=== PATIENT | female | born 1965 | race Caucasian/White ===

== ENCOUNTER 2023-12-12 10:34 | Outpatient (AMB) | payer OTHER, SELFPAY ==
[2023-12-12 10:42] VITALS: BP 138/78; PULSE 88; O2SAT 98; BMI 28.6
--- NOTE | 2023-12-12 10:42 | A.OFFPC_ITS ---
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 Allergies No Known Allergies Allergy (Verified 12/12/23 10:47) Tobacco use date assessed: 12/12/23 Dental Screening Dental Screen Date: 12/12/23 Did you have a dental visit in the last 12 months?: Yes Did you have a dental problem in the last 6 months where you did not have access to dental care?: No Was dental information given to patient?: Patient has dentist HPI HPI Comments History of Present Illness Details This is a 58-year-old female with a past medical history of type 2 diab etes, hypertension and hyperlipidemia presenting to transfer from my practice at [facility]. She was last seen there about a year ago. Type 2 diabetes-the patient was last seen by endocrinology at [facility] about a year ago. Her hemoglobin A1c at that time was 7.2%. She believes it will be higher now. Her POC is 311 today. She has been off her Ozempic for several months because her graduate studies dean would not fill it without seeing her. She is taking glipizide 5 mg once or twice a day and metformin 1000 mg twice daily. She has not checking her blood sugars. Hypertension-taking losartan 100 mg. She does not have a blood pressure monitor at home. Her blood pressure is 138/78. Hyperlipidemia-taking rosuvastatin 10 mg daily. Patient endorses a 2/10 discomfort in her left upper abdomen for the past couple of months. She has a new Jameson, and he is very active so she thought he might have jumped on her. She thinks symptoms may be worse after eating, but she is unsure. Pain does not radiate. No vomiting, nausea, acid reflux, chest pain, shortness of breath or unexplained weight loss. She has felt some fatigue since she had COVID-19. She was previously on Paxil for anxiety. Patient also says she has a yeast infection today. She has vaginal itching. No discharge. She thinks this is due to her sugars being higher since she ran out of meds. ROS: Constitutional: No unexplained weight loss, fever, chills or night sweats. Eyes: No vision changes, blurry vision, double vision, eye pain, eye redness, eye discharge. ENT: No hearing loss, sneezing, congestion, runny nose or sore throat. Respiratory: No shortness of breath, cough or sputum production. Cardiovascular: No chest pain, chest pressure or chest discomfort. No palpitations or pedal edema. Gastrointestinal: No anorexia, nausea, vomiting or diarrhea. No blood in stool. Genitourinary: No dysuria, hematuria, urinary frequency. Neurologic: No headache, dizziness, syncope, unilateral weakness, ataxia, numbness or tingling in the extremities. Hematologic/Lymphatics: No bleeding or bruising. Skin: No rash or itching. Endocrine: No cold or heat intolerance. No polyuria or polydipsia. Psychiatric: No SI/HI. Physical exam: Constitutional: Alert, in no distress. Head: Normocephalic. Neck: Supple, Full range of motion. No lymphadenopathy. Respiratory: Clear to auscultation. Cardiovascular: S1 S2 regular. No murmurs. Gastrointestinal: Abdomen soft, +mild tenderness in the left upper quadrant, abdomen is non-distended. Normal bowel sounds. No palpable masses. Genitourinary: No costovertebral angle tenderness. Extremities: Warm and well perfused. No clubbing, cyanosis or edema. Psychiatric: Normal mood and affect [facility] Medical History (Updated 12/12/23 @ 14:11 by LARY Mejía) Anxiety Pure hypercholesterolemia Left upper quadrant pain Fatigue Essential hypertension Type 2 diabetes mellitus Torn ligament High cholesterol High blood pressure Diabetes Family History (Updated 12/12/23 @ 10:59 by Gayatri Solano CMA) Father Colon cancer Mother Diabetes Social History Household Members: Significant Other Housing: House Are you a primary vehicle care specialist to a significant other at home: No Do you presently have visiting nurse or other home services: No Alcohol intake: current Alcohol type: wine Patient Tobacco Use Status: Former Tobacco user e-Cigarette/Vaping Use: Currently Using Special reanna needs: No service: No Current occupational status: employed Current occupation: service diapatcher Cognitive needs: No Hearing needs: No Vision needs: Yes (Patient wears glasses.) Physical exam (Primary Care) BMI result Body Mass Index 28.6 Results AMB Random Glucose (hemocue) AMB Random Glucose (hemocue) 311 mg/dL Last Edit by Gayatri Solano CMA on 12/12/23 12:12 Assessment and Plan Assessment & Plan (1) Type 2 diabetes mellitus: Code(s): E11.9 - Type 2 diabetes mellitus without complications Qualifiers: Diabetes mellitus longterm insulin use: without emt intermediate use Diabetes mellitus complication status: with hyperglycemia Qualified Code(s): E11.65 - Type 2 diabetes mellitus with hyperglycemia Plan: Encouraged patient to check blood glucose regularly to review at appointments. Continue glipizide 5 mg twice a day, metformin 1000 mg twice a day and restart Ozempic. We started at 0.5 mg since she has been out of it for several months to mitigate GI symptoms, but I expect we will need to titrate it. Check diabetic labs. Recommended annual eye exam. (2) Essential hypertension: Code(s): I10 - Essential (primary) hypertension Plan: Given prescription for blood pressure cuff. Bring home readings to next visit. We will change medications if home readings are not 130/80 or less. Recommended avoidance of caffeine and a low-sodium diet. (3) Fatigue: Code(s): R53.83 - Other fatigue Qualifiers: Fatigue type: chronic, unspecified Qualified Code(s): R53.82 - Chronic fatigue, unspecified Plan: Patient attributes to fatigue to prior COVID-19 infection. Check labs. Consider sleep study for persistent symptoms. (4) Left upper quadrant pain: Code(s): R10.12 - Left upper quadrant pain Plan: Check H pylori antigen, screening labs and abdominal ultrasound. Warning signs warranting ER evaluation reviewed. If symptoms persist consider CT abdomen. (5) Pure hypercholesterolemia: Code(s): E78.00 - Pure hypercholesterolemia, unspecified Plan: Continue rosuvastatin. Check fasting lipid profile. Recommended Mediterranean diet. (6) Vaginitis: Code(s): N76.0 - Acute vaginitis Qualifiers: Chronicity: acute Qualified Code(s): N76.0 - Acute vaginitis Plan: Treat with Diflucan. Follow up with OBGYN if symptoms persist. Plan Follow up in 1 month for diabetes, hypertension and abdominal pain recheck. Orders: Orders Hemoglobin A1c Today E11.9 - Type 2 diabetes mellitus without complications, I10 - Essential (primary) hypertension Comprehensive [place]. Panel Fast Today E11.9 - Type 2 diabetes mellitus without complications, I10 - Essential (primary) hypertension Lipase Today R10.12 - Left upper quadrant pain H pylori Ag Stool Today R10.12 - Left upper quadrant pain Microalbumin, Random (w Creat) Today E11.9 - Type 2 diabetes mellitus without complications, I10 - Essential (primary) hypertension Lipid Panel Today E11.9 - Type 2 diabetes mellitus without complications, I10 - Essential (primary) hypertension Complete Blood Count Auto Diff Today E11.9 - Type 2 diabetes mellitus without complications Amylase Today R10.12 - Left upper quadrant pain TSH reflex Free T4 Today E66.9 - Obesity, unspecified, R53.83 - Other fatigue Vitamin B12 Today R53.83 - Other fatigue US abdomen complete Today R10.12 - Left upper quadrant pain AMB Random Glucose (hemocue) Today E11.9 - Type 2 diabetes mellitus without complications Medications: New losartan 100 mg PO DAILY 90 tabs 3RF semaglutide (Ozempic) 0.5 mg (0.736 mL) subcut QWEEK 3 mL 0RF metformin ER 1,000 mg (2 x 500 mg) PO BID 90 days 360 tabs 3RF fluconazole 150 mg PO Q3D 2 tabs 0RF blood pressure monitor As directed 1 ea 0RF glipizide 5 mg PO BID 90 days 180 tabs 3RF Coding Level of Care Code Est Pt Level 4 (95979) Complex EM visit Add On G2211 Diagnoses Type 2 diabetes mellitus with hyperglycemia, without long-term current use of insulin E11.65 Diabetes mellitus longterm insulin use: without emt intermediate use Diabetes mellitus complication status: with hyperglycemia Essential hypertension I10 Chronic fatigue R53.82 Fatigue type: chronic, unspecified Left upper quadrant pain R10.12 Pure hypercholesterolemia E78.00 Acute vaginitis N76.0 Chronicity: acute
== END 2023-12-12 12:17 | disposition home or self-care (01) ==
PROVIDERS: PCP Physician Assistant Medical; Visit Provider Physician Assistant Medical
DX: E11.65 Type 2 diabetes mellitus with hyperglycemia (principal); I10 Essential (primary) hypertension; R53.82 Chronic fatigue, unspecified; R10.12 Left upper quadrant pain; E78.00 Pure hypercholesterolemia, unspecified; N76.0 Acute vaginitis; E11.9 Type 2 diabetes mellitus without complications
CPT/HCPCS: 82948; 99214

== ENCOUNTER 2023-12-13 09:29 | Outpatient (REF) | payer OTHER, SELFPAY ==
[2023-12-13 11:32] LABS: MANUAL DIFF FLAG NO
[2023-12-13 11:39] LABS: Basophils Absolute Auto 0.1 X10*3/uL (0.0-0.2); Basophils Percent Auto 0.6 % (0-2); Eosinophils Absolute Auto 0.2 X10*3/uL (0.0-0.4); Eosinophils Percent Auto 2.4 % (0-4); Hematocrit 41.5 % (37.0-47.0); Hemoglobin 13.6 g/dl (12.0-16.0); Imm Gran Abs Auto 0.03 X10*3/uL (0.00-0.03); Imm Gran Pct Auto 0.4 % (0.0-0.4); Lymphocytes Absolute Auto 1.9 X10*3/uL (1.2-4.9); Lymphocytes Percent Auto 22.6 % (20-40); Mean Corpuscular HGB Conc 32.8 g/dl (31.0-35.0); Mean Corpuscular Hemoglobin 28.3 pg (27.0-33.0); Mean Corpuscular Volume 86.3 fL (80.0-98.0); Mean Platelet Volume 9.6 fL (9.4-12.3); Monocytes Absolute Auto 0.6 X10*3/uL (0.1-1.2); Monocytes Percent Auto 7.2 % (2-11); Neutrophils Absolute Auto 5.6 x10*3/uL (2.0-8.3); Neutrophils Percent Auto 66.8 % (45-73); Platelet Count 280 X10*3/uL (160-400); Red Blood Count 4.81 X10*6/uL (4.20-5.50); Red Cell Distribution Width 12.5 % (11.0-16.0); White Blood Count 8.4 X10*3/uL (4.8-10.8)
[2023-12-13 12:09] LABS: Hemoglobin A1c % > 14.0 % (<6.0)
[2023-12-13 12:17] LABS: Creatinine Urine 145.56 mg/dL; Microalbum/Creatinine Ratio Ur 43.2 ug/mg cr (<30)
[2023-12-13 12:28] LABS: Alanine Aminotransferase 16 U/L (0-31); Albumin Level 3.9 g/dL (3.5-5.0); Alkaline Phosphatase 110 U/L (39-117); Amylase 60 U/L (28-100); Anion Gap 11 (12-20); Aspartate Amino Transferase 15 U/L (5-31); Bilirubin Total 0.4 mg/dL (0.0-1.0); Blood Urea Nitrogen 10 mg/dL (9-16); Calcium 9.3 mg/dL (8.4-10.2); Carbon Dioxide 29 mmol/L (22-29); Chloride 101 mmol/L (96-108); Cholesterol 144 mg/dL (<200); Estimated Glomerular Filt Rate > 60; Glucose Fasting 345 mg/dL (60-99); HDL Cholesterol 67 mg/dL (>40); LDL Cholesterol Calculated 63 mg/dL (<100); Lipase 75 U/L (8-78); Potassium 4.3 mmol/L (3.3-5.1); Sodium 137 mmol/L (135-145); Total Protein 7.3 g/dL (6.5-8.0); Triglycerides 71 mg/dL (<150)
[2023-12-13 12:44] LABS: TSH reflex Free T4 0.65 uIU/mL (0.32-4.0)
[2023-12-13 12:48] LABS: Vitamin B12 441 pg/mL (200-900)
== END 2023-12-13 09:30 | disposition home or self-care (01) ==
LOC: HO.WFDLDS 09:29
PROVIDERS: Visit Provider Physician Assistant Medical
DX: E11.9 Type 2 diabetes mellitus without complications (principal); R10.12 Left upper quadrant pain; I10 Essential (primary) hypertension; E66.9 Obesity, unspecified; R53.83 Other fatigue
CPT/HCPCS: 36415; 80053; 80061; 82043; 82150; 82570; 82607; 83036; 83690; 84443; 85025

== ENCOUNTER 2023-12-19 07:42 | Outpatient (REF) | payer OTHER, SELFPAY ==
--- NOTE | ~2023-12-19 | US_ITS ---
EXAMINATION: US ABDOMEN COMPLETE CLINICAL INFORMATION: Left upper quadrant pain. COMPARISON: None available. TECHNIQUE: Real-time imaging of the abdominal viscera. FINDINGS: PANCREAS: Normal. ABDOMINAL AORTA: The proximal, mid, and distal segments are normal in caliber. INFERIOR VENA CAVA: Visualized portions are normal. LIVER: Normal. The liver is normal in size. The liver contour is normal. Parenchymal echogenicity is normal. No focal hepatic lesion. There is no intrahepatic biliary duct dilatation seen. GALLBLADDER: A few gallbladder polyps measuring up to 3 mm. Possible gallstone in the gallbladder neck. The gallbladder is physiologically distended. No evidence of gallbladder wall thickening or pericholecystic fluid. COMMON BILE DUCT: Normal in caliber measuring 0.48 cm in diameter. RIGHT KIDNEY: A 5 mm echogenic right upper pole renal lesion possibly a small angiomyolipoma or parenchymal calcification. No hydronephrosis. No renal calculi or focal parenchymal lesions. The kidney measures 12.0 cm in maximum dimension. LEFT KIDNEY: Subcentimeter benign-appearing renal cyst, no follow-up imaging recommended. No hydronephrosis or renal calculi. The kidney measures 11.4 cm in maximum dimension. SPLEEN: Normal. The spleen measures 9.5 cm in maximum dimension. FREE FLUID: None. US/US abdomen complete IMPRESSION: * Possible gallstone in the gallbladder neck without findings to suggest acute cholecystitis. * A 5 mm echogenic right upper pole renal lesion possibly a small angiomyolipoma or parenchymal calcification. * Few small gallbladder polyps measuring up to 3 mm.
== END 2023-12-19 07:43 | disposition home or self-care (01) ==
LOC: HO.US 07:42
PROVIDERS: PCP Physician Assistant Medical; Visit Provider Physician Assistant Medical
DX: R10.12 Left upper quadrant pain (principal)
CPT/HCPCS: 76700; 87338

== ENCOUNTER 2024-01-30 11:41 | Outpatient (AMB) | payer OTHER, SELFPAY ==
--- NOTE | 2024-01-30 11:45 | A.OFFPC_ITS ---
Vital Signs 01/30/24 11:48 Height 5 ft 4 in Weight 161 lb 8 oz BMI 27.7 BP 134/76 Blood Pressure Location Rt brachial Position Sitting Respiration 16 Pulse 96 Pulse Source Pulse Oximeter Pulse Oximetry (%) 98 Oxygen Delivery Method Room Air Intake Visit Reasons: FollowUp, abd pain Intake Note: follow up on abd pain. Allergies No Known Allergies Allergy (Verified 01/30/24 11:48) Medication List - Last Reconciled 01/30/24 by LARY Mejía barium sulfate 2.1%(w/v),2.0%(w/w) Follow instructions per radiology. blood pressure monitor As directed blood-glucose meter,continuous (Dexcom G7 Director Of Testing) As directed blood-glucose sensor (Dexcom G7 Sensor device) apply to skin and replace after 10 days to monitor blood glucose for type 2 diabetes glipizide 5 mg PO DAILY insulin glargine (Lantus Solostar U-100 Insulin) 8 units subcut .qhs losartan 100 mg PO DAILY metformin ER 1,000 mg (2 x 500 mg) PO BID 90 days pen needle, diabetic (BD Ultra-Fine Short Pen Needle) To use with Lantus solostar pen rosuvastatin 10 mg PO DAILY semaglutide (Ozempic) 2 mg (0.75 mL) subcut QWEEK Tobacco use date assessed: 12/12/23 Dental Screening Dental Screen Date: 12/12/23 HPI HPI Comments History of Present Illness Details This is a 58-year-old female with a past medical history of uncontrolled type 2 diabetes, hypertension, hyperlipidemia and anxiety presenting for a follow up for appt. She reestablished care with [facility] on 12/12/2023. She had run out of Ozempic, and she was taking glipizide and metformin. Her glucose was 345, hemoglobin A1c over 14%. She has microalbumin. She is on losartan. Hyperlipidemia is treated with 10 mg of rosuvastatin. She was started back on Ozempic 0.5 mg with the addition of Lantus 5 units at bedtime, and she was instructed to take glipizide 5 mg twice a day and continue metformin a 1000 mg twice daily. She picked up the Dexcom G7, but she has not used it yet. She has an iPhone. The asthma educator contacted her to schedule, but she has not been able to do this because she has a lot going on personally. She has been using a glucometer to monitor her blood sugar. BH 90-148 within the last week. States AM fasting readings tend be higher. She had a couple lows (felt low but didn't check BG) within the past month in afternoon. She has modified her diet. She is following a low carb, low sugar diet. She continues to have pain in her left upper abdomen. It is unchanged. She had an completed on 12/19/2023 which showed a few gallbladder polyps measuring up to 3 mm and a possible gallstone in the gallbladder neck and no evidence of c holecystitis. There was also a 5 mm echogenic right upper pole renal lesion possibly a small angiolipoma or parenchymal calcification per report. There was also a sub cm benign-appearing left renal cyst. Patient was referred to General surgery and Urology to follow up on these findings. She had a normal CBC 12/13/2023. Lipase, amylase, LFTs, TSH also normal. H pylori stool antigen testing 12/19/23. She says she has a lot going on. She is tearful. She has a history of anxiety. She feels like she is under a lot of stress. States her daughter and her do not get along. She was previously on 20 mg of paroxetine. She has it at home, and she may want to restart it. She was also interested in getting the name of a therapist. ROS: Constitutional: No unexplained weight loss, fever, chills, fatigue or night sweats. Respiratory: No shortness of breath, cough or sputum production. Cardiovascular: No chest pain Gastrointestinal: No anorexia, nausea, vomiting or diarrhea. No blood in stool. Genitourinary: No dysuria, hematuria, urinary frequency. Skin: No rash or itching. Endocrine: No cold or heat intolerance. No polyuria or polydipsia. Psychiatric: No SI/HI. Physical exam: Constitutional: Alert, in no distress.c. Eyes: Pupils are equal, round and reactive to light. Extraocular muscles intact. Neck: Supple, Full range of motion. No lymphadenopathy. Respiratory: Clear to auscultation. Cardiovascular: S1 S2 regular. No murmurs. Gastrointestinal: Abdomen soft, mild tenderness LUQ, no rebound or guarding, non-distended. Normal bowel sounds. No palpable masses. Extremities: Warm and well perfused. No clubbing, cyanosis or edema Psychiatric: Normal mood and affect [facility] Medical History (Updated 01/30/24 @ 13:41 by LARY Mejía) Microalbuminuria Renal cyst, left Renal lesion Gallbladder polyp Anxiety Pure hypercholesterolemia Left upper quadrant pain Fatigue Essential hypertension Type 2 diabetes mellitus Torn ligament High cholesterol High blood pressure Diabetes Family History (Updated 12/12/23 @ 10:59 by Gayatri Solano CMA) Father Colon cancer Mother Diabetes Social History (Updated 12/12/23 @ 11:03 by Gayatri Solano CMA) Household Members: Significant Other Housing: House Are you a primary medicare insurance specialist to a significant other at home: No Do you presently have visiting nurse or other home services: No Alcohol intake: current Alcohol type: wine Patient Tobacco Use Status: Former Tobacco user e-Cigarette/Vaping Use: Currently Using Special reanna needs: No service: No Current occupational status: employed Current occupation: service diapatcher Cognitive needs: No Hearing needs: No Vision needs: Yes (Patient wears glasses.) Physical exam (Primary Care) Vital Signs: Last Vital Signs Pulse 96 01/30/24 11:48 Resp 16 01/30/24 11:48 BP 134/76 01/30/24 11:48 Pulse Ox 98 01/30/24 11:48 Oxygen Delivery Method Room Air 01/30/24 11:48 BMI result Body Mass Index 27.7 Tobacco/Smoking Status: Tobacco use Status Tobacco use date assessed 12/12/23 01/30/24 11:47 Patient Tobacco Use Status Former Tobacco user 01/30/24 11:47 e-Cigarette/Vaping Use Currently Using 01/30/24 11:47 Assessment and Plan Assessment & Plan (1) Gallbladder polyp: Code(s): K82.4 - Cholesterolosis of gallbladder (2) Essential hypertension: Code(s): I10 - Essential (primary) hypertension (3) Pure hypercholesterolemia: Code(s): E78.00 - Pure hypercholesterolemia, unspecified (4) Type 2 diabetes mellitus: Code(s): E11.9 - Type 2 diabetes mellitus without complications Qualifiers: Diabetes mellitus retail business manager insulin use: without skilled nursing use Diabetes mellitus complication status: with hyperglycemia Qualified Code(s): E11.65 - Type 2 diabetes mellitus with hyperglycemia (5) Microalbuminuria: Code(s): R80.9 - Proteinuria, unspecified (6) Anxiety: Code(s): F41.9 - Anxiety disorder, unspecified Plan Patient will follow up with General surgery regarding gallbladder pathology noted on ultrasound. It is unlikely that this is causing her pain since it is it is left-sided. We will proceed with CT of the abdomen with IV and oral contrast. Instructed patient to pick pulling machine tender oral contrast from the pharmacy once the CT is scheduled. I sent a message to have this faxed to [facility]. Increase Lantus to 8 units at bedtime due to report of higher blood sugars in the morning, stop morning dose of glipizide due to noon hypoglycemia. Increase Ozempic to 2 mg. Stop glipizide if any further episodes of hypoglycemia. Continue metformin 1000 mg twice daily. Reviewed treatment of hypoglycemia. She may resume Paxil at home. She will request a refill if needed. Side effects and administration reviewed. Continue rosuvastatin for hyperlipidemia. Continue losartan for renal protection and hypertension. Follow up with Urology regarding possible angiomyolipoma versus parenchymal calcification on ultrasound. Follow up in 3 months for diabetes Orders: Orders Hemoglobin A1c 2 Months E11.65 - Type 2 diabetes mellitus with hyperglycemia Basic Metabolic Panel 2 Months E11.65 - Type 2 diabetes mellitus with hyperglycemia CT abdomen w IV con Today R10.12 - Left upper quadrant pain Medications: New barium sulfate 2.1%(w/v),2.0%(w/w) Follow instructions per radiology. 900 mL 0RF semaglutide (Ozempic) 2 mg (0.75 mL) subcut QWEEK 3 mL 5RF Changed From insulin glargine (Lantus Solostar U-100 Insulin) 5 units (0.05 mL) subcut .qhs 15 mL 5RF To insulin glargine (Lantus Solostar U-100 Insulin) 8 units subcut .qhs Discontinued fluconazole Discontinued Reason: Doctor's Order 150 mg PO Q3D 2 tabs 0RF semaglutide (Ozempic) Discontinued Reason: Doctor's Order 1 mg (0.75 mL) subcut QWEEK 3 mL 0RF Coding Level of Care Code Est Pt Level 4 (49304) Complex EM visit Add On G2211 Diagnoses Gallbladder polyp K82.4 Essential hypertension I10 Pure hypercholesterolemia E78.00 Type 2 diabetes mellitus with hyperglycemia, without long-term current use of insulin E11.65 Diabetes mellitus retail business manager insulin use: without retail business manager use Diabetes mellitus complication status: with hyperglycemia Microalbuminuria R80.9 Anxiety F41.9
[2024-01-30 11:48] VITALS: BP 134/76; PULSE 96; RESP 16; O2SAT 98; BMI 27.7
== END 2024-01-30 12:37 | disposition home or self-care (01) ==
PROVIDERS: PCP Physician Assistant Medical; Visit Provider Physician Assistant Medical
DX: K82.4 Cholesterolosis of gallbladder (principal); I10 Essential (primary) hypertension; E78.00 Pure hypercholesterolemia, unspecified; E11.65 Type 2 diabetes mellitus with hyperglycemia; R80.9 Proteinuria, unspecified; F41.9 Anxiety disorder, unspecified
CPT/HCPCS: 99214

== ENCOUNTER 2024-02-20 15:19 | Outpatient (AMB) | payer OTHER, SELFPAY ==
[2024-02-20 15:23] VITALS: BMI 27.5
--- NOTE | 2024-02-20 15:23 | MHC.OFFVIS ---
Vital Signs 02/20/24 15:23 Height 5 ft 4 in Weight 160 lb 6 oz BMI 27.5 Intake Visit Reasons: gallbladder polyps Intake Note: This patient presents for gallbladder polyps. Pt c/o; reports no RUQ pain, reports no postprandial nausea or vomiting, reports no changes to bowel habits, reports LUQ pain. Abd US : 12/19/2023 Skid Strapper Required: No Accompanied by: Self / Same As Patient Allergies No Known Allergies Allergy (Verified 02/20/24 15:30) Medication List - Last Reconciled 02/20/24 by Tim Pan MD barium sulfate 2.1%(w/v),2.0%(w/w) Follow instructions per radiology. blood pressure monitor As directed blood-glucose meter,continuous (Dexcom G7 Form Set[employer]) As directed blood-glucose sensor (Dexcom G7 Sensor device) apply to skin and replace after 10 days to monitor blood glucose for type 2 diabetes glipizide 5 mg PO DAILY insulin glargine (Lantus Solostar U-100 Insulin) 8 units subcut .qhs losartan 100 mg PO DAILY metformin ER 1,000 mg (2 x 500 mg) PO BID 90 days pen needle, diabetic (BD Ultra-Fine Short Pen Needle) To use with Lantus solostar pen rosuvastatin 10 mg PO DAILY semaglutide (Ozempic) 2 mg (0.75 mL) subcut QWEEK HPI HPI gallbladder polyps: Details: 58-year-old female referred for gallbladder polyp on ultrasound. She had an abdominal ultrasound done last 12/21/2023 because of what she thought was a sharp pain on the left side of her lower ribs. There was an incidental finding of 3 mm gallbladder polyp. There was also question of a gallstone but this was equivocal She actually denies any pain in the right side of her abdomen. She denies any GI symptoms. She has good oral intake. She says she feels well overall. She does undergo a colonoscopy of the 3-5 years because of his history of colon cancer in her father. [facility] Medical History Microalbuminuria Renal cyst, left Renal lesion Gallbladder polyp Anxiety Pure hypercholesterolemia Left upper quadrant pain Fatigue Essential hypertension Type 2 diabetes mellitus Torn ligament High cholesterol High blood pressure Diabetes Family History Father Colon cancer Mother Diabetes Social History Household Members: Significant Other Housing: House Are you a primary day care aide to a significant other at home: No Do you presently have visiting nurse or other home services: No Alcohol intake: current Alcohol type: wine Patient Tobacco Use Status: Former Tobacco user e-Cigarette/Vaping Use: Currently Using Special reanna needs: No service: No Current occupational status: employed Current occupation: service diapatcher Cognitive needs: No Hearing needs: No Vision needs: Yes (Patient wears glasses.) Review of Systems Const Denies chills and Denies fever(s) Card Denies chest pain, Denies dyspnea and Denies dyspnea on exertion Resp Denies cough, Denies dyspnea and Denies dyspnea on exertion GI Denies hematochezia and Denies change in bowel habits Denies hematuria Musc Denies back pain and Denies limited range of motion Neuro Denies focal weakness and Denies convulsions Psych Denies depression and Denies mood swings Physical Exam Vital Signs: BMI result Body Mass Index 27.5 Const General: comfortable and no acute distress Orientation/consciousness: patient oriented x3 Eyes Other: Anicteric Neck Neck: Yes no lymphadenopathy Resp Auscultation: clear to auscultation bilaterally Cardio Rhythm: regular rhythm GI Other: No William's sign Palpation (GI): Soft to palpation, nontender and no guarding Neuro General: patient oriented x3 Assessment & Plan Assessment & Plan (1) Gallbladder polyp: Code(s): K82.4 - Cholesterolosis of gallbladder Category: Medical Plan: She has a 3 mm gallbladder polyp seen on ultrasound. She actually does not have any pain on the right side of her abdomen at all. The ultrasound was done because of what she says was some sharp pains on the lower ribs on the left side I told her that cholecystectomy is not indicated for a 3 mm gallbladder polyp. I would however recommend repeating the ultrasound within 1 year to follow this polyp and this was also show whether she does have gallstones or not She seems to be comfortable with the plan. She understands this well and all questions were answered. Coding Level of Care Code New Pt Level 3 (69772) Diagnoses Gallbladder polyp K82.4
== END 2024-02-20 15:39 | disposition home or self-care (01) ==
PROVIDERS: PCP Physician Assistant Medical; Visit Provider Surgery
DX: K82.4 Cholesterolosis of gallbladder (principal)
CPT/HCPCS: 99203

== ENCOUNTER → 2024-02-20 15:19 | Outpatient (BNVA) | payer OTHER, SELFPAY | PROVIDERS: PCP Physician Assistant Medical; Visit Provider Surgery ==

== ENCOUNTER 2024-03-19 14:44 | Outpatient (AMB) | payer OTHER, SELFPAY ==
--- NOTE | 2024-03-19 14:49 | A.OFFVIS_ITS ---
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 She denies bothersome urinary symptoms. I reviewed and discussed US findings with patient. Plan CT abd-renal mass protocol. Abd US--12/19/23--5 mm echogenic right upper pole renal lesion possibly a small angiomyolipoma or parenchymal calcification. Other findings noted possible gallstone in the gallbladder neck, small gallbladder polyps measuring up to 3 mm. [facility] Medical History Microalbuminuria Renal cyst, left Renal lesion Gallbladder polyp Anxiety Pure hypercholesterolemia Left upper quadrant pain Fatigue Essential hypertension Type 2 diabetes mellitus Torn ligament High cholesterol High blood pressure Diabetes Family History Father Colon cancer Mother Diabetes Social History Household Members: Significant Other Housing: House Are you a primary menagerie caretaker to a significant other at home: No Do you presently have visiting nurse or other home services: No Alcohol intake: current Alcohol type: wine Patient Tobacco Use Status: Former Tobacco user e-Cigarette/Vaping Use: Currently Using Special reanna needs: No service: No Current occupational status: employed Current occupation: service diapatcher Cognitive needs: No Hearing needs: No Vision needs: Yes (Patient wears glasses.) Review of Systems Const All systems reviewed & are unremarkable except as noted in HPI and below Reports no additional complaints Eyes Reports no additional complaints ENT Reports no additional complaints Card Reports no additional complaints Resp Reports no additional complaints GI Reports no additional complaints Reports as per HPI Musc Reports no additional complaints Skin/Breast Reports system reviewed and no additional complaints, except as documented Neuro Reports no additional complaints Psych Reports no additional complaints Endo Reports no additional complaints Fito/Lymph Reports no additional complaints Aller/Immun Reports no additional complaints Physical Exam Const General: cooperative, healthy appearing and no acute distress Orientation/consciousness: patient oriented x3 HEENT Head: Yes normal to inspection, Yes normocephalic and Yes atraumatic Eyes Conjunctivae: conjunctivae normal Neck Neck: Yes normal visual inspection and Yes trachea midline Chest Chest palpation & inspection: normal inspection of the chest Resp Effort & Inspection: normal respiratory effort Cardio Rate: regular rate GI Inspection: Yes normal to inspection Palpation (GI): Soft to palpation Skin General skin exam: no rashes or lesions noted Neuro General: patient oriented x3 Extrem General: No edema Psych Appearance: grossly normal Results AMB Urinalysis, Automated UA Leukoctes 125 Daria/uL Last Edit by VÍCTOR Dietz on 03/19/24 15:00 UA Nitrite Negative Last Edit by Kaylee Dockery CCM on 03/19/24 15:00 UA Urobilinogen 0.2 mg/dL Last Edit by VÍCTOR Dietz on 03/19/24 15:0 0 UA Protein 15 mg/dL Last Edit by Kaylee Dockery CCM on 03/19/24 15:00 UA pH 5.5 Last Edit by Kyalee Dockery CCM on 03/19/24 15:00 UA Blood 0 Lawrence/uL Last Edit by Kaylee Dockery CCM on 03/19/24 15:00 UA Specific [place] 1.025 Last Edit by VÍCTOR Dietz on 03/19/24 15: 00 UA Ketone Negative Last Edit by VÍCTOR Dietz on 03/19/24 15:00 UA Bilirubin 0 mg/dL Last Edit by VÍCTOR Dietz on 03/19/24 15:00 UA Glucose 0 mg/dL Last Edit by Kaylee Dockery [facility] on 03/19/24 15:00 Results Reviewed Results Reviewed: Laboratory Last Values Urine pH (Auto) 5.5 03/19/24 14:59 Specific [place] (Auto) 1.025 03/19/24 14:59 Urine Protein (Auto) 15 mg/dL 03/19/24 14:59 Glucose (UA)(Auto) 0 mg/dL 03/19/24 14:59 Urine Ketones (Auto) Negative 03/19/24 14:59 Urine Blood (Auto) 0 [place]/uL 03/19/24 14:59 Urine Nitrite (Auto) Negative 03/19/24 14:59 Urine Bilirubin (Auto) 0 mg/dL 03/19/24 14:59 Urine Urobilinogen (Auto) 0.2 mg/dL 03/19/24 14:59 Leukocyte Esterase (Auto) 125 Daria/uL 03/19/24 14:59 Date of Service: 12/19/23 US ABDOMEN COMPLETE CLINICAL INFORMATION: Left upper quadrant pain. COMPARISON: None available. TECHNIQUE: Real-time imaging of the abdominal viscera. FINDINGS: PANCREAS: Normal. ABDOMINAL AORTA: The proximal, mid, and distal segments are normal in caliber. INFERIOR VENA CAVA: Visualized portions are normal. LIVER: Normal. The liver is normal in size. The liver contour is normal. Parenchymal echogenicity is normal. No focal hepatic lesion. There is no intrahepatic biliary duct dilatation seen. GALLBLADDER: A few gallbladder polyps measuring up to 3 mm. Possible gallstone in the gallbladder neck. The gallbladder is physiologically distended. No evidence of gallbladder wall thickening or pericholecystic fluid. COMMON BILE DUCT: Normal in caliber measuring 0.48 cm in diameter. RIGHT KIDNEY: A 5 mm echogenic right upper pole renal lesion possibly a small angiomyolipoma or parenchymal calcification. No hydronephrosis. No renal calculi or focal parenchymal lesions. The kidney measures 12.0 cm in maximum dimension. LEFT KIDNEY: Subcentimeter benign-appearing renal cyst, no follow-up imaging recommended. No hydronephrosis or renal calculi. The kidney measures 11.4 cm in maximum dimension. SPLEEN: Normal. The spleen measures 9.5 cm in maximum dimension. FREE FLUID: None. IMPRESSION: * Possible gallstone in the gallbladder neck without findings to suggest acute cholecystitis. * A 5 mm echogenic right upper pole renal lesion possibly a small angiomyolipoma or parenchymal calcification. * Few small gallbladder polyps measuring up to 3 mm. Assessment & Plan Assessment & Plan (1) Renal lesion: Code(s): N28.9 - Disorder of kidney and ureter, unspecified Category: Medical (2) Abnormal US (ultrasound) of abdomen: Code(s): R93.5 - Abnormal findings on diagnostic imaging of other abdominal regions, including retroperitoneum Category: Medical Plan CT abd- renal mass protocol Orders: Orders AMB Urinalysis Automated 03/19/24 Z13.9 - Encounter for screening, unspecified Patient Instructions: The patient had an opportunity to ask questions regarding treatment plan. The patient expressed understanding and agreement with the above treatment plan. The patient is aware they should contact our office by phone for worsening of their current condition or the appearance of new symptoms. Compliance is encouraged with any medications and followup testing that is ordered. It is a privilege to be allowed the opportunity to participate in the urologic care of your patient. If you have any questions or concerns regarding treatment for the above conditions please do not hesitate to contact me. The office telephone contact is [phone]. This note is constructed in part using voice recognition software. While every effort has been made to ensure accuracy sheet sorter errors may have been inclu ded. Yours sincerely, Rene Ramírez MD Coding Level of Care Code New Pt Level 4 (97672) Diagnoses Renal lesion N28.9 Abnormal US (ultrasound) of abdomen R93.5
== END 2024-03-19 15:33 | disposition home or self-care (01) ==
PROVIDERS: PCP Physician Assistant Medical; Visit Provider Urology
DX: N28.9 Disorder of kidney and ureter, unspecified (principal); R93.5 Abnormal findings on diagnostic imaging of other abdominal regions, including retroperitoneum
CPT/HCPCS: 99204

== ENCOUNTER → 2024-03-19 14:44 | Outpatient (BNVA) | payer OTHER, SELFPAY | PROVIDERS: PCP Physician Assistant Medical; Visit Provider Urology | DX: N28.9 Disorder of kidney and ureter, unspecified (principal); R93.5 Abnormal findings on diagnostic imaging of other abdominal regions, including retroperitoneum | CPT/HCPCS: 81003 ==

== ENCOUNTER 2024-03-25 09:39 | Outpatient (REF) | payer OTHER, SELFPAY ==
--- NOTE | ~2024-03-25 | CT_ITS ---
EXAMINATION: CT ABDOMEN WITH CONTRAST CLINICAL INFORMATION: Left upper quadrant abdominal pain. COMPARISON: No priors. Correlated to ultrasound dated December 19, 2023. TECHNIQUE: Contiguous axial thin section helical images of the abdomen were performed following the administration of oral contrast and 85 mL of Omnipaque 350 intravenous contrast. The data set was reformatted in the coronal and sagittal planes and reviewed on an independent workstation. This CT examination was performed using dose optimization techniques as appropriate, variously including the following: *Automated exposure control *Adjustment of mA and/or kV according to patient size (this includes techniques or standardized protocols for targeted exams where dose is matched to indication/reason for exam; i.e. extremities or head) *Use of iterative reconstruction technique DLP: 183 mGy-cm FINDINGS: Submitted for interpretation on May 07, 2024. LUNG BASES: Atelectasis lung bases. No acute airspace disease or gross pulmonary nodules in the included lungs. LIVER, GALLBLADDER, AND BILIARY TREE: Liver measures 16 cm. No focal mass. Portal veins, hepatic veins are patent. Questionable cholelithiasis. No pericholecystic fluid collection or gallbladder wall thickening. No intrahepatic or extrahepatic biliary ductal dilatation.. PANCREAS: No focal pancreatic mass. No peripancreatic fluid collection. No main pancreatic ductal dilatation. Focal calcification in the body of the pancreas likely vascular. SPLEEN: 9 cm. No focal lesion. Small accessory spleen. ADRENAL GLANDS AND KIDNEYS: No nodular lesion in the adrenal glands. Normal enhancement pattern of the renal parenchyma without gross mass. No hydronephrosis. Probable subcentimeter cyst in the corticomedullary junction midportion/lower pole left kidney. BOWEL LOOPS: No intestinal obstruction pattern. Abundant stool large intestine. Collapsed appearance of the descending colon and splenic colonic flexure. The appendix is partially identified and is normal in retrocecal location. No pneumatosis intestinalis. Small hiatal hernia. No ascites. No pneumoperitoneum.. LYMPH NODES: Nonspecific prominent lymph nodes, mesenteric and retroperitoneal. VASCULAR: Mixed plaques throughout the abdominal aorta wall and iliac arteries without aneurysm or dissection. BONES: Multilevel thoracolumbar spondylosis more conspicuous at L5-S1. CT/CT abdomen w IV con IMPRESSION: Probable cholelithiasis. Hepatic steatosis. Subcentimeter cystic lesion left kidney. Small and hernia. Fleischner guidelines were followed. Electronically signed by: Bony Perez MD 05/07/2024 03:31 PM EST RP
[2024-03-25] MEDS: iohexoL 350 MG/ML 75 ML INFUS..BTL 85 ML IV (10:21)
[2024-03-27 08:16] LABS: Creatinine POC 0.9 mg/dL (0.5-1.4); GFR POC > 60
== END 2024-03-25 09:40 | disposition home or self-care (01) ==
LOC: HO.CT 09:39
PROVIDERS: PCP Physician Assistant Medical; Visit Provider Physician Assistant Medical
DX: R10.12 Left upper quadrant pain (principal)
CPT/HCPCS: 74160; 82565; Q9967

== ENCOUNTER → 2024-03-25 09:41 | Outpatient (BNV) | payer OTHER, SELFPAY | PROVIDERS: PCP Physician Assistant Medical; Visit Provider Radiology Diagnostic Radiology | DX: K76.0 Fatty (change of) liver, not elsewhere classified (principal); N28.1 Cyst of kidney, acquired | CPT/HCPCS: 74160 ==

== ENCOUNTER 2024-05-12 07:03 | Outpatient (REF) | payer OTHER, SELFPAY ==
[2024-05-12 08:25] LABS: Anion Gap 13 (12-20); Blood Urea Nitrogen 16 mg/dL (9-16); Calcium 10.1 mg/dL (8.4-10.2); Carbon Dioxide 29 mmol/L (22-29); Chloride 103 mmol/L (96-108); Estimated Glomerular Filt Rate > 60; Glucose Random 125 mg/dL (60-115); Potassium 4.4 mmol/L (3.3-5.1); Sodium 141 mmol/L (135-145)
[2024-05-12 08:35] LABS: Estimated Average Glucose 126 mg/dL; Total Hemoglobin (HGBA1C) 3494.8211 umol/L
== END 2024-05-12 07:04 | disposition home or self-care (01) ==
LOC: HO.LAB 07:03
PROVIDERS: PCP Physician Assistant Medical; Visit Provider Physician Assistant Medical
DX: E11.65 Type 2 diabetes mellitus with hyperglycemia (principal)
CPT/HCPCS: 36415; 80048; 83036

== ENCOUNTER 2024-05-18 15:12 | Outpatient (AMB) | payer OTHER, SELFPAY ==
--- NOTE | 2024-05-18 15:13 | A.OFFPC_ITS ---
Vital Signs 05/18/24 15:16 Height 5 ft 4 in Weight 151 lb 2 oz BMI 25.9 BP 150/80 H Blood Pressure Location Rt brachial Position Sitting Respiration 14 Pulse 96 Pulse Source Pulse Oximeter Pulse Oximetry (%) 97 Oxygen Delivery Method Room Air Intake Visit Reasons: diabetes Intake Note: follow up on diabetes Warehouse Shift Supervisor Required: No Allergies No Known Allergies Allergy (Verified 05/18/24 15:14) Tobacco use date assessed: 12/12/23 Dental Screening Dental Screen Date: 12/12/23 HPI HPI Comments History of Present Illness Details This is a 58-year-old female with a past medical history of type 2 diabetes, hypertension, hyperlipidemia and anxiety presenting for a follow up for appt. Type 2 diabetes-taking metformin 1000 mg twice a day, Ozempic 2 mg weekly and glipizide 5 mg daily. Hemoglobin A1c was greater than 14% in the summer. It is now 6%. She has modified her diet and adjusted medications. She was able to stop insulin a month ago. She is monitoring her blood sugars with her fingerstick glucometer though she did get the Dexcom 7 from the pharmacy. She is on an Arb for renal protection and rosuvastatin for cholesterol and cardiovascular protection.. Hypertension treated with losartan 100 mg daily. Patient's blood pressure is elevated. Patient says she had a caffeinated diet Coke. She was also under a lot of stress today. She has not been sleeping well. She falls asleep, but when she gets up usually once per night she has a lot of difficulty falling back asleep due to racing thoughts. Anxiety-she did not restart paroxetine. She has a lot going on personally. She is under a lot of stress at work. Her daughter and do not get along. She is not interested in referrals or medication at this time. She underwent evaluation for intermittent pain in her left upper abdomen. Patient underwent abdominal ultrasound on 12/19/2023 which showed a few gallbladder polyps measuring up to 3 mm and a possible gallstone and no evidence of cholecystitis. There was also a 5 mm echogenic right upper pole renal lesion, possibly a small angiolipoma or parenchymal calcification per report. There was also a subcentimeter benign-appearing left renal cyst. She had a normal CBC 12/13/2023. Lipase, amylase, LFTs, TSH also normal. H pylori stool antigen testing 12/19/2023. Patient saw General surgery for gallbladder findings, and it was recommended to repeat ultrasound in a year for reassessment. She also saw urology, an MRI is ordered for further evaluation of renal findings. She had a CT scan of the abdomen completed on 03/25/2024 which showed incidental findings which we previously discussed on the phone-please refer to workload note 05/08/2024. Patient reported the left upper quadrant discomfort occurs less frequently now, and she surmises it is musculoskeletal because it is triggered with certain movement. ROS: Constitutional: No unexplained weight loss, fever, chills. Respiratory: No shortness of breath, cough or sputum production. Cardiovascular: No chest pain or palpitations. Gastrointestinal: No anorexia, nausea, vomiting or diarrhea. No blood in stool. Genitourinary: No dysuria, hematuria, urinary frequency. Skin: No rash or itching. Endocrine: No cold or heat intolerance. No polyuria or polydipsia. Psychiatric: No SI/HI. Physical exam: Constitutional: Alert, in no distress.c. Eyes: Pupils are equal, round and reactive to light. Extraocular muscles intact. Neck: Supple, Full range of motion. No lymphadenopathy. Respiratory: Clear to auscultation. Cardiovascular: S1 S2 regular. No murmurs. Extremities: Warm and well perfused. No clubbing, cyanosis or edema Psychiatric: Normal mood and affect [facility] Medical History Microalbuminuria Renal cyst, left Renal lesion Gallbladder polyp Anxiety Pure hypercholesterolemia Left upper quadrant pain Fatigue Essential hypertension Type 2 diabetes mellitus Torn ligament High cholesterol High blood pressure Diabetes Family History Father Colon cancer Mother Diabetes Social History Household Members: Significant Other Housing: House Are you a primary child care supervisor to a significant other at home: No Do you presently have visiting nurse or other home services: No Alcohol intake: current Alcohol type: wine Patient Tobacco Use Status: Former Tobacco user e-Cigarette/Vaping Use: Currently Using Special reanna needs: No service: No Current occupational status: employed Current occupation: service diapatcher Cognitive needs: No Hearing needs: No Vision needs: Yes (Patient wears glasses.) Questionnaire PHQ-9 Over the last 2 weeks, how often have you been bothered by any of the following problems? 1. Little interest or pleasure in doing things: not at all 2. Feeling down, depressed, or hopeless: not at all 3. Trouble falling or staying asleep, or sleeping too much: several days 4. Feeling tired or having little energy: several days 5. Poor appetite or overeating: not at all 6. Feeling bad about yourself - or that you are a failure or have let yourself or your family down: not at all 7. Trouble concentrating on things, such as reading the newspaper or watching television: not at all 8. Moving or speaking so slowly that other people could have noticed. Or the opposite - being so fidgety or restless that you have been moving around a lot more than usual: not at all 9. Thoughts that you would be better off or of hurting yourself in some way: not at all Total score: 2 61016 - PHQ-9 Billing: Yes Source: Developed by Drs. Michael Cloud, Lynette Dominguez, Gilberto Chan and colleagues, with an educational vipin from [employer]. Thrive Questionnaire Date Thrive assessed: 05/18/24 I am a: Patient What is your living situation today?: I have a steady place to live Within the past 12 months, did the food you bought not last and you didn't have the money to get more?: Never true Within the past 12 months, did you worry whether your food would run out before you got money to buy more?: Never true Do you have trouble paying for medicines?: No Do you have trouble getting transportation to medical appointments?: No Do you have trouble paying your heating and electricity bill?: No Do you have trouble taking care of your child, family member or friend?: No Do you have trouble with day-to-day activities such as bathing, preparing meals, shopping, managing finances, etc.?: No Are you currently unemployed and looking for a job?: No Are you interested in more education?: No Please select the resources that you would like help with: None Currently or been in a relationship where the following occur: No concerns reported THRIVE Score: 0 AUDIT C Alcohol Use Questionnaire (AUDIT-C) 1. How often do you have a drink containing alcohol?: Monthly or less 2. How many drinks containing alcohol do you have on a typical day when you are drinking?: 1 or 2 3. How often do you have six or more drinks on one occasion?: Never Total Score: 1 LUIS ALBERTO-7 AMB Questionnaire LUIS ALBERTO-7 Date LUIS ALBERTO - 7 assessed: 05/18/24 Feeling nervous, anxious, or on edge: 0 = Not at all Not being able to stop or control worryin = Not at all Worrying too much about different things: 0 = Not at all Trouble relaxin = Not at all Being so restless that it is hard to sit still: 0 = Not at all Becoming easily annoyed or irritable: 0 = Not at all Feeling afraid as if something awful might happen: 0 = Not at all Total LUIS ALBERTO-7 score (0-4 normal; 5-9 mild; 10-14 moderate; 15-21 severe): 0 Source: Developed by Drs. Michael Cloud, Lynette Dominguez, Gilberto Chan and colleagues, with an educational vipin from [employer]. LUIS ALBERTO-7 Assessment Billing LUIS ALBERTO-7 Assessment Tool: LUIS ALBERTO-7 Assessment 35284 Physical exam (Primary Care) Vital Signs: Last Vital Signs Pulse 96 05/18/24 15:16 Resp 14 05/18/24 15:16 BP 150/80 H 05/18/24 15:16 Pulse Ox 97 05/18/24 15:16 Oxygen Delivery Method Room Air 05/18/24 15:16 BMI result Body Mass Index 25.9 Tobacco/Smoking Status: Tobacco use Status Tobacco use date assessed 12/12/23 05/18/24 15:18 Patient Tobacco Use Status Former Tobacco user 05/18/24 15:18 e-Cigarette/Vaping Use Currently Using 05/18/24 15:18 PHQ-9: PHQ-9 Score PHQ-9: Total score 2 05/18/24 15:27 Thrive Assessment: Date of Thrive Assessment Date Thrive assessed 05/18/24 05/18/24 15:18 Currently or been in a relationship where the following occur: No concerns reported Coding Level of Care Code Est Pt Level 4 (07683) Complex EM visit Add On G2211 Diagnoses Pure hypercholesterolemia E78.00 Essential hypertension I10 Type 2 diabetes mellitus with hyperglycemia, without long-term current use of insulin E11.65 Diabetes mellitus local company intermodal truck driver insulin use: without detention use Diabetes mellitus complication status: with hyperglycemia Left upper quadrant pain R10.12 Anxiety F41.9 Additional Codes LUIS ALBERTO-7 Assessment Billing - LUIS ALBERTO-7 Assessment Tool: LUIS ALBERTO-7 Assessment [id number] ([id number]) PHQ-9 - 87285 - PHQ-9 Billing: Yes ([id number]) Assessment & Plan Assessment & Plan (1) Pure hypercholesterolemia: Code(s): E78.00 - Pure hypercholesterolemia, unspecified Category: Medical Plan: Continue atorvastatin and recommended diet low in cholesterol and avoidance of smoking. (2) Essential hypertension: Code(s): I10 - Essential (primary) hypertension Category: Medical Plan: Blood pressure elevated today. Patient declined to follow up in person in 4 weeks, but she will try to decrease caffeine intake and continue losartan and r eport home blood pressure readings over the patient portal. I gave her the medical record number so she can sign up for this. Reviewed risks of uncontrolled hypertension. (3) Type 2 diabetes mellitus: Code(s): E11.9 - Type 2 diabetes mellitus without complications Category: Medical Qualifiers: Diabetes mellitus detention insulin use: without local company intermodal truck driver use Diabetes mellitus complication status: with hyperglycemia Qualified Code(s): E11.65 - Type 2 diabetes mellitus with hyperglycemia Plan: Well-controlled now. Continue current medication regimen. (4) Left upper quadrant pain: Code(s): R10.12 - Left upper quadrant pain Category: Medical Plan: See details in HPI regarding evaluation. She is having MRI for incidental renal lesion. Symptoms have improved and are triggered with certain movements and may be musculoskeletal. (5) Anxiety: Code(s): F41.9 - Anxiety disorder, unspecified Category: Medical Plan: We previously discussed referral to behavioral health. She is going to try melatonin for sleep. I also prescribed hydroxyzine to take 1-2 tablets if needed at night. Side effects reviewed with the patient. Advised not to drive or operate heavy machinery with this medicine. She is not interested in daily anxiety medication. Plan Follow up in 3 months. Medications: New hydroxyzine HCl 12.5 - 25 mg (0.5 - 1 x 25 mg) PO BEDTIME PRN 30 tabs 0RF sleep
[2024-05-18 15:16] VITALS: BP 150/80; PULSE 96; RESP 14; O2SAT 97; BMI 25.9
== END 2024-05-18 15:56 | disposition home or self-care (01) ==
PROVIDERS: PCP Physician Assistant Medical; Visit Provider Physician Assistant Medical
DX: E78.00 Pure hypercholesterolemia, unspecified (principal); I10 Essential (primary) hypertension; E11.65 Type 2 diabetes mellitus with hyperglycemia; R10.12 Left upper quadrant pain; F41.9 Anxiety disorder, unspecified

== ENCOUNTER 2024-05-21 08:21 | Outpatient (REF) | payer OTHER, SELFPAY ==
[2024-05-21] MEDS: gadobutroL 7.5 ML VIAL IVPUSH (09:07)
== END 2024-05-21 08:22 | disposition home or self-care (01) ==
LOC: HO.MRI 08:21
PROVIDERS: PCP Physician Assistant Medical; Visit Provider Urology
DX: N28.1 Cyst of kidney, acquired (principal); N28.9 Disorder of kidney and ureter, unspecified
CPT/HCPCS: 74183; A9585

== ENCOUNTER 2024-06-18 14:36 | Outpatient (AMB) | payer OTHER, SELFPAY ==
--- NOTE | 2024-06-18 00:49 | A.OFFVIS_ITS ---
Intake Visit Reasons: MRI F/U (Set) Intake Note: Patient is present for MRI follow up Urology Med: None Antibiotic Allergy: None Blood Thinner: None Wholesale And Retail Merchant Required: No Accompanied by: Self / Same As Patient Allergies No Known Allergies Allergy (Verified 06/18/24 14:38) HPI Comments Details: 06/18/24--Shelly was initially evaluated on 03/19/24 due to indeterminate renal mass noted on abd US-12/19/23. She was sent for imaging for further evaluation. I discussed MRI results 05/21/24- No suspicious renal mass. Plan FU prn. MRI-05/21/24-KIDNEYS AND URETERS: Symmetric nephrograms. No hydronephrosis. 0.9 cm simple cyst in the lateral midpole of the left kidney, for which no dedicated follow-up imaging is required. No suspicious renal mass. 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 She denies bothersome urinary symptoms. I reviewed and discussed US findings with patient. Plan CT abd-renal mass protocol. Abd US--12/19/23--5 mm echogenic right upper pole renal lesion possibly a small angiomyolipoma or parenchymal calcification. Other findings noted possible gallstone in the gallbladder neck, small gallbladder polyps measuring up to 3 mm. [facility] Medical History Hiatal hernia Hepatic steatosis Microalbuminuria Renal cyst, left Renal lesion Gallbladder polyp Anxiety Pure hypercholesterolemia Left upper quadrant pain Fatigue Essential hypertension Type 2 diabetes mellitus Torn ligament High cholesterol High blood pressure Diabetes Family History Father Colon cancer Mother Diabetes Social History Household Members: Significant Other Housing: House Are you a primary restorative care technician to a significant other at home: No Do you presently have visiting nurse or other home services: No Alcohol intake: current Alcohol type: wine Patient Tobacco Use Status: Former Tobacco user e-Cigarette/Vaping Use: Currently Using Special reanna needs: No service: No Current occupational status: employed Current occupation: service diapatcher Cognitive needs: No Hearing needs: No Vision needs: Yes (Patient wears glasses.) Telehealth Telehealth Telehealth Platform: Babybe Location of provider rendering services: practice address Location of patient: address on file Patient Identification confirmed using: Name, : Yes Telehealth method: video Patient verbally consented to treatment: Yes Patient verbally consented to billing insurance company: Yes Patient informed of any privacy concerns related to visit: Yes Results Reviewed Results Reviewed: Date of Service: 05/21/24 MR ABDOMEN WITHOUT AND WITH CONTRAST CLINICAL INFORMATION: Cyst of kidney, acquired COMPARISON: CT abdomen 03/25/2024. TECHNIQUE: MR abdomen was performed without and with use of 7 mL intravenous Gadavist gadolinium contrast. Postcontrast images are performed in multiphase dynamic sequences. Imaging was performed in 3 planes. FINDINGS: LUNG BASES: No pleural effusions. LIVER, GALLBLADDER, AND BILIARY TREE: Liver demonstrates normal size, contour and signal. No definite hepatic steatosis. No focal hepatic lesion or biliary ductal dilatation is present. Cluster of intramural cystic lesions at the fundus of the gallbladder, likely represents focal adenomyomatosis, 5:23. The gallbladder is otherwise physiologic in a distended without definite evidence of stones, wall thickening or pericholecystic inflammatory changes. Tiny gallbladder polyps are better evaluated on prior ultrasound. PANCREAS: Unremarkable. SPLEEN: Normal in size. No focal lesion. ADRENAL GLANDS: The right adrenal gland is unremarkable. Mild nodular thickening of the left adrenal gland KIDNEYS AND URETERS: Symmetric nephrograms. No hydronephrosis. 0.9 cm simple cyst in the lateral midpole of the left kidney, for which no dedicated follow-up imaging is required. No suspicious renal mass. GASTROINTESTINAL TRACT: No bowel obstruction. No ascites or fluid collection. LYMPH NODES: No lymphadenopathy. VASCULAR: The abdominal aorta is normal in caliber. OSSEOUS STRUCTURES: Degenerative changes at L4-L5 and L5-S1 with severe intervertebral disc space narrowing at L5-S1. Disc bulge with bilateral foraminal disc protrusions resulting in severe bilateral foraminal narrowing at L5-S1. IMPRESSION: 1. Subcentimeter simple cyst in the lateral midpole of the left kidney, for which no dedicated follow-up imaging is required. 2. Degenerative changes at L4-5 and L5-S1. 3. Focal gallbladder adenomyomatosis. Date of Service: 12/19/23 US ABDOMEN COMPLETE CLINICAL INFORMATION: Left upper quadrant pain. COMPARISON: None available. TECHNIQUE: Real-time imaging of the abdominal viscera. FINDINGS: PANCREAS: Normal. ABDOMINAL AORTA: The proximal, mid, and distal segments are normal in caliber. INFERIOR VENA CAVA: Visualized portions are normal. LIVER: Normal. The liver is normal in size. The liver contour is normal. Parenchymal echogenicity is normal. No focal hepatic lesion. There is no intrahepatic biliary duct dilatation seen. GALLBLADDER: A few gallbladder polyps measuring up to 3 mm. Possible gallstone in the gallbladder neck. The gallbladder is physiologically distended. No evidence of gallbladder wall thickening or pericholecystic fluid. COMMON BILE DUCT: Normal in caliber measuring 0.48 cm in diameter. RIGHT KIDNEY: A 5 mm echogenic right upper pole renal lesion possibly a small angiomyolipoma or parenchymal calcification. No hydronephrosis. No renal calculi or focal parenchymal lesions. The kidney measures 12.0 cm in maximum dimension. LEFT KIDNEY: Subcentimeter benign-appearing renal cyst, no follow-up imaging recommended. No hydronephrosis or renal calculi. The kidney measures 11.4 cm in maximum dimension. SPLEEN: Normal. The spleen measures 9.5 cm in maximum dimension. FREE FLUID: None. IMPRESSION: * Possible gallstone in the gallbladder neck without findings to suggest acute cholecystitis. * A 5 mm echogenic right upper pole renal lesion possibly a small angiomyolipoma or parenchymal calcification. * Few small gallbladder polyps measuring up to 3 mm. Assessment & Plan Assessment & Plan (1) Renal cyst, left: Comment: subcentimeter-no imaging follow up Code(s): N28.1 - Cyst of kidney, acquired Category: Medical Plan FU prn Patient Instructions: The patient had an opportunity to ask questions regarding treatment plan. The patient expressed understanding and agreement with the above treatment plan. The patient is aware they should contact our office by phone for worsening of their current condition or the appearance of new symptoms. Compliance is encouraged with any medications and followup testing that is ordered. It is a privilege to be allowed the opportunity to participate in the urologic care of your patient. If you have any questions or concerns regarding treatment for the above conditions please do not hesitate to contact me. The office telephone contact is [phone]. This note is constructed in part using voice recognition software. While every effort has been made to ensure accuracy visual effects editor errors may have been included. Yours sincerely, Rene Ramírez MD Coding Level of Care Code Tele Est Pt Level 3 (17494) Diagnoses Renal cyst, left N28.1
== END 2024-06-18 16:35 | disposition home or self-care (01) ==
LOC: HO.HUSH 14:36
PROVIDERS: PCP Physician Assistant Medical; Visit Provider Urology
DX: N28.1 Cyst of kidney, acquired (principal)
CPT/HCPCS: 99213

== ENCOUNTER → 2024-06-18 14:36 | Outpatient (BNVA) | payer OTHER, SELFPAY | PROVIDERS: PCP Physician Assistant Medical; Visit Provider Urology ==

== ENCOUNTER 2024-08-10 15:17 | Outpatient (REF) | payer OTHER, SELFPAY ==
[2024-08-10 16:50] LABS: MANUAL DIFF FLAG NO
[2024-08-10 17:02] LABS: Basophils Absolute Auto 0.1 X10*3/uL (0.0-0.2); Basophils Percent Auto 0.7 % (0-2); Eosinophils Absolute Auto 0.2 X10*3/uL (0.0-0.4); Eosinophils Percent Auto 1.6 % (0-4); Hematocrit 40.5 % (37.0-47.0); Hemoglobin 13.6 g/dl (12.0-16.0); Imm Gran Abs Auto 0.02 X10*3/uL (0.00-0.03); Imm Gran Pct Auto 0.2 % (0.0-0.4); Lymphocytes Absolute Auto 2.5 X10*3/uL (1.2-4.9); Lymphocytes Percent Auto 26.8 % (20-40); Mean Corpuscular HGB Conc 33.6 g/dl (31.0-35.0); Mean Corpuscular Hemoglobin 28.5 pg (27.0-33.0); Mean Corpuscular Volume 84.9 fL (80.0-98.0); Mean Platelet Volume 8.7 fL (9.4-12.3); Monocytes Absolute Auto 0.6 X10*3/uL (0.1-1.2); Monocytes Percent Auto 6.3 % (2-11); Neutrophils Absolute Auto 6.1 x10*3/uL (2.0-8.3); Neutrophils Percent Auto 64.4 % (45-73); Platelet Count 275 X10*3/uL (160-400); Red Blood Count 4.77 X10*6/uL (4.20-5.50); Red Cell Distribution Width 12.5 % (11.0-16.0); White Blood Count 9.5 X10*3/uL (4.8-10.8)
[2024-08-10 17:18] LABS: Appearance Urine Clear; Color Urine Yellow; Glucose Urine UA Negative (Negative); Leukocyte Esterase Urine Moderate (2+) (Negative); Nitrite Urine Negative (Negative); PH 5.5 (5.0-9.0); Specific Gravity - Urine 1.025 (1.005-1.025); UMIC TRIGGER UA YES; Urine Blood Negative (Negative); Urine Ketones Trace mg/dL (Negative); Urine Protein Trace mg/dL (Neg-Trace)
[2024-08-10 17:18] LABS: Estimated Average Glucose 126 mg/dL; Hemoglobin A1C 147.3673 umol/L
[2024-08-10 17:23] LABS: Bacteria Urine None Seen (None Seen); Hyaline Casts Urine 0-2 /LPF (0-2); RBC Urine 0-2 /HPF (0-2); Squamous Epithelial Cell Urine 0-2 /HPF (0-2); WBC Urine 21-50 /HPF (0-5)
[2024-08-10 17:49] LABS: Alanine Aminotransferase 33 U/L (0-31); Albumin Level 4.6 g/dL (3.5-5.0); Alkaline Phosphatase 67 U/L (39-117); Anion Gap 11 (12-20); Aspartate Amino Transferase 24 U/L (5-31); Bilirubin Total 0.5 mg/dL (0.0-1.0); Blood Urea Nitrogen 16 mg/dL (9-16); Calcium 10.3 mg/dL (8.4-10.2); Carbon Dioxide 30 mmol/L (22-29); Chloride 105 mmol/L (96-108); Estimated Glomerular Filt Rate > 60; Glucose Random 124 mg/dL (60-115); Iron 59 mcg/dL (30-160); Lipase 67 U/L (8-78); Magnesium 1.9 mg/dL (1.6-2.6); Percent Iron Saturation 21 % (15-50); Potassium 4.3 mmol/L (3.3-5.1); Sodium 142 mmol/L (135-145); Total Iron Binding Capacity 284 mcg/dL (228-428); Total Protein 8.3 g/dL (6.5-8.0); Unsaturated Iron Binding 225 ug/dL
[2024-08-10 17:59] LABS: Vitamin B12 532 pg/mL (200-900)
[2024-08-10 18:00] LABS: Amylase 77 U/L (28-100); TSH reflex Free T4 0.71 uIU/mL (0.32-4.0)
--- OUTSIDE RECORDS SUMMARY | 2024-08-10 18:14 | XMS_ITS | Clinical Summary ---
Author Organization [facility] Address [address] [place] [address] Care Team Providers Care Regional Director Of Admissions Name Role Phone Nadia Hill MD Primary Care Provider [phone] Allergies Active Allergy Reactions Criticality Noted Date [...] age to complete this topic Care Teams Regional Director Of Admissions Relationship Specialty Start Date End Date Nadia Hill MD PCP - General Internal Medicine 11/09/21
[2024-08-11 09:19] LABS: Lyme Abs Screen <0.90 index
[2024-08-13 22:08] LABS: Vitamin D 25-OH, D2 <4 ng/mL; Vitamin D 25-OH, D3 42 ng/mL; Vitamin D 25-OH, Total 42 ng/mL (30-100)
== END 2024-08-10 15:18 | disposition home or self-care (01) ==
LOC: HO.LAB 15:17
PROVIDERS: PCP Physician Assistant Medical; Visit Provider Physician Assistant Medical
DX: E78.00 Pure hypercholesterolemia, unspecified (principal); I10 Essential (primary) hypertension; E11.65 Type 2 diabetes mellitus with hyperglycemia; R10.11 Right upper quadrant pain; M54.17 Radiculopathy, lumbosacral region; H43.399 Other vitreous opacities, unspecified eye; R29.898 Other symptoms and signs involving the musculoskeletal system; R53.82 Chronic fatigue, unspecified; M85.80 Other specified disorders of bone density and structure, unspecified site; Z91.89 Other specified personal risk factors, not elsewhere classified
CPT/HCPCS: 36415; 80053; 81001; 82150; 82306; 82607; 83036; 83540; 83690; 83735; 84443; 85025; 86617; 86618; 87086; 87147; 96127

== ENCOUNTER 2024-08-10 15:17 | Outpatient (AMB) | payer OTHER, SELFPAY ==
[2024-08-10 15:26] VITALS: BP 132/90; PULSE 111; O2SAT 98; BMI 24.3
--- NOTE | 2024-08-10 15:26 | A.OFFPC_ITS ---
Vital Signs 08/10/24 15:26 08/10/24 15:55 Height 5 ft 4 in Weight 141 lb 8 oz BMI 24.3 BP 132/90 H Blood Pressure Location Lt brachial Position Sitting Pulse 111 H 96 Pulse Source Pulse Oximeter Pulse Oximetry (%) 98 Oxygen Delivery Method Room Air Intake Visit Reasons: High blood pressure Allergies No Known Allergies Allergy (Verified 08/10/24 15:27) Tobacco use date assessed: 08/10/24 Dental Screening Dental Screen Date: 08/10/24 Did you have a dental visit in the last 12 months?: Yes Did you have a dental problem in the last 6 months where you did not have access to dental care?: No Was dental information given to patient?: Patient has dentist HPI HPI Comments History of Present Illness Details This is a 59-year-old female with a past medical history of type 2 diabetes, hypertension, hyperlipidemia and anxiety presenting with a few concerns today. Patient says she is fatigued the last couple weeks. Feels like she doesn't have great energy over the course of the day. No change to sleep or eating pattern. She has been through periods of fatigue in the past. She has a lot of stress. Denies chest pain, shortness of breath, bleeding, bruising. Endorses a numb feeling on the front of the left thigh and intermittent weakness of the left leg. She will be standing and feel like it might give out. No pain in her back or legs with this. Reviewed chat. She had an MRI 3 months ago for evaluation of a renal lesion, and it showed severe DDD at L5-S1 including bila teral foraminal stenosis and a buldging disc. No history of back surgeries. Denies weakness, numbness or tingling of other extremities. Denies headaches, blurry vision, double vision, eye pain, but she endorses small dark specks that come and go in her vision that she only noticed yesterday. They move with her line of vision. She also endorses 5/10 RUQ abdominal pain for the 3 weeks. This is constant. Doesn't feel tender to press on it. Doesn't change with eating. No nausea, vomiting, diarrhea, blood in stools, reflux. No urinary symptoms. She offers that it might be muscular because she increased activity and is doing Dolores now. She had an MRI of the abdomen without and with contrast in May 2024: IMPRESSION: 1. Subcentimeter simple cyst in the lat eral midpole of the left kidney, for which no dedicated follow-up imaging is required. 2. Degenerative changes at L4-5 and L5- S1. 3. Focal gallbladder adenomyomatosis. She has a general surgery consult regarding gallbladder polyp seen on prior imaging, and no surgical treatment was indicated. Her blood pressures have not been at goal. We discussed this at her last appointment. She reports home readings are similar to the office today. She is taking Losartan 100 mg daily. She nearly stopped drinking diet coke! Type 2 diabetes-taking metformin 1000 mg twice a day, Ozempic 2 mg weekly and glipizide 5 mg daily. Hemoglobin A1c 6%. She has modified her diet and adjusted medications. She was able to stop insulin. She is monitoring her blood sugars with her fingerstick glucometer though she did get the Dexcom 7 from the pharmacy. She is on an Arb for renal protection and rosuvastatin for cholesterol and cardiovascular protection.. ROS: Constitutional: No unexplained weight loss, fever, chills or night sweats. Eyes: No blurry vision, double vision, eye pain, eye redness, eye discharge. see HPI ENT: No hearing loss, sneezing, congestion, runny nose or sore throat. Respiratory: No shortness of breath, cough or sputum production. Cardiovascular: No chest pain, chest pressure or chest discomfort. No palpitations or pedal edema. Gastrointestinal: No anorexia, nausea, vomiting or diarrhea. No blood in stool. Genitourinary: No dysuria, hematuria, urinary frequency. Neurologic: No headache, dizziness, syncope, seizures or tremors. Hematologic/Lymphatics: No bleeding or bruising. No painful lymph nodes. Skin: No rash or jaundice Endocrine: No cold or heat intolerance. No polyuria or polydipsia. Physical exam: Constitutional: Alert, in no distress. Head: Normocephalic. Eyes: Pupils are equal, round and reactive to light. Extraocular muscles intact. Ear, Nose and Throat: Canals clear. TMs normal. Normal nasal mucosa. No nasal discharge. No oral lesions. Neck: Supple, Full range of motion. No lymphadenopathy. No palpable thyroid masses. Respiratory: Clear to auscultation. Cardiovascular: S1 S2 regular. No murmurs. Gastrointestinal: Abdomen soft, non-tender, non-distended. Normal bowel sounds. No palpable masses. No rebound or guarding. Genitourinary: No costovertebral angle tenderness. Neurologic:?Alert and oriented x 3, no focal deficits observed, CN 2-12 intact, [id number] normal, sensation equal and symmetric, , reflexes equal and symmetric.? Normal gait.? Patient able to heel walk, toe walk and walk heel-to-toe across the floor.? No pronator drift.? Negative Romberg. Skin: No rashes or jaundice Musculoskeletal: Atrophy of left calf musculature compared to the right. FROM of the lumbosacral spine and no midline spinal tenderness. Left lower extremity strength 4/5 compared to 5/5 on the RLE. . Extremities: Warm and well perfused. No clubbing, cyanosis or edema. Psychiatric: Normal mood and affect [facility] Medical History (Updated 08/10/24 @ 20:47 by LARY Mejía) Weakness of left leg Floaters RUQ abdominal pain Lumbosacral radiculopathy Hiatal hernia Hepatic steatosis Microalbuminuria Renal cyst, left Renal lesion Gallbladder polyp Anxiety Pure hypercholesterolemia Left upper quadrant pain Fatigue Essential hypertension Type 2 diabetes mellitus Torn ligament High cholesterol High blood pressure Diabetes Family History Father Colon cancer Mother Diabetes Social History Household Members: Significant Other Housing: House Are you a primary customer care assistant to a significant other at home: No Do you presently have visiting nurse or other home services: No Alcohol intake: current Alcohol type: wine Patient Tobacco Use Status: Former Tobacco user e-Cigarette/Vaping Use: Currently Using Special reanna needs: No service: No Current occupational status: employed Current occupation: service diapatcher Cognitive needs: No Hearing needs: No Vision needs: Yes (Patient wears glasses.) Questionnaire PHQ-9 Over the last 2 weeks, how often have you been bothered by any of the following problems? 1. Little interest or pleasure in doing things: not at all 2. Feeling down, depressed, or hopeless: not at all 3. Trouble falling or staying asleep, or sleeping too much: several days 4. Feeling tired or having little energy: several days 5. Poor appetite or overeating: several days 6. Feeling bad about yourself - or that you are a failure or have let yourself or your family down: not at all 7. Trouble concentrating on things, such as reading the newspaper or watching television: not at all 8. Moving or speaking so slowly that other people could have noticed. Or the opposite - being so fidgety or restless that you have been moving around a lot more than usual: not at all 9. Thoughts that you would be better off or of hurting yourself in some way: not at all Total score: 3 Depression Screening Interpretation: Negative Depression Screening Done: Yes 13070 - PHQ-9 Billing: Yes Source: Developed by Drs. Michael Cloud, Lynette Dominguez, Gilberto Chan and colleagues, with an educational vipin from [employer]. Thrive Questionnaire Date Thrive assessed: 08/10/24 I am a: Patient What is your living situation today?: I have a steady place to live Within the past 12 months, did the food you bought not last and you didn't have the money to get more?: Never true Within the past 12 months, did you worry whether your food would run out before you got money to buy more?: Never true Do you have trouble paying for medicines?: No Do you have trouble getting transportation to medical appointments?: No Do you have trouble paying your heating and electricity bill?: No Do you have trouble taking care of your child, family member or friend?: No Do you have trouble with day-to-day activities such as bathing, preparing meals, shopping, managing finances, etc.?: No Are you currently unemployed and looking for a job?: No Are you interested in more education?: No Please select the resources that you would like help with: None Currently or been in a relationship where the following occur: No concerns reported THRIVE Score: 0 AUDIT C Alcohol Use Questionnaire (AUDIT-C) 1. How often do you have a drink containing alcohol?: Monthly or less 2. How many drinks containing alcohol do you have on a typical day when you are drinking?: 1 or 2 3. How often do you have six or more drinks on one occasion?: Never Total Score: 1 LUIS ALBERTO-7 AMB Questionnaire LUIS ALBERTO-7 Date LUIS ALBERTO - 7 assessed: 08/10/24 Feeling nervous, anxious, or on edge: 0 = Not at all Not being able to stop or control worryin = Several days Worrying too much about different things: 0 = Not at all Trouble relaxin = Not at all Being so restless that it is hard to sit still: 0 = Not at all Becoming easily annoyed or irritable: 0 = Not at all Feeling afraid as if something awful might happen: 0 = Not at all Total LUIS ALBERTO-7 score (0-4 normal; 5-9 mild; 10-14 moderate; 15-21 severe): 1 Source: Developed by Drs. Michael Cloud, Lynette Dominguez, Gilberto Chan and colleagues, with an educational vipin from [employer]. LUIS ALBERTO-7 Assessment Billing LUIS ALBERTO-7 Assessment Tool: LUIS ALBERTO-7 Assessment 66605 Physical exam (Primary Care) Vital Signs: Last Vital Signs Pulse 96 08/10/24 15:55 BP 132/90 H 08/10/24 15:26 Pulse Ox 98 08/10/24 15:26 Oxygen Delivery Method Room Air 08/10/24 15:26 BMI result Body Mass Index 24.3 Tobacco/Smoking Status: Tobacco use Status Tobacco use date assessed 08/10/24 08/10/24 15:33 Patient Tobacco Use Status Former Tobacco user 08/10/24 15:33 e-Cigarette/Vaping Use Currently Using 08/10/24 15:33 PHQ-9: PHQ-9 Score PHQ-9: Total score 3 08/10/24 15:48 Depression Screening Interpretation: Negative Thrive Assessment: Date of Thrive Assessment Date Thrive assessed 08/10/24 08/10/24 15:33 Currently or been in a relationship where the following occur: No concerns reported Coding Level of Care Code Est Pt Level 5 (89769) Complex EM visit Add On G2211 Diagnoses Pure hypercholesterolemia E78.00 Essential hypertension I10 Type 2 diabetes mellitus with hyperglycemia, without long-term current use of insulin E11.65 Diabetes mellitus complication status: with hyperglycemia Diabetes mellitus supervisor intermediates insulin use: without retirement use RUQ abdominal pain R10.11 Lumbosacral radiculopathy M54.17 Floaters H43.399 Weakness of left leg R29.898 Chronic fatigue R53.82 Fatigue type: chronic, unspecified Additional Codes LUIS ALBERTO-7 Assessment Billing - LUIS ALBERTO-7 Assessment Tool: LUIS ALBERTO-7 Assessment 13463 ([id number]) PHQ-9 - 51493 - PHQ-9 Billing: Yes ([id number]) Time Spent (min) 50 Comment chart review, direct pt care, documenting Assessment & Plan Assessment & Plan (1) Pure hypercholesterolemia: Code(s): E78.00 - Pure hypercholesterolemia, unspecified Category: Medical Plan: Continue atorvastatin and recommended diet low in cholesterol and avoidance of smoking. (2) Essential hypertension: Code(s): I10 - Essential (primary) hypertension Category: Medical Plan: Blood pressure elevated today. Continue Losartan 100 mg and start Amlodipine 5 mg daily. (3) Type 2 diabetes mellitus: Code(s): E11.9 - Type 2 diabetes mellitus without complications Category: Medical Qualifiers: Diabetes mellitus complication status: with hyperglycemia Diabetes mellitus retirement insulin use: without retirement use Qualified Code(s): E11.65 - Type 2 diabetes mellitus with hyperglycemia Plan: Well-controlled now. Continue current medication regimen. (4) RUQ abdominal pain: Code(s): R10.11 - Right upper quadrant pain Category: Medical Plan: Benign exam and no symptoms concerning for infection. Patient offers it may be a musculoskeletal strain due to recent exercising. This is possible. Check labs today. Low threshold for imaging for continued pain or abnormal labs though she did have MRI and CT of the abdomen done May and March 2024. Warning signs warranting ER evaluation reviewed. (5) Lumbosacral radiculopathy: Code(s): M54.17 - Radiculopathy, lumbosacral region Category: Medical (6) Floaters: Code(s): H43.399 - Other vitreous opacities, unspecified eye Category: Medical Plan: Advised pt these are more common in diabetics, but she is also overdue for an eye exam so she is going to call to schedule one for evaluation. (7) Weakness of left leg: Code(s): R29.898 - Other symptoms and signs involving the musculoskeletal system Category: Medical Plan: Strongly suspect this is due to incidental findings of bulging disc and foraminal stenosis on last MRI causing nerve compression. Noted some atrophy of the left calf muscle on exam. Will proceed with dedicated MRI of the lumbar sp ine and anticipate need for neurosurgery consult. Will also consider neuro evaluation and EMG if MRI does not explain symptoms. (8) Fatigue: Code(s): R53.83 - Other fatigue Category: Medical Qualifiers: Fatigue type: chronic, unspecified Qualified Code(s): R53.82 - Chronic fatigue, unspecified Plan: Wide differential including anemia, electrolyte disturbance, hypothyroidism, vitamin deficiency, medication side effects, stress, uncontrolled HTN. Labs ordered. See detailed list below. Plan Follow up 1 week. Orders: Orders TSH reflex Free T4 Today M54.17 - Radiculopathy, lumbosacral region, R10.11 - Right upper quadrant pain, R53.82 - Chronic fatigue, unspecified Vitamin D 25-OH (D2 and D3) Today M54.17 - Radiculopathy, lumbosacral region, M 85.80 - Other specified disorders of bone density and structure, unspecified site, R10.11 - Right upper quadrant pain, R53.82 - Chronic fatigue, unspecified Complete Blood Count Auto Diff Today M54.17 - Radiculopathy, lumbosacral region, R10.11 - Right upper quadrant pain, R53.82 - Chronic fatigue, unspecified Hemoglobin A1c Today E11.9 - Type 2 diabetes mellitus without complications, M54.17 - Radiculopathy, lumbosacral region, R10.11 - Right upper quadrant pain, R53.82 - Chronic fatigue, unspecified Amylase Today M54.17 - Radiculopathy, lumbosacral region, R10.11 - Right upper quadrant pain, R53.82 - Chronic fatigue, unspecified Lipase Today M54.17 - Radiculopathy, lumbosacral region, R10.11 - Right upper quadrant pain, R53.82 - Chronic fatigue, unspecified IRON PROFILE Today M54.17 - Radiculopathy, lumbosacral region, R10.11 - Right upper quadrant pain, R53.82 - Chronic fatigue, unspecified Urine Culture Today R39.9 - Unspecified symptoms and signs involving the genitourinary system, R53.82 - Chronic fatigue, unspecified Magnesium Today R53.82 - Chronic fatigue, unspecified Vitamin B12 Today M54.17 - Radiculopathy, lumbosacral region, R10.11 - Right upper quadrant pain, R53.82 - Chronic fatigue, unspecified, Z91.89 - Other specified personal risk factors, not elsewhere classified Comprehensive Met. Panel Today M54.17 - Radiculopathy, lumbosacral region, R10.11 - Right upper quadrant pain, R53.82 - Chronic fatigue, unspecified Lyme IgG/IgM w/reflex to WB Today M54.17 - Radiculopathy, lumbosacral region, R10.11 - Right upper quadrant pain, R53.82 - Chronic fatigue, unspecified UA w Microscopic Today R39.9 - Unspecified symptoms and signs involving the genitourinary system, R53.82 - Chronic fatigue, unspecified Medications: New amlodipine 5 mg PO DAILY 90 tabs 0RF
[2024-08-10 15:55] VITALS: PULSE 96
--- OUTSIDE RECORDS SUMMARY | 2024-08-10 17:28 | XMS_ITS | Clinical Summary ---
Author Organization [facility] Address [address] [place] [address] Care Team Providers Care Groover Operator Name Role Phone Nadia Hill MD Primary Care Provider [phone] Allergies Active Allergy Reactions Criticality Noted Date Comments Dulaglutide Other (See Comments) High 09/08/2019 Medications Medication Sig Dispensed Refills Start Date End Date Status amLODIPine (NORVASC) tablet 5 mg amlodipine 5 mg tablet 0 Active PARoxetine (PAXIL) 20 MG tablet Take 20 mg by mouth daily. 1 01/18/2019 Active metFORMIN (GLUCOPHAGE-XR) ER 24 hr tablet 500 mg TAKE 2 TABLETS BY MOUTH TWICE A DAY WITH MEALS 1 03/05/2019 Active liraglutide (VICTOZA) injection 18 mg/3 mL Victoza 3-Percy 0.6 mg/0.1 mL (18 mg/3 mL) subcutaneous pen injector 0 03/18/2019 Active repaglinide (PRANDIN) 0.5 MG tablet Take 0.5 mg by mouth. 0 02/08/2019 Act sergei Multiple Vitamin (MULTI VITAMIN) TABS Take by mouth. 0 Active Semaglutide,0.25 or 0.5MG/DOS, (Ozempic, 0.25 or 0.5 MG/DOSE,) 2 MG/1.5ML SOPN Ozempic 0.25 mg or 0.5 mg (2 mg/1.5 mL) subcutaneous pen injector INJECT 0.25 MG INTO THE SKIN WEEKLY FOR 4 WEEKS THEN INCEASE TO 0.5 MG WEEKLY 0 Active simvastatin (ZOCOR) tablet 10 mg simvastatin 10 mg tablet TAKE 1 TABLET BY MOUTH EVERYDAY AT BEDTIME 0 10/29/2019 Active amLODIPine (NORVASC) tablet 5 mg Take by mouth. 0 01/06/2021 Active Active Problems Problem Noted Date Diagnosed Date Tear of right hamstring 11/09/2021 Trigger finger, right ring finger 04/15/2019 Internal impingement of left shoulder 03/26/2019 Calcific tendinitis of left shoulder 03/26/2019 Adhesive capsulitis of left shoulder associated with type 2 diabetes mellitus 03/26/2019 Family History Medical History Relation Name Comments Cancer Father Diabetes Mother Hypertension Sister Relation Name Status Comments Father Mother Sister Social History Tobacco Use Types Packs/Day Years Used Date Smoking Tobacco: Former Cigarettes Smokeless Tobacco: Never Comments:quit at age 29 Alcohol Use Standard Drinks/Week Comments Not Currently 0 (1 standard drink = 0.6 oz pur e alcohol) Sex and Gender Information Value Date Recorded Sex Assigned at Not on file Gender Identity Not on file Sexual Orientation Not on file Job Start Date Occupation Industry Not on file Not on file Not on file Last Filed Vital Signs Vital Sign Reading Time Taken Comments Blood Pressure - - Pulse - - Temperature - - Respiratory Rate - - Oxygen Saturation - - Inhaled Oxygen Concentration - - Weight 76.7 kg (169 lb) 11/13/2021 10:03 AM EDT Height 162.6 cm (5' 4 ) 11/13/2021 10:03 AM EDT Body Mass Index 29.01 11/13/2021 10:03 AM EDT Plan of Treatment Health Maintenance Due Date Last Done Comments Hepatitis B Vaccines (1 of 3 - 3-dose series) 1966 Hepatitis C Screening 1966 COVID-19 Vaccine (#1) 1966 Pneumococcal Vaccine (1 of 2 - PCV) 1972 Depression Screening 1978 BMI Counseling 1984 Preventative Health Evaluation 1984 Cervical Cancer Screening (P ap Smear) 1987 Colon Cancer Screening (Colonoscopy) 2011 Breast Cancer Screening (Mammogram) 2016 Shingrix-Zoster Vaccine (1 of 2) 2016 DTap / Tdap / Td (2 - Td or Tdap) 01/12/2020 010 Influenza Vaccine (#1) 2024 03/14/2018 RSV Ped < 20 months Aged Out No longe r eligible based on patient's age to complete this topic Care Teams Groover Operator Relationship Specialty Start Date End Date Nadia Hill MD PCP - General Internal Medicine 11/09/21
== END 2024-08-10 16:18 | disposition home or self-care (01) ==
PROVIDERS: PCP Physician Assistant Medical; Visit Provider Physician Assistant Medical
DX: E78.00 Pure hypercholesterolemia, unspecified (principal); I10 Essential (primary) hypertension; E11.65 Type 2 diabetes mellitus with hyperglycemia; R10.11 Right upper quadrant pain; M54.17 Radiculopathy, lumbosacral region; H43.399 Other vitreous opacities, unspecified eye; R29.898 Other symptoms and signs involving the musculoskeletal system; R53.82 Chronic fatigue, unspecified

== ENCOUNTER 2024-08-30 08:28 | Outpatient (REF) | payer OTHER, SELFPAY ==
--- NOTE | ~2024-08-30 | MR_ITS ---
EXAMINATION: MR LUMBAR SPINE WITHOUT CONTRAST CLINICAL INFORMATION: Other symptoms and signs involving the musculoskeletal system. COMPARISON: None available. TECHNIQUE: MRI of the lumbar spine was obtained using routine sequences without contrast. FINDINGS: Last rib-bearing vertebra labeled T12. Bone marrow inhomogeneity. Multilevel marginal osteophyte formation and disc desiccation more conspicuous at L5-S1. Modic type II endplate changes at L5-S1. There is hyperintense STIR signal involving the posterior elements of the lower lumbar spine from L4 to S1. Bony proliferative signal posterior spinous processes and interspinous processes ligamentous L3-4 L4-5 levels. Grade 1 retrolisthesis L5-S1. Conus medullaris ends at L1 with normal signal. T12-L1: No disc herniation. No neuroforamina stenosis. L1-2: No disc herniation. No neuroforamina stenosis. L2-3: Broad-based disc bulging. Facet joint and ligamentum flavum hypertrophy. Reduced AP diameter of the thecal sac. No neuroforamina stenosis. L3-4: Broad-based disc bulging. Facet joint and ligamentum flavum hypertrophy. Reduced AP diameter of the thecal sac. No neuroforamina stenosis. L4-5: Broad-based disc bulging. Facet joint and ligamentum flavum hypertrophy. Central spinal canal stenosis encroaching the neural elements. Bilateral neuroforamina narrowing. L5-S1: Broad-based disc bulging. Facet joint hypertrophy. Central spinal canal and bilateral neuroforamina stenosis encroaching likely compressing the exiting nerve roots L5 and S1. No prevertebral compartment hematoma, mass or fluid collection. Hyperintense T2 cystic lesion in the posterior midportion left kidney. MR/MR lumbar spine wo con IMPRESSION: Cervical spondylosis L5-S1 and to a lesser extent L4-5 encroaching the neural elements of the thecal sac and likely the S1 and L5 exiting nerve roots. Mild pseudoarthrosis posterior spinous processes L3-4 and L4-5. Electronically signed by: Bony Perez MD 08/31/2024 09:08 AM EDT
== END 2024-08-30 08:29 | disposition home or self-care (01) ==
LOC: HO.MRI 08:28
PROVIDERS: PCP Physician Assistant Medical; Visit Provider Physician Assistant Medical
DX: R29.898 Other symptoms and signs involving the musculoskeletal system (principal); M62.562 Muscle wasting and atrophy, not elsewhere classified, left lower leg
CPT/HCPCS: 72148

== ENCOUNTER → 2024-08-30 08:34 | Outpatient (BNV) | payer OTHER, SELFPAY | PROVIDERS: PCP Physician Assistant Medical; Visit Provider Radiology Diagnostic Radiology | DX: M47.896 Other spondylosis, lumbar region (principal) | CPT/HCPCS: 72148 ==

== ENCOUNTER 2024-10-15 15:38 | Outpatient (AMB) | payer OTHER, SELFPAY ==
--- NOTE | 2024-10-15 15:18 | A.OFFPC_ITS ---
Intake Visit Reasons: [facility] / [facility] - Stroke Allergies No Known Allergies Allergy (Verified 10/15/24 15:20) Medication List - Last Reconciled 10/16/24 by LARY Mejía amlodipine 5 mg PO DAILY aspirin 81 mg PO DAILY blood pressure monitor As directed blood-glucose sensor (CheckiO G7 Sensor device) apply to skin and replace after 10 days to monitor blood glucose for type 2 diabetes blood-glucose,back seam stitcher,cont (Dexcom G7 Immunopathologist) As directed clopidogrel (Plavix) 75 mg PO DAILY dextrose (TRUEplus Glucose) 15 grams (32 mL) PO Q15M PRN glipizide 5 mg PO DAILY hydroxyzine HCl 12.5 - 25 mg (0.5 - 1 x 25 mg) PO BEDTIME insulin glargine 10 units subcut QPM insulin lispro 1 sliding scale dose subcut USEASDIRECTD lansoprazole 30 mg PO DAILY losartan 100 mg PO DAILY meclizine 12.5 mg PO DAILY PRN metformin ER 1,000 mg (2 x 500 mg) PO BID 90 days multivitamin (Daily Multi-Vitamin tablet) 1 tab PO DAILY pen needle, diabetic (BD Ultra-Fine Short Pen Needle) To use with Lantus solostar pen polyethylene glycol 3350 17 grams PO DAILY prednisone 30 mg PO DAILY rosuvastatin 10 mg PO DAILY semaglutide (Ozempic) 2 mg (0.75 mL) subcut QWEEK Tobacco use date assessed: 10/15/24 Dental Screening Dental Screen Date: 08/10/24 Did you have a dental visit in the last 12 months?: Yes Did you have a dental problem in the last 6 months where you did not have access to dental care?: No Was dental information given to patient?: Patient has dentist HPI HPI Comments History of Present Illness Details This is a 59-year-old female with a past medical history of controlled type 2 diabetes with microalbuminuria, hepatic steatosis, lumbosacral radiculopathy, hyperlipidemia, hypertension and anxiety who presents for hospital follow up. Her is also on the phone with her today. They opted for a telehealth visit because she has significant weakness in his in a wheelchair since discharge from [facility]. She was diagnosed with COVID-19 infection 08/18/2024 at [facility]. Patient was initially admitted 08/21/2024 for right corpus callosum/cingulate regional stroke due to occlusion/high-grade stenosis and discharged 08/25/2024. She tested positive for COVID-19 and has been feeling unwell for a couple of weeks prior. Right JULIANO infarct was thought to be embolic treated with aspirin and Plavix. Re-presented 09/01/2024 with left-sided face tingling, dysarthria and worsening left-sided weakness and admitted. CTA showed worsening multifocal stenosis in the posterior circulation. MRI brain 09/02/2024 showed extension of right CR infarct. Digital subtraction angiography with Dr. Kumar 09/03/2024 suggestive of vasculitis in the middle and small blood vessels. Solu-Medrol initiated 09/03/2024. Reviewed discharge summary dated 09/17/2024. 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 She underwent right lateral brain biopsy on 09/11/[address] Enriquez. Reports this was inconclusive. CTA head 09/14/2024 showed new small SAH subjacent to the right parietal craniotomy site. Per neuro her deficits were not secondary to small SAH in surgical bed. Per notes patient to restart DVT prophylaxis/DOAC if needed because the risk of worsening thrombosis and neurologic compromise was greater than risk of bleeding from SAH. 09/15/2024 she had a catheterization kyle o done by Dr. Gaffney who noticed improvement overall in the caliber of the vessels especially in the MCA is where they appeared to be more open making the likelihood of vasculitis valid given lack of significant response to verapamil involving the treatment of the right superficial vasculature. Neuro also recommended starting apixaban in the next 2 weeks once sutures were removed. Sutures were removed 09/25/2024. Patient had right femoral pseudoaneurysm status post angiogram. IR recommended no thrombus injection. Prevascular size of the pseudoaneurysm was not too concerning and plan was for conservative follow up. Duplex was repeated and the aneurysm appeared fully thrombosed with no visible flow and there were 2 small hematomas in the right groin with no visible flow. Vascular did not recommend surgical intervention. Instructions to taper prednisone from 50 mg by 10 mg every week until 30 mg which should be continued as maintenance dose. TSEPHANIE, anti DNA aB, ANCA, cryoglobulin, Lyme, electrophoresis and quantitative TB negative. Patient to continue pantoprazole for GI prophylaxis. Patient had hyperglycemia presumably due to steroids. She was instructed to continue her home regimen of metformin, glipizide and semaglutide upon discharge and placed on Lantus and sliding scale of lispro. Patient was discharged to [facility]hab where she remained until 10/10/2024. Patient was treated with Macrobid for UTI while there. Culture was sensitive. She had urinary frequency which has since resolved. Patient had leukocytosis but was afebrile and this was likely reactive due to steroids. She had dysphagia secondary to CVA which she reports has improved. Patient has follow up with Neurology, Dr. Boland on 11/18/2024. She has home nursing, PT and OT. She had speech therapy which was discontinued at [facility]. Patient reports she is in a wheelchair. She has left-sided weakness in his unable to do much for herself. Her is home helping her. They are asking about prednisone dosing and continuation. CT neck showed an 8 mm thyroid nodule and outpatient follow up with PCP was recommended. Patient is taking Lantus, Ozempic, glipizide and metformin. She is using lispro, and they were instructed to administer it after she eats. She uses 15 units base before meals with the following sliding scale: <150 0 units 150-200 2 units 201-250 4 units 251-300 6 units 301-350 8 units 351-400 10 units >400 12 units and call the office She reports the following from her Dexcom CGM: 3 day average- 160 13% very high 20% high 67% target Her blood sugars in the morning before she eats are in the 70s and 80s. Denies hypoglycemia. Patient had MRI of the lumbar spine on 08/30/2024 as an out patient which demonstrated spondylosis L5-S1 and to a lesser extent L4-L5 encroaching the neural elements of the thecal sac and likely the S1-L5 exiting nerve roots as well as pseudoarthrosis posterior spinous process L3-L4 and L4-L5. ROS: Constitutional: No fevers or chills. +fatigue. Eyes: No vision changes. Respiratory: No shortness of breath Cardiovascular: No chest pain Gastrointestinal: No anorexia, nausea, vomiting or diarrhea. Genitourinary: No dysuria, hematuria, urinary frequency. Neurologic: Per HPI Hematologic/Lymphatics: No bleeding Endocrine: No polyuria or polydipsia. +polyphagia. 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 Hospital discharge follow-up History of CVA with residual deficit Thyroid nodule LFT elevation Atrophy of muscle of left lower leg Weakness of left leg Floaters RUQ abdominal pain Lumbosacral radiculopathy Hiatal hernia Hepatic steatosis Microalbuminuria Renal cyst, left Renal lesion Gallbladder polyp Anxiety Pure hypercholesterolemia Left upper quadrant pain Fatigue Essential hypertension Type 2 diabetes mellitus Torn ligament High cholesterol High blood pressure Diabetes Family History Father Colon cancer Mother Diabetes Social History (Updated 10/15/24 @ 15:36 by Cathie Bahena MA) Household Members: Significant Other Housing: House Are you a primary home care and home health aides teacher to a significant other at home: No Do you presently have visiting nurse or other home services: No Alcohol intake: current Alcohol type: wine Patient Tobacco Use Status: Former Tobacco user e-Cigarette/Vaping Use: Currently Using Second Hand Smoke Exposure: No Use of substances other than those prescribed or required for medical reasons: No Special reanna needs: No service: No Current occupational status: employed Current occupation: service diapatcher Cognitive needs: No Hearing needs: No Vision needs: Yes (Patient wears glasses.) Questionnaire Thrive Questionnaire Date Thrive assessed: 08/10/24 LUIS ALBERTO-7 AMB Questionnaire LUIS ALBERTO-7 Date LUIS ALBERTO - 7 assessed: 08/10/24 Source: Developed by Drs. Michael Cloud, Lynette Dominguez, Gilberto Chan and colleagues, with an educational vipin from [employer]. Physical exam (Primary Care) Tobacco/Smoking Status: Tobacco use Status Tobacco use date assessed 10/15/24 10/15/24 15:37 Patient Tobacco Use Status Former Tobacco user 10/15/24 15:37 e-Cigarette/Vaping Use Currently Using 10/15/24 15:37 Thrive Assessment: Date of Thrive Assessment Date Thrive assessed 08/10/24 10/15/24 15:37 Telehealth Telehealth Telehealth Platform: Telephone Location of provider rendering services: practice address Location of patient: address on file Patient Identification confirmed using: Name, : Yes Telehealth method: voice only Patient verbally consented to treatment: Yes Patient verbally consented to billing insurance company: Yes Patient informed of any privacy concerns related to visit: Yes Minutes spent on Phone/Video with Pt.: 35 Coding Level of Care Code Tele Est Pt Level 5 (92187) Complex EM visit Add On G2211 Diagnoses Thyroid nodule E04.1 Type 2 diabetes mellitus with hyperglycemia, without long-term current use of insulin E11.65 Diabetes mellitus complication status: with hyperglycemia Diabetes mellitus halfway insulin use: without halfway use History of CVA with residual deficit I69.30 Hospital discharge follow-up Z09 Cerebral vasculitis I67.7 Pseudoaneurysm of right femoral artery I72.4 Cerebral vein thrombosis G08 Primary angiitis of central nervous system I77.6 Leukocytosis D72.829 Lumbosacral radiculopathy M54.17 Time Spent (min) 60 Comment Records review and direct communication with patient and chart completion Assessment & Plan Assessment & Plan (1) Thyroid nodule: Code(s): E04.1 - Nontoxic single thyroid nodule Category: Medical (2) Type 2 diabetes mellitus: Code(s): E11.9 - Type 2 diabetes mellitus without complications Category: Medical Qualifiers: Diabetes mellitus complication status: with hyperglycemia Diabetes mellitus salvage determiner insulin use: without salvage determiner use Qualified Code(s): E11.65 - Type 2 diabetes mellitus with hyperglycemia (3) History of CVA with residual deficit: Code(s): I69.30 - Unspecified sequelae of cerebral infarction Category: Medical (4) Hospital discharge follow-up: Code(s): Z09 - Encounter for follow-up examination after completed treatment for conditions other than malignant neoplasm Category: Medical (5) Cerebral vasculitis: Code(s): I67.7 - Cerebral arteritis, not elsewhere classified Category: Medical (6) Pseudoaneurysm of right femoral artery: Code(s): I72.4 - Aneurysm of artery of lower extremity Category: Medical (7) Cerebral vein thrombosis: Code(s): G08 - Intracranial and intraspinal phlebitis and thrombophlebitis Category: Medical (8) Primary angiitis of central nervous system: Code(s): I77.6 - Arteritis, unspecified Category: Medical (9) Leukocytosis: Code(s): D72.829 - Elevated white blood cell count, unspecified (10) Lumbosacral radiculopathy: Code(s): M54.17 - Radiculopathy, lumbosacral region Category: Medical Plan: We will readdress this with patient at her follow up appointment. Priority of this appointment was recent hospital admission. With recent strokes, vasculitis, Plavix and aspirin patient not a candidate for injections or surgery at this time. Plan 59-year-old female with type 2 diabetes, hyperlipidemia and hypertension presenting for hospital follow up following complex multiple admissions for vasculitis possibly secondary to COVID-19 infection and CVAs with residual left- sided weakness. Patient to remain on 30 mg of prednisone maintenance unless otherwise instructed by Neurology. Remain on PPI. She has neurology follow up on 11/18/2024. Warning signs warranting re-evaluation at ED reviewed with the patient. 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 No surgical intervention was recommended. UTI treated with Macrobid. Urinary frequency resolved. Patient instructed to call if she has recurrent UTI symptoms. Continue treatment for hypertension and hyperlipidemia with amlodipine, losartan, rosuvastatin. Patient remains on Plavix and aspirin. PT/OT and and VNA in place. Continue metformin, Ozempic, glipizide, Lantus and lispro 15 units base 3 times daily with sliding scale. Advised them to take this 15 minutes prior to meals rather than after. If she has sugars under 70 they will call me. Reviewed treatment of hypoglycemia and sent glucose gel to the pharmacy. Instructions also posterior to the patient's portal. Patient had a thyroid nodule incidentally detected on imaging while hospitalized. Reviewed this on the discharge notes. The plan will be to obtain a thyroid ultrasound nonurgently. I will discuss this with the patient at her follow up and notify her via the portal. Leukocytosis-likely reactive due to steroids. Lumbosacral radiculopathy-We will readdress this with patient at a follow up appointment. Priority of this appointment was recent hospital admission. With recent strokes, vasculitis, Plavix and aspirin patient not a candidate for injections or surgery at this time. Follow up in 2-4 weeks in office. Medications: New dextrose (TRUEplus Glucose) until symptoms of low blood sugar are controlled 15 grams (32 mL) PO Q15M PRN 128 mL 3RF hypoglycemia
--- OUTSIDE RECORDS SUMMARY | 2024-10-15 16:01 | XMS_ITS | Encounter Summary ---
Author Organization [facility] Address [address] [place] [address] Care Team Providers Care Workforce Development Vice President Name Role Phone Greg Christian BARTH Primary Care Provider [phone] Encounter Details Date Type Department Care Team (Late st Contact Info) Description 09/28/2024 Lab Requisition [facility] - Main Lab [address] [facility] [employer] [place] [address] Samuel Doran MD [address] [place] [id number] Dysuria Social History Tobacco Use Types Packs/Day Years Used Date Smoking Tobacco: Never Smokeless Tobacco: Never Comments Unknown Sex and Gender Information Value Date Recorded Sex Assigned at Not on file Legal Sex Female 9:16 PM EST Gender Identity Not on file Sexual Orientation Not on file documented as of this encounter Plan of Treatment Not on file documented as of this encounter Procedures Procedure Name Priority Date/Time Associated Diagnosis Comments URINALYSIS WITH REFLEX MICROSCOPIC AND CULTURE Routine 09/28/2024 5:30 AM EDT Dysuria NDIAYE URINE CULTURE TUBE Routine 09/28/2024 5:30 AM EDT Dysuria URINALYSIS WITH REFLEX MICROSCOPIC AND CULTURE Routine 09/28/2024 5:30 AM EDT Dysuria documented in this encounter Results * (ABNORMAL) Urinalysis with reflex microscopic and culture (09/28/2024 5:30 AM EDT) Specific [place] Urine 1.017 1.003 - 1.030 LAB URINALYSIS - AUTOMATED METHOD 09/28/2024 11:08 AM [facility] pH, Urine 8.0 5.0 - 8.0 pH LAB URINALYSIS - AUTOMATED METHOD 09/28/2024 11:08 AM [facility] Leukocytes, Urine Negative Negative LAB URINALYSIS - AUTOMATED METHOD 09/28/2024 11:08 AM [facility] Nitrite, Urine Negative Negative LAB URINALYSIS - AUTOMATED METHOD 09/28/2024 11:08 AM [facility] Protein, Urine Negative <=Trace mg/dL LAB URINALYSIS - AUTOMATED METHOD 09/28/2024 11:08 AM [facility] Glucose, Urine Negative Negative mg/dL LAB URINALYSIS - AUTOMATED METHOD 09/28/2024 11:08 AM [facility] Ketones, Urine Negative Negative mg/dL LAB URINALYSIS - AUTOMATED METHOD 09/28/2024 11:08 AM [facility] Urobilinogen, Urine 2.0(A) 0.2 - 1.0 mg/dL LAB URINALYSIS - AUTOMATED METHOD 09/28/2024 11:08 AM [facility] Bilirubin, Urine Negative Negative LAB URINALYSIS - AUTOMATED METHOD 09/28/2024 11:08 AM [facility] Blood, Urine Negative Negative LAB URINALYSIS - AUTOMATED METHOD 09/28/2024 11:08 AM [facility] Urine Urine specimen obtained by clean catch procedure / Unknown Non-blood Collection / Unknown 09/28/2024 5:30 AM EDT 09/28/2024 9:49 AM EDT us Samuel Doran MD LAB URINE ORDERABLES Final Res ult [facility] [address] [place] [address], * Ndiaye urine culture tube (09/28/2024 5:30 AM EDT) Extra Tube Hold for add-ons. 09/28/2024 11:01 AM EDT [facility] Comment:Auto resulted. Urine Urine specimen obtained by clean catch procedure / Unknown Non-blood Collection / Unknown 09/28/2024 5:30 AM EDT 09/28/2024 9:49 AM EDT us Samuel Doran MD LAB URINE ORDERABLES Final Res ult [facility] [address] [place] [address], documented in this encounter Visit Diagnoses Diagnosis Dysuria documented in this encounter Care Teams Workforce Development Vice President Relationship Specialty Start Date End Date Christian Garza PA [address] [place] [id number] PCP - General 09/28/24 documented as of this encounter
--- OUTSIDE RECORDS SUMMARY | 2024-10-15 16:01 | XMS_ITS | Clinical Summary ---
Author Organization [facility] Address [address] [place] [address] Care Team Providers Care Scarf And Anneal Operator Name Role Phone Nadia Hill MD Primary Care Provider [phone] Allergies Active Allergy Reactions Criticality Noted Date [...] age to complete this topic Care Teams Scarf And Anneal Operator Relationship Specialty Start Date End Date Nadia Hill MD PCP - General Internal Medicine 11/09/21
--- OUTSIDE RECORDS SUMMARY | 2024-10-15 16:01 | XMS_ITS | Encounter Summary ---
Author Organization [facility] Address [address] [place] [address] Care Team Providers Care Diamond Setter Name Role Phone Genejeyson Christian BARTH Primary Care Provider [phone] Encounter Details Date Type Department Care Team (Late st Contact Info) Description 09/18/2024 Lab Requisition [facility] - Main Lab [address] [facility] [place] [address] Samuel Doran MD [address] [place] [id number] Encounter for other general examination Social History Tobacco Use Types Packs/Day Years [...] Procedure Name Priority Date/Time Associated Diagnosis Comments CBC WITH AUTO DIFFERENTIAL Routine 09/18/2024 5:35 AM EDT Encounter for other general examination CBC AND DIFFERENTIAL Routine 09/18/2024 5:35 AM EDT Encounter for other general examination MAGNESIUM Routine 09/18/2024 5:35 AM EDT Encounter for other general examination COMPREHENSIVE METABOLIC PANEL Routine 09/18/2024 5:35 AM EDT Encounter for other general examination documented in this encounter Results * (ABNORMAL) CBC auto differential (09/18/2024 5:35 AM EDT) [facility] WBC 13.8(H) 4.8 - 10.8 K/mcL LAB HEMETOLOGY METHOD 09/18/2024 11:36 AM [facility] RBC 3.80 3.80 - 4.80 M/mcL LAB HEMETOLOGY METHOD 09/18/2024 11:36 AM [facility] Hemoglobin 10.9(L) 11.5 - 16.0 g/dL LAB HEMETOLOGY METHOD 09/18/2024 11:36 AM [facility] Hematocrit 33.1(L) 35.0 - 47.0 % LAB HEMETOLOGY METHOD 09/18/2024 11:36 AM [facility] MCV 87.6 79.0 - 98.0 FL LAB HEMETOLOGY METHOD 09/18/2024 11:36 AM [facility] LAB MCH 28.8 27.0 - 32.0 pcg LAB HEMETOLOGY METHOD 09/18/2024 11:36 AM [facility] LAB MCHC 32.9 32.0 - 37.0 g/dL LAB HEMETOLOGY METHOD 09/18/2024 11:36 AM [facility] RDW 13.6 11.0 - 15.0 % LAB HEMETOLOGY METHOD 09/18/2024 11:36 AM [facility] Platelets 230 130 - 400 K/mcL LAB HEMETOLOGY METHOD 09/18/2024 11:36 AM [facility] MPV 9.3 7.0 - 11.0 FL LAB HEMETOLOGY METHOD 09/18/2024 11:36 AM [facility] NRBC 0.0 <1.0 % LAB HEMETOLOGY METHOD 09/18/2024 11:36 AM [facility] NRBC Absolute 0.00 <0.10 K/mcL LAB HEMETOLOGY METHOD 09/18/2024 11:36 AM [facility] Neutrophils Relative 70.6 % LAB HEMETOLOGY METHOD 09/18/2024 11:36 AM [facility] Lymphocytes Relative 21.1 % LAB HEMETOLOGY METHOD 09/18/2024 11:36 AM [facility] Monocytes Relative 7.1 % LAB HEMETOLOGY METHOD 09/18/2024 11:36 AM [facility] Eosinophils Relative 0.7 % LAB HEMETOLOGY METHOD 09/18/2024 11:36 AM [facility] Basophils Relative 0.1 % LAB HEMETOLOGY METHOD 09/18/2024 11:36 AM [facility] Immature Granulocytes Relative 0.4 % LAB HEMETOLOGY METHOD 09/18/2024 11:36 AM [facility] Neutrophils Absolute 9.75(H) 1.50 - 7.00 K/mcL LAB HEMETOLOGY METHOD 09/18/2024 11:36 AM [facility] Lymphocytes Absolute 2.92 1.00 - 5.00 K/mcL LAB HEMETOLOGY METHOD 09/18/2024 11:36 AM [facility] Monocytes Absolute 0.98 0.20 - 1.00 K/mcL LAB HEMETOLOGY METHOD 09/18/2024 11:36 AM [facility] Eosinophils Absolute 0.09 0.00 - 0.50 K/mcL LAB HEMETOLOGY METHOD 09/18/2024 11:36 AM [facility] Basophils Absolute 0.02 0.00 - 0.20 K/mcL LAB HEMETOLOGY METHOD 09/18/2024 11:36 AM [facility] Immature Granulocytes Absolute 0.06(H) 0.00 - 0.03 K/mcL LAB HEMETOLOGY METHOD 09/18/2024 11:36 AM [facility] Blood Venous blood specimen / Unknown Venipuncture / Unknown 09/18/2024 5:35 AM EDT 09/18/2024 11:00 AM EDT Samuel Doran MD LAB BLOOD ORDERABLES Final Res ult Performing Organization Address [facility]/ZIP Co de Phone Number [facility] [address] [place] [address], [place] [phone] * Magnesium (09/18/2024 5:35 AM EDT) Magnesium 2.6 1.9 - 2.6 mg/dL LAB CHEMISTRY METHOD 09/18/2024 1:09 PM EDT [facility] Blood Venous blood specimen / Unknown Venipuncture / Unknown 09/18/2024 5:35 AM EDT 09/18/2024 11:00 AM EDT Samuel Doarn MD LAB BLOOD ORDERABLES Final Res ult Performing Organization Address [facility]/ZIP Co de Phone Number [facility] [address] [place] [address], [place] [phone] * (ABNORMAL) Comprehensive metabolic panel (09/18/2024 5:35 AM EDT) Sodium 140 133 - 145 mmol/L LAB CHEMISTRY METHOD 09/18/2024 1:19 PM EDT [facility] Potassium 4.1 3.5 - 5.5 mmol/L LAB CHEMISTRY METHOD 09/18/2024 1:19 PM EDT [facility] Chloride 102 96 - 110 mmol/L LAB CHEMISTRY METHOD 09/18/2024 1:19 PM EDT [facility] CO2 32 21 - 32 mmol/L LAB CHEMISTRY METHOD 09/18/2024 1:19 PM EDT [facility] Anion Gap 6 3 - 11 LAB CHEMISTRY METHOD 09/18/2024 1:19 PM [facility] Glucose 175(H) 70 - 100 mg/dL LAB CHEMISTRY METHOD 09/18/2024 1:19 PM [facility] BUN 19 5 - 25 mg/dL LAB CHEMISTRY METHOD 09/18/2024 1:19 PM [facility] Creatinine 0.63 0.50 - 1.10 mg/dL LAB CHEMISTRY METHOD 09/18/2024 1:19 PM [facility] eGFR 103 >=60 mL/min/1. 73m2 LAB CHEMISTRY METHOD 09/18/2024 1:19 PM [facility] Comment:Calculation based on the??Chronic Kidney Disease Epidemiology Collaboration (CKD-EPI) equation refit??without adjustment for race. BUN/Creatinine Ratio 30.2 LAB CHEMISTRY METHOD 09/18/2024 1:19 PM [facility] Calcium 9.0 8.5 - 10.5 mg/dL LAB CHEMISTRY METHOD 09/18/2024 1:19 PM [facility] AST (SGOT) 26 10 - 42 unit/L LAB CHEMISTRY METHOD 09/18/2024 1:19 PM [facility] ALT (SGPT) 48 10 - 60 unit/L LAB CHEMISTRY METHOD 09/18/2024 1:19 PM [facility] Alkaline Phosphatase 61 42 - 121 unit/L LAB CHEMISTRY METHOD 09/18/2024 1:19 PM [facility] Total Protein 5.4(L) 6.0 - 8.0 g/dL LAB CHEMISTRY METHOD 09/18/2024 1:19 PM [facility] Albumin 2.7(L) 3.2 - 5.0 g/dL LAB CHEMISTRY METHOD 09/18/2024 1:19 PM [facility] Total Bilirubin 0.7 0.0 - 1.4 mg/dL LAB CHEMISTRY METHOD 09/18/2024 1:19 PM [facility] Blood Venous blood specimen / Unknown Venipuncture / Unknown 09/18/2024 5:35 AM EDT 09/18/2024 11:00 AM EDT Samuel Doran MD LAB BLOOD ORDERABLES Final Res ult [facility] [address] [place] [address], documented in this encounter Visit Diagnoses Diagnosis Encounter for other general examination documented in this encounter Care Teams Diamond Setter Relationship Specialty Start Date End Date Christian Garza PA [address] [place] [address] [id number] PCP - General 09/28/24 documented as of this encounter
--- OUTSIDE RECORDS SUMMARY | 2024-10-15 16:01 | XMS_ITS | Encounter Summary ---
Author Organization [facility] Address [address] [place] [address] Care Team Providers Care Do All Operator Name Role Phone Genejeyson Christian BARTH Primary Care Provider [phone] Encounter Details Date Type Department Care Team (Late st Contact Info) Description 09/29/2024 Lab Requisition [facility] - Main Lab [address] [facility] [place] [address] Samuel Doran MD [address] [place] [phone] Encounter for other general examination Social History [...] Diagnosis Comments CBC WITH AUTO DIFFERENTIAL Routine 09/29/2024 5:36 AM EDT Encounter for other general examination CBC AND DIFFERENTIAL Routine 09/29/2024 5:36 AM EDT Encounter for other general examination COMPREHENSIVE METABOLIC PANEL Routine 09/29/2024 5:36 AM EDT Encounter for other general examination documented in this encounter Results * (ABNORMAL) CBC auto differential (09/29/2024 5:36 AM EDT) WBC 12.3(H) 4.8 - 10.8 K/[facility] LAB HEMETOLOGY METHOD 09/29/2024 10:51 AM [facility] RBC 4.00 3.80 - 4.80 M/mcL LAB HEMETOLOGY METHOD 09/29/2024 10:51 AM [facility] Hemoglobin 11.7 11.5 - 16.0 g/dL LAB HEMETOLOGY METHOD 09/29/2024 10:51 AM [facility] LAB Hematocrit 37.0 35.0 - 47.0 % LAB HEMETOLOGY METHOD 09/29/2024 10:51 AM [facility] LAB MCV 93.0 79.0 - 98.0 FL LAB HEMETOLOGY METHOD 09/29/2024 10:51 AM [facility] MCH 29.4 27.0 - 32.0 pcg LAB HEMETOLOGY METHOD 09/29/2024 10:51 AM [facility] LAB MCHC 31.6(L) 32.0 - 37.0 g/dL LAB HEMETOLOGY METHOD 09/29/2024 10:51 AM [facility] RDW 14.8 11.0 - 15.0 % LAB HEMETOLOGY METHOD 09/29/2024 10:51 AM [facility] Platelets 301 130 - 400 K/mcL LAB HEMETOLOGY METHOD 09/29/2024 10:51 AM [facility] MPV 8.8 7.0 - 11.0 FL LAB HEMETOLOGY METHOD 09/29/2024 10:51 AM [facility] NRBC 0.0 <1.0 % LAB HEMETOLOGY METHOD 09/29/2024 10:51 AM [facility] NRBC Absolute 0.00 <0.10 K/mcL LAB HEMETOLOGY METHOD 09/29/2024 10:51 AM [facility] Neutrophils Relative 70.3 % LAB HEMETOLOGY METHOD 09/29/2024 10:51 AM [facility] Lymphocytes Relative 19.9 % LAB HEMETOLOGY METHOD 09/29/2024 10:51 AM [facility] Monocytes Relative 8.2 % LAB HEMETOLOGY METHOD 09/29/2024 10:51 AM [facility] Eosinophils Relative 0.9 % LAB HEMETOLOGY METHOD 09/29/2024 10:51 AM [facility] Basophils Relative 0.2 % LAB HEMETOLOGY METHOD 09/29/2024 10:51 AM [facility] Immature Granulocytes Relative 0.5 % LAB HEMETOLOGY METHOD 09/29/2024 10:51 AM [facility] Neutrophils Absolute 8.67(H) 1.50 - 7.00 K/mcL LAB HEMETOLOGY METHOD 09/29/2024 10:51 AM [facility] Lymphocytes Absolute 2.45 1.00 - 5.00 K/mcL LAB HEMETOLOGY METHOD 09/29/2024 10:51 AM [facility] Monocytes Absolute 1.01(H) 0.20 - 1.00 K/mcL LAB HEMETOLOGY METHOD 09/29/2024 10:51 AM [facility] Eosinophils Absolute 0.11 0.00 - 0.50 K/mcL LAB HEMETOLOGY METHOD 09/29/2024 10:51 AM [facility] Basophils Absolute 0.03 0.00 - 0.20 K/mcL LAB HEMETOLOGY METHOD 09/29/2024 10:51 AM [facility] LAB Immature Granulocytes Absolute 0.06(H) 0.00 - 0.03 K/mcL LAB HEMETOLOGY METHOD 09/29/2024 10:51 AM [facility] Blood Venous blood specimen / Unknown Venipuncture / Unknown 09/29/2024 5:36 AM EDT 09/29/2024 9:45 AM EDT us Samuel Doran MD LAB BLOOD ORDERABLES Final Res ult [facility] [address] [place] [address], [place] [phone] * (ABNORMAL) Comprehensive metabolic panel (09/29/2024 5:36 AM EDT) Sodium 137 133 - 145 mmol/L LAB CHEMISTRY METHOD 09/29/2024 11:34 AM [facility] Potassium 4.4 3.5 - 5.5 mmol/L LAB CHEMISTRY METHOD 09/29/2024 11:34 AM [facility] Chloride 98 96 - 110 mmol/L LAB CHEMISTRY METHOD 09/29/2024 11:34 AM [facility] CO2 31 21 - 32 mmol/L LAB CHEMISTRY METHOD 09/29/2024 11:34 AM [facility] Anion Gap 8 3 - 11 LAB CHEMISTRY METHOD 09/29/2024 11:34 AM [facility] Glucose 78 70 - 100 mg/dL LAB CHEMISTRY METHOD 09/29/2024 11:34 AM [facility] BUN 22 5 - 25 mg/dL LAB CHEMISTRY METHOD 09/29/2024 11:34 AM [facility] Creatinine 0.69 0.50 - 1.10 mg/dL LAB CHEMISTRY METHOD 09/29/2024 11:34 AM [facility] LAB eGFR 101 >=60 mL/min/1. 73m2 LAB CHEMISTRY METHOD 09/29/2024 11:34 AM [facility] LAB Comment:Calculation based on the??Chronic Kidney Disease Epidemiology Collaboration (CKD-EPI) equation refit??without adjustment for race. BUN/Creatinine Ratio 31.9 LAB CHEMISTRY METHOD 09/29/2024 11:34 AM [facility] Calcium 9.8 8.5 - 10.5 mg/dL LAB CHEMISTRY METHOD 09/29/2024 11:34 AM [facility] AST (SGOT) 25 10 - 42 unit/L LAB CHEMISTRY METHOD 09/29/2024 11:34 AM [facility] ALT (SGPT) 72(H) 10 - 60 unit/L LAB CHEMISTRY METHOD 09/29/2024 11:34 AM [facility] Alkaline Phosphatase 76 42 - 121 unit/L LAB CHEMISTRY METHOD 09/29/2024 11:34 AM [facility] Total Protein 5.8(L) 6.0 - 8.0 g/dL LAB CHEMISTRY METHOD 09/29/2024 11:34 AM [facility] Albumin 3.0(L) 3.2 - 5.0 g/dL LAB CHEMISTRY METHOD 09/29/2024 11:34 AM [facility] Total Bilirubin 0.5 0.0 - 1.4 mg/dL LAB CHEMISTRY METHOD 09/29/2024 11:34 AM [facility] Blood Venous blood specimen / Unknown Venipuncture / Unknown 09/29/2024 5:36 AM EDT 09/29/2024 9:45 AM EDT us Samuel Doran MD LAB BLOOD ORDERABLES Final Res ult [facility] [address] [place] [address], documented in this encounter Visit Diagnoses Diagnosis Encounter for other general examination documented in this encounter Care Teams Do All Operator Relationship Specialty Start Date End Date Christian Garza PA [address] [place] [address] PCP - General 09/28/24 documented as of this encounter
--- OUTSIDE RECORDS SUMMARY | 2024-10-15 16:01 | XMS_ITS | Encounter Summary ---
Author Organization [facility] Address [address] [place] [address] Care Team Providers Care Printing Machinist Name Role Phone Genejeyson Christian BARTH Primary Care Provider [phone] Encounter Details Date Type Department Care Team (Late st Contact Info) Description 09/25/[address] [facility] - Main Lab [address] [facility] [place] [address] Samuel Doran MD [address] [place] [phone] Encounter for other general examination Social History [...] Diagnosis Comments CBC WITH AUTO DIFFERENTIAL Routine 09/25/2024 5:25 AM EDT Encounter for other general examination CBC AND DIFFERENTIAL Routine 09/25/2024 5:25 AM EDT Encounter for other general examination COMPREHENSIVE METABOLIC PANEL Routine 09/25/2024 5:25 AM EDT Encounter for other general examination documented in this encounter Results * (ABNORMAL) CBC auto differential (09/25/2024 5:25 AM EDT) WBC 11.0(H) 4.8 - 10.8 K/[facility] LAB HEMETOLOGY METHOD 09/25/2024 10:38 AM [facility] RBC 3.70(L) 3.80 - 4.80 M/mcL LAB HEMETOLOGY METHOD 09/25/2024 10:38 AM [facility] Hemoglobin 10.9(L) 11.5 - 16.0 g/dL LAB HEMETOLOGY METHOD 09/25/2024 10:38 AM [facility] LAB Hematocrit 33.5(L) 35.0 - 47.0 % LAB HEMETOLOGY METHOD 09/25/2024 10:38 AM [facility] LAB MCV 91.0 79.0 - 98.0 FL LAB HEMETOLOGY METHOD 09/25/2024 10:38 AM [facility] LAB MCH 29.6 27.0 - 32.0 pcg LAB HEMETOLOGY METHOD 09/25/2024 10:38 AM [facility] LAB MCHC 32.5 32.0 - 37.0 g/dL LAB HEMETOLOGY METHOD 09/25/2024 10:38 AM [facility] LAB RDW 14.6 11.0 - 15.0 % LAB HEMETOLOGY METHOD 09/25/2024 10:38 AM [facility] LAB Platelets 224 130 - 400 K/mcL LAB HEMETOLOGY METHOD 09/25/2024 10:38 AM [facility] LAB MPV 9.4 7.0 - 11.0 FL LAB HEMETOLOGY METHOD 09/25/2024 10:38 AM [facility] LAB NRBC 0.0 <1.0 % LAB HEMETOLOGY METHOD 09/25/2024 10:38 AM [facility] LAB NRBC Absolute 0.00 <0.10 K/mcL LAB HEMETOLOGY METHOD 09/25/2024 10:38 AM [facility] LAB Neutrophils Relative 64.3 % LAB HEMETOLOGY METHOD 09/25/2024 10:38 AM [facility] Lymphocytes Relative 27.2 % LAB HEMETOLOGY METHOD 09/25/2024 10:38 AM [facility] Monocytes Relative 6.9 % LAB HEMETOLOGY METHOD 09/25/2024 10:38 AM [facility] Eosinophils Relative 1.0 % LAB HEMETOLOGY METHOD 09/25/2024 10:38 AM [facility] Basophils Relative 0.2 % LAB HEMETOLOGY METHOD 09/25/2024 10:38 AM [facility] LAB Immature Granulocytes Relative 0.4 % LAB HEMETOLOGY METHOD 09/25/2024 10:38 AM [facility] LAB Neutrophils Absolute 7.09(H) 1.50 - 7.00 K/mcL LAB HEMETOLOGY METHOD 09/25/2024 10:38 AM [facility] LAB Lymphocytes Absolute 3.00 1.00 - 5.00 K/mcL LAB HEMETOLOGY METHOD 09/25/2024 10:38 AM [facility] Monocytes Absolute 0.76 0.20 - 1.00 K/mcL LAB HEMETOLOGY METHOD 09/25/2024 10:38 AM [facility] LAB Eosinophils Absolute 0.11 0.00 - 0.50 K/mcL LAB HEMETOLOGY METHOD 09/25/2024 10:38 AM [facility] Basophils Absolute 0.02 0.00 - 0.20 K/mcL LAB HEMETOLOGY METHOD 09/25/2024 10:38 AM [facility] LAB Immature Granulocytes Absolute 0.04(H) 0.00 - 0.03 K/mcL LAB HEMETOLOGY METHOD 09/25/2024 10:38 AM [facility] Blood Venous blood specimen / Unknown Venipuncture / Unknown 09/25/2024 5:25 AM EDT 09/25/2024 9:26 AM EDT us Samuel Doran MD LAB BLOOD ORDERABLES Final Res ult [facility] [address] [place] [address], [place] [phone] * (ABNORMAL) Comprehensive metabolic panel (09/25/2024 5:25 AM EDT) Sodium 141 133 - 145 mmol/L LAB CHEMISTRY METHOD 09/25/2024 11:08 AM [facility] Potassium 4.0 3.5 - 5.5 mmol/L LAB CHEMISTRY METHOD 09/25/2024 11:08 AM [facility] Chloride 104 96 - 110 mmol/L LAB CHEMISTRY METHOD 09/25/2024 11:08 AM [facility] CO2 31 21 - 32 mmol/L LAB CHEMISTRY METHOD 09/25/2024 11:08 AM [facility] Anion Gap 6 3 - 11 LAB CHEMISTRY METHOD 09/25/2024 11:08 AM [facility] Glucose 49(L) 70 - 100 mg/dL LAB CHEMISTRY METHOD 09/25/2024 11:08 AM [facility] BUN 21 5 - 25 mg/dL LAB CHEMISTRY METHOD 09/25/2024 11:08 AM [facility] Creatinine 0.50 0.50 - 1.10 mg/dL LAB CHEMISTRY METHOD 09/25/2024 11:08 AM [facility] LAB eGFR 109 >=60 mL/min/1. 73m2 LAB CHEMISTRY METHOD 09/25/2024 11:08 AM [facility] LAB Comment:Calculation based on the??Chronic Kidney Disease Epidemiology Collaboration (CKD-EPI) equation refit??without adjustment for race. BUN/Creatinine Ratio 42.0 LAB CHEMISTRY METHOD 09/25/2024 11:08 AM [facility] Calcium 9.3 8.5 - 10.5 mg/dL LAB CHEMISTRY METHOD 09/25/2024 11:08 AM [facility] AST (SGOT) 34 10 - 42 unit/L LAB CHEMISTRY METHOD 09/25/2024 11:08 AM [facility] ALT (SGPT) 63(H) 10 - 60 unit/L LAB CHEMISTRY METHOD 09/25/2024 11:08 AM [facility] Alkaline Phosphatase 61 42 - 121 unit/L LAB CHEMISTRY METHOD 09/25/2024 11:08 AM [facility] Total Protein 5.7(L) 6.0 - 8.0 g/dL LAB CHEMISTRY METHOD 09/25/2024 11:08 AM [facility] Albumin 2.8(L) 3.2 - 5.0 g/dL LAB CHEMISTRY METHOD 09/25/2024 11:08 AM [facility] Total Bilirubin 0.6 0.0 - 1.4 mg/dL LAB CHEMISTRY METHOD 09/25/2024 11:08 AM [facility] Blood Venous blood specimen / Unknown Venipuncture / Unknown 09/25/2024 5:25 AM EDT 09/25/2024 9:26 AM EDT us Samuel Doran MD LAB BLOOD ORDERABLES Final Res ult [facility] [address] [place] [address], documented in this encounter Visit Diagnoses Diagnosis Encounter for other general examination documented in this encounter Care Teams Printing Machinist Relationship Specialty Start Date End Date Christian Garza PA [address] [place] [address] PCP - General 09/28/24 documented as of this encounter
--- OUTSIDE RECORDS SUMMARY | 2024-10-15 16:01 | XMS_ITS | Encounter Summary ---
Author Organization [facility] Address [address] [place] [address] Care Team Providers Care Research Specialist Name Role Phone Genejeyson Christian BARTH Primary Care Provider [phone] Encounter Details Date Type Department Care Team (Late st Contact Info) Description 09/22/2024 Lab Requisition [facility] - Main Lab [address] [place] [address] Samuel Doran MD [address] [place] [id number] Encounter for other general examination Social History [...] Procedure Name Priority Date/Time Associated Diagnosis Comments COMPLETE BLOOD COUNT Routine 09/22/2024 5:13 AM EDT Encounter for other general examination COMPREHENSIVE METABOLIC PANEL Routine 09/22/2024 5:13 AM EDT Encounter for other general examination documented in this encounter Results * (ABNORMAL) Complete blood count (09/22/2024 5:13 AM EDT) WBC 11.3(H) 4.8 - 10.8 K/[facility] LAB HEMETOLOGY METHOD 09/22/2024 10:41 AM EDT [facility] LAB RBC 3.70(L) 3.80 - 4.80 M/mcL LAB HEMETOLOGY METHOD 09/22/2024 10:41 AM [facility] LAB Hemoglobin 11.0(L) 11.5 - 16.0 g/dL LAB HEMETOLOGY METHOD 09/22/2024 10:41 AM [facility] LAB Hematocrit 33.3(L) 35.0 - 47.0 % LAB HEMETOLOGY METHOD 09/22/2024 10:41 AM [facility] LAB MCV 89.3 79.0 - 98.0 FL LAB HEMETOLOGY METHOD 09/22/2024 10:41 AM [facility] LAB MCH 29.5 27.0 - 32.0 pcg LAB HEMETOLOGY METHOD 09/22/2024 10:41 AM [facility] LAB MCHC 33.0 32.0 - 37.0 g/dL LAB HEMETOLOGY METHOD 09/22/2024 10:41 AM [facility] LAB RDW 14.2 11.0 - 15.0 % LAB HEMETOLOGY METHOD 09/22/2024 10:41 AM [facility] LAB Platelets 189 130 - 400 K/mcL LAB HEMETOLOGY METHOD 09/22/2024 10:41 AM [facility] LAB MPV 9.2 7.0 - 11.0 FL LAB HEMETOLOGY METHOD 09/22/2024 10:41 AM [facility] LAB NRBC 0.0 <1.0 % LAB HEMETOLOGY METHOD 09/22/2024 10:41 AM [facility] LAB NRBC Absolute 0.00 <0.10 K/mcL LAB HEMETOLOGY METHOD 09/22/2024 10:41 AM [facility] LAB Blood Venous blood specimen / Unknown Venipuncture / Unknown 09/22/2024 5:13 AM EDT 09/22/2024 9:47 AM EDT us Samuel Doran MD LAB BLOOD ORDERABLES Final Res ult [facility] LAB [address] [place] [address], * (ABNORMAL) Comprehensive metabolic panel (09/22/2024 5:13 AM EDT) Sodium 142 133 - 145 mmol/L LAB CHEMISTRY METHOD 09/22/2024 11:40 AM [facility] LAB Potassium 3.6 3.5 - 5.5 mmol/L LAB CHEMISTRY METHOD 09/22/2024 11:40 AM [facility] LAB Chloride 103 96 - 110 mmol/L LAB CHEMISTRY METHOD 09/22/2024 11:40 AM [facility] LAB CO2 32 21 - 32 mmol/L LAB CHEMISTRY METHOD 09/22/2024 11:40 AM [facility] LAB Anion Gap 7 3 - 11 LAB CHEMISTRY METHOD 09/22/2024 11:40 AM [facility] LAB Glucose 55(L) 70 - 100 mg/dL LAB CHEMISTRY METHOD 09/22/2024 11:40 AM [facility] LAB BUN 17 5 - 25 mg/dL LAB CHEMISTRY METHOD 09/22/2024 11:40 AM [facility] LAB Creatinine 0.55 0.50 - 1.10 mg/dL LAB CHEMISTRY METHOD 09/22/2024 11:40 AM [facility] LAB eGFR 106 >=60 mL/min/1. 73m2 LAB CHEMISTRY METHOD 09/22/2024 11:40 AM [facility] LAB Comment:Calculation based on the??Chronic Kidney Disease Epidemiology Collaboration (CKD-EPI) equation refit??without adjustment for race. BUN/Creatinine Ratio 30.9 LAB CHEMISTRY METHOD 09/22/2024 11:40 AM [facility] LAB Calcium 9.0 8.5 - 10.5 mg/dL LAB CHEMISTRY METHOD 09/22/2024 11:40 AM [facility] LAB AST (SGOT) 13 10 - 42 unit/L LAB CHEMISTRY METHOD 09/22/2024 11:40 AM [facility] LAB ALT (SGPT) 42 10 - 60 unit/L LAB CHEMISTRY METHOD 09/22/2024 11:40 AM [facility] LAB Alkaline Phosphatase 58 42 - 121 unit/L LAB CHEMISTRY METHOD 09/22/2024 11:40 AM [facility] LAB Total Protein 5.5(L) 6.0 - 8.0 g/dL LAB CHEMISTRY METHOD 09/22/2024 11:40 AM [facility] LAB Albumin 2.8(L) 3.2 - 5.0 g/dL LAB CHEMISTRY METHOD 09/22/2024 11:40 AM [facility] LAB Total Bilirubin 0.7 0.0 - 1.4 mg/dL LAB CHEMISTRY METHOD 09/22/2024 11:40 AM [facility] LAB Blood Venous blood specimen / Unknown Venipuncture / Unknown 09/22/2024 5:13 AM EDT 09/22/2024 9:47 AM EDT us Samuel Doran MD LAB BLOOD ORDERABLES Final Res ult [facility] [address] [place] [address], documented in this encounter Visit Diagnoses Diagnosis Encounter for other general examination documented in this encounter Care Teams Research Specialist Relationship Specialty Start Date End Date Christian Garza PA [address] [place] [phone] PCP - General 09/28/24 documented as of this encounter
--- OUTSIDE RECORDS SUMMARY | 2024-10-15 16:02 | XMS_ITS | Encounter Summary ---
Author Organization [facility] Address [address] [place] [address] Care Team Providers Care Grocery Checker Name Role Phone Greg Christian BARTH Primary Care Provider [phone] Encounter Details Date Type Department Care Team (Late st Contact Info) Description 10/04/2024 Lab Requisition [facility] - Main Lab [address] [facility] [place] [address] Samuel Doran MD [address] [place] [id number] Dysuria Social History Tobacco Use Types Packs/Day [...] URINALYSIS WITH REFLEX MICROSCOPIC AND CULTURE Routine 10/03/2024 9:00 AM EDT Dysuria NDIAYE URINE CULTURE TUBE Routine 10/03/2024 9:00 AM EDT Dysuria URINALYSIS WITH REFLEX MICROSCOPIC AND CULTURE Routine 10/03/2024 9:00 AM EDT Dysuria CULTURE URINE Routine 10/03/2024 9:00 AM EDT Dysuria documented in this encounter Results * (ABNORMAL) Culture urine (10/03/2024 9:00 AM EDT) Culture, Urine >100,000 CFU/mL Escherichia coli(A) LOUISA 10/06/2024 10:26 AM EDT [facility] LAB Urine Urine specimen obtained by clean catch procedure / Unknown Non-blood Collection / Unknown 10/03/2024 9:00 AM EDT 10/04/2024 11:35 AM EDT Narrative [facility] - 10/06/2024 10:26 AM EDT Additional colony types present in insignificant amounts. Organism Antibiotic Method Susceptibility Escherichia coli Amoxicillin/Clavulanate LOUISA 4 ug/ml: Susceptible Escherichia coli Ampicillin/Sulbactam LOUISA 16 ug/ml: Intermediate Escherichia coli Piperacillin/Tazobactam LOUISA <=4 ug/ml: Susceptible Escherichia coli Cefazolin (Urine) LOUISA 2 ug/ml: Susceptible Escherichia coli Cefoxitin LOUISA <=4 ug/ml: Susceptible Escherichia coli Ceftazidime LOUISA <=0.5 ug/ml: Susceptible Escherichia coli Ceftriaxone LOUISA <=0.25 ug/ml: Susceptible Escherichia coli Cefepime LOUISA <=0.12 ug/ml: Susceptible Escherichia coli Meropenem LOUISA <=0.25 ug/ml: Susceptible Escherichia coli Amikacin LOUISA 4 ug/ml: Susceptible Escherichia coli Gentamicin LOUISA <=1 ug/ml: Susceptible Escherichia coli Ciprofloxacin LOUISA 0.5 ug/ml: Intermediate Escherichia coli Levofloxacin LOUISA 1 ug/ml: Intermediate Escherichia coli Nitrofurantoin LOUISA <=16 ug/ml: Susceptible Escherichia coli Trimethoprim/Sulfamethoxazole LOUISA >=320 ug/ml: Resistant us Samuel Doran MD LAB MICROBIOLOGY - GENERAL ORD ERABLES Final Result [facility] [address] [place] [address], * Ndiaye urine culture tube (10/03/2024 9:00 AM EDT) Extra Tube Hold for add-ons. 10/04/2024 12:01 PM EDT [facility] LAB Comment:Auto resulted. Urine Urine specimen obtained by clean catch procedure / Unknown Non-blood Collection / Unknown 10/03/2024 9:00 AM EDT 10/04/2024 10:46 AM EDT us Samuel Doran MD LAB URINE ORDERABLES Final Res ult [facility] [address] [place] [address], [place] [phone] * (ABNORMAL) Urinalysis with reflex microscopic and culture (10/03/2024 9:00 AM EDT) Specific [place] Urine 1.012 1.003 - 1.030 LAB URINALYSIS - AUTOMATED METHOD 10/04/2024 11:35 AM [facility] LAB pH, Urine 7.0 5.0 - 8.0 pH LAB URINALYSIS - AUTOMATED METHOD 10/04/2024 11:35 AM [facility] LAB Leukocytes, Urine Large(A) Negative LAB URINALYSIS - AUTOMATED METHOD 10/04/2024 11:35 AM [facility] LAB Nitrite, Urine Positive(A) Negative LAB URINALYSIS - AUTOMATED METHOD 10/04/2024 11:35 AM [facility] LAB Protein, Urine 30(A) <=Trace mg/dL LAB URINALYSIS - AUTOMATED METHOD 10/04/2024 11:35 AM [facility] LAB Glucose, Urine Negative Negative mg/dL LAB URINALYSIS - AUTOMATED METHOD 10/04/2024 11:35 AM [facility] LAB Ketones, Urine Negative Negative mg/dL LAB URINALYSIS - AUTOMATED METHOD 10/04/2024 11:35 AM [facility] LAB Urobilinogen , Urine 0.2 0.2 - 1.0 mg/dL LAB URINALYSIS - AUTOMATED METHOD 10/04/2024 11:35 AM [facility] LAB Bilirubin, Urine Negative Negative LAB URINALYSIS - AUTOMATED METHOD 10/04/2024 11:35 AM [facility] LAB Blood, Urine Large(A) Negative LAB URINALYSIS - AUTOMATED METHOD 10/04/2024 11:35 AM [facility] LAB RBC, Urine 300.2(H) 0 - 4 /HPF LAB URINALYSIS - AUTOMATED METHOD 10/04/2024 11:35 AM [facility] LAB WBC, Urine 1,862.7(H) 0 - 4 /HPF LAB URINALYSIS - AUTOMATED METHOD 10/04/2024 11:35 AM [facility] LAB Squamous Epithelial, Urine 40 0 - 60 /LPF LAB URINALYSIS - AUTOMATED METHOD 10/04/2024 11:35 AM [facility] LAB Bacteria, Urine Moderate(A) Negative /HPF LAB URINALYSIS - AUTOMATED METHOD 10/04/2024 11:35 AM [facility] LAB Hyaline Casts, Urine 1.4 0 - 3 /LPF LAB URINALYSIS - AUTOMATED METHOD 10/04/2024 11:35 AM [facility] LAB Urine Urine specimen obtained by clean catch procedure / Unknown Non-blood Collection / Unknown 10/03/2024 9:00 AM EDT 10/04/2024 10:46 AM EDT us Samuel Doran MD LAB URINE ORDERABLES Final Res ult [facility] [address] [place] [address], documented in this encounter Visit Diagnoses Diagnosis Dysuria documented in this encounter Care Teams Grocery Checker Relationship Specialty Start Date End Date Christian Garza PA [address] [place] [address] PCP - General 09/28/24 documented as of this encounter
--- OUTSIDE RECORDS SUMMARY | 2024-10-15 16:02 | XMS_ITS | Encounter Summary ---
Author Organization [facility] Address [address] [place] [address] Care Team Providers Care Veneer Sample Maker Name Role Phone Genejeyson Christian BARTH Primary Care Provider [phone] Encounter Details Date Type Department Care Team (Late st Contact Info) Description 10/09/2024 Lab Requisition [facility] - Main Lab [address] [facility] [place] [address] Samuel Doran MD [address] [place] [phone] Encounter for other general examination Social History [...] Diagnosis Comments CBC WITH AUTO DIFFERENTIAL Routine 10/09/2024 4:53 AM EDT Encounter for other general examination CBC AND DIFFERENTIAL Routine 10/09/2024 4:53 AM EDT Encounter for other general examination BASIC METABOLIC PANEL Routine 10/09/2024 4:53 AM EDT Encounter for other general examination documented in this encounter Results * (ABNORMAL) CBC auto differential (10/09/2024 4:53 AM EDT) WBC 14.8(H) 4.8 - 10.8 K/[facility] LAB HEMETOLOGY METHOD 10/09/2024 10:57 AM [facility] LAB RBC 4.10 3.80 - 4.80 M/mcL LAB HEMETOLOGY METHOD 10/09/2024 10:57 AM [facility] LAB Hemoglobin 11.9 11.5 - 16.0 g/dL LAB HEMETOLOGY METHOD 10/09/2024 10:57 AM [facility] LAB Hematocrit 37.2 35.0 - 47.0 % LAB HEMETOLOGY METHOD 10/09/2024 10:57 AM [facility] LAB MCV 91.2 79.0 - 98.0 FL LAB HEMETOLOGY METHOD 10/09/2024 10:57 AM [facility] LAB MCH 29.2 27.0 - 32.0 pcg LAB HEMETOLOGY METHOD 10/09/2024 10:57 AM [facility] LAB MCHC 32.0 32.0 - 37.0 g/dL LAB HEMETOLOGY METHOD 10/09/2024 10:57 AM [facility] LAB RDW 14.1 11.0 - 15.0 % LAB HEMETOLOGY METHOD 10/09/2024 10:57 AM [facility] LAB Platelets 307 130 - 400 K/mcL LAB HEMETOLOGY METHOD 10/09/2024 10:57 AM [facility] LAB MPV 8.6 7.0 - 11.0 FL LAB HEMETOLOGY METHOD 10/09/2024 10:57 AM [facility] LAB NRBC 0.0 <1.0 % LAB HEMETOLOGY METHOD 10/09/2024 10:57 AM [facility] LAB NRBC Absolute 0.00 <0.10 K/mcL LAB HEMETOLOGY METHOD 10/09/2024 10:57 AM [facility] LAB Neutrophils Relative 67.2 % LAB HEMETOLOGY METHOD 10/09/2024 10:57 AM [facility] LAB Lymphocytes Relative 22.6 % LAB HEMETOLOGY METHOD 10/09/2024 10:57 AM [facility] LAB Monocytes Relative 8.1 % LAB HEMETOLOGY METHOD 10/09/2024 10:57 AM [facility] LAB Eosinophils Relative 0.7 % LAB HEMETOLOGY METHOD 10/09/2024 10:57 AM [facility] LAB Basophils Relative 0.3 % LAB HEMETOLOGY METHOD 10/09/2024 10:57 AM [facility] LAB Immature Granulocytes Relative 1.1 % LAB HEMETOLOGY METHOD 10/09/2024 10:57 AM [facility] LAB Neutrophils Absolute 9.91(H) 1.50 - 7.00 K/mcL LAB HEMETOLOGY METHOD 10/09/2024 10:57 AM [facility] LAB Lymphocytes Absolute 3.34 1.00 - 5.00 K/mcL LAB HEMETOLOGY METHOD 10/09/2024 10:57 AM [facility] LAB Monocytes Absolute 1.19(H) 0.20 - 1.00 K/mcL LAB HEMETOLOGY METHOD 10/09/2024 10:57 AM [facility] LAB Eosinophils Absolute 0.10 0.00 - 0.50 K/mcL LAB HEMETOLOGY METHOD 10/09/2024 10:57 AM [facility] LAB Basophils Absolute 0.05 0.00 - 0.20 K/mcL LAB HEMETOLOGY METHOD 10/09/2024 10:57 AM [facility] LAB Immature Granulocytes Absolute 0.16(H) 0.00 - 0.03 K/mcL LAB HEMETOLOGY METHOD 10/09/2024 10:57 AM [facility] LAB Blood Venous blood specimen / Unknown Venipuncture / Unknown 10/09/2024 4:53 AM EDT 10/09/2024 9:55 AM EDT us Samuel Doran MD LAB BLOOD ORDERABLES Final Res ult [facility] [address] [place] [address], [place] [phone] * (ABNORMAL) Basic metabolic panel (10/09/2024 4:53 AM EDT) Sodium 139 133 - 145 mmol/L LAB CHEMISTRY METHOD 10/09/2024 11:33 AM [facility] LAB Potassium 4.5 3.5 - 5.5 mmol/L LAB CHEMISTRY METHOD 10/09/2024 11:33 AM [facility] LAB Chloride 100 96 - 110 mmol/L LAB CHEMISTRY METHOD 10/09/2024 11:33 AM [facility] LAB CO2 28 21 - 32 mmol/L LAB CHEMISTRY METHOD 10/09/2024 11:33 AM [facility] LAB Anion Gap 11 3 - 11 LAB CHEMISTRY METHOD 10/09/2024 11:33 AM [facility] LAB Glucose 52(L) 70 - 100 mg/dL LAB CHEMISTRY METHOD 10/09/2024 11:33 AM [facility] LAB BUN 24 5 - 25 mg/dL LAB CHEMISTRY METHOD 10/09/2024 11:33 AM [facility] LAB Creatinine 0.54 0.50 - 1.10 mg/dL LAB CHEMISTRY METHOD 10/09/2024 11:33 AM [facility] LAB eGFR 107 >=60 mL/min/1. 73m2 LAB CHEMISTRY METHOD 10/09/2024 11:33 AM [facility] LAB Comment:Calculation based on the Chronic Kidney Disease Epidemiology Collaboration (CKD-EPI) equation refit without adjustment for race. BUN/Creatinine Ratio 44.4 LAB CHEMISTRY METHOD 10/09/2024 11:33 AM EDT [facility] Calcium 9.6 8.5 - 10.5 mg/dL LAB CHEMISTRY METHOD 10/09/2024 11:33 AM EDT [facility] ([facility] Blood Venous blood specimen / Unknown Venipuncture / Unknown 10/09/2024 4:53 AM EDT 10/09/2024 9:55 AM EDT us Samuel Doran MD LAB BLOOD ORDERABLES Final Res ult [facility] ([facility]) [facility] [address] [place] [address], documented in this encounter Visit Diagnoses Diagnosis Encounter for other general examination documented in this encounter Care Teams Veneer Sample Maker Relationship Specialty Start Date End Date Christian Garza PA [address] [place] [address] PCP - General 09/28/24 documented as of this encounter
--- OUTSIDE RECORDS SUMMARY | 2024-10-15 16:02 | XMS_ITS | Encounter Summary ---
Author Organization [facility] Address [address] [place] [address] Care Team Providers Care Machine Operator Hop Picker Name Role Phone Genejeyson Christian BARTH Primary Care Provider [phone] Encounter Details Date Type Department Care Team (Late st Contact Info) Description 10/05/2024 Lab Requisition [facility] - Main Lab [address] [facility] [place] [address] Samuel Doran MD [address] [place] [address] Encounter for other general examination Social History [...] Diagnosis Comments CBC WITH AUTO DIFFERENTIAL Routine 10/05/2024 4:53 AM EDT Encounter for other general examination CBC AND DIFFERENTIAL Routine 10/05/2024 4:53 AM EDT Encounter for other general examination BASIC METABOLIC PANEL Routine 10/05/2024 4:53 AM EDT Encounter for other general examination documented in this encounter Results * (ABNORMAL) CBC auto differential (10/05/2024 4:53 AM EDT) WBC 13.9(H) 4.8 - 10.8 K/[facility] LAB HEMETOLOGY METHOD 10/05/2024 1:17 PM [facility] LAB RBC 4.10 3.80 - 4.80 M/mcL LAB HEMETOLOGY METHOD 10/05/2024 1:17 PM [facility] Hemoglobin 12.1 11.5 - 16.0 g/dL LAB HEMETOLOGY METHOD 10/05/2024 1:17 PM [facility] LAB Hematocrit 38.7 35.0 - 47.0 % LAB HEMETOLOGY METHOD 10/05/2024 1:17 PM [facility] LAB MCV 93.7 79.0 - 98.0 FL LAB HEMETOLOGY METHOD 10/05/2024 1:17 PM [facility] LAB MCH 29.3 27.0 - 32.0 pcg LAB HEMETOLOGY METHOD 10/05/2024 1:17 PM [facility] LAB MCHC 31.3(L) 32.0 - 37.0 g/dL LAB HEMETOLOGY METHOD 10/05/2024 1:17 PM [facility] LAB RDW 14.6 11.0 - 15.0 % LAB HEMETOLOGY METHOD 10/05/2024 1:17 PM [facility] LAB Platelets 276 130 - 400 K/mcL LAB HEMETOLOGY METHOD 10/05/2024 1:17 PM [facility] LAB MPV 8.9 7.0 - 11.0 FL LAB HEMETOLOGY METHOD 10/05/2024 1:17 PM [facility] LAB NRBC 0.0 <1.0 % LAB HEMETOLOGY METHOD 10/05/2024 1:17 PM [facility] LAB NRBC Absolute 0.00 <0.10 K/mcL LAB HEMETOLOGY METHOD 10/05/2024 1:17 PM [facility] Neutrophils Relative 67.1 % LAB HEMETOLOGY METHOD 10/05/2024 1:17 PM [facility] Lymphocytes Relative 22.6 % LAB HEMETOLOGY METHOD 10/05/2024 1:17 PM [facility] Monocytes Relative 8.6 % LAB HEMETOLOGY METHOD 10/05/2024 1:17 PM [facility] Eosinophils Relative 0.9 % LAB HEMETOLOGY METHOD 10/05/2024 1:17 PM [facility] Basophils Relative 0.2 % LAB HEMETOLOGY METHOD 10/05/2024 1:17 PM [facility] LAB Immature Granulocytes Relative 0.6 % LAB HEMETOLOGY METHOD 10/05/2024 1:17 PM [facility] LAB Neutrophils Absolute 9.30(H) 1.50 - 7.00 K/mcL LAB HEMETOLOGY METHOD 10/05/2024 1:17 PM [facility] LAB Lymphocytes Absolute 3.14 1.00 - 5.00 K/mcL LAB HEMETOLOGY METHOD 10/05/2024 1:17 PM [facility] Monocytes Absolute 1.19(H) 0.20 - 1.00 K/mcL LAB HEMETOLOGY METHOD 10/05/2024 1:17 PM [facility] LAB Eosinophils Absolute 0.12 0.00 - 0.50 K/mcL LAB HEMETOLOGY METHOD 10/05/2024 1:17 PM [facility] LAB Basophils Absolute 0.03 0.00 - 0.20 K/mcL LAB HEMETOLOGY METHOD 10/05/2024 1:17 PM [facility] LAB Immature Granulocytes Absolute 0.09(H) 0.00 - 0.03 K/mcL LAB HEMETOLOGY METHOD 10/05/2024 1:17 PM [facility] LAB Blood Venous blood specimen / Unknown Venipuncture / Unknown 10/05/2024 4:53 AM EDT 10/05/2024 11:42 AM EDT us Samuel Doran MD LAB BLOOD ORDERABLES Final Res ult [facility] [address] [place] [address], [place] [phone] * (ABNORMAL) Basic metabolic panel (10/05/2024 4:53 AM EDT) Sodium 136 133 - 145 mmol/L LAB CHEMISTRY METHOD 10/05/2024 1:06 PM [facility] Potassium 4.3 3.5 - 5.5 mmol/L LAB CHEMISTRY METHOD 10/05/2024 1:06 PM [facility] Chloride 95(L) 96 - 110 mmol/L LAB CHEMISTRY METHOD 10/05/2024 1:06 PM [facility] CO2 34(H) 21 - 32 mmol/L LAB CHEMISTRY METHOD 10/05/2024 1:06 PM [facility] Anion Gap 7 3 - 11 LAB CHEMISTRY METHOD 10/05/2024 1:06 PM [facility] LAB Glucose 74 70 - 100 mg/dL LAB CHEMISTRY METHOD 10/05/2024 1:06 PM [facility] BUN 20 5 - 25 mg/dL LAB CHEMISTRY METHOD 10/05/2024 1:06 PM [facility] Creatinine 0.68 0.50 - 1.10 mg/dL LAB CHEMISTRY METHOD 10/05/2024 1:06 PM [facility] LAB eGFR 101 >=60 mL/min/1. 73m2 LAB CHEMISTRY METHOD 10/05/2024 1:06 PM [facility] LAB Comment:Calculation based on the??Chronic Kidney Disease Epidemiology Collaboration (CKD-EPI) equation refit??without adjustment for race. BUN/Creatinine Ratio 29.4 LAB CHEMISTRY METHOD 10/05/2024 1:06 PM EDT [facility] Calcium 10.1 8.5 - 10.5 mg/dL LAB CHEMISTRY METHOD 10/05/2024 1:06 PM EDT [facility] Blood Venous blood specimen / Unknown Venipuncture / Unknown 10/05/2024 4:53 AM EDT 10/05/2024 11:42 AM EDT us Samuel Doran MD LAB BLOOD ORDERABLES Final Res ult [facility] [address] [place] [address], documented in this encounter Visit Diagnoses Diagnosis Encounter for other general examination documented in this encounter Care Teams Machine Operator Hop Picker Relationship Specialty Start Date End Date Christian Garza PA [address] [place] [id number] PCP - General 09/28/24 documented as of this encounter
--- OUTSIDE RECORDS SUMMARY | 2024-10-15 16:02 | XMS_ITS | Clinical Summary ---
Author Organization [address] Address [address] [place] [phone] Phone Care Team Providers Care Volunteer Assistant Name Role Phone Christian Garza Primary Care Provider [phone] Encounters Date Type Department Care Team Description 10/09/2024 Lab Requisition [facility] [address] [place] [phone] Samuel Doran MD Encounter for other general examination 10/05/2024 Lab Requisition [facility] [address] [place] [phone] Samuel Doran MD Encounter for other general examination 10/04/2024 Lab Requisition [facility] [address] [place] [phone] Samuel Doran MD Dysuria 09/29/2024 Lab Requisition [facility] [address] [place] [phone] Samuel Doran MD Encounter for other general examination 09/28/2024 Lab Requisition [facility] [address] [place] [phone] Samuel Doran MD Dysuria 09/25/2024 Lab Requisition [facility] [address] [place] [address] Samuel Doran MD Encounter for other general examination 09/22/2024 Lab Requisition [facility] [address] [place] [phone] Samuel Doran MD Encounter for other general examination 09/18/[address] [facility] Lab [address] [place] [phone] Samuel Doran MD Encounter for other general examination from Last 3 Months Medical History Medical History Date Comments Diabetes mellitus type 2, uncontrolled 10/10/2018 DX:Diabetes mellitus type 2, uncontrolled Herpes simplex 11/04/2018 DX:Herpes simple x Hyperplastic colon polyp 11/04/2018 DX:Hype rplastic colon polyp Hypertension 11/04/2018 DX:Hypertension History of squamous cell car cinoma of skin 11/04/2018 DX:History of squamous cell carcinoma of skin Type 2 diabetes mellitus wit hout complication (CMS/HCC V24, CMS/HCC V28) 10/10/2018 DX:Type 2 diabetes mellitus without complication ([facility]) Social History Tobacco Use Types Packs/Day Years Used Date Smoking Tobacco: Never Smokeless Tobacco: Never Comments Unknown Sex and Gender Information Value Date Recorded Sex Assigned at Not on file Legal Sex Female 9:16 PM EST Gender Identity Not on file Sexual Orientation Not on file Obstetrics History Last Filed Vital Signs Vital Sign Reading Time Taken Comments Blood Pressure 139/89 01/22/2023 3:37 PM EDT Pulse 92 01/22/2023 3:37 PM EDT Temperature - - Respiratory Rate - - Oxygen Saturation - - Inhaled Oxygen Concentration - - Weight 76.2 kg (168 lb) 01/22/2023 3:37 PM EDT Height 162.6 cm (5' 4 ) 01/22/2023 3:37 PM EDT Body Mass Index 28.84 01/22/2023 3:37 PM EDT Plan of Treatment Health Maintenance Due Date Last Done Comments Breast Cancer Screening 1966 Diabetes: Annual Foot Exam 1976 Diabetes: Annual Retina Eye Exam 1976 Hepatitis B Vaccines (1 of 3 - 19+ 3-dose series) 1985 Cervical Cancer Screening: Pap Smear 1987 Pneumococcal Vaccine: 50+ Years (1 of 1 - PCV) 2016 Zoster Vaccines (1 of 2) 2016 DTaP,Tdap,and Td Vaccines (3 - Td or Tdap) 01/12/2020 01/11/2010, 07/04/2001 Cholesterol Screening (Lipid Panel) 05/05/2022 Colorectal Cancer Screening: Colonoscopy 05/05/2022 Depression Screening 05/05/2022 HIV Screening 05/05/2022 Hepatitis C Screening 05/05/2022 Social Influencers of Health Screening 05/05/2022 Diabetes: Annual Urine Albumin-Creatinine Ratio (uACR) 05/18/2022 Diabetes: Blood Sugar Control Test (HGBA1C) 05/18/2022 COVID-19 Vaccine ( season) 2024 Influenza Vaccine (Season Ended) 2025 03/14/2018 Diabetes: Annual GFR (Glomerular Filtration Rate) 10/09/2025 10/09/2024, 10/05/2024, 09/29/2024, Additional history exists Hypertension/CHF/CAD Annual BMP Blood Test 10/09/2025 10/09/2024, 10/05/2024, 09/29/2024, Additional history exists HIB Vaccines Aged Out No longer eligi ble based on patient's age to complete this topic HPV Vaccines Aged Out No longer eligi ble based on patient's age to complete this topic Hepatitis A Vaccines Aged Out No long er eligible based on patient's age to complete this topic IPV Vaccines Aged Out No longer eligi ble based on patient's age to complete this topic MMR Vaccines Aged Out No longer eligi ble based on patient's age to complete this topic Meningococcal ACWY Vaccine Aged Out N o longer eligible based on patient's age to complete this topic Meningococcal B Vaccine Aged Out No l onger eligible based on patient's age to complete this topic Pneumococcal Vaccine: Pediatrics (0 to 5 Years) and At-Risk Patients (6 to 64 Years) Aged Out No longer eligible based on patient's age to complete this topic RSV Immunization Patients Under 20 months Aged Out No longer eligible based on patient's age to complete this topic Varicella Vaccines Aged Out No longer eligible based on patient's age to complete this topic Procedures Procedure Name Priority Date/Time Associated Diagnosis Comments CBC WITH AUTO DIFFERENTIAL Routine 10/09/2024 4:53 AM EDT Encounter for other general examination CBC AND DIFFERENTIAL Routine 10/09/2024 4:53 AM EDT Encounter for other general examination BASIC METABOLIC PANEL Routine 10/09/2024 4:53 AM EDT Encounter for other general examination CBC WITH AUTO DIFFERENTIAL Routine 10/05/2024 4:53 AM EDT Encounter for other general examination CBC AND DIFFERENTIAL Routine 10/05/2024 4:53 AM EDT Encounter for other general examination BASIC METABOLIC PANEL Routine 10/05/2024 4:53 AM EDT Encounter for other general examination NDIAYE URINE CULTURE TUBE Routine 10/03/2024 9:00 AM EDT Dysuria URINALYSIS WITH REFLEX MICROSCOPIC AND CULTURE Routine 10/03/2024 9:00 AM EDT Dysuria URINALYSIS WITH REFLEX MICROSCOPIC AND CULTURE Routine 10/03/2024 9:00 AM EDT Dysuria CULTURE URINE Routine 10/03/2024 9:00 AM EDT Dysuria CBC WITH AUTO DIFFERENTIAL Routine 09/29/2024 5:36 AM EDT Encounter for other general examination CBC AND DIFFERENTIAL Routine 09/29/2024 5:36 AM EDT Encounter for other general examination COMPREHENSIVE METABOLIC PANEL Routine 09/29/2024 5:36 AM EDT Encounter for other general examination URINALYSIS WITH REFLEX MICROSCOPIC AND CULTURE Routine 09/28/2024 5:30 AM EDT Dysuria NDIAYE URINE CULTURE TUBE Routine 09/28/2024 5:30 AM EDT Dysuria URINALYSIS WITH REFLEX MICROSCOPIC AND CULTURE Routine 09/28/2024 5:30 AM EDT Dysuria CBC WITH AUTO DIFFERENTIAL Routine 09/25/2024 5:25 AM EDT Encounter for other general examination CBC AND DIFFERENTIAL Routine 09/25/2024 5:25 AM EDT Encounter for other general examination COMPREHENSIVE METABOLIC PANEL Routine 09/25/2024 5:25 AM EDT Encounter for other general examination COMPLETE BLOOD COUNT Routine 09/22/2024 5:13 AM EDT Encounter for other general examination COMPREHENSIVE METABOLIC PANEL Routine 09/22/2024 5:13 AM EDT Encounter for other general examination CBC WITH AUTO DIFFERENTIAL Routine 09/18/2024 5:35 AM EDT Encounter for other general examination MAGNESIUM Routine 09/18/2024 5:35 AM EDT Encounter for other general examination CBC AND DIFFERENTIAL Routine 09/18/2024 5:35 AM EDT Encounter for other general examination COMPREHENSIVE METABOLIC PANEL Routine 09/18/2024 5:35 AM EDT Encounter for other general examination from Last 3 Months Results * (ABNORMAL) CBC auto differential (10/09/2024 4:53 AM EDT) Only the most recent of5 resultswithin the time period is included. WBC 14.8(H) 4.8 - 10.8 K/mcL LAB HEMETOLOGY METHOD 10/09/2024 10:57 AM EDT [facility] RBC 4.10 3.80 - 4.80 M/mcL LAB HEMETOLOGY METHOD 10/09/2024 10:57 AM EDT [facility] Hemoglobin 11.9 11.5 - 16.0 g/dL LAB HEMETOLOGY METHOD 10/09/2024 10:57 AM EDT [facility] Hematocrit 37.2 35.0 - 47.0 % LAB HEMETOLOGY METHOD 10/09/2024 10:57 AM [facility] MCV 91.2 79.0 - 98.0 FL LAB HEMETOLOGY METHOD 10/09/2024 10:57 AM [facility] MCH 29.2 27.0 - 32.0 pcg LAB HEMETOLOGY METHOD 10/09/2024 10:57 AM [facility] MCHC 32.0 32.0 - 37.0 g/dL LAB HEMETOLOGY METHOD 10/09/2024 10:57 AM [facility] RDW 14.1 11.0 - 15.0 % LAB HEMETOLOGY METHOD 10/09/2024 10:57 AM [facility] Platelets 307 130 - 400 K/mcL LAB HEMETOLOGY METHOD 10/09/2024 10:57 AM [facility] MPV 8.6 7.0 - 11.0 FL LAB HEMETOLOGY METHOD 10/09/2024 10:57 AM [facility] NRBC 0.0 <1.0 % LAB HEMETOLOGY METHOD 10/09/2024 10:57 AM [facility] NRBC Absolute 0.00 <0.10 K/mcL LAB HEMETOLOGY METHOD 10/09/2024 10:57 AM [facility] Neutrophils Relative 67.2 % LAB HEMETOLOGY METHOD 10/09/2024 10:57 AM [facility] Lymphocytes Relative 22.6 % LAB HEMETOLOGY METHOD 10/09/2024 10:57 AM [facility] Monocytes Relative 8.1 % LAB HEMETOLOGY METHOD 10/09/2024 10:57 AM [facility] Eosinophils Relative 0.7 % LAB HEMETOLOGY METHOD 10/09/2024 10:57 AM [facility] Basophils Relative 0.3 % LAB HEMETOLOGY METHOD 10/09/2024 10:57 AM EDT [facility] Immature Granulocytes Relative 1.1 % LAB HEMETOLOGY METHOD 10/09/2024 10:57 AM EDT [facility] Neutrophils Absolute 9.91(H) 1.50 - 7.00 K/mcL LAB HEMETOLOGY METHOD 10/09/2024 10:57 AM EDT [facility] Lymphocytes Absolute 3.34 1.00 - 5.00 K/mcL LAB HEMETOLOGY METHOD 10/09/2024 10:57 AM EDT [facility] Monocytes Absolute 1.19(H) 0.20 - 1.00 K/mcL LAB HEMETOLOGY METHOD 10/09/2024 10:57 AM EDT [facility] Eosinophils Absolute 0.10 0.00 - 0.50 K/mcL LAB HEMETOLOGY METHOD 10/09/2024 10:57 AM EDT [facility] Basophils Absolute 0.05 0.00 - 0.20 K/mcL LAB HEMETOLOGY METHOD 10/09/2024 10:57 AM EDT [facility] Immature Granulocytes Absolute 0.16(H) 0.00 - 0.03 K/mcL LAB HEMETOLOGY METHOD 10/09/2024 10:57 [facility] Blood Venous blood specimen / Unknown Venipuncture / Unknown 10/09/2024 4:53 AM EDT 10/09/2024 9:55 AM EDT us Samuel Doran MD LAB BLOOD ORDERABLES Final Res ult [facility] [address] [place] [address], * (ABNORMAL) Basic metabolic panel (10/09/2024 4:53 AM EDT) Only the most recent of2 resultswithin the time period is included. [facility] Sodium 139 133 - 145 mmol/L LAB CHEMISTRY METHOD 10/09/2024 11:33 AM [facility] Potassium 4.5 3.5 - 5.5 mmol/L LAB CHEMISTRY METHOD 10/09/2024 11:33 AM [facility] Chloride 100 96 - 110 mmol/L LAB CHEMISTRY METHOD 10/09/2024 11:33 AM [facility] CO2 28 21 - 32 mmol/L LAB CHEMISTRY METHOD 10/09/2024 11:33 AM [facility] Anion Gap 11 3 - 11 LAB CHEMISTRY METHOD 10/09/2024 11:33 AM [facility] Glucose 52(L) 70 - 100 mg/dL LAB CHEMISTRY METHOD 10/09/2024 11:33 AM [facility] BUN 24 5 - 25 mg/dL LAB CHEMISTRY METHOD 10/09/2024 11:33 AM [facility] Creatinine 0.54 0.50 - 1.10 mg/dL LAB CHEMISTRY METHOD 10/09/2024 11:33 AM [facility] eGFR 107 >=60 mL/min/1. 73m2 LAB CHEMISTRY METHOD 10/09/2024 11:33 AM [facility] Comment:Calculation based on the Chronic Kidney Disease Epidemiology Collaboration (CKD-EPI) equation refit without adjustment for race. BUN/Creatinine Ratio 44.4 LAB CHEMISTRY METHOD 10/09/2024 11:33 AM [facility] Calcium 9.6 8.5 - 10.5 mg/dL LAB CHEMISTRY METHOD 10/09/2024 11:33 AM [facility] Blood Venous blood specimen / Unknown Venipuncture / Unknown 10/09/2024 4:53 AM EDT 10/09/2024 9:55 AM EDT us Samuel Doran MD LAB BLOOD ORDERABLES Final Res ult [facility] [address] [place] [address], [place] [phone] * (ABNORMAL) Urinalysis with reflex microscopic and culture (10/03/2024 9:00 AM EDT) Only the most recent of2 resultswithin the time period is included. Specific [place] Urine 1.012 1.003 - 1.030 LAB URINALYSIS - AUTOMATED METHOD 10/04/2024 11:35 AM [facility] pH, Urine 7.0 5.0 - 8.0 pH LAB URINALYSIS - AUTOMATED METHOD 10/04/2024 11:35 AM [facility] Leukocytes, Urine Large(A) Negative LAB URINALYSIS - AUTOMATED METHOD 10/04/2024 11:35 AM [facility] Nitrite, Urine Positive(A) Negative LAB URINALYSIS - AUTOMATED METHOD 10/04/2024 11:35 AM [facility] Protein, Urine 30(A) <=Trace mg/dL LAB URINALYSIS - AUTOMATED METHOD 10/04/2024 11:35 AM [facility] Glucose, Urine Negative Negative mg/dL LAB URINALYSIS - AUTOMATED METHOD 10/04/2024 11:35 AM [facility] Ketones, Urine Negative Negative mg/dL LAB URINALYSIS - AUTOMATED METHOD 10/04/2024 11:35 AM [facility] Urobilinogen , Urine 0.2 0.2 - 1.0 mg/dL LAB URINALYSIS - AUTOMATED METHOD 10/04/2024 11:35 AM [facility] Bilirubin, Urine Negative Negative LAB URINALYSIS - AUTOMATED METHOD 10/04/2024 11:35 AM [facility] Blood, Urine Large(A) Negative LAB URINALYSIS - AUTOMATED METHOD 10/04/2024 11:35 AM [facility] RBC, Urine 300.2(H) 0 - 4 /HPF LAB URINALYSIS - AUTOMATED METHOD 10/04/2024 11:35 AM EDT [facility] WBC, Urine 1,862.7(H) 0 - 4 /HPF LAB URINALYSIS - AUTOMATED METHOD 10/04/2024 11:35 AM EDT [facility] Squamous Epithelial, Urine 40 0 - 60 /LPF LAB URINALYSIS - AUTOMATED METHOD 10/04/2024 11:35 AM EDT [facility] Bacteria, Urine Moderate(A) Negative /HPF LAB URINALYSIS - AUTOMATED METHOD 10/04/2024 11:35 AM EDT [facility] Hyaline Casts, Urine 1.4 0 - 3 /LPF LAB URINALYSIS - AUTOMATED METHOD 10/04/2024 11:35 AM [facility] Urine Urine specimen obtained by clean catch procedure / Unknown Non-blood Collection / Unknown 10/03/2024 9:00 AM EDT 10/04/2024 10:46 AM EDT Samuel Doran MD LAB URINE ORDERABLES Final Res ult Performing Organization Address City/[facility]/ZIP Co de Phone Number [facility] [address] [place] [address], [place] [phone] * Ndiaye urine culture tube (10/03/2024 9:00 AM EDT) Only the most recent of2 resultswithin the time period is included. Extra Tube Hold for add-ons. 10/04/2024 12:01 PM EDT [facility] Comment:Auto resulted. Urine Urine specimen obtained by clean catch procedure / Unknown Non-blood Collection / Unknown 10/03/2024 9:00 AM EDT 10/04/2024 10:46 AM EDT us Samuel Doran MD LAB URINE ORDERABLES Final Res ult [facility] [address] [place] [address], [place] [phone] * (ABNORMAL) Culture urine (10/03/2024 9:00 AM EDT) Culture, Urine >100,000 CFU/mL Escherichia coli(A) LOUISA 10/06/2024 10:26 AM EDT [facility] Urine Urine specimen obtained by clean catch procedure / Unknown Non-blood Collection / Unknown 10/03/2024 9:00 AM EDT 10/04/2024 11:35 AM EDT Narrative [facility] - 10/06/2024 10:26 AM EDT [...] Escherichia coli Trimethoprim/Sulfamethoxazole LOUISA >=320 ug/ml: Resistant Samuel Doran MD LAB MICROBIOLOGY - GENERAL ORD ERABLES Final Result [facility] [address] [place] [address], [place] [phone] * (ABNORMAL) Comprehensive metabolic panel (09/29/2024 5:36 AM EDT) Only the most recent of4 resultswithin the time period is included. Sodium 137 133 - 145 mmol/L LAB CHEMISTRY METHOD 09/29/2024 11:34 AM [facility] Potassium 4.4 3.5 - 5.5 mmol/L LAB CHEMISTRY METHOD 09/29/2024 11:34 AM [facility] Chloride 98 96 - 110 mmol/L LAB CHEMISTRY METHOD 09/29/2024 11:34 AM [facility] CO2 31 21 - 32 mmol/L LAB CHEMISTRY METHOD 09/29/2024 11:34 AM [facility] Anion Gap 8 3 - 11 LAB CHEMISTRY METHOD 09/29/2024 11:34 AM [facility] Glucose 78 70 - 100 mg/dL LAB CHEMISTRY METHOD 09/29/2024 11:34 AM [facility] BUN 22 5 - 25 mg/dL LAB CHEMISTRY METHOD 09/29/2024 11:34 AM [facility] Creatinine 0.69 0.50 - 1.10 mg/dL LAB CHEMISTRY METHOD 09/29/2024 11:34 AM [facility] eGFR 101 >=60 mL/min/1. 73m2 LAB CHEMISTRY METHOD 09/29/2024 11:34 AM [facility] Comment:Calculation based on the??Chronic Kidney Disease Epidemiology Collaboration (CKD-EPI) equation refit??without adjustment for race. BUN/Creatinine Ratio 31.9 LAB CHEMISTRY METHOD 09/29/2024 11:34 AM [facility] Calcium 9.8 8.5 - 10.5 mg/dL LAB CHEMISTRY METHOD 09/29/2024 11:34 AM [facility] AST (SGOT) 25 10 - 42 unit/L LAB CHEMISTRY METHOD 09/29/2024 11:34 AM [facility] ALT (SGPT) 72(H) 10 - 60 unit/L LAB CHEMISTRY METHOD 09/29/2024 11:34 AM EDT [facility] Alkaline Phosphatase 76 42 - 121 unit/L LAB CHEMISTRY METHOD 09/29/2024 11:34 AM T [facility] Total Protein 5.8(L) 6.0 - 8.0 g/dL LAB CHEMISTRY METHOD 09/29/2024 11:34 AM [facility] Albumin 3.0(L) 3.2 - 5.0 g/dL LAB CHEMISTRY METHOD 09/29/2024 11:34 AM [facility] Total Bilirubin 0.5 0.0 - 1.4 mg/dL LAB CHEMISTRY METHOD 09/29/2024 11:34 AM [facility] Blood Venous blood specimen / Unknown Venipuncture / Unknown 09/29/2024 5:36 AM EDT 09/29/2024 9:45 AM EDT us Samuel Doran MD LAB BLOOD ORDERABLES Final Res ult [facility] [address] [place] [address], * (ABNORMAL) Complete blood count (09/22/2024 5:13 AM EDT) WBC 11.3(H) 4.8 - 10.8 K/mcL LAB HEMETOLOGY METHOD 09/22/2024 10:41 AM EDT [facility] RBC 3.70(L) 3.80 - 4.80 M/[facility] LAB HEMETOLOGY METHOD 09/22/2024 10:41 AM EDT [facility] Hemoglobin 11.0(L) 11.5 - 16.0 g/dL LAB HEMETOLOGY METHOD 09/22/2024 10:41 AM [facility] Hematocrit 33.3(L) 35.0 - 47.0 % LAB HEMETOLOGY METHOD 09/22/2024 10:41 AM EDT [facility] MCV 89.3 79.0 - 98.0 FL LAB HEMETOLOGY METHOD 09/22/2024 10:41 AM T [facility] MCH 29.5 27.0 - 32.0 pcg LAB HEMETOLOGY METHOD 09/22/2024 10:41 AM EDT [facility] MCHC 33.0 32.0 - 37.0 g/dL LAB HEMETOLOGY METHOD 09/22/2024 10:41 AM EDT [facility] RDW 14.2 11.0 - 15.0 % LAB HEMETOLOGY METHOD 09/22/2024 10:41 AM [facility] Platelets 189 130 - 400 K/mcL LAB HEMETOLOGY METHOD 09/22/2024 10:41 AM T [facility] MPV 9.2 7.0 - 11.0 FL LAB HEMETOLOGY METHOD 09/22/2024 10:41 AM [facility] NRBC 0.0 <1.0 % LAB HEMETOLOGY METHOD 09/22/2024 10:41 AM [facility] NRBC Absolute 0.00 <0.10 K/mcL LAB HEMETOLOGY METHOD 09/22/2024 10:41 AM T [facility] Blood Venous blood specimen / Unknown Venipuncture / Unknown 09/22/2024 5:13 AM EDT 09/22/2024 9:47 AM EDT us Samuel Doran MD LAB BLOOD ORDERABLES Final Res ult [facility] [address] [place] [address], * Magnesium (09/18/2024 5:35 AM EDT) Magnesium 2.6 1.9 - 2.6 mg/dL LAB CHEMISTRY METHOD 09/18/2024 1:09 PM EDT [facility] Blood Venous blood specimen / Unknown Venipuncture / Unknown 09/18/2024 5:35 AM EDT 09/18/2024 11:00 AM EDT us Samuel Doran MD LAB BLOOD ORDERABLES Final Res ult [facility] [address] [place] [address], [place] [phone] from Last 3 Months Care Teams Volunteer Assistant Relationship Specialty Start Date End Date Christian Garza PA [address] [place] [address] PCP - General 09/28/24
== END 2024-10-15 21:53 | disposition home or self-care (01) ==
LOC: HO.HMCFM 15:38
PROVIDERS: PCP Physician Assistant Medical; Visit Provider Physician Assistant Medical
DX: E04.1 Nontoxic single thyroid nodule (principal); E11.65 Type 2 diabetes mellitus with hyperglycemia; I69.30 Unspecified sequelae of cerebral infarction; Z09 Encounter for follow-up examination after completed treatment for conditions other than malignant neoplasm; I67.7 Cerebral arteritis, not elsewhere classified; I72.4 Aneurysm of artery of lower extremity; G08 Intracranial and intraspinal phlebitis and thrombophlebitis; I77.6 Arteritis, unspecified; D72.829 Elevated white blood cell count, unspecified; M54.17 Radiculopathy, lumbosacral region

== ENCOUNTER → 2024-10-15 15:38 | Outpatient (BNVA) | payer OTHER, SELFPAY | PROVIDERS: PCP Physician Assistant Medical; Visit Provider Physician Assistant Medical ==

== ENCOUNTER 2024-11-16 10:40 | Outpatient (AMB) | payer OTHER, SELFPAY ==
--- NOTE | 2024-11-16 10:46 | A.OFFPC_ITS ---
Vital Signs 11/16/24 10:58 Height 5 ft 4 in Weight 135 lb BMI 23.2 BP 116/72 Blood Pressure Location Rt brachial Position Sitting Respiration 14 Pulse 97 Pulse Source Pulse Oximeter Temp 97.6 F Temp Source Temporal Artery Scan Pulse Oximetry (%) 98 Oxygen Delivery Method Room Air Intake Visit Reasons: 30 min follow up Intake Note: Shelly presents in the office for a follow up. Needs refills of her diabetic supplies. Allergies No Known Allergies Allergy (Verified 11/16/24 10:51) Tobacco use date assessed: 11/16/24 Dental Screening Dental Screen Date: 11/16/24 Did you have a dental visit in the last 12 months?: Yes Did you have a dental problem in the last 6 months where you did not have access to dental care?: No Was dental information given to patient?: Patient has dentist HPI HPI Comments History of Present Illness Details This is a 59-year-old female with a past medical history of type 2 diabetes with microalbuminuria, hepatic steatosis, lumbosacral radiculopathy, hyperlipidemia, hypertension, anxiety with depression and recent hospitalization for cerebral vasculitis, acute CVA, 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 Her is also on the phone with her today. They opted for a telehealth visit because she has significant weakness in his in a wheelchair since discharge from [facility]. Accompanied by mother and has been. She was diagnosed with COVID-19 infection 08/18/2024 at [facility]. Patient was initially admitted 08/21/2024 for right corpus callosum/cingulate regional stroke due to occlusion/high-grade stenosis and discharged 08/25/2024. She tested positive for COVID-19 and has been feeling unwell for a couple of weeks prior. Right JULIANO infarct was thought to be embolic treated with aspirin and Plavix. Re-presented 09/01/2024 with left-sided face tingling, dysarthria and worsening left-sided weakness and admitted. CTA showed worsening multifocal stenosis in the posterior circulation. MRI brain 09/02/2024 showed extension of right CR infarct. Digital subtraction angiography with Dr. Kumar 09/03/2024 suggestive of vasculitis in the middle and small blood vessels. Required prophylaxis with Bactrim while hospitalized due to high-dose steroids. She underwent right lateral brain biopsy on 09/11/[address] Enriquez. Reports this was inconclusive. CTA head 09/14/2024 showed new small SAH subjacent to the right parietal craniotomy site. Per neuro her deficits were not secondary to small SAH in surgical bed. Per notes patient to restart DVT prophylaxis/DOAC if needed because the risk of worsening thrombosis and neurologic compromise was greater than risk of bleeding from SAH. 09/15/2024 she had a catheterization kyle o done by Dr. Gaffney who noticed improvement overall in the caliber of the vessels especially in the MCA is where they appeared to be more open making the likelihood of vasculitis valid given lack of significant response to verapamil involving the treatment of the right superficial vasculature. Neuro also recommended starting apixaban in the next 2 weeks once sutures were removed. Sutures were removed 09/25/2024. Patient had right femoral pseudoaneurysm status post angiogram. IR recommended no thrombus injection. Prevascular size of the pseudoaneurysm was not too concerning and plan was for conservative follow up. Duplex was repeated and the aneurysm appeared fully thrombosed with no visible flow and there were 2 small hematomas in the right groin with no visible flow. Vascular did not recommend surgical intervention. STEPHANIE, anti DNA aB, ANCA, cryoglobulin, Lyme, electrophoresis and quantitative TB negative. Patient was discharged to [facility] where she remained until 10/10/2024. Patient is currently on prednisone 30 mg daily and pantoprazole for GI prophylaxis. PT said she is making progress every day. She has regained some use of her left upper extremity. She is able to stand and walk using a walker on the right side. Speech is improving. Patient has follow up with Neurology, Dr. Boland on 11/18/2024. She has speech therapy, PT and OT. Her mother, Dana and her , Cosme are providing care. Patient started on sertraline a week ago for depression with anxiety. No side effects reported. CT neck showed an 8 mm thyroid nodule and outpatient follow up with PCP was recommended. Patient is taking Lantus 16, Ozempic and metformin. Previously on glipizide. Using lispro prior to meals, but they has been using this before breakfast. We adjusted her scale at the end of last week because she reported low blood sugars. New scale: Blood sugar <120 administer 0 units Blood sugar 121-149 administer 6 units Blood sugar 150-200 administer 10 units Blood sugar 201-250 administer 12 units Blood sugar 251-300 administer 14 units Blood sugar 301-350 administer 16 units Blood sugar 351-400 administer 18 units Blood sugar >400 administer 20 units and call the office Hypoglycemia resolved since adjusting lispro. I reviewed the written blood sugar log they brought from November 12 2 November 15. Fasting sugars are within target range. She is having some postprandial hyperglycemia. Patient had MRI of the lumbar spine on 08/30/2024 as an out patient which demonstrated spondylosis L5-S1 and to a lesser extent L4-L5 encroaching the neural elements of the thecal sac and likely the S1-L5 exiting nerve roots as well as pseudoarthrosis posterior spinous process L3-L4 and L4-L5. They called to report intermittent episodes of increased heart rate without dizziness, chest pain, syncope. Her apple watch alerts her. Highest heart rate was 128. ROS: Constitutional: No fevers or chills. +fatigue. Eyes: No vision changes. Respiratory: No shortness of breath, cough or wheezing Cardiovascular: No chest pain, see HPI Gastrointestinal: No anorexia, nausea, vomiting or diarrhea. Genitourinary: No dysuria, hematuria, urinary frequency. Neurologic: Per HPI Hematologic/Lymphatics: No bleeding Endocrine: No polyuria or polydipsia. +polyphagia. Psychiatric: + anxiety and depression Physical exam: Constitutional: Alert, in no distress.. Eyes: Pupils are equal, round and reactive to light. Extraocular muscles intact. Neck: Supple, Full range of motion. No lymphadenopathy. No palpable thyroid masses. Respiratory: Clear to auscultation. Cardiovascular: S1 S2 regular. No murmurs. Gastrointestinal: Abdomen soft, non-tender, non-distended. Neurologic: Mild dysarthria. There is some facial asymmetry noted with smiling. Handgrip strength on the left is 2/5 compared to 4/5 on the right. Le ft lower extremity strength 0/5 compared to 5/5 on the right. Patient is able to stand using her walker and take steps. Extremities: Warm and well perfused. No clubbing, cyanosis or edema. Intact pe ripheral pulses bilaterally. 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 Hospital discharge follow-up History of CVA with residual deficit Thyroid nodule LFT elevation Atrophy of muscle of left lower leg Weakness of left leg Floaters RUQ abdominal pain Lumbosacral radiculopathy Hiatal hernia Hepatic steatosis Microalbuminuria Renal cyst, left Renal lesion Gallbladder polyp Anxiety Pure hypercholesterolemia Left upper quadrant pain Fatigue Essential hypertension Type 2 diabetes mellitus Torn ligament High cholesterol High blood pressure Diabetes Family History Father Colon cancer Mother Diabetes Social History (Updated 11/16/24 @ 10:57 by Cathie Bahena MA) Household Members: Significant Other Housing: House Are you a primary home care rn to a significant other at home: No Do you presently have visiting nurse or other home services: No Alcohol intake: never Patient Tobacco Use Status: Former Tobacco user e-Cigarette/Vaping Use: Currently Using Second Hand Smoke Exposure: No Special reanna needs: No service: No Current occupational status: employed Current occupation: service diapatcher Cognitive needs: No Hearing needs: No Vision needs: Yes (Patient wears glasses.) Questionnaire PHQ-9 Over the last 2 weeks, how often have you been bothered by any of the following problems? 1. Little interest or pleasure in doing things: more than half the days 2. Feeling down, depressed, or hopeless: more than half the days 3. Trouble falling or staying asleep, or sleeping too much: not at all 4. Feeling tired or having little energy: more than half the days 5. Poor appetite or overeating: not at all 6. Feeling bad about yourself - or that you are a failure or have let yourself or your family down: several days 7. Trouble concentrating on things, such as reading the newspaper or watching television: more than half the days 8. Moving or speaking so slowly that other people could have noticed. Or the opposite - being so fidgety or restless that you have been moving around a lot more than usual: several days 9. Thoughts that you would be better off or of hurting yourself in some way: not at all Total score: 10 Depression Screening Interpretation: Positive Depression Screening Follow-up: Change in Medication Depression Screening Done: Yes 13125 - PHQ-9 Billing: Yes Source: Developed by Drs. Michael Cloud, Lynette Dominguez, Gilberto Chan and colleagues, with an educational vipin from [employer]. Thrive Questionnaire Date Thrive assessed: 08/10/24 LUIS ALBERTO-7 AMB Questionnaire LUIS ALBERTO-7 Date LUIS ALBERTO - 7 assessed: 08/10/24 Source: Developed by Drs. Michael Cloud, Lynette Dominguez, Gilberto Chan and colleagues, with an educational vipin from [employer]. Physical exam (Primary Care) Vital Signs: Last Vital Signs Temp 97.6 F 11/16/24 10:58 Pulse 97 11/16/24 10:58 Resp 14 11/16/24 10:58 BP 116/72 11/16/24 10:58 Pulse Ox 98 11/16/24 10:58 Oxygen Delivery Method Room Air 11/16/24 10:58 BMI result Body Mass Index 23.2 Tobacco/Smoking Status: Tobacco use Status Tobacco use date assessed 11/16/24 11/16/24 11:03 Patient Tobacco Use Status Former Tobacco user 11/16/24 10:57 e-Cigarette/Vaping Use Currently Using 11/16/24 10:57 PHQ-9: PHQ-9 Score PHQ-9: Total score 10 11/16/24 17:31 Depression Screening Interpretation: Positive Depression Screening Follow-up: Change in Medication Thrive Assessment: Date of Thrive Assessment Date Thrive assessed 08/10/24 11/16/24 10:48 Office Procedures EKG Details: EKG shows normal sinus rhythm, ventricular rate 99 beats per minute 65220-Pybsggvyicnozvevz, Complete Coding Level of Care Code Est Pt Level 5 (11745) Complex EM visit Add On G2211 Diagnoses Thyroid nodule E04.1 Type 2 diabetes mellitus with hyperglycemia, without long-term current use of insulin E11.65 Diabetes mellitus complication status: with hyperglycemia Diabetes mellitus avionics systems engineer insulin use: without avionics systems engineer use History of CVA with residual deficit I69.30 Cerebral vasculitis I67.7 Pseudoaneurysm of right femoral artery I72.4 Cerebral vein thrombosis G08 Primary angiitis of central nervous system I77.6 Lumbosacral radiculopathy M54.17 Depression with anxiety F41.8 Tachycardia R00.0 CPT Codes EKG - CPT: 35638-Dftwrtnsodhwekxit, Complete ([id number]) Additional Codes PHQ-9 - 37944 - PHQ-9 Billing: Yes ([id number]) Time Spent (min) 60 Comment Direct patient care, chart review, completing documentation Assessment & Plan Assessment & Plan (1) Thyroid nodule: Code(s): E04.1 - Nontoxic single thyroid nodule Category: Medical (2) Type 2 diabetes mellitus: Code(s): E11.9 - Type 2 diabetes mellitus without complications Category: Medical Qualifiers: Diabetes mellitus complication status: with hyperglycemia Diabetes mellitus avionics systems engineer insulin use: without mcc use Qualified Code(s): E11.65 - Type 2 diabetes mellitus with hyperglycemia (3) History of CVA with residual deficit: Code(s): I69.30 - Unspecified sequelae of cerebral infarction Category: Medical (4) Cerebral vasculitis: Code(s): I67.7 - Cerebral arteritis, not elsewhere classified Category: Medical (5) Pseudoaneurysm of right femoral artery: Code(s): I72.4 - Aneurysm of artery of lower extremity Category: Medical (6) Cerebral vein thrombosis: Code(s): G08 - Intracranial and intraspinal phlebitis and thrombophlebitis Category: Medical (7) Primary angiitis of central nervous system: Code(s): I77.6 - Arteritis, unspecified Category: Medical (8) Lumbosacral radiculopathy: Code(s): M54.17 - Radiculopathy, lumbosacral region Category: Medical Plan: We will readdress this with patient at her follow up appointment. Priority of this appointment was recent hospital admission. With recent strokes, va sculitis, Plavix and aspirin patient not a candidate for injections or surgery at this time. (9) Depression with anxiety: Code(s): F41.8 - Other specified anxiety disorders Category: Medical (10) Tachycardia: Code(s): R00.0 - Tachycardia, unspecified Category: Medical Plan 59-year-old female with type 2 diabetes, hyperlipidemia and hypertension presenting after recent complex multiple admissions for vasculitis possibly secondary to COVID-19 infection and CVAs with residual left-sided weakness and dysarthria. Patient to remain on 30 mg of prednisone maintenance unless otherwise instructed by Neurology. Remain on PPI. She has neurology follow up on 11/18/2024. Warning signs warranting re-evaluation at ED reviewed with the patient. 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 No surgical intervention was recommended. Continue treatment for hypertension and hyperlipidemia with amlodipine, losartan, rosuvastatin. Patient remains on Plavix and aspirin. PT/OT and speech therapy in place. Continue metformin, Ozempic, Lantus and lispro 15 units base 3 times daily with sliding scale. If she has sugars under 70 they will call me again. Reviewed treatment of hypoglycemia. Patient had a thyroid nodule incidentally detected on imaging while hospitalized. Thyroid ultrasound ordered. Lumbosacral radiculopathy-she is already getting physical therapy. With recent strokes, vasculitis, Plavix and aspirin patient not a candidate for injections or surgery at this time. Anxiety with depression-increase sertraline to 50 mg daily. Tachycardia-I suspect this is related to prednisone use and hyperglycemia. EKG today is normal. Stay well hydrated. Ordered Holter monitor for further evaluation. Reviewed signs and symptoms warranting ER evaluation. She will have labs done at her neurology appointment in 2 days. Printed orders given to patient. She will schedule a follow up appointment in a month. Requests telehealth. Orders: Orders Hemoglobin A1c 11/16/24 E11.65 - Type 2 diabetes mellitus with hyperglycemia, E11.9 - Type 2 diabetes mellitus without complications, E78.00 - Pure hypercholesterolemia, unspecified Vitamin B12 and Folate 11/16/24 E11.65 - Type 2 diabetes mellitus with hyperglycemia, E78.00 - Pure hypercholesterolemia, unspecified AMB EKG-In Office 11/16/24 R00.0 - Tachycardia, unspecified Magnesium 11/16/24 R00.0 - Tachycardia, unspecified US thyroid 11/16/24 E04.1 - Nontoxic single thyroid nodule ECG holter monitor 48 hour 11/16/24 R00.0 - Tachycardia, unspecified TSH reflex Free T4 11/16/24 E11.65 - Type 2 diabetes mellitus with hyperglycemia, E78.00 - Pure hypercholesterolemia, unspecified Comprehensive Met. Panel 11/16/24 E11.65 - Type 2 diabetes mellitus with hyperglycemia, E78.00 - Pure hypercholesterolemia, unspecified Complete Blood Count Auto Diff 11/16/24 E11.65 - Type 2 diabetes mellitus with hyperglycemia, E78.00 - Pure hypercholesterolemia, unspecified Medications: New sertraline 50 mg PO DAILY 90 tabs 0RF Discontinued sertraline Discontinued Reason: Doctor's Order 25 mg PO DAILY 90 tabs 0RF
[2024-11-16 10:58] VITALS: BP 116/72; PULSE 97; RESP 14; TEMP 36.4; O2SAT 98; BMI 23.2
--- OUTSIDE RECORDS SUMMARY | 2024-11-16 12:00 | XMS_ITS | Patient Health Record ---
Author Organization [facility] Address [address] [facility] [place] [address] Care Team Providers Care Geological Survey Field Assistant Name Role Phone Yolanda Alfaro MD Primary Care Provider Unavail Nick Kruger Unavailable [phone] Reason For Referral No Information Medications Medication SIG (Take, Route, Frequency, Duration) Notes Start Date End Date Status Clobetasol Propionate 0.05% twice daily Active amLODIPine Besylate 5 MG 1 tablet Orally Once a day for 30 day(s) Active PARoxetine HCl 20 MG 1 tablet in the mor lisa Orally Once a day for 30 day(s) Active metFORMIN HCl 500 MG 1 tablet with meals Orally three times a day for 30 day(s) Active Plan Of Treatment Pending Test Test Name Order Date [id number] NAIL, 6 OR MORE 08/17/2011 [id number] NAIL, 6 OR MORE 08/15/2012 [id number] Plate 08/15/2012 [id number]-Nmapsovo Plate 08/17/2011 [id number] SKIN LESIONS, OVER 4 08/17/19 12 [id number] SKIN LESIONS, OVER 4 08/16/19 13 Insurance Providers Payer Name Payer Address Payer Phone Subscriber Number Group Number Insured Name Patient Relationship to Insured Coverage Start Date Coverage End Date [facility] [place] [place] [address] [id number] Kranthi Barroso Spouse - patient is the spouse of the insured Medical (General) History Medical History History ICD Code chicken pox diabetes mellitus hypertension psoriasis Surgical History Surgery Date(Month/Year) foot surgery 03/2012 ankle surgery 03/2012 Hospitalization History Reason Date(Month/Year) [place] broken ankle and foot 03/2012
== END 2024-11-16 12:20 | disposition home or self-care (01) ==
LOC: HO.HMCFM 10:40
PROVIDERS: PCP Physician Assistant Medical; Visit Provider Physician Assistant Medical
DX: R00.0 Tachycardia, unspecified (principal)

== ENCOUNTER → 2024-11-16 10:40 | Outpatient (BNVA) | payer OTHER, SELFPAY | PROVIDERS: PCP Physician Assistant Medical; Visit Provider Physician Assistant Medical | DX: E04.1 Nontoxic single thyroid nodule (principal); E11.65 Type 2 diabetes mellitus with hyperglycemia; I69.30 Unspecified sequelae of cerebral infarction; I67.7 Cerebral arteritis, not elsewhere classified; I72.4 Aneurysm of artery of lower extremity; G08 Intracranial and intraspinal phlebitis and thrombophlebitis; M54.17 Radiculopathy, lumbosacral region; F41.8 Other specified anxiety disorders; R00.0 Tachycardia, unspecified; E78.5 Hyperlipidemia, unspecified; I10 Essential (primary) hypertension; Z79.02 Long term (current) use of antithrombotics/antiplatelets; Z79.4 Long term (current) use of insulin; Z79.82 Long term (current) use of aspirin; Z79.84 Long term (current) use of oral hypoglycemic drugs; Z79.899 Other long term (current) drug therapy; Z13.31 Encounter for screening for depression | CPT/HCPCS: 93005; 96127 ==

== ENCOUNTER 2024-12-10 13:45 | Outpatient (AMB) | payer OTHER, SELFPAY ==
--- OUTSIDE RECORDS SUMMARY | 2024-12-10 13:49 | XMS_ITS | Patient Health Record ---
Author Organization [facility] Address [address] [facility] [place] [address] Care Team Providers Care Diesel Scoop Operator Name Role Phone Yolanda Alfaro MD Primary Care Provider Unavail anny CraigNick Unavailable [phone] Reason For Referral No Information Medications Medication SIG (Take, Route, Frequency, Duration) Notes Start Date End Date Status Clobetasol Propionate 0.05% twice daily Active amLODIPine Besylate 5 MG 1 tablet Orally Once a day; Duration: 30 day(s) Active PARoxetine HCl 20 MG 1 tablet in the mor lisa Orally Once a day; Duration: 30 day(s) Active metFORMIN HCl 500 MG 1 tablet with meals Orally three times a day; Duration: 30 day(s) Active Plan Of Treatment Pending Test Test Name Order Date [id number] NAIL, 6 OR MORE 08/17/2011 [id number] NAIL, 6 OR MORE 08/15/2012 [id number]-Uduunvzy Plate 08/15/2012 [id number] Plate 08/17/2011 [id number] SKIN LESIONS, OVER 4 08/17/19 12 [id number] SKIN LESIONS, OVER 4 08/16/19 13 Insurance Providers Payer Name Payer Address Payer Phone Subscriber Number Group Number Insured Name Patient Relationship to Insured Coverage Start Date Coverage End Date [facility] [address] [place] [address] [phone] [id number] Kranthi Barroso Spouse - patient is the spouse of the insured Medical (General) History Medical History History ICD Code chicken pox diabetes mellitus hypertension psoriasis Surgical History Surgery Date(Month/Year) foot surgery 03/2012 ankle surgery 03/2012 Hospitalization History Reason Date(Month/Year) [place] broken ankle and foot 03/2012
--- OUTSIDE RECORDS SUMMARY | 2024-12-10 13:49 | XMS_ITS | Clinical Summary ---
Author Organization [facility] Address [address] [place] [address] Care Team Providers Care Insurance Processor Name Role Phone Nadia Hill MD Primary Care Provider [phone] Allergies Active Allergy Reactions Criticality Noted Date [...] or Tdap) 01/12/2020 010 Influenza Vaccine (#1) 2025 03/14/2018 RSV Ped < 20 months Aged Out No longe r eligible based on patient's age to complete this topic Care Teams Insurance Processor Relationship Specialty Start Date End Date Nadia Hill MD PCP - General Internal Medicine 11/09/21
--- OUTSIDE RECORDS SUMMARY | 2024-12-10 13:49 | XMS_ITS | Encounter Summary ---
Author Organization [facility] Address [address] [place] [address] Care Team Providers Care Remote Control Mirror Installer Name Role Phone Genejeyson Christian BARTH Primary Care Provider [phone] Encounter Details Date Type Department Care Team (Late st Contact Info) Description 09/29/2024 Lab Requisition [facility] - Main Lab [address] [facility] [place] [address] Samuel Doran MD [address] [place] [id number] Encounter for other general examination Social History [...] AM EDT) WBC 12.3(H) 4.8 - 10.8 K/[facility] LAB HEMETOLOGY METHOD 09/29/2024 10:51 AM [facility] LAB RBC 4.00 3.80 - 4.80 M/mcL LAB HEMETOLOGY METHOD 09/29/2024 10:51 AM [facility] LAB Hemoglobin 11.7 11.5 - 16.0 g/dL LAB HEMETOLOGY METHOD 09/29/2024 10:51 AM [facility] LAB Hematocrit 37.0 35.0 - 47.0 % LAB HEMETOLOGY METHOD 09/29/2024 10:51 AM [facility] LAB MCV 93.0 79.0 - 98.0 FL LAB HEMETOLOGY METHOD 09/29/2024 10:51 AM [facility] LAB MCH 29.4 27.0 - 32.0 pcg LAB HEMETOLOGY METHOD 09/29/2024 10:51 AM [facility] LAB MCHC 31.6(L) 32.0 - 37.0 g/dL LAB HEMETOLOGY METHOD 09/29/2024 10:51 AM [facility] LAB RDW 14.8 11.0 - 15.0 % LAB HEMETOLOGY METHOD 09/29/2024 10:51 AM [facility] LAB Platelets 301 130 - 400 K/mcL LAB HEMETOLOGY METHOD 09/29/2024 10:51 AM [facility] LAB MPV 8.8 7.0 - 11.0 FL LAB HEMETOLOGY METHOD 09/29/2024 10:51 AM [facility] LAB NRBC 0.0 <1.0 % LAB HEMETOLOGY METHOD 09/29/2024 10:51 AM [facility] LAB NRBC Absolute 0.00 <0.10 K/mcL LAB HEMETOLOGY METHOD 09/29/2024 10:51 AM [facility] LAB Neutrophils Relative 70.3 % LAB HEMETOLOGY METHOD 09/29/2024 10:51 AM [facility] LAB Lymphocytes Relative 19.9 % LAB HEMETOLOGY METHOD 09/29/2024 10:51 AM [facility] LAB Monocytes Relative 8.2 % LAB HEMETOLOGY METHOD 09/29/2024 10:51 AM [facility] LAB Eosinophils Relative 0.9 % LAB HEMETOLOGY METHOD 09/29/2024 10:51 AM [facility] LAB Basophils Relative 0.2 % LAB HEMETOLOGY METHOD 09/29/2024 10:51 AM [facility] LAB Immature Granulocytes Relative 0.5 % LAB HEMETOLOGY METHOD 09/29/2024 10:51 AM [facility] LAB Neutrophils Absolute 8.67(H) 1.50 - 7.00 K/mcL LAB HEMETOLOGY METHOD 09/29/2024 10:51 AM [facility] LAB Lymphocytes Absolute 2.45 1.00 - 5.00 K/mcL LAB HEMETOLOGY METHOD 09/29/2024 10:51 AM [facility] Monocytes Absolute 1.01(H) 0.20 - 1.00 K/mcL LAB HEMETOLOGY METHOD 09/29/2024 10:51 AM [facility] LAB Eosinophils Absolute 0.11 0.00 - 0.50 K/mcL LAB HEMETOLOGY METHOD 09/29/2024 10:51 AM [facility] Basophils Absolute 0.03 0.00 - 0.20 K/mcL LAB HEMETOLOGY METHOD 09/29/2024 10:51 AM [facility] LAB Immature Granulocytes Absolute 0.06(H) 0.00 - 0.03 K/mcL LAB HEMETOLOGY METHOD 09/29/2024 10:51 AM [facility] Blood Venous blood specimen / Unknown Venipuncture / Unknown 09/29/2024 5:36 AM EDT 09/29/2024 9:45 AM EDT us Samuel Doran MD LAB BLOOD ORDERABLES Final Res ult [facility] [address] [place] [address], [place] [phone] * (ABNORMAL) Comprehensive metabolic panel (09/29/2024 5:36 AM EDT) Pathologist [facility] Sodium 137 133 - 145 mmol/L LAB CHEMISTRY METHOD 09/29/2024 11:34 AM [facility] Potassium 4.4 3.5 - 5.5 mmol/L LAB CHEMISTRY METHOD 09/29/2024 11:34 AM [facility] Chloride 98 96 - 110 mmol/L LAB CHEMISTRY METHOD 09/29/2024 11:34 AM [facility] CO2 31 21 - 32 mmol/L LAB CHEMISTRY METHOD 09/29/2024 11:34 AM [facility] Anion Gap 8 3 - 11 LAB CHEMISTRY METHOD 09/29/2024 11:34 AM [facility] Glucose 78 70 - 100 mg/dL LAB CHEMISTRY METHOD 09/29/2024 11:34 AM [facility] BUN 22 5 - 25 mg/dL LAB CHEMISTRY METHOD 09/29/2024 11:34 AM [facility] LAB Creatinine 0.69 0.50 - 1.10 mg/dL LAB CHEMISTRY METHOD 09/29/2024 11:34 AM [facility] LAB eGFR 101 >=60 mL/min/1. 73m2 LAB CHEMISTRY METHOD 09/29/2024 11:34 AM [facility] LAB Comment:Calculation based on the Chronic Kidney Disease Epidemiology Collaboration (CKD-EPI) equation refit without adjustment for race. BUN/Creatinine Ratio 31.9 LAB CHEMISTRY METHOD 09/29/2024 11:34 AM [facility] Calcium 9.8 8.5 - 10.5 mg/dL LAB CHEMISTRY METHOD 09/29/2024 11:34 AM [facility] AST (SGOT) 25 10 - 42 unit/L LAB CHEMISTRY METHOD 09/29/2024 11:34 AM [facility] ALT (SGPT) 72(H) 10 - 60 unit/L LAB CHEMISTRY METHOD 09/29/2024 11:34 AM [facility] Alkaline Phosphatase 76 42 - 121 unit/L LAB CHEMISTRY METHOD 09/29/2024 11:34 AM [facility] Total Protein 5.8(L) 6.0 - 8.0 g/dL LAB CHEMISTRY METHOD 09/29/2024 11:34 AM [facility] Albumin 3.0(L) 3.2 - 5.0 g/dL LAB CHEMISTRY METHOD 09/29/2024 11:34 AM [facility] Total Bilirubin 0.5 0.0 - 1.4 mg/dL LAB CHEMISTRY METHOD 09/29/2024 11:34 AM [facility] Blood Venous blood specimen / Unknown Venipuncture / Unknown 09/29/2024 5:36 AM EDT 09/29/2024 9:45 AM EDT us Samuel Doran MD LAB BLOOD ORDERABLES Final Res ult [facility] [address] [place] [address], documented in this encounter Visit Diagnoses Diagnosis Encounter for other general examination documented in this encounter Care Teams Remote Control Mirror Installer Relationship Specialty Start Date End Date Christian Garza PA [facility] [place] [address] PCP - General 09/28/24 documented as of this encounter
--- NOTE | 2024-12-10 13:59 | A.OFFPC_ITS ---
Vital Signs 12/10/24 14:12 Height 5 ft 4 in Weight 136 lb 2 oz BMI 23.4 BP 108/68 Blood Pressure Location Lt brachial Position Sitting Respiration 14 Pulse 107 H Pulse Source Pulse Oximeter Temp 97.7 F Temp Source Temporal Artery Scan Pulse Oximetry (%) 97 Oxygen Delivery Method Room Air Intake Visit Reasons: dc from [facility] Intake Note: Shelly presents in the office today after being discharged from [facility]. Allergies No Known Allergies Allergy (Verified 12/10/24 14:00) Tobacco use date assessed: 12/10/24 Dental Screening Dental Screen Date: 12/10/24 Did you have a dental visit in the last 12 months?: Yes Did you have a dental problem in the last 6 months where you did not have access to dental care?: No Was dental information given to patient?: Patient has dentist HPI HPI Comments History of Present Illness Details This is a 59-year-old female with a past medical history of hypertension, hyperlipidemia, recent infarcts, possible etiology being vasculitis on a prolonged steroid taper presenting for hospital follow up. She presented to the hospital with increasing weakness in her left lower extremity. She was found to have a UTI, evaluated by neuro, CT head CT negative however they recommended further workup with MRI. MRI was done which reported a new area of restricted diffusion within the right paramedian frontal/parietal lobe extending inferiorly and connecting to the prior right cingulate gyrus and corpus callosum infarct, concerning for acute ischemic change on chronic infarct. MRI was reviewed by Neurology as well and per Neurology, they did not think it was a new infarct but rather changes due to dehydration and decreased perfusion in the setting of an acute urinary tract infection. They recommended continuing in the same dose of prednisone until seeing her in the clinic for tapering. Blood culture grew E coli x1 as well as an urine culture. Repeat blood culture was negative. E coli was sensitive to Augmentin. Treated with ceftriaxone and then transitioned to Augmentin on discharge. Patient reports she had some low back pain for a couple of days leading up to her acute symptoms. She also had urinary frequency prior to this for about a week. She does not get UTIs frequently, but she also had 1 when she was at [facility]. We discussed how hyperglycemia and long-term use of prednisone can increase her risk of infections. She is currently on prednisone. She has the following instructions to taper this for neurology: Prednisone 20 mg for a week then 10 mg for 2 weeks then 5 mg for 2 weeks then stop. Type 2 diabetes-she is currently taking Lantus, Ozempic, metformin and lispro insulin. Hypoglycemia resolved after adjusting her sliding scale, but she is having postprandial hyperglycemia. A home log was reviewed today. She needs a referral sent to [facility] rehab for physical and occupational therapy. She currently has this in home, but eventually she will transition to the facility. Reports that she was having some pain on the outside of her left breast following hospitalization. She thinks it was bumped on something, and this is getting better. There is no palpable mass. She is due for a mammogram, and she is going to call to have it scheduled. ROS: Constitutional: No fevers, chills, night sweats, unexplained weight loss. She has fatigue since initial hospitalization for strokes. Eyes: No vision changes. Respiratory: No shortness of breath, cough or wheezing Cardiovascular: No chest pain Gastrointestinal: No anorexia, nausea, vomiting or diarrhea. Denies abdominal pain. Genitourinary: No dysuria, hematuria, urinary frequency. Denies flank pain. Neurologic: Per HPI Hematologic/Lymphatics: No bleeding Endocrine: No polyuria or polydipsia. +polyphagia. Psychiatric: + anxiety and depression Physical exam: Constitutional: Alert, in no distress.. Eyes: Pupils are equal, round and reactive to light. Extraocular muscles intact. Neck: Supple, Full range of motion. No lymphadenopathy. No palpable thyroid masses. Respiratory: Clear to auscultation. Cardiovascular: S1 S2 regular. No murmurs. : No CVA tenderness Abdomen: Nontender to palpation, no rebound or guarding Breast: No palpable mass. No axillary adenopathy. Neurologic: Mild dysarthria. There is some facial asymmetry noted with smiling. She has left-sided weakness. She is using a walker. Extremities: Warm and well perfused. No clubbing, cyanosis or edema. 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 Hospital discharge follow-up History of CVA with residual deficit Thyroid nodule LFT elevation Atrophy of muscle of left lower leg Weakness of left leg Floaters RUQ abdominal pain Lumbosacral radiculopathy Hiatal hernia Hepatic steatosis Microalbuminuria Renal cyst, left Renal lesion Gallbladder polyp Anxiety Pure hypercholesterolemia Left upper quadrant pain Fatigue Essential hypertension Type 2 diabetes mellitus Torn ligament High cholesterol High blood pressure Diabetes Family History Father Colon cancer Mother Diabetes Social History (Updated 12/10/24 @ 14:01 by Cathie Bahena MA) Household Members: Significant Other Housing: House Are you a primary direct care supervisor to a significant other at home: No Do you presently have visiting nurse or other home services: No Alcohol intake: never Patient Tobacco Use Status: Former Tobacco user e-Cigarette/Vaping Use: Currently Using Second Hand Smoke Exposure: No Special reanna needs: No service: No Current occupational status: employed Current occupation: service diapatcher Cognitive needs: No Hearing needs: No Vision needs: Yes (Patient wears glasses.) Questionnaire Thrive Questionnaire Date Thrive assessed: 08/10/24 I am a: Patient What is your living situation today?: I have a steady place to live Within the past 12 months, did the food you bought not last and you didn't have the money to get more?: Never true Within the past 12 months, did you worry whether your food would run out before you got money to buy more?: Never true Do you have trouble paying for medicines?: No Do you have trouble getting transportation to medical appointments?: No Do you have trouble paying your heating and electricity bill?: No Do you have trouble taking care of your child, family member or friend?: No Do you have trouble with day-to-day activities such as bathing, preparing meals, shopping, managing finances, etc.?: No Are you currently unemployed and looking for a job?: No Are you interested in more education?: No Please select the resources that you would like help with: None Currently or been in a relationship where the following occur: No concerns reported THRIVE Score: 0 LUIS ALBERTO-7 AMB Questionnaire LUIS ALBERTO-7 Date LUIS ALBERTO - 7 assessed: 08/10/24 Source: Developed by Drs. Michael Cloud, Lynette Dominguez, Gilberto Chan and colleagues, with an educational vipin from [employer]. Physical exam (Primary Care) Vital Signs: Last Vital Signs Temp 97.7 F 12/10/24 14:12 Pulse 107 H 12/10/24 14:12 Resp 14 12/10/24 14:12 BP 108/68 12/10/24 14:12 Pulse Ox 97 12/10/24 14:12 Oxygen Delivery Method Room Air 12/10/24 14:12 BMI result Body Mass Index 23.4 Tobacco/Smoking Status: Tobacco use Status Tobacco use date assessed 12/10/24 12/10/24 14:02 Patient Tobacco Use Status Former Tobacco user 12/10/24 14:02 e-Cigarette/Vaping Use Currently Using 12/10/24 14:02 Thrive Assessment: Date of Thrive Assessment Date Thrive assessed 08/10/24 12/10/24 14:02 Currently or been in a relationship where the following occur: No concerns reported Coding Level of Care Code Est Pt Level 5 (26263) Complex EM visit Add On G2211 Diagnoses Thyroid nodule E04.1 Type 2 diabetes mellitus with hyperglycemia, without long-term current use of insulin E11.65 Diabetes mellitus complication status: with hyperglycemia Diabetes mellitus correction insulin use: without hearing aid specialist use History of CVA with residual deficit I69.30 Cerebral vasculitis I67.7 Pseudoaneurysm of right femoral artery I72.4 Cerebral vein thrombosis G08 Primary angiitis of central nervous system I77.6 Lumbosacral radiculopathy M54.17 Depression with anxiety F41.8 Tachycardia R00.0 Bacteremia R78.81 Complicated UTI (urinary tract infection) N39.0 Hospital discharge follow-up Z09 Time Spent (min) 50 Comment Direct patient care, chart review, completing documentation Assessment & Plan Assessment & Plan (1) Thyroid nodule: Code(s): E04.1 - Nontoxic single thyroid nodule Category: Medical (2) Type 2 diabetes mellitus: Code(s): E11.9 - Type 2 diabetes mellitus without complications Category: Medical Qualifiers: Diabetes mellitus complication status: with hyperglycemia Diabetes mellitus hearing aid specialist insulin use: without correction use Qualified Code(s): E11.65 - Type 2 diabetes mellitus with hyperglycemia (3) History of CVA with residual deficit: Code(s): I69.30 - Unspecified sequelae of cerebral infarction Category: Medical (4) Cerebral vasculitis: Code(s): I67.7 - Cerebral arteritis, not elsewhere classified Category: Medical (5) Pseudoaneurysm of right femoral artery: Code(s): I72.4 - Aneurysm of artery of lower extremity Category: Medical (6) Cerebral vein thrombosis: Code(s): G08 - Intracranial and intraspinal phlebitis and thrombophlebitis Category: Medical (7) Primary angiitis of central nervous system: Code(s): I77.6 - Arteritis, unspecified Category: Medical (8) Lumbosacral radiculopathy: Code(s): M54.17 - Radiculopathy, lumbosacral region Category: Medical Plan: We will readdress this with patient at her follow up appointment. Priority of this appointment was recent hospital admission. With recent strokes, vascul itis, Plavix and aspirin patient not a candidate for injections or surgery at this time. (9) Depression with anxiety: Code(s): F41.8 - Other specified anxiety disorders Category: Medical (10) Tachycardia: Code(s): R00.0 - Tachycardia, unspecified Category: Medical (11) Bacteremia: Code(s): R78.81 - Bacteremia Category: Medical (12) Complicated UTI (urinary tract infection): Code(s): N39.0 - Urinary tract infection, site not specified Category: Medical (13) Hospital discharge follow-up: Code(s): Z09 - Encounter for follow-up examination after completed treatment for conditions other than malignant neoplasm Category: Medical Plan 59-year-old female with type 2 diabetes, hyperlipidemia and hypertension presenting after hospital admission for urosepsis following recent multiple admissions for vasculitis possibly secondary to COVID-19 infection and CVAs with residual left-sided weakness and dysarthria. She is feeling well. She has no signs of recurrent UTI or sepsis. She will have lab work done today and have urinalysis and culture repeated. Advised patient to call the office if she develops urinary frequency. If she experiences fevers, chills, confusion, increased weakness, flank or back pain then she needs to go to the ER for evaluation. She is tapering prednisone per Neurology. She has a follow up scheduled. She remains on PPI due to long-term prednisone use. 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 No surgical intervention was recommended. Continue treatment for hypertension and hyperlipidemia with amlodipine, losartan, rosuvastatin. Patient remains on Plavix and aspirin. PT/OT and speech therapy in place. Referred to [facility] rehab. Continue metformin, Ozempic, Lantus and change lispro sliding scale to be used before meals Blood sugar <100 administer 0 units Blood sugar 100-149 administer 8 units Blood sugar 150-200 administer 12 units Blood sugar 201-250 administer 14 units Blood sugar 251-300 administer 16 units Blood sugar 301-350 administer 18 units Blood sugar 351-400 administer 20 units Blood sugar >400 administer 22 units and call the office Patient had a thyroid nodule incidentally detected on imaging while hospitalized. Thyroid ultrasound ordered. Lumbosacral radiculopathy-she is already getting physical therapy. With recent strokes, vasculitis, Plavix and aspirin patient not a candidate for injections or surgery at this time. Anxiety with depression-continue sertraline to 50 mg daily. Tachycardia-I suspect this is related to prednisone use and hyperglycemia. Recent EKG was normal at the office. Stay well hydrated. Ordered Holter monitor for further evaluation. Reviewed signs and symptoms warranting ER evaluation. She will have lab work done today. She will schedule a follow up appointment in a month. Requests telehealth. Orders: Orders PT Evaluation and Treatment 12/10/24 I69.30 - Unspecified sequelae of cerebral infarction
[2024-12-10 14:12] VITALS: BP 108/68; PULSE 107; RESP 14; TEMP 36.5; O2SAT 97; BMI 23.4
== END 2024-12-10 14:54 | disposition home or self-care (01) ==
LOC: HO.HMCFM 13:46
PROVIDERS: PCP Physician Assistant Medical; Visit Provider Physician Assistant Medical
DX: E11.65 Type 2 diabetes mellitus with hyperglycemia (principal); E04.1 Nontoxic single thyroid nodule; I69.30 Unspecified sequelae of cerebral infarction; I67.7 Cerebral arteritis, not elsewhere classified; I72.4 Aneurysm of artery of lower extremity; G08 Intracranial and intraspinal phlebitis and thrombophlebitis; I77.6 Arteritis, unspecified; M54.17 Radiculopathy, lumbosacral region; F41.8 Other specified anxiety disorders; R00.0 Tachycardia, unspecified; R78.81 Bacteremia; N39.0 Urinary tract infection, site not specified

== ENCOUNTER 2024-12-10 15:13 | Outpatient (REF) | payer OTHER, SELFPAY ==
[2024-12-10 17:25] LABS: Hematocrit 40.8 % (37.0-47.0); Hemoglobin 13.5 g/dl (12.0-16.0); Imm Gran Abs Auto 0.12 X10*3/uL (0.00-0.03); Imm Gran Pct Auto 0.9 % (0.0-0.4); Lymphocytes Absolute Auto 0.8 X10*3/uL (1.2-4.9); MANUAL DIFF FLAG SCAN; Mean Corpuscular HGB Conc 33.1 g/dl (31.0-35.0); Mean Corpuscular Hemoglobin 28.7 pg (27.0-33.0); Mean Corpuscular Volume 86.8 fL (80.0-98.0); NRBC Abs Auto 0.000 X10*3/uL (0.0-0.012); NRBC Pct Auto 0.0 /100WBC (0.0-0.2); Platelet Count 392 X10*3/uL (160-400); Red Blood Count 4.70 X10*6/uL (4.20-5.50); SCAN SMEAR FLAG 1; White Blood Count 13.7 X10*3/uL (4.8-10.8)
[2024-12-10 17:27] LABS: Appearance Urine Clear; Glucose Urine UA 250 mg/dL (Negative); PH 5.5 (5.0-9.0); Specific Gravity - Urine 1.020 (1.005-1.025)
[2024-12-10 17:33] LABS: Hemoglobin A1C 177.0485 umol/L; Total Hemoglobin (HGBA1C) 3506.5094 umol/L
[2024-12-10 18:21] LABS: Alanine Aminotransferase 57 U/L (0-31); Albumin Level 4.2 g/dL (3.5-5.0); Alkaline Phosphatase 72 U/L (39-117); Anion Gap 17 (12-20); Aspartate Amino Transferase 28 U/L (5-31); Blood Urea Nitrogen 22 mg/dL (9-16); Calcium 9.7 mg/dL (8.4-10.2); Carbon Dioxide 28 mmol/L (22-29); Chloride 99 mmol/L (96-108); Estimated Glomerular Filt Rate > 60; Magnesium 2.1 mg/dL (1.6-2.6); Potassium 4.2 mmol/L (3.3-5.1); Sodium 140 mmol/L (135-145); Total Protein 7.0 g/dL (6.5-8.0)
[2024-12-10 18:48] LABS: Folate 6.6 ng/mL (> or = 4.0); Vitamin B12 468 pg/mL (200-900)
[2024-12-10 19:15] LABS: Free T4 (Free Thyroxine) 1.16 ng/dL (0.71-1.85)
== END 2024-12-10 15:14 | disposition home or self-care (01) ==
LOC: HO.WFDLDS 15:13
PROVIDERS: Visit Provider Physician Assistant Medical
DX: E11.65 Type 2 diabetes mellitus with hyperglycemia (principal); E78.00 Pure hypercholesterolemia, unspecified; R00.0 Tachycardia, unspecified; R39.9 Unspecified symptoms and signs involving the genitourinary system
CPT/HCPCS: 36415; 80053; 81001; 82607; 82746; 83036; 83735; 84439; 84443; 85025; 87086

== ENCOUNTER → 2024-12-29 14:25 | Outpatient (REF) | payer OTHER, SELFPAY ==
--- NOTE | ~2024-12-29 | US_ITS ---
EXAMINATION: US THYROID HISTORY: E04.1 - Nontoxic single thyroid nodule TECHNIQUE: Real-time grayscale ultrasound imaging was performed and images were reviewed. COMPARISON: There are no prior studies available for comparison. FINDINGS: SIZE: The right thyroid lobe measures 5.1 x 1.7 x 2.0 cm. The left thyroid lobe measures 4.9 x 1.9 x 2.1 cm. The isthmus measures 3 mm. FLOW: Flow to the gland is normal. ECHOGENICITY: The echotexture of the gland is homogeneous. NODULES: Multiple bilateral thyroid nodules are identified as described below: Nodule #: 1 Location: Midportion of the right thyroid lobe measuring 7 x 6 x 6 mm. Shape: Wider than tall (0 points) Margins: Smooth (0 points) Echotexture: Hypoechoic (2 points) Composition: Solid (2 points) Calcifications: None (0 points) Total points: 4 TIRADS: TR4: Moderately suspicious. Nodule #: 2 Location: Midportion of the right thyroid lobe measuring 9 x 6 x 7 mm. Shape: Wider than tall (0 points) Margins: Smooth (0 points) Echotexture: Hypoechoic (2 points) Composition: Solid (2 points) Calcifications: None (0 points) Total points: 4 TIRADS: TR4: Moderately suspicious. Nodule #: 3 Location: Midportion of the left thyroid lobe measuring 11 x 4 x 12 mm. Shape: Wider than tall (0 points) Margins: Smooth (0 points) Echotexture: n/a Composition: Spongiform (0 points) Calcifications: None (0 points) Total points: 0 TIRADS: TR1: Benign Nodule #: 4 Location: Midportion of the left thyroid lobe measuring 5 x 6 x 6 mm. Shape: Wider than tall (0 points) Margins: Smooth (0 points) Echotexture: Isoechoic (1 point) Composition: Solid (2 points) Calcifications: None (0 points) Total points: 3 TIRADS: TR3: Mildly suspicious. Nodule #: 5 Location: Midportion of the left thyroid lobe measuring 8 x 5 x 7 mm. Shape: Wider than tall (0 points) Margins: Smooth (0 points) Echotexture: Isoechoic (1 point) Composition: Mixed (1 point) Calcifications: None (0 points) Total points: 2 TIRADS: TR2: Not suspicious US/US thyroid IMPRESSION: Multinodular thyroid gland as described above. None of the nodules meet the ACR TI-RADS guidelines for biopsy. ACR TI-RADS Guidelines TR1 (0 points): Benign. No follow-up or biopsy required TR2 (2 points): Not Suspicious. No biopsy or follow up indicated TR3 (3 points): Mildly Suspicious. FNA if >= 2.5 cm, Follow if >= 1.5 cm TR4 (4-6 points): Moderately Suspicious. FNA if >= 1.5 cm, Follow if >= 1.0 cm TR5 (>=7 points): Highly Suspicious. FNA if >= 1.0 cm, Follow if >= 0.5 cm Electronically signed by: Michael Forte MD 12/29/2024 03:25 PM EDT
--- NOTE | 2024-12-29 14:28 | HM_ITS ---
* Total monitoring time 2 days. * Underlying rhythm is sinus with an average rate of 96/Min. * Rare supraventricular ectopy. * Rare ventricular ectopy. * No significant pauses or high-grade AV blocks. * No patient markers or diary events. MTDD
--- OUTSIDE RECORDS SUMMARY | 2024-12-29 15:04 | XMS_ITS | Patient Health Record ---
Author Organization [facility] Address [address] [place] [address] Care Team Providers Care Pilot Plant Technician Name Role Phone Yolanda Alfaro MD Primary Care Provider Unavail anny CraigNick Unavailable [phone] Reason For Referral No Information Medications Medication [...] Treatment Pending Test Test Name Order Date [id number] NAIL, 6 OR MORE 08/17/2011 [id number] NAIL, 6 OR MORE 08/15/2012 [id number] Plate 08/15/2012 [id number] Plate 08/17/2011 [id number] SKIN LESIONS, OVER 4 08/17/19 12 [id number] SKIN LESIONS, OVER 4 08/16/19 13 Insurance Providers Payer Name Payer Address Payer Phone Subscriber Number Group Number Insured Name Patient Relationship to Insured Coverage Start Date Coverage End Date [facility] [address] [place] [address] [phone] [id number] Kranthi Barroso Spouse - patient is the spouse of the insured Medical (General) History Medical History History ICD Code chicken pox diabetes mellitus hypertension psoriasis Surgical History Surgery Date(Month/Year) foot surgery 03/2012 ankle surgery 03/2012 Hospitalization History Reason Date(Month/Year) [place] broken ankle and foot 03/2012
--- OUTSIDE RECORDS SUMMARY | 2024-12-29 15:04 | XMS_ITS | Clinical Summary ---
Author Organization [facility] Address [address] [place] [address] Care Team Providers Care Account Group Supervisor Name Role Phone Nadia Hill MD Primary Care Provider [phone] Allergies Active Allergy Reactions Criticality Noted Date [...] age to complete this topic Care Teams Account Group Supervisor Relationship Specialty Start Date End Date Nadia Hill MD PCP - General Internal Medicine 11/09/21
--- OUTSIDE RECORDS SUMMARY | 2024-12-29 15:04 | XMS_ITS | Encounter Summary ---
Author Organization [facility] Address [address] [place] [address] Care Team Providers Care Parachute/Combatant Diver Officer Name Role Phone Genejeyson Christian BARTH Primary Care Provider Encounter Details Date Type Department Care Team (Late st Contact Info) Description 09/29/2024 Lab Requisition [facility] - Main Lab [address] [place] [address] Samuel Doran MD [address] [place] [address] Encounter for other general examination Social History [...] AM EDT) WBC 12.3(H) 4.8 - 10.8 K/[facility] LAB HEMETOLOGY METHOD 09/29/2024 10:51 AM [facility] LAB RBC 4.00 3.80 - 4.80 M/mcL LAB HEMETOLOGY METHOD 09/29/2024 10:51 AM [facility] LAB Hemoglobin 11.7 11.5 - 16.0 g/dL LAB HEMETOLOGY METHOD 09/29/2024 10:51 AM [facility] LAB Hematocrit 37.0 35.0 - 47.0 % LAB HEMETOLOGY METHOD 09/29/2024 10:51 AM [facility] LAB MCV 93.0 79.0 - 98.0 FL LAB HEMETOLOGY METHOD 09/29/2024 10:51 AM [facility] LAB MCH 29.4 27.0 - 32.0 pcg LAB HEMETOLOGY METHOD 09/29/2024 10:51 AM [facility] LAB MCHC 31.6(L) 32.0 - 37.0 g/dL LAB HEMETOLOGY METHOD 09/29/2024 10:51 AM [facility] LAB RDW 14.8 11.0 - 15.0 % LAB HEMETOLOGY METHOD 09/29/2024 10:51 AM [facility] LAB Platelets 301 130 - 400 K/mcL LAB HEMETOLOGY METHOD 09/29/2024 10:51 AM [facility] LAB MPV 8.8 7.0 - 11.0 FL LAB HEMETOLOGY METHOD 09/29/2024 10:51 AM [facility] LAB NRBC 0.0 <1.0 % LAB HEMETOLOGY METHOD 09/29/2024 10:51 AM [facility] LAB NRBC Absolute 0.00 <0.10 K/mcL LAB HEMETOLOGY METHOD 09/29/2024 10:51 AM [facility] LAB Neutrophils Relative 70.3 % LAB HEMETOLOGY METHOD 09/29/2024 10:51 AM [facility] LAB Lymphocytes Relative 19.9 % LAB HEMETOLOGY METHOD 09/29/2024 10:51 AM [facility] LAB Monocytes Relative 8.2 % LAB HEMETOLOGY METHOD 09/29/2024 10:51 AM [facility] LAB Eosinophils Relative 0.9 % LAB HEMETOLOGY METHOD 09/29/2024 10:51 AM [facility] LAB Basophils Relative 0.2 % LAB HEMETOLOGY METHOD 09/29/2024 10:51 AM [facility] LAB Immature Granulocytes Relative 0.5 % LAB HEMETOLOGY METHOD 09/29/2024 10:51 AM [facility] LAB Neutrophils Absolute 8.67(H) 1.50 - 7.00 K/mcL LAB HEMETOLOGY METHOD 09/29/2024 10:51 AM [facility] LAB Lymphocytes Absolute 2.45 1.00 - 5.00 K/mcL LAB HEMETOLOGY METHOD 09/29/2024 10:51 AM [facility] LAB Monocytes Absolute 1.01(H) 0.20 - 1.00 K/mcL LAB HEMETOLOGY METHOD 09/29/2024 10:51 AM [facility] LAB Eosinophils Absolute 0.11 0.00 - 0.50 K/mcL LAB HEMETOLOGY METHOD 09/29/2024 10:51 AM [facility] LAB Basophils Absolute 0.03 0.00 - 0.20 K/mcL LAB HEMETOLOGY METHOD 09/29/2024 10:51 AM [facility] LAB Immature Granulocytes Absolute 0.06(H) 0.00 - 0.03 K/mcL LAB HEMETOLOGY METHOD 09/29/2024 10:51 AM [facility] LAB Blood Venous blood specimen / Unknown Venipuncture / Unknown 09/29/2024 5:36 AM EDT 09/29/2024 9:45 AM EDT us Samuel Doran MD LAB BLOOD ORDERABLES Final Res ult [facility] [address] [place] [address], [place] [phone] * (ABNORMAL) Comprehensive metabolic panel (09/29/2024 5:36 AM EDT) Pathologist [facility] Sodium 137 133 - 145 mmol/L LAB CHEMISTRY METHOD 09/29/2024 11:34 AM [facility] LAB Potassium 4.4 3.5 - 5.5 mmol/L LAB CHEMISTRY METHOD 09/29/2024 11:34 AM [facility] LAB Chloride 98 96 - 110 mmol/L LAB CHEMISTRY METHOD 09/29/2024 11:34 AM [facility] LAB CO2 31 21 - 32 mmol/L LAB CHEMISTRY METHOD 09/29/2024 11:34 AM [facility] LAB Anion Gap 8 3 - 11 LAB CHEMISTRY METHOD 09/29/2024 11:34 AM [facility] LAB Glucose 78 70 - 100 mg/dL LAB CHEMISTRY METHOD 09/29/2024 11:34 AM [facility] LAB BUN 22 5 - 25 mg/dL LAB CHEMISTRY METHOD 09/29/2024 11:34 AM [facility] LAB Creatinine 0.69 0.50 - 1.10 mg/dL LAB CHEMISTRY METHOD 09/29/2024 11:34 AM [facility] LAB eGFR 101 >=60 mL/min/1. 73m2 LAB CHEMISTRY METHOD 09/29/2024 11:34 AM [facility] LAB Comment:Calculation based on the Chronic Kidney Disease Epidemiology Collaboration (CKD-EPI) equation refit without adjustment for race. BUN/Creatinine Ratio 31.9 LAB CHEMISTRY METHOD 09/29/2024 11:34 AM [facility] LAB Calcium 9.8 8.5 - 10.5 mg/dL LAB CHEMISTRY METHOD 09/29/2024 11:34 AM [facility] LAB AST (SGOT) 25 10 - 42 unit/L LAB CHEMISTRY METHOD 09/29/2024 11:34 AM [facility] LAB ALT (SGPT) 72(H) 10 - 60 unit/L LAB CHEMISTRY METHOD 09/29/2024 11:34 AM [facility] LAB Alkaline Phosphatase 76 42 - 121 unit/L LAB CHEMISTRY METHOD 09/29/2024 11:34 AM [facility] LAB Total Protein 5.8(L) 6.0 - 8.0 g/dL LAB CHEMISTRY METHOD 09/29/2024 11:34 AM [facility] LAB Albumin 3.0(L) 3.2 - 5.0 g/dL LAB CHEMISTRY METHOD 09/29/2024 11:34 AM [facility] LAB Total Bilirubin 0.5 0.0 - 1.4 mg/dL LAB CHEMISTRY METHOD 09/29/2024 11:34 AM [facility] LAB Blood Venous blood specimen / Unknown Venipuncture / Unknown 09/29/2024 5:36 AM EDT 09/29/2024 9:45 AM EDT us Samuel Doran MD LAB BLOOD ORDERABLES Final Res ult [facility] [address] [place] [address], documented in this encounter Visit Diagnoses Diagnosis Encounter for other general examination documented in this encounter Care Teams Parachute/Combatant Diver Officer Relationship Specialty Start Date End Date Christian Garza PA [facility] [place] [address] PCP - General 09/28/24 documented as of this encounter
== END ==
LOC: HO.CARD 14:25
PROVIDERS: PCP Physician Assistant Medical; Visit Provider Physician Assistant Medical
DX: R00.0 Tachycardia, unspecified (principal); E04.1 Nontoxic single thyroid nodule
CPT/HCPCS: 76536; 93225

== ENCOUNTER → 2024-12-29 14:28 | Outpatient (BNV) | payer OTHER, SELFPAY | PROVIDERS: PCP Physician Assistant Medical; Visit Provider Internal Medicine | DX: I47.10 Supraventricular tachycardia, unspecified (principal); I49.3 Ventricular premature depolarization | CPT/HCPCS: 93227 ==

== ENCOUNTER → 2024-12-29 14:45 | Outpatient (BNV) | payer OTHER, SELFPAY | PROVIDERS: PCP Physician Assistant Medical; Visit Provider Radiology Diagnostic Radiology | DX: E04.2 Nontoxic multinodular goiter (principal) | CPT/HCPCS: 76536 ==

== ENCOUNTER 2025-01-01 12:04 | Outpatient (REF) | payer OTHER, SELFPAY ==
--- OUTSIDE RECORDS SUMMARY | 2025-01-01 12:07 | XMS_ITS | Clinical Summary ---
Author Organization [facility] Address [address] [place] [address] Care Team Providers Care Bell Attendant Name Role Phone Nadia Hill MD Primary Care Provider [phone] Allergies Active Allergy Reactions Criticality Noted Date [...] age to complete this topic Care Teams Bell Attendant Relationship Specialty Start Date End Date Nadia Hill MD PCP - General Internal Medicine 11/09/21
--- OUTSIDE RECORDS SUMMARY | 2025-01-01 12:07 | XMS_ITS | Encounter Summary ---
Author Organization [facility] Address [address] [place] [address] Care Team Providers Care Retail Buyer Name Role Phone Genejeyson Christian BARTH Primary Care Provider [phone] Encounter Details Date Type Department Care Team (Late st Contact Info) Description 09/29/2024 Lab Requisition [facility] - Main Lab [address] [facility] [place] [address] Samuel Doran MD [address] [place] [address] Encounter for other general examination Social History [...] AM EDT) WBC 12.3(H) 4.8 - 10.8 K/[facility] LAB HEMETOLOGY METHOD 09/29/2024 10:51 AM [facility] LAB RBC 4.00 3.80 - 4.80 M/mcL LAB HEMETOLOGY METHOD 09/29/2024 10:51 AM [facility] LAB Hemoglobin 11.7 11.5 - 16.0 g/dL LAB HEMETOLOGY METHOD 09/29/2024 10:51 AM [facility] LAB Hematocrit 37.0 35.0 - 47.0 % LAB HEMETOLOGY METHOD 09/29/2024 10:51 AM [facility] LAB MCV 93.0 79.0 - 98.0 FL LAB HEMETOLOGY METHOD 09/29/2024 10:51 AM [facility] LAB MCH 29.4 27.0 - 32.0 pcg LAB HEMETOLOGY METHOD 09/29/2024 10:51 AM [facility] LAB MCHC 31.6(L) 32.0 - 37.0 g/dL LAB HEMETOLOGY METHOD 09/29/2024 10:51 AM [facility] LAB RDW 14.8 11.0 - 15.0 % LAB HEMETOLOGY METHOD 09/29/2024 10:51 AM [facility] LAB Platelets 301 130 - 400 K/mcL LAB HEMETOLOGY METHOD 09/29/2024 10:51 AM [facility] LAB MPV 8.8 7.0 - 11.0 FL LAB HEMETOLOGY METHOD 09/29/2024 10:51 AM [facility] LAB NRBC 0.0 <1.0 % LAB HEMETOLOGY METHOD 09/29/2024 10:51 AM [facility] LAB NRBC Absolute 0.00 <0.10 K/mcL LAB HEMETOLOGY METHOD 09/29/2024 10:51 AM [facility] LAB Neutrophils Relative 70.3 % LAB HEMETOLOGY METHOD 09/29/2024 10:51 AM [facility] LAB Lymphocytes Relative 19.9 % LAB HEMETOLOGY METHOD 09/29/2024 10:51 AM [facility] LAB Monocytes Relative 8.2 % LAB HEMETOLOGY METHOD 09/29/2024 10:51 AM [facility] LAB Eosinophils Relative 0.9 % LAB HEMETOLOGY METHOD 09/29/2024 10:51 AM [facility] LAB Basophils Relative 0.2 % LAB HEMETOLOGY METHOD 09/29/2024 10:51 AM [facility] LAB Immature Granulocytes Relative 0.5 % LAB HEMETOLOGY METHOD 09/29/2024 10:51 AM [facility] LAB Neutrophils Absolute 8.67(H) 1.50 - 7.00 K/mcL LAB HEMETOLOGY METHOD 09/29/2024 10:51 AM [facility] LAB Lymphocytes Absolute 2.45 1.00 - 5.00 K/mcL LAB HEMETOLOGY METHOD 09/29/2024 10:51 AM [facility] LAB Monocytes Absolute 1.01(H) 0.20 - 1.00 K/mcL LAB HEMETOLOGY METHOD 09/29/2024 10:51 AM [facility] LAB Eosinophils Absolute 0.11 0.00 - 0.50 K/mcL LAB HEMETOLOGY METHOD 09/29/2024 10:51 AM [facility] LAB Basophils Absolute 0.03 0.00 - 0.20 K/mcL LAB HEMETOLOGY METHOD 09/29/2024 10:51 AM [facility] LAB Immature Granulocytes Absolute 0.06(H) 0.00 - 0.03 K/mcL LAB HEMETOLOGY METHOD 09/29/2024 10:51 AM [facility] LAB Blood Venous blood specimen / Unknown Venipuncture / Unknown 09/29/2024 5:36 AM EDT 09/29/2024 9:45 AM EDT us Samuel Doran MD LAB BLOOD ORDERABLES Final Res ult [facility] [address] [place] [address], [place] [phone] * (ABNORMAL) Comprehensive metabolic panel (09/29/2024 5:36 AM EDT) Pathologist [facility] Sodium 137 133 - 145 mmol/L LAB CHEMISTRY METHOD 09/29/2024 11:34 AM [facility] Potassium 4.4 3.5 - 5.5 mmol/L LAB CHEMISTRY METHOD 09/29/2024 11:34 AM [facility] LAB Chloride 98 96 - 110 mmol/L LAB CHEMISTRY METHOD 09/29/2024 11:34 AM [facility] LAB CO2 31 21 - 32 mmol/L LAB CHEMISTRY METHOD 09/29/2024 11:34 AM [facility] LAB Anion Gap 8 3 - 11 LAB CHEMISTRY METHOD 09/29/2024 11:34 AM [facility] LAB Glucose 78 70 - 100 mg/dL LAB CHEMISTRY METHOD 09/29/2024 11:34 AM [facility] LAB BUN 22 5 - 25 mg/dL LAB CHEMISTRY METHOD 09/29/2024 11:34 AM [facility] LAB Creatinine 0.69 0.50 - 1.10 mg/dL LAB CHEMISTRY METHOD 09/29/2024 11:34 AM [facility] LAB eGFR 101 >=60 mL/min/1. 73m2 LAB CHEMISTRY METHOD 09/29/2024 11:34 AM [facility] LAB Comment:Calculation based on the Chronic Kidney Disease Epidemiology Collaboration (CKD-EPI) equation refit without adjustment for race. BUN/Creatinine Ratio 31.9 LAB CHEMISTRY METHOD 09/29/2024 11:34 AM [facility] LAB Calcium 9.8 8.5 - 10.5 mg/dL LAB CHEMISTRY METHOD 09/29/2024 11:34 AM [facility] LAB AST (SGOT) 25 10 - 42 unit/L LAB CHEMISTRY METHOD 09/29/2024 11:34 AM [facility] LAB ALT (SGPT) 72(H) 10 - 60 unit/L LAB CHEMISTRY METHOD 09/29/2024 11:34 AM [facility] LAB Alkaline Phosphatase 76 42 - 121 unit/L LAB CHEMISTRY METHOD 09/29/2024 11:34 AM [facility] LAB Total Protein 5.8(L) 6.0 - 8.0 g/dL LAB CHEMISTRY METHOD 09/29/2024 11:34 AM [facility] Albumin 3.0(L) 3.2 - 5.0 g/dL LAB CHEMISTRY METHOD 09/29/2024 11:34 AM [facility] LAB Total Bilirubin 0.5 0.0 - 1.4 mg/dL LAB CHEMISTRY METHOD 09/29/2024 11:34 AM [facility] LAB Blood Venous blood specimen / Unknown Venipuncture / Unknown 09/29/2024 5:36 AM EDT 09/29/2024 9:45 AM EDT us Samuel Doran MD LAB BLOOD ORDERABLES Final Res ult [facility] [address] [place] [address], documented in this encounter Visit Diagnoses Diagnosis Encounter for other general examination documented in this encounter Care Teams Retail Buyer Relationship Specialty Start Date End Date Christian Garza PA [facility] [place] [address] PCP - General 09/28/24 documented as of this encounter
--- OUTSIDE RECORDS SUMMARY | 2025-01-01 12:07 | XMS_ITS | Patient Health Record ---
Author Organization [facility] Address [address] [place] [address] Care Team Providers Care Hand Outside Cutter Name Role Phone Yolanda Alfaro MD Primary Care Provider Unavail anny CraigNick Unavailable [phone] Reason For Referral No Information Medications Medication [...] Treatment Pending Test Test Name Order Date [id number] NAIL, 6 OR MORE 08/17/2011 [id number] NAIL, 6 OR MORE 08/15/2012 [id number] Plate 08/15/2012 [id number] Plate 08/17/2011 [id number] SKIN LESIONS, OVER 4 08/17/19 12 [id number] SKIN LESIONS, OVER 4 08/16/19 13 Insurance Providers Payer Name Payer Address Payer Phone Subscriber Number Group Number Insured Name Patient Relationship to Insured Coverage Start Date Coverage End Date [facility] [address] [place] [address] [phone] [id number] Kranthi Barroso Spouse - patient is the spouse of the insured Medical (General) History Medical History History ICD Code chicken pox diabetes mellitus hypertension psoriasis Surgical History Surgery Date(Month/Year) foot surgery 03/2012 ankle surgery 03/2012 Hospitalization History Reason Date(Month/Year) [place] broken ankle and foot 03/2012
[2025-01-01 12:34] LABS: MANUAL DIFF FLAG NO
[2025-01-01 12:41] LABS: Hematocrit 41.1 % (37.0-47.0); Hemoglobin 13.7 g/dl (12.0-16.0); Imm Gran Abs Auto 0.03 X10*3/uL (0.00-0.03); Imm Gran Pct Auto 0.3 % (0.0-0.4); Lymphocytes Absolute Auto 2.1 X10*3/uL (1.2-4.9); Mean Corpuscular HGB Conc 33.3 g/dl (31.0-35.0); Mean Corpuscular Hemoglobin 28.5 pg (27.0-33.0); Mean Corpuscular Volume 85.4 fL (80.0-98.0); NRBC Abs Auto 0.000 X10*3/uL (0.0-0.012); NRBC Pct Auto 0.0 /100WBC (0.0-0.2); Platelet Count 253 X10*3/uL (160-400); Red Blood Count 4.81 X10*6/uL (4.20-5.50); White Blood Count 8.8 X10*3/uL (4.8-10.8)
[2025-01-01 12:48] LABS: Appearance Urine Clear; Glucose Urine UA Negative (Negative); PH 5.5 (5.0-9.0); Specific Gravity - Urine 1.020 (1.005-1.025); UMIC TRIGGER UA YES
[2025-01-01 13:06] LABS: Alanine Aminotransferase 46 U/L (0-31); Albumin Level 4.7 g/dL (3.5-5.0); Alkaline Phosphatase 70 U/L (39-117); Anion Gap 13 (12-20); Aspartate Amino Transferase 31 U/L (5-31); Blood Urea Nitrogen 19 mg/dL (9-16); Calcium 10.0 mg/dL (8.4-10.2); Carbon Dioxide 28 mmol/L (22-29); Chloride 102 mmol/L (96-108); Estimated Glomerular Filt Rate > 60; Magnesium 2.0 mg/dL (1.6-2.6); Potassium 4.2 mmol/L (3.3-5.1); Sodium 139 mmol/L (135-145); Total Protein 7.4 g/dL (6.5-8.0)
[2025-01-01 13:08] LABS: Ammonia 20 umol/L (13-55)
[2025-01-01 13:31] LABS: Folate 10.8 ng/mL (> or = 4.0); Vitamin B12 399 pg/mL (200-900)
== END 2025-01-01 12:05 | disposition home or self-care (01) ==
LOC: HO.LAB 12:04
PROVIDERS: PCP Physician Assistant Medical; Visit Provider Physician Assistant Medical
DX: R27.8 Other lack of coordination (principal); R39.9 Unspecified symptoms and signs involving the genitourinary system; D64.9 Anemia, unspecified
CPT/HCPCS: 36415; 80053; 81001; 82140; 82607; 82746; 83735; 84443; 85025; 87040; 87086

== ENCOUNTER 2025-01-25 10:49 | Outpatient (AMB) | payer OTHER, SELFPAY ==
--- NOTE | 2025-01-25 11:01 | A.OFFPC_ITS ---
Vital Signs 01/25/25 11:12 Height 5 ft 4 in Weight 137 lb 2 oz BMI 23.5 BP 116/80 Blood Pressure Location Lt brachial Position Sitting Respiration 14 Pulse 96 Pulse Source Pulse Oximeter Temp 97.4 F Temp Source Temporal Artery Scan Pulse Oximetry (%) 98 Oxygen Delivery Method Room Air Intake Visit Reasons: 30 minutes follow up Intake Note: Shelly presents in the office today for a follow up. Allergies No Known Allergies Allergy (Verified 01/25/25 11:06) Medication List - Last Reconciled 01/26/25 by LARY Mejía amlodipine 5 mg PO DAILY aspirin 81 mg PO DAILY baclofen 5 mg PO TID blood pressure monitor As directed blood-glucose sensor ([employer] G7 Sensor device) apply to skin and replace after 10 days to monitor blood glucose for type 2 diabetes blood-glucose,shearer operator,cont ([employer] G7 Labor And Delivery Registered Nurse) As directed clopidogrel (Plavix) 75 mg PO DAILY dextrose (TRUEplus Glucose) 15 grams (32 mL) PO Q15M PRN hydroxyzine HCl 25 mg PO BEDTIME insulin glargine (Lantus Solostar U-100 Insulin) 8 units subcut .qhs insulin lispro 4 - 14 sliding scale doses subcut USEASDIRECTD losartan 100 mg PO DAILY melatonin 6 mg (2 x 3 mg) PO BEDTIME PRN metformin ER 1,000 mg (2 x 500 mg) PO BID 90 days multivitamin (Daily Multi-Vitamin tablet) 1 tab PO DAILY pantoprazole (Protonix) 20 mg PO DAILY pen needle, diabetic To use with insulin injections four times daily prednisone 5 mg PO DIRECTED rosuvastatin 40 mg PO DAILY semaglutide (Ozempic) 2 mg (0.75 mL) subcut QWEEK sertraline 50 mg PO DAILY Tobacco use date assessed: 01/25/25 Dental Screening Dental Screen Date: 01/25/25 Did you have a dental visit in the last 12 months?: Yes Did you have a dental problem in the last 6 months where you did not have access to dental care?: No Was dental information given to patient?: Patient has dentist HPI HPI Comments History of Present Illness Details This is a 59-year-old female with a past medical history of hypertension, hyperlipidemia, recent infarcts, possible etiology being vasculitis on a prolo nged steroid taper presenting for follow up. She is here with her , Cosme. Cosme is going back to work soon. They are both doing the best they can with everything that transpired this year with her health. Denies recurrent UTI symptoms. She completed Bactrim. She saw Dr. Boland last week. She is tapering off prednisone this week. Asterixis of the left hand has improved. Ammonia level was normal. 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 Previously documented: She was diagnosed with COVID-19 infection 08/18/2024 at [facility]. Patient was initially admitted 08/21/2024 for right corpus callosum/cingulate regional stroke due to occlusion/high-grade stenosis and discharged 08/25/2024. She tested positive for COVID-19 and has been feeling unwell for a couple of weeks prior. Right JULIANO infarct was thought to be embolic treated with aspirin and Plavix. Re-presented 09/01/2024 with left-sided face tingling, dysarthria and worsening left-sided weakness and admitted. CTA showed worsening multifocal stenosis in the posterior circulation. MRI brain 09/02/2024 showed extension of right CR infarct. Digital subtraction angiography with Dr. Kumar 09/03/2024 suggestive of vasculitis in the middle and small blood vessels. She notices increased nausea since running out of PPI medication. She is taking baby aspirin and Plavix. Type 2 diabetes-hemoglobin A1c is 6.8%. she is currently taking Lantus, Ozempic, metformin and lispro insulin. We have continued to adjust her insulin dosages as she tapers off prednisone. She brought a list of blood sugars with her (see results reviewed). She is still having low sugars. She did not require basal bolus insulin prior to prednisone treatment. She has been referred to endocrinology. She continues with physical therapy. She was referred to [facility] for outpatient physical and occupational therapy, and the appointment is not until March because 1 of the therapists left. She is going to call me if she wants a referral to [facility] instead. Her strength and speech continue to improve. She still has difficulty with fine motor skills. Her left leg is heavy, and she is using a leg brace. She walked twice around her block using her walker the other day. Patient is currently on sertraline for situational depression with anxiety following recent CVAs and vasculitis. 8 mm thyroid nodule was detected on CT w hen she was hospitalized. The patient had a thyroid ultrasound completed on 12/29/2024 which showed a multinodular thyroid gland. None of the nodules met criteria for biopsy. A thyroid ultrasound has been reordered for 1 year. Patient had MRI of the lumbar spine on 08/30/2024 as an out patient which demonstrated spondylosis L5-S1 and to a lesser extent L4-L5 encroaching the neural elements of the thecal sac and likely the S1-L5 exiting nerve roots as well as pseudoarthrosis posterior spinous process L3-L4 and L4-L5. ROS: Constitutional: No fevers, chills, night sweats, unexplained weight loss. She has fatigue since initial hospitalization for strokes. Eyes: No vision changes. Respiratory: No shortness of breath, cough or wheezing Cardiovascular: No chest pain Gastrointestinal: No anorexia, vomiting or diarrhea. Denies abdominal pain. Genitourinary: No dysuria, hematuria, urinary frequency. Denies flank pain. Neurologic: Per HPI Hematologic/Lymphatics: No bleeding Endocrine: No polyuria or polydipsia. +polyphagia. Psychiatric: + anxiety and depression Physical exam: Constitutional: Alert, in no distress.. Eyes: Pupils are equal, round and reactive to light. Extraocular muscles intact. Neck: Supple, Full range of motion. No lymphadenopathy. No palpable thyroid masses. Respiratory: Clear to auscultation. Cardiovascular: S1 S2 regular. No murmurs. Breast: No palpable mass. No axillary adenopathy. Neurologic: No dysarthria today. There is some facial asymmetry noted with smiling. She has left-sided weakness. She is using a walker. Extremities: Warm and well perfused. No clubbing, cyanosis or edema. 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 Hospital discharge follow-up History of CVA with residual deficit Thyroid nodule LFT elevation Atrophy of muscle of left lower leg Weakness of left leg Floaters RUQ abdominal pain Lumbosacral radiculopathy Hiatal hernia Hepatic steatosis Microalbuminuria Renal cyst, left Renal lesion Gallbladder polyp Anxiety Pure hypercholesterolemia Left upper quadrant pain Fatigue Essential hypertension Type 2 diabetes mellitus Torn ligament High cholesterol High blood pressure Diabetes Family History Father Colon cancer Mother Diabetes Social History (Updated 01/25/25 @ 11:12 by Cathie Bahena MA) Household Members: Significant Other Housing: House Are you a primary healthcare administrative assistant to a significant other at home: No Do you presently have visiting nurse or other home services: No Alcohol intake: never Patient Tobacco Use Status: Former Tobacco user e-Cigarette/Vaping Use: Currently Using Second Hand Smoke Exposure: No Special reanna needs: No service: No Current occupational status: employed Current occupation: service diapatcher Cognitive needs: No Hearing needs: No Vision needs: Yes (Patient wears glasses.) Questionnaire Thrive Questionnaire Date Thrive assessed: 08/10/24 I am a: Patient What is your living situation today?: I have a steady place to live Within the past 12 months, did the food you bought not last and you didn't have the money to get more?: Never true Within the past 12 months, did you worry whether your food would run out before you got money to buy more?: Never true Do you have trouble paying for medicines?: No Do you have trouble getting transportation to medical appointments?: No Do you have trouble paying your heating and electricity bill?: No Do you have trouble taking care of your child, family member or friend?: No Do you have trouble with day-to-day activities such as bathing, preparing meals, shopping, managing finances, etc.?: No Are you currently unemployed and looking for a job?: No Are you interested in more education?: No Please select the resources that you would like help with: None Currently or been in a relationship where the following occur: No concerns reported THRIVE Score: 0 LUIS ALBERTO-7 AMB Questionnaire LUIS ALBERTO-7 Date LUIS ALBERTO - 7 assessed: 08/10/24 Source: Developed by Drs. Michael Cloud, Lynette Dominguez, Gilberto Chan and colleagues, with an educational vipin from [employer]. Physical exam (Primary Care) Vital Signs: Last Vital Signs Temp 97.4 F 01/25/25 11:12 Pulse 96 01/25/25 11:12 Resp 14 01/25/25 11:12 BP 116/80 01/25/25 11:12 Pulse Ox 98 01/25/25 11:12 Oxygen Delivery Method Room Air 01/25/25 11:12 BMI result Body Mass Index 23.5 Tobacco/Smoking Status: Tobacco use Status Tobacco use date assessed 01/25/25 01/25/25 11:15 Patient Tobacco Use Status Former Tobacco user 01/25/25 11:12 e-Cigarette/Vaping Use Currently Using 01/25/25 11:12 Thrive Assessment: Date of Thrive Assessment Date Thrive assessed 08/10/24 01/25/25 11:03 Currently or been in a relationship where the following occur: No concerns reported Results Reviewed Results Reviewed: 01/22 04:45 52 08:10 127 11:49 103 15:00 61 16:50 140 20:27 184 21:44 72 01/24 08:19 146 11:32 111 17:37 153 21:51 139 Laboratory Tests 12/10/24 01/01/25 15:22 12:25 WBC 8.8 Hgb 13.7 Hct 41.1 Plt Count 253 D Creatinine 0.76 Estimated GFR > 60 Hemoglobin A1c % 6.8 H AST 28 31 ALT 57 H 46 H Vitamin B12 399 TSH 0.52 Coding Level of Care Code Est Pt Level 5 (20001) Complex EM visit Add On G2211 Diagnoses Thyroid nodule E04.1 Type 2 diabetes mellitus with hyperglycemia, without long-term current use of insulin E11.65 Diabetes mellitus complication status: with hyperglycemia Diabetes mellitus oysterman insulin use: without oysterman use History of CVA with residual deficit I69.30 Cerebral vasculitis I67.7 Cerebral vein thrombosis G08 Primary angiitis of central nervous system I77.6 Lumbosacral radiculopathy M54.17 Depression with anxiety F41.8 Time Spent (min) 48 Comment Direct patient care, chart review, completing documentation Assessment & Plan Assessment & Plan (1) Thyroid nodule: Code(s): E04.1 - Nontoxic single thyroid nodule Category: Medical (2) Type 2 diabetes mellitus: Code(s): E11.9 - Type 2 diabetes mellitus without complications Category: Medical Qualifiers: Diabetes mellitus complication status: with hyperglycemia Diabetes mellitus retirement insulin use: without retirement use Qualified Code(s): E11.65 - Type 2 diabetes mellitus with hyperglycemia (3) History of CVA with residual deficit: Code(s): I69.30 - Unspecified sequelae of cerebral infarction Category: Medical (4) Cerebral vasculitis: Code(s): I67.7 - Cerebral arteritis, not elsewhere classified Category: Medical (5) Cerebral vein thrombosis: Code(s): G08 - Intracranial and intraspinal phlebitis and thrombophlebitis Category: Medical (6) Primary angiitis of central nervous system: Code(s): I77.6 - Arteritis, unspecified Category: Medical (7) Lumbosacral radiculopathy: Code(s): M54.17 - Radiculopathy, lumbosacral region Category: Medical Plan: We will readdress this with patient at her follow up appointment. Priority of this appointment was recent hospital admission. With recent strokes, vasculitis, Plavix and aspirin patient not a candidate for injections or surgery at this time. (8) Depression with anxiety: Code(s): F41.8 - Other specified anxiety disorders Category: Medical Plan 59-year-old female with type 2 diabetes, hyperlipidemia and hypertension presenting for follow up. Multiple hospital admissions this year for urosepsis and vasculitis possibly secondary to COVID-19 infection and CVAs with residual left-sided weakness and fine motor impairment. She is tapering off prednisone per Neurology this week. She has a follow up scheduled. Restart PPI. We can try to taper off of this eventually once prednisone has been discontinued. Continue treatment for hypertension and hyperlipidemia with amlodipine, losartan, rosuvastatin. Patient remains on Plavix and aspirin. Continue physical therapy and occupational therapy. Continue metformin and Ozempic. Decrease Lantus to 8 units nightly Adjust sliding scale for lispro before breakfast, lunch and dinner Blood sugar <120 administer 0 units Blood sugar 121-200 administer 4 units Blood sugar 201-250 administer 6 units Blood sugar 251-300 administer 8 units Blood sugar 301-350 administer 10 units Blood sugar 351-400 administer 12 units Blood sugar >400 administer 14 units and call the office She has a consult scheduled with endocrinology. Repeat thyroid u/s 1 year. Lumbosacral radiculopathy-she has physical therapy. With recent strokes, vasculitis, Plavix and aspirin patient not a candidate for injections or surgery at this time. Anxiety with depression-continue sertraline to 50 mg daily. Referred anew to Psychology. Follow up in 8 weeks. Medications: New pantoprazole (Protonix) 20 mg PO DAILY 90 tabs 0RF Changed From insulin glargine (Lantus Solostar U-100 Insulin) 12 units subcut .qhs To insulin glargine (Lantus Solostar U-100 Insulin) 8 units subcut .qhs
[2025-01-25 11:12] VITALS: BP 116/80; PULSE 96; RESP 14; TEMP 36.3; O2SAT 98; BMI 23.5
--- OUTSIDE RECORDS SUMMARY | 2025-01-25 12:05 | XMS_ITS | Patient Health Record ---
Author Organization [facility] Address [address] [place] [address] Care Team Providers Care Information Technology Security Manager Name Role Phone Yolanda Alfaro MD Primary Care Provider Unavail anny CraigNick Unavailable [phone] Reason For Referral No Information Medications Medication [...] Treatment Pending Test Test Name Order Date [id number] NAIL, 6 OR MORE 08/17/2011 [id number] NAIL, 6 OR MORE 08/15/2012 [id number] Plate 08/15/2012 [id number] Plate 08/17/2011 [id number] SKIN LESIONS, OVER 4 08/17/19 12 [id number] SKIN LESIONS, OVER 4 08/16/19 13 Insurance Providers Payer Name Payer Address Payer Phone Subscriber Number Group Number Insured Name Patient Relationship to Insured Coverage Start Date Coverage End Date [facility] [address] [place] [place] [address] [phone] [id number] Kranthi Barroso Spouse - patient is the spouse of the insured Medical (General) History Medical History History ICD Code chicken pox diabetes mellitus hypertension psoriasis Surgical History Surgery Date(Month/Year) foot surgery 03/2012 ankle surgery 03/2012 Hospitalization History Reason Date(Month/Year) [place] broken ankle and foot 03/2012
--- OUTSIDE RECORDS SUMMARY | 2025-01-25 12:05 | XMS_ITS | Encounter Summary ---
Author Organization [facility] Address [address] [place] [address] Care Team Providers Care Powder Expert Name Role Phone Genejeyson Christian BARTH Primary Care Provider [phone] Encounter Details Date Type Department Care Team (Late st Contact Info) Description 09/29/2024 Lab Requisition [facility] Lab [address] [facility] [place] [place] [address] Samuel Doran MD [address] [place] [id number] Encounter for other general examination Social History [...] AM EDT) WBC 12.3(H) 4.8 - 10.8 K/[facility] LAB HEMETOLOGY METHOD 09/29/2024 10:51 AM [...] Final Res ult [facility] [address] [place] [address], [place] [phone] * (ABNORMAL) Comprehensive metabolic panel (09/29/2024 5:36 AM EDT) Pathologist [facility] [place] Sodium 137 133 - 145 mmol/L LAB [...] Final Res ult [facility] [address] [place] [address], documented in this encounter Visit Diagnoses Diagnosis Encounter for other general examination documented in this encounter Care Teams Powder Expert Relationship Specialty Start Date End Date Christian Garza PA [facility] [place] [address] PCP - General 09/28/24 documented as of this encounter
--- OUTSIDE RECORDS SUMMARY | 2025-01-25 12:06 | XMS_ITS | Clinical Summary ---
Author Organization [facility] Address [address] [place] [address] Care Team Providers Care Occ Therapist Name Role Phone Nadia Hill MD Primary Care Provider Allergies Active Allergy Reactions Criticality Noted Date [...] age to complete this topic Care Teams Occ Therapist Relationship Specialty Start Date End Date Nadia Hill MD PCP - General Internal Medicine 11/09/21
== END 2025-01-25 12:00 | disposition home or self-care (01) ==
LOC: HO.HMCFM 10:50
PROVIDERS: PCP Physician Assistant Medical; Visit Provider Physician Assistant Medical
DX: E11.65 Type 2 diabetes mellitus with hyperglycemia (principal); E04.1 Nontoxic single thyroid nodule; I69.30 Unspecified sequelae of cerebral infarction; I67.7 Cerebral arteritis, not elsewhere classified; G08 Intracranial and intraspinal phlebitis and thrombophlebitis; I77.6 Arteritis, unspecified; M54.17 Radiculopathy, lumbosacral region; F41.8 Other specified anxiety disorders

== ENCOUNTER 2025-02-08 15:19 | Outpatient (AMB) | payer OTHER, SELFPAY ==
[2025-02-08 15:20] VITALS: BP 112/80; PULSE 80; O2SAT 98; BMI 23.9
--- NOTE | 2025-02-08 15:20 | A.OFFVIS_ITS ---
Vital Signs 3 02/08/25 15:20 Height 5 ft 4 in Weight 139 lb 5.314 oz BMI 23.9 BP 112/80 Blood Pressure Location Lt brachial Position Sitting Pulse 80 Pulse Source Pulse Oximeter Pulse Oximetry (%) 98 Oxygen Delivery Method Room Air Intake Visit Reasons: T2DM,Other specified abnormal findings of blood ch Intake Note: New patient present today for Type 2 Diabetes Mellitus and other specified abnormal findings of blood chemistry. Last Diabetic eye exam: Last exam was over 2 years ago, needs referral Last Podiatry Visit: Needs referral Random Glucose: 68 mg/dl @3:30pm, 79 mg/dl at 3:51 pm. HgA1C: 6.8% 12/10/24 Machine Filler Servicer Required: No Accompanied by: Spouse Allergies No Known Allergies Allergy (Verified 02/08/25 15:27) Medication List - Last Reconciled 02/08/25 by Frida Suarez MD amlodipine 5 mg PO DAILY aspirin 81 mg PO DAILY baclofen 5 mg PO TID blood pressure monitor As directed blood-glucose sensor ([employer] G7 Sensor device) apply to skin and replace after 10 days to monitor blood glucose for type 2 diabetes blood-glucose,physical therapy nurse,cont (Dexcom G7 Manager Library) As directed clopidogrel (Plavix) 75 mg PO DAILY dextrose (TRUEplus Glucose) 15 grams (32 mL) PO Q15M PRN hydroxyzine HCl 25 mg PO BEDTIME insulin glargine (Lantus Solostar U-100 Insulin) 8 units subcut .qhs insulin lispro 4 - 14 sliding scale doses subcut USEASDIRECTD losartan 100 mg PO DAILY melatonin 6 mg (2 x 3 mg) PO BEDTIME PRN metformin ER 1,000 mg (2 x 500 mg) PO BID 90 days multivitamin (Daily Multi-Vitamin tablet) 1 tab PO DAILY pantoprazole (Protonix) 20 mg PO DAILY pen needle, diabetic To use with insulin injections four times daily prednisone 5 mg PO DIRECTED rosuvastatin 40 mg PO DAILY semaglutide (Ozempic) 2 mg (0.75 mL) subcut QWEEK sertraline 50 mg PO DAILY HPI Comments Details: 59-year-old female coming in today for initial evaluation of 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 Also has a history of multinodular goiter. Here with [facility] Type 2 diabetes mellitus History of diabetes Diagnosed in 40s Started on insulin August 2024, was hospitalized for stroke with residual left sided weakness prednisone high doses started August 2024, tapered off to 5 mg every other day up until 2 weeks ago, now completely off it. Prior therapy: Trulicty caused severe GI intolerance Glipizide in the past has been getting recurrent UTIs recently Current regimen: Lantus 8 units at bedtime Lispro 4-14 units 121-200: 4 units 201-250: 6 units 251-300: 8 units 301-350: 10 units 351- 400: 12 units 400+ 14 units Ozempic 2 mg on Sundays ( started sometime 2019) (has been on 2 mg for a year at least ) Metformin 1000 mg b.i.d. Denies any symptoms of hyperglycemia including polyphagia, polyuria, polydipsia. Denies any hypoglycemic symptoms. has hypoglycemia unawareness, doesnt feel anythign even in 50s. Random Glucose: 68 mg/dl @3:30pm, after beto radha can 79 mg/dl at 3:51 pm. HgA1C: 6.8% 12/10/24 Dexcom Dexcom G7 data downloaded from January 26 to 02/08/2025 Average glucose 146 mg/dL G [place] 6.8% Coefficient of variation 24.2% Standard deviation 35 mg/dL Time CGM active 95% Target range: 84% High 15% Very high 1% Very low less than 1% Interpretation: Mostly within target range with some overnight hypoglycemia Vaccines: Complications Eye exam: Last eye exam was 2022? no history of retinopathy. Neuropathy: no neuropathy Kidney disease: microalbuminuria ur m/cr ratio 43.03 November 2023, egfr > 60 01/25 Macrovascular complications: CVA August 2024 x2, residual left sided weakness , no [place] Statin:rosuvastatin 40 mg , LDL 63 mg/dl 11/24 NOE/ARB: losartan 100 mg daily Exercise: doing physical therapy Diet control: BF 7 and 8 AM: 2 eggs with uzbek muffin and fruit, 6 ounces of cranberry juice Snack 10 am : apple or pear Lunch noon - 1 pm : salad with egg whites and chicken Dinner 5-6 pm : fish , steak , some protein icecream bar every night 8 pm He has never had any hospitalizations for hyperglycemia/hypoglycemia. Multinodular goiter Normal TSH from January 2025 with 0.52. She only had a low TSH once back in December 2024 when TSH was 0.3 with a normal free T4 at 1.16. Prior to that she has always had normal thyroid function. No compressive symptoms. Ultrasound thyroid 12/29/2024 showed multiple bilateral nodules with a right midpole 0.7 cm solid hypoechoic TR 4 nodule, a right midpole 0.9 cm solid hypoechoic TR 4 nodule which would meet criteria for follow up. A left midpole 1.4 cm cm spongiform nodule. A left midpole 0.6 cm solid isoechoic TR 3 nodule. A left midpole 0.8 cm mixed cystic solid isoechoic TR 2 nodule. No family history of thyroid cancer. No personal history of head or neck radiation. Physical exam General: sitting comfortably in no acute distress HEENT: normocephalic/atraumatic,, moist oral mucosa Neck: supple, Cardiac: normal heart sounds Pulm: normal breath sounds B/L, no added breath sounds Abd: not distended, no tenderness Laboratory Tests 12/13/23 12/13/23 05/12/24 09:34 09:37 07:16 Hgb Hct Plt Count 280 Creatinine Estimated GFR Glucose (Clinic) Random Glucose Hemoglobin A1c % > 14.0 H 6.0 AST 15 ALT 16 Albumin Triglycerides 71 Cholesterol 144 LDL Cholesterol, Calc 63 HDL Cholesterol 67 Vitamin B12 TSH Free T4 Urine Creatinine 145.56 Urine Microalbumin 63.0 Microalb/Creat Ratio 43.2 H 08/10/24 12/10/24 01/01/25 16:47 15:22 12:25 Hgb 13.7 Hct 41.1 Plt Count 253 D Creatinine 0.76 Estimated GFR > 60 Glucose (Clinic) Random Glucose 126 H Hemoglobin A1c % 6.0 6.8 H AST ALT Albumin 4.7 Triglycerides Cholesterol LDL Cholesterol, Calc HDL Cholesterol Vitamin B12 399 TSH 0.30 L 0.52 Free T4 1.16 Urine Creatinine Urine Microalbumin Microalb/Creat Ratio 02/08/25 15:29 Hgb Hct Plt Count Creatinine Estimated GFR Glucose (Clinic) 68 Random Glucose Hemoglobin A1c % AST ALT Albumin Triglycerides Cholesterol LDL Cholesterol, Calc HDL Cholesterol Vitamin B12 TSH Free T4 Urine Creatinine Urine Microalbumin Microalb/Creat Ratio EXAMINATION: US THYROID 12/29/24 HISTORY: E04.1 - Nontoxic single thyroid nodule TECHNIQUE: Real-time grayscale ultrasound imaging was performed and images were reviewed. COMPARISON: There are no prior studies available for comparison. FINDINGS: SIZE: The right thyroid lobe measures 5.1 x 1.7 x 2.0 cm. The left thyroid lobe measures 4.9 x 1.9 x 2.1 cm. The isthmus measures 3 mm. FLOW: Flow to the gland is normal. ECHOGENICITY: The echotexture of the gland is homogeneous. NODULES: Multiple bilateral thyroid nodules are identified as described below: Nodule #: 1 Location: Midportion of the right thyroid lobe measuring 7 x 6 x 6 mm. Shape: Wider than tall (0 points) Margins: Smooth (0 points) Echotexture: Hypoechoic (2 points) Composition: Solid (2 points) Calcifications: None (0 points) Total points: 4 TIRADS: TR4: Moderately suspicious. Nodule #: 2 Location: Midportion of the right thyroid lobe measuring 9 x 6 x 7 mm. Shape: Wider than tall (0 points) Margins: Smooth (0 points) Echotexture: Hypoechoic (2 points) Composition: Solid (2 points) Calcifications: None (0 points) Total points: 4 TIRADS: TR4: Moderately suspicious. Nodule #: 3 Location: Midportion of the left thyroid lobe measuring 11 x 4 x 12 mm. Shape: Wider than tall (0 points) Margins: Smooth (0 points) Echotexture: n/a Composition: Spongiform (0 points) Calcifications: None (0 points) Total points: 0 TIRADS: TR1: Benign Nodule #: 4 Location: Midportion of the left thyroid lobe measuring 5 x 6 x 6 mm. Shape: Wider than tall (0 points) Margins: Smooth (0 points) Echotexture: Isoechoic (1 point) Composition: Solid (2 points) Calcifications: None (0 points) Total points: 3 TIRADS: TR3: Mildly suspicious. Nodule #: 5 Location: Midportion of the left thyroid lobe measuring 8 x 5 x 7 mm. Shape: Wider than tall (0 points) Margins: Smooth (0 points) Echotexture: Isoechoic (1 point) Composition: Mixed (1 point) Calcifications: None (0 points) Total points: 2 TIRADS: TR2: Not suspicious US/US thyroid IMPRESSION: Multinodular thyroid gland as described above. None of the nodules meet the ACR TI-RADS guidelines for biopsy. 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 Hospital discharge follow-up History of CVA with residual deficit Thyroid nodule LFT elevation Atrophy of muscle of left lower leg Weakness of left leg Floaters RUQ abdominal pain Lumbosacral radiculopathy Hiatal hernia Hepatic steatosis Microalbuminuria Renal cyst, left Renal lesion Gallbladder polyp Anxiety Pure hypercholesterolemia Left upper quadrant pain Fatigue Essential hypertension Type 2 diabetes mellitus Torn ligament High cholesterol High blood pressure Diabetes Family History Father Colon cancer Mother Diabetes Social History Household Members: Significant Other Housing: House Are you a primary home health care social worker to a significant other at home: No Do you presently have visiting nurse or other home services: No Alcohol intake: never Patient Tobacco Use Status: Former Tobacco user e-Cigarette/Vaping Use: Currently Using Second Hand Smoke Exposure: No Special reanna needs: No service: No Current occupational status: employed Current occupation: service diapatcher Cognitive needs: No Hearing needs: No Vision needs: Yes (Patient wears glasses.) Physical Exam Vital Signs: Last Vital Signs Pulse 80 02/08/25 15:20 BP 112/80 02/08/25 15:20 Pulse Ox 98 02/08/25 15:20 Oxygen Delivery Method Room Air 02/08/25 15:20 BMI result Body Mass Index 23.9 Office Procedures Glucose Monitoring Details Details: See [facility] [address] - Glucose monitoring, continuous-physician I&R Procedure code (CPT) selection complete Results Reviewed Results Reviewed: Laboratory Last Values Glucose (Clinic) 79 mg/dL (60-115) 02/08/25 15:51 Assessment & Plan Assessment & Plan (1) Type 2 diabetes mellitus: Code(s): E11.9 - Type 2 diabetes mellitus without complications Category: Medical Qualifiers: Diabetes mellitus complication status: with hyperglycemia Diabetes mellitus half-way insulin use: without terminal operations manager use Qualified Code(s): E11.65 - Type 2 diabetes mellitus with hyperglycemia Plan: 59-year-old female with type 2 diabetes mellitus with long-term insulin use with complications of microalbuminuria, CVA August 2024 with residual left-sided weakness X 2, coming in today to establish care. A1c December 2024 at 6.8%, which is much improved than her prior poor control when her A1c was greater than 14% in 2023. Dexcom G7 data downloaded which shows she is having some hypoglycemia especially since her prednisone has been tapered off and she is off of it for the past 2 weeks. Prednisone was started in August 2024 after her stroke and she was on high doses initially and then titrated down to lower doses. We discussed that we would anticipate decreasing insulin requirements since she is now off the prednisone. Plan: -decrease insulin Lantus from 8 units to 6 units at bedtime -insulin lispro sliding scale decreased to Lispro three times a day with meals 121-200: 2 units 201-250: 4 units 251-300: 6 units 301-350: 8 units 351- 400: 10 units 400+ 10 units Ozempic 2 mg on Sundays Metformin 1000 mg twice daily -she could improve her nutritional intake in choices somewhat, we will place top frame maker referral -continue monitoring through Dexcom CGM especially since she has hypoglycemia awareness -hypoglycemia education done -Baqsimi nasal spray prescribed -does not have burning machine operator, no symptoms of neuropathy, foot exam deferred today, foot education done -overdue for eye visit, no prior history of retinopathy, patient will make appointment -due for labs, ordered lipid panel, urine microalbumin, AST, ALT, kidney function to be done prior to next follow up in 8 weeks (2) Low TSH level: Code(s): R79.89 - Other specified abnormal findings of blood chemistry Category: Medical Plan: 59-year-old female who was noted to have a low TSH level on labs in December 2024 when TSH was 0.3 with normal free T4. Otherwise she has always had normal thyroid function. Labs repeated most recently in January 2025 shows normal TSH. We will repeat levels. Plan: -ordered TSH and free T4 (3) Multinodular thyroid: Code(s): E04.2 - Nontoxic multinodular goiter Category: Medical Plan: 59-year-old female with no family history of thyroid cancer, with no personal history of head or neck radiation with multinodular goiter. No compressive symptoms. Ultrasound thyroid 12/29/2024 showed multiple bilateral nodules with a right midpole 0.7 cm solid hypoechoic TR 4 nodule, a right midpole 0.9 cm solid hypoechoic TR 4 nodule which would meet criteria for follow up. A left midpole 1.4 cm cm spongiform nodule. A left midpole 0.6 cm solid isoechoic TR 3 nodule. A left midpole 0.8 cm mixed cystic solid isoechoic TR 2 nodule. Plan: -plan to repeat next ultrasound of the thyroid in December 2025 (4) Long-term insulin use: Code(s): Z79.4 - care home (current) use of insulin Category: Medical Plan: See above Plan I spent 60 minutes in reviewing the record, seeing the patient and documenting in the medical record. Orders: Orders 2 Microalbumin, Random (w Creat) 6 Weeks E04.2 - Nontoxic multinodular goiter, E11.65 - Type 2 diabetes mellitus with hyperglycemia, R79.89 - Other specified abnormal findings of blood chemistry Thyroid Stimulating Hormone 6 Weeks E04.2 - Nontoxic multinodular goiter, E11.65 - Type 2 diabetes mellitus with hyperglycemia, R79.89 - Other specified abnormal findings of blood chemistry Vitamin B12 6 Weeks E04.2 - Nontoxic multinodular goiter, E11.65 - Type 2 diabetes mellitus with hyperglycemia, R79.89 - Other specified abnormal findings of blood chemistry Free T4 (Free Thyroxine) 6 Weeks E04.2 - Nontoxic multinodular goiter, E11.65 - Type 2 diabetes mellitus with hyperglycemia, R79.89 - Other specified abnormal findings of blood chemistry Aspartate Amino Transferase 6 Weeks E04.2 - Nontoxic multinodular goiter, E11.65 - Type 2 diabetes mellitus with hyperglycemia, R79.89 - Other specified abnormal findings of blood chemistry Alanine Aminotransferase 6 Weeks E04.2 - Nontoxic multinodular goiter, E11.65 - Type 2 diabetes mellitus with hyperglycemia, R79.89 - Other specified abnormal findings of blood chemistry Lipid Panel 6 Weeks E04.2 - Nontoxic multinodular goiter, E11.65 - Type 2 diabetes mellitus with hyperglycemia, R79.89 - Other specified abnormal findings of blood chemistry Hemoglobin A1c 6 Weeks E04.2 - Nontoxic multinodular goiter, E11.65 - Type 2 diabetes mellitus with hyperglycemia, R79.89 - Other specified abnormal findings of blood chemistry Complete Blood Count no Diff 6 Weeks E04.2 - Nontoxic multinodular goiter, E11.65 - Type 2 diabetes mellitus with hyperglycemia, R79.89 - Other specified abnormal findings of blood chemistry Creatinine 6 Weeks E04.2 - Nontoxic multinodular goiter, E11.65 - Type 2 diabetes mellitus with hyperglycemia, R79.89 - Other specified abnormal findings of blood chemistry AMB Glucose Monitoring Today E11.65 - Type 2 diabetes mellitus with hyperglycemia, Z79.4 - terminal operations manager (current) use of insulin Referrals 2 Social Media Marketer Nutrition Referral E11.65 - Type 2 diabetes mellitus with hyperglycemia Medications: New 2 glucagon 3 mg/actuation (Baqsimi) 3 mg intranasal ONCE PRN 1 ea 1RF hypoglycemia Changed 2 From insulin glargine (Lantus Solostar U-100 Insulin) 8 units subcut .qhs To insulin glargine (Lantus Solostar U-100 Insulin) 6 units subcut .qhs From insulin lispro 4 - 14 sliding scale doses subcut USEASDIRECTD To insulin lispro subcutaneously use as directed; Lispro three times a day with meals 121-200: 2 units 201-250: 4 units 251-300: 6 units 301-350: 8 units 351- 400: 10 units 400+ 10 units max 30 units daily Patient Instructions: Lantus 6 units at bedtime Lispro three times a day with meals 121-200: 2 units 201-250: 4 units 251-300: 6 units 301-350: 8 units 351- 400: 10 units 400+ 10 units Ozempic 2 mg on Sundays Metformin 1000 mg twice daily Rule of 15 Treatment for Hypoglycemia (Low blood sugar) If your blood glucose is low (70 and below)*, follow the steps below to treat: Eat or drink something from the list below equal to 15 grams of carbohydrate (carb). Rest for 15 minutes Re-check your blood glucose. If it is still low, (below 70), repeat step 1 above. ? If your next meal is more than an hour away, you will need to eat one carbohydrate choice as a snack to keep your blood glucose from going low again. ?If you can't figure out why you have low blood glucose, call your healthcare provider, as your medicine may need to be adjusted. ?Always carry something with you to treat an insulin reaction. Use food from the list below. ? Foods equal to One Carbohydrate Choice (15 grams of carbohydrate): 3 Glucose ?tablets or 4 Dextrose tablets 4 ounces of fruit juice 5-6 ounces (about 1/2 can) of regular soda such as Coke or Pepsi ? 7-8 gummy or regular Life Savers ? 1 Tbsp. of sugar or jelly NOTE: If your blood sugar is less than 50, double the portion above for a total of 30 gm. ?Carbohydrate. ? Follow meal plan of 45-60 g of consistent carbohydrates at 3 meals each day and 15 g of carbohydrate at 1-2 snacks each day. Check your feet daily looking for any signs of infection, drainage, redness, ulceration and seek medical attention if this occurs. Break in shoes gradually and do not wear open-toed shoes or walk stocking footed or barefooted. Coding Level of Care Code New Pt Level 5 (87974) Diagnoses Type 2 diabetes mellitus with hyperglycemia, without long-term current use of insulin E11.65 Diabetes mellitus complication status: with hyperglycemia Diabetes mellitus half-way insulin use: without terminal operations manager use Low TSH level R79.89 Multinodular thyroid E04.2 Long-term insulin use Z79.4 CPT Codes Details - CPT: 01635 - Glucose monitoring, continuous-physician I&R ([id number]) Time Spent (min) 60
[2025-02-08 15:33] LABS: Glucose, Whole Blood 68 mg/dL (60-115)
[2025-02-08 15:54] LABS: Glucose, Whole Blood 79 mg/dL (60-115)
--- OUTSIDE RECORDS SUMMARY | 2025-02-08 18:24 | XMS_ITS | Clinical Summary ---
Author Organization [facility] Address [address] [place] [address] Care Team Providers Care Museum Technician Name Role Phone Nadia Hill MD Primary Care Provider [phone] Allergies Active Allergy Reactions Criticality Noted Date [...] age to complete this topic Care Teams Museum Technician Relationship Specialty Start Date End Date Nadia Hill MD PCP - General Internal Medicine 11/09/21
--- OUTSIDE RECORDS SUMMARY | 2025-02-08 18:24 | XMS_ITS | Patient Health Record ---
Author Organization [facility] Address [address] [place] [address] Care Team Providers Care Lpn Rn Name Role Phone Yolanda Alfaro MD Primary Care Provider Unavail anny CraigNick Unavailable [phone] Reason For Referral No Information Medications Medication [...] Treatment Pending Test Test Name Order Date [id number] NAIL, 6 OR MORE 08/17/2011 [id number] NAIL, 6 OR MORE 08/15/2012 [id number] Plate 08/15/2012 [id number] Plate 08/17/2011 [id number] SKIN LESIONS, OVER 4 08/17/19 12 [id number] SKIN LESIONS, OVER 4 08/16/19 13 Insurance Providers Payer Name Payer Address Payer Phone Subscriber Number Group Number Insured Name Patient Relationship to Insured Coverage Start Date Coverage End Date [facility] [address] [facility] [place] [address] [phone] [id number] Kranthi Barroso Spouse - patient is the spouse of the insured Medical (General) History Medical History History ICD Code chicken pox diabetes mellitus hypertension psoriasis Surgical History Surgery Date(Month/Year) foot surgery 03/2012 ankle surgery 03/2012 Hospitalization History Reason Date(Month/Year) [place] broken ankle and foot 03/2012
--- OUTSIDE RECORDS SUMMARY | 2025-02-08 18:24 | XMS_ITS | Encounter Summary ---
Author Organization [facility] Address [address] [place] [address] Care Team Providers Care Candy Waffle Assembler Name Role Phone Genejeyson Christian BARTH Primary Care Provider [phone] Encounter Details Date Type Department Care Team (Late st Contact Info) Description 09/29/2024 Lab Requisition [facility] - Main Lab 299 [facility] [place] [address] Samuel Doran MD [address] [place] [id number] Encounter for other general examination Social History [...] AM EDT) WBC 12.3(H) 4.8 - 10.8 K/[facility] LAB HEMETOLOGY METHOD 09/29/2024 10:51 AM [facility] LAB RBC 4.00 3.80 - 4.80 M/mcL LAB HEMETOLOGY METHOD 09/29/2024 10:51 AM [facility] LAB Hemoglobin 11.7 11.5 - 16.0 g/dL LAB HEMETOLOGY METHOD 09/29/2024 10:51 AM [facility] LAB Hematocrit 37.0 35.0 - 47.0 % LAB HEMETOLOGY METHOD 09/29/2024 10:51 AM [facility] LAB MCV 93.0 79.0 - 98.0 FL LAB HEMETOLOGY METHOD 09/29/2024 10:51 AM [facility] LAB MCH 29.4 27.0 - 32.0 pcg LAB HEMETOLOGY METHOD 09/29/2024 10:51 AM [facility] LAB MCHC 31.6(L) 32.0 - 37.0 g/dL LAB HEMETOLOGY METHOD 09/29/2024 10:51 AM [facility] LAB RDW 14.8 11.0 - 15.0 % LAB HEMETOLOGY METHOD 09/29/2024 10:51 AM [facility] LAB Platelets 301 130 - 400 K/mcL LAB HEMETOLOGY METHOD 09/29/2024 10:51 AM [facility] LAB MPV 8.8 7.0 - 11.0 FL LAB HEMETOLOGY METHOD 09/29/2024 10:51 AM [facility] LAB NRBC 0.0 <1.0 % LAB HEMETOLOGY METHOD 09/29/2024 10:51 AM [facility] LAB NRBC Absolute 0.00 <0.10 K/mcL LAB HEMETOLOGY METHOD 09/29/2024 10:51 AM [facility] LAB Neutrophils Relative 70.3 % LAB HEMETOLOGY METHOD 09/29/2024 10:51 AM [facility] LAB Lymphocytes Relative 19.9 % LAB HEMETOLOGY METHOD 09/29/2024 10:51 AM [facility] LAB Monocytes Relative 8.2 % LAB HEMETOLOGY METHOD 09/29/2024 10:51 AM [facility] LAB Eosinophils Relative 0.9 % LAB HEMETOLOGY METHOD 09/29/2024 10:51 AM [facility] LAB Basophils Relative 0.2 % LAB HEMETOLOGY METHOD 09/29/2024 10:51 AM [facility] LAB Immature Granulocytes Relative 0.5 % LAB HEMETOLOGY METHOD 09/29/2024 10:51 AM [facility] LAB Neutrophils Absolute 8.67(H) 1.50 - 7.00 K/mcL LAB HEMETOLOGY METHOD 09/29/2024 10:51 AM [facility] LAB Lymphocytes Absolute 2.45 1.00 - 5.00 K/mcL LAB HEMETOLOGY METHOD 09/29/2024 10:51 AM [facility] LAB Monocytes Absolute 1.01(H) 0.20 - 1.00 K/mcL LAB HEMETOLOGY METHOD 09/29/2024 10:51 AM [facility] LAB Eosinophils Absolute 0.11 0.00 - 0.50 K/mcL LAB HEMETOLOGY METHOD 09/29/2024 10:51 AM [facility] LAB Basophils Absolute 0.03 0.00 - 0.20 K/mcL LAB HEMETOLOGY METHOD 09/29/2024 10:51 AM [facility] LAB Immature Granulocytes Absolute 0.06(H) 0.00 - 0.03 K/mcL LAB HEMETOLOGY METHOD 09/29/2024 10:51 AM [facility] LAB Blood Venous blood specimen / Unknown Venipuncture / Unknown 09/29/2024 5:36 AM EDT 09/29/2024 9:45 AM EDT us Samuel Doran MD LAB BLOOD ORDERABLES Final Res ult [facility] LAB [address] [place] [address], [place] [phone] * (ABNORMAL) Comprehensive metabolic panel (09/29/2024 5:36 AM EDT) Pathologist [facility] [place] Sodium 137 133 - 145 mmol/L LAB CHEMISTRY METHOD 09/29/2024 11:34 AM [facility] LAB Potassium 4.4 3.5 - 5.5 mmol/L LAB CHEMISTRY METHOD 09/29/2024 11:34 AM [facility] LAB Chloride 98 96 - 110 mmol/L LAB CHEMISTRY METHOD 09/29/2024 11:34 AM [facility] LAB CO2 31 21 - 32 mmol/L LAB CHEMISTRY METHOD 09/29/2024 11:34 AM [facility] LAB Anion Gap 8 3 - 11 LAB CHEMISTRY METHOD 09/29/2024 11:34 AM [facility] LAB Glucose 78 70 - 100 mg/dL LAB CHEMISTRY METHOD 09/29/2024 11:34 AM [facility] LAB BUN 22 5 - 25 mg/dL LAB CHEMISTRY METHOD 09/29/2024 11:34 AM [facility] LAB Creatinine 0.69 0.50 - 1.10 mg/dL LAB CHEMISTRY METHOD 09/29/2024 11:34 AM [facility] LAB eGFR 101 >=60 mL/min/1. 73m2 LAB CHEMISTRY METHOD 09/29/2024 11:34 AM [facility] LAB Comment:Calculation based on the Chronic Kidney Disease Epidemiology Collaboration (CKD-EPI) equation refit without adjustment for race. BUN/Creatinine Ratio 31.9 LAB CHEMISTRY METHOD 09/29/2024 11:34 AM [facility] LAB Calcium 9.8 8.5 - 10.5 mg/dL LAB CHEMISTRY METHOD 09/29/2024 11:34 AM [facility] LAB AST (SGOT) 25 10 - 42 unit/L LAB CHEMISTRY METHOD 09/29/2024 11:34 AM [facility] LAB ALT (SGPT) 72(H) 10 - 60 unit/L LAB CHEMISTRY METHOD 09/29/2024 11:34 AM [facility] LAB Alkaline Phosphatase 76 42 - 121 unit/L LAB CHEMISTRY METHOD 09/29/2024 11:34 AM [facility] LAB Total Protein 5.8(L) 6.0 - 8.0 g/dL LAB CHEMISTRY METHOD 09/29/2024 11:34 AM [facility] LAB Albumin 3.0(L) 3.2 - 5.0 g/dL LAB CHEMISTRY METHOD 09/29/2024 11:34 AM [facility] LAB Total Bilirubin 0.5 0.0 - 1.4 mg/dL LAB CHEMISTRY METHOD 09/29/2024 11:34 AM [facility] LAB Blood Venous blood specimen / Unknown Venipuncture / Unknown 09/29/2024 5:36 AM EDT 09/29/2024 9:45 AM EDT us Samuel Doran MD LAB BLOOD ORDERABLES Final Res ult [facility] LAB [address] [place] [address], documented in this encounter Visit Diagnoses Diagnosis Encounter for other general examination documented in this encounter Care Teams Candy Waffle Assembler Relationship Specialty Start Date End Date Christian Garza PA [facility] [place] [address] PCP - General 09/28/24 documented as of this encounter
--- OUTSIDE RECORDS SUMMARY | 2025-02-08 18:24 | XMS_ITS | Encounter Summary ---
Author Organization [facility] Address [address] [place] [address] Care Team Providers Care Media Monitor Name Role Phone Greg Christian BARTH Primary Care Provider [phone] Encounter Details Date Type Department Care Team (Late st Contact Info) Description 09/28/2024 Lab Requisition [facility] - Main Lab 299 [facility] [place] [address] Samuel Doran MD [address] [place] [id number] Dysuria Social History Tobacco Use Types Packs/Day [...] and culture (09/28/2024 5:30 AM EDT) Specific [place] Urine 1.017 1.003 - 1.030 LAB URINALYSIS - AUTOMATED METHOD 09/28/2024 11:08 AM [facility] LAB pH, Urine 8.0 5.0 - 8.0 pH LAB URINALYSIS - AUTOMATED METHOD 09/28/2024 11:08 AM [facility] LAB Leukocytes, Urine Negative Negative LAB URINALYSIS - AUTOMATED METHOD 09/28/2024 11:08 AM [facility] LAB Nitrite, Urine Negative Negative LAB URINALYSIS - AUTOMATED METHOD 09/28/2024 11:08 AM [facility] LAB Protein, Urine Negative <=Trace mg/dL LAB URINALYSIS - AUTOMATED METHOD 09/28/2024 11:08 AM [facility] LAB Glucose, Urine Negative Negative mg/dL LAB URINALYSIS - AUTOMATED METHOD 09/28/2024 11:08 AM [facility] LAB Ketones, Urine Negative Negative mg/dL LAB URINALYSIS - AUTOMATED METHOD 09/28/2024 11:08 AM [facility] LAB Urobilinogen, Urine 2.0(A) 0.2 - 1.0 mg/dL LAB URINALYSIS - AUTOMATED METHOD 09/28/2024 11:08 AM [facility] LAB Bilirubin, Urine Negative Negative LAB URINALYSIS - AUTOMATED METHOD 09/28/2024 11:08 AM [facility] LAB Blood, Urine Negative Negative LAB URINALYSIS - AUTOMATED METHOD 09/28/2024 11:08 AM [facility] LAB Urine Urine specimen obtained by clean catch procedure / Unknown Non-blood Collection / Unknown 09/28/2024 5:30 AM EDT 09/28/2024 9:49 AM EDT us Samuel Doran MD LAB URINE ORDERABLES Final Res ult [facility] LAB [address] [place] [address], * Ndiaye urine culture tube (09/28/2024 5:30 AM EDT) Extra Tube Hold for add-ons. 09/28/2024 11:01 AM EDT [facility] LAB Comment:Auto resulted. Urine Urine specimen obtained by clean catch procedure / Unknown Non-blood Collection / Unknown 09/28/2024 5:30 AM EDT 09/28/2024 9:49 AM EDT us Samuel Doran MD LAB URINE ORDERABLES Final Res ult [facility] [address] [place] [address], documented in this encounter Visit Diagnoses Diagnosis Dysuria documented in this encounter Care Teams Media Monitor Relationship Specialty Start Date End Date Christian Garza PA [address] [place] [phone] PCP - General 09/28/24 documented as of this encounter
--- OUTSIDE RECORDS SUMMARY | 2025-02-08 18:24 | XMS_ITS | Clinical Summary ---
Author Organization [address] Address [address] [place] [phone] Phone Care Team Providers Care Beet Flumer Name Role Phone Christian Garza Primary Care Provider [phone] Medical History Medical History Date Comments Diabetes [...] 10/10/2018 DX:Type 2 diabetes mellitus without complication ([facility]) Social History Tobacco Use Types Packs/Day Years [...] Panel) 05/05/2022 Colorectal Cancer Screening: Colonoscopy 05/05/2022 HIV Screening 05/05/2022 Hepatitis C Screening 05/05/2022 Social Influencers of Health Screening 05/05/2022 Diabetes: Annual Urine Albumin-Creatinine Ratio (uACR) 05/18/2022 Diabetes: Blood Sugar Control Test (HGBA1C) 05/18/2022 Depression Screening 06/03/2024 COVID-19 Vaccine ( season) 2025 Influenza Vaccine (#1) 2025 03/14/2018 Diabetes: Annual GFR (Glomerular Filtration [...] Procedure Name Priority Date/Time Associated Diagnosis Comments BASIC METABOLIC PANEL Routine 10/09/2024 4:53 AM EDT Encounter for other general examination from Last 3 Months or Most Recently Relevant to Health Maintenance Results * (ABNORMAL) Basic metabolic panel (10/09/2024 4:53 AM EDT) Sodium 139 133 - 145 mmol/L LAB CHEMISTRY METHOD 10/09/2024 11:33 AM [facility] LAB Potassium 4.5 3.5 - 5.5 mmol/L LAB CHEMISTRY METHOD 10/09/2024 11:33 AM [facility] LAB Chloride 100 96 - 110 mmol/L LAB CHEMISTRY METHOD 10/09/2024 11:33 AM [facility] LAB CO2 28 21 - 32 mmol/L LAB CHEMISTRY METHOD 10/09/2024 11:33 AM [facility] LAB Anion Gap 11 3 - 11 LAB CHEMISTRY METHOD 10/09/2024 11:33 AM [facility] LAB Glucose 52(L) 70 - 100 mg/dL LAB CHEMISTRY METHOD 10/09/2024 11:33 AM [facility] LAB BUN 24 5 - 25 mg/dL LAB CHEMISTRY METHOD 10/09/2024 11:33 AM [facility] LAB Creatinine 0.54 0.50 - 1.10 mg/dL LAB CHEMISTRY METHOD 10/09/2024 11:33 AM [facility] LAB eGFR 107 >=60 mL/min/1. 73m2 LAB CHEMISTRY METHOD 10/09/2024 11:33 AM [facility] LAB Comment:Calculation based on the Chronic Kidney Disease Epidemiology Collaboration (CKD-EPI) equation refit without adjustment for race. BUN/Creatinine Ratio 44.4 LAB CHEMISTRY METHOD 10/09/2024 11:33 AM [facility] LAB Calcium 9.6 8.5 - 10.5 mg/dL LAB CHEMISTRY METHOD 10/09/2024 11:33 AM [facility] LAB Blood Venous blood specimen / Unknown Venipuncture / Unknown 10/09/2024 4:53 AM EDT 10/09/2024 9:55 AM EDT us Samuel Doran MD LAB BLOOD ORDERABLES Final Res ult [facility] ([facility] LAB [address] [place] [address], from Last 3 Months or Most Recently Relevant to Health Maintenance Care Teams Beet Flumer Relationship Specialty Start Date End Date Christian Garza PA [address] [place] [phone] PCP - General 09/28/24
--- OUTSIDE RECORDS SUMMARY | 2025-02-08 18:24 | XMS_ITS | Encounter Summary ---
Author Organization [facility] Address [address] [place] [address] Care Team Providers Care Streetcar Operator Name Role Phone Genejeyson Christian BARTH Primary Care Provider [phone] Encounter Details Date Type Department Care Team (Late st Contact Info) Description 09/25/2024 Lab Requisition [facility] - Main Lab 299 [facility] [place] [address] Samuel Doran MD [address] [place] [id number] Encounter for other general examination Social History [...] AM EDT) WBC 11.0(H) 4.8 - 10.8 K/[facility] LAB HEMETOLOGY METHOD 09/25/2024 10:38 AM [facility] LAB RBC 3.70(L) 3.80 - 4.80 M/mcL LAB HEMETOLOGY METHOD 09/25/2024 10:38 AM [facility] LAB Hemoglobin 10.9(L) 11.5 - 16.0 g/dL LAB HEMETOLOGY METHOD 09/25/2024 10:38 AM [facility] LAB Hematocrit 33.5(L) 35.0 - 47.0 % LAB HEMETOLOGY METHOD 09/25/2024 10:38 AM [facility] LAB MCV 91.0 79.0 - 98.0 FL LAB HEMETOLOGY METHOD 09/25/2024 10:38 AM [facility] LAB MCH 29.6 27.0 - 32.0 pcg LAB HEMETOLOGY METHOD 09/25/2024 10:38 AM [facility] LAB MCHC 32.5 32.0 - 37.0 g/dL LAB HEMETOLOGY METHOD 09/25/2024 10:38 AM [facility] LAB RDW 14.6 11.0 - 15.0 % LAB HEMETOLOGY METHOD 09/25/2024 10:38 AM [facility] LAB Platelets 224 130 - 400 K/mcL LAB HEMETOLOGY METHOD 09/25/2024 10:38 AM [facility] LAB MPV 9.4 7.0 - 11.0 FL LAB HEMETOLOGY METHOD 09/25/2024 10:38 AM [facility] LAB NRBC 0.0 <1.0 % LAB HEMETOLOGY METHOD 09/25/2024 10:38 AM [facility] LAB NRBC Absolute 0.00 <0.10 K/mcL LAB HEMETOLOGY METHOD 09/25/2024 10:38 AM [facility] LAB Neutrophils Relative 64.3 % LAB HEMETOLOGY METHOD 09/25/2024 10:38 AM [facility] LAB Lymphocytes Relative 27.2 % LAB HEMETOLOGY METHOD 09/25/2024 10:38 AM [facility] LAB Monocytes Relative 6.9 % LAB HEMETOLOGY METHOD 09/25/2024 10:38 AM [facility] LAB Eosinophils Relative 1.0 % LAB HEMETOLOGY METHOD 09/25/2024 10:38 AM [facility] LAB Basophils Relative 0.2 % LAB HEMETOLOGY METHOD 09/25/2024 10:38 AM [facility] LAB Immature Granulocytes Relative 0.4 % LAB HEMETOLOGY METHOD 09/25/2024 10:38 AM [facility] LAB Neutrophils Absolute 7.09(H) 1.50 - 7.00 K/mcL LAB HEMETOLOGY METHOD 09/25/2024 10:38 AM [facility] LAB Lymphocytes Absolute 3.00 1.00 - 5.00 K/mcL LAB HEMETOLOGY METHOD 09/25/2024 10:38 AM [facility] LAB Monocytes Absolute 0.76 0.20 - 1.00 K/mcL LAB HEMETOLOGY METHOD 09/25/2024 10:38 AM [facility] LAB Eosinophils Absolute 0.11 0.00 - 0.50 K/mcL LAB HEMETOLOGY METHOD 09/25/2024 10:38 AM [facility] LAB Basophils Absolute 0.02 0.00 - 0.20 K/mcL LAB HEMETOLOGY METHOD 09/25/2024 10:38 AM [facility] LAB Immature Granulocytes Absolute 0.04(H) 0.00 - 0.03 K/mcL LAB HEMETOLOGY METHOD 09/25/2024 10:38 AM [facility] LAB Blood Venous blood specimen / Unknown Venipuncture / Unknown 09/25/2024 5:25 AM EDT 09/25/2024 9:26 AM EDT us Samuel Doran MD LAB BLOOD ORDERABLES Final Res ult [facility] [address] [place] [address], [place] [phone] * (ABNORMAL) Comprehensive metabolic panel (09/25/2024 5:25 AM EDT) Sodium 141 133 - 145 mmol/L LAB CHEMISTRY METHOD 09/25/2024 11:08 AM [facility] LAB Potassium 4.0 3.5 - 5.5 mmol/L LAB CHEMISTRY METHOD 09/25/2024 11:08 AM [facility] LAB Chloride 104 96 - 110 mmol/L LAB CHEMISTRY METHOD 09/25/2024 11:08 AM [facility] LAB CO2 31 21 - 32 mmol/L LAB CHEMISTRY METHOD 09/25/2024 11:08 AM [facility] LAB Anion Gap 6 3 - 11 LAB CHEMISTRY METHOD 09/25/2024 11:08 AM [facility] LAB Glucose 49(L) 70 - 100 mg/dL LAB CHEMISTRY METHOD 09/25/2024 11:08 AM [facility] LAB BUN 21 5 - 25 mg/dL LAB CHEMISTRY METHOD 09/25/2024 11:08 AM [facility] LAB Creatinine 0.50 0.50 - 1.10 mg/dL LAB CHEMISTRY METHOD 09/25/2024 11:08 AM [facility] LAB eGFR 109 >=60 mL/min/1. 73m2 LAB CHEMISTRY METHOD 09/25/2024 11:08 AM [facility] LAB Comment:Calculation based on the Chronic Kidney Disease Epidemiology Collaboration (CKD-EPI) equation refit without adjustment for race. BUN/Creatinine Ratio 42.0 LAB CHEMISTRY METHOD 09/25/2024 11:08 AM [facility] LAB Calcium 9.3 8.5 - 10.5 mg/dL LAB CHEMISTRY METHOD 09/25/2024 11:08 AM [facility] LAB AST (SGOT) 34 10 - 42 unit/L LAB CHEMISTRY METHOD 09/25/2024 11:08 AM [facility] LAB ALT (SGPT) 63(H) 10 - 60 unit/L LAB CHEMISTRY METHOD 09/25/2024 11:08 AM [facility] LAB Alkaline Phosphatase 61 42 - 121 unit/L LAB CHEMISTRY METHOD 09/25/2024 11:08 AM [facility] LAB Total Protein 5.7(L) 6.0 - 8.0 g/dL LAB CHEMISTRY METHOD 09/25/2024 11:08 AM [facility] LAB Albumin 2.8(L) 3.2 - 5.0 g/dL LAB CHEMISTRY METHOD 09/25/2024 11:08 AM [facility] LAB Total Bilirubin 0.6 0.0 - 1.4 mg/dL LAB CHEMISTRY METHOD 09/25/2024 11:08 AM [facility] LAB Blood Venous blood specimen / Unknown Venipuncture / Unknown 09/25/2024 5:25 AM EDT 09/25/2024 9:26 AM EDT us Samuel Doran MD LAB BLOOD ORDERABLES Final Res ult [facility] [address] [place] [address], documented in this encounter Visit Diagnoses Diagnosis Encounter for other general examination documented in this encounter Care Teams Streetcar Operator Relationship Specialty Start Date End Date Christian Garza PA [address] [place] [address] PCP - General 09/28/24 documented as of this encounter
--- OUTSIDE RECORDS SUMMARY | 2025-02-08 18:24 | XMS_ITS | Encounter Summary ---
Author Organization [facility] Address [address] [place] [address] Care Team Providers Care Copy Chaser Name Role Phone Genejeyson Christian BARTH Primary Care Provider Encounter Details Date Type Department Care Team (Late st Contact Info) Description 09/22/2024 Lab Requisition [facility] - Main Lab [address] [place] [address] Samuel Doran MD [address] [place] [phone] Encounter for other general examination Social History [...] AM EDT) WBC 11.3(H) 4.8 - 10.8 K/[facility] LAB HEMETOLOGY METHOD 09/22/2024 10:41 AM EDT [facility] LAB RBC 3.70(L) 3.80 - 4.80 M/mcL LAB HEMETOLOGY METHOD 09/22/2024 10:41 AM [facility] Hemoglobin 11.0(L) 11.5 - 16.0 g/dL LAB HEMETOLOGY METHOD 09/22/2024 10:41 AM [facility] LAB Hematocrit 33.3(L) 35.0 - 47.0 % LAB HEMETOLOGY METHOD 09/22/2024 10:41 AM [facility] LAB MCV 89.3 79.0 - 98.0 FL LAB HEMETOLOGY METHOD 09/22/2024 10:41 AM [facility] LAB MCH 29.5 27.0 - 32.0 pcg LAB HEMETOLOGY METHOD 09/22/2024 10:41 AM [facility] LAB MCHC 33.0 32.0 - 37.0 g/dL LAB HEMETOLOGY METHOD 09/22/2024 10:41 AM [facility] LAB RDW 14.2 11.0 - 15.0 % LAB HEMETOLOGY METHOD 09/22/2024 10:41 AM [facility] LAB Platelets 189 130 - 400 K/mcL LAB HEMETOLOGY METHOD 09/22/2024 10:41 AM [facility] LAB MPV 9.2 7.0 - 11.0 FL LAB HEMETOLOGY METHOD 09/22/2024 10:41 AM [facility] NRBC 0.0 <1.0 % LAB HEMETOLOGY METHOD 09/22/2024 10:41 AM [facility] LAB NRBC Absolute 0.00 <0.10 K/mcL LAB HEMETOLOGY METHOD 09/22/2024 10:41 AM [facility] LAB Blood Venous blood specimen / Unknown Venipuncture / Unknown 09/22/2024 5:13 AM EDT 09/22/2024 9:47 AM EDT us Samuel Doran MD LAB BLOOD ORDERABLES Final Res ult [facility] [address] [place] [address], * (ABNORMAL) Comprehensive metabolic panel (09/22/2024 5:13 AM EDT) Sodium 142 133 - 145 mmol/L LAB CHEMISTRY METHOD 09/22/2024 11:40 AM [facility] Potassium 3.6 3.5 - 5.5 mmol/L LAB CHEMISTRY METHOD 09/22/2024 11:40 AM [facility] Chloride 103 96 - 110 mmol/L LAB CHEMISTRY METHOD 09/22/2024 11:40 AM [facility] CO2 32 21 - 32 mmol/L LAB CHEMISTRY METHOD 09/22/2024 11:40 AM [facility] Anion Gap 7 3 - 11 LAB CHEMISTRY METHOD 09/22/2024 11:40 AM [facility] Glucose 55(L) 70 - 100 mg/dL LAB CHEMISTRY METHOD 09/22/2024 11:40 AM [facility] BUN 17 5 - 25 mg/dL LAB CHEMISTRY METHOD 09/22/2024 11:40 AM [facility] Creatinine 0.55 0.50 - 1.10 mg/dL LAB CHEMISTRY METHOD 09/22/2024 11:40 AM [facility] LAB eGFR 106 >=60 mL/min/1. 73m2 LAB CHEMISTRY METHOD 09/22/2024 11:40 AM [facility] LAB Comment:Calculation based on the Chronic Kidney Disease Epidemiology Collaboration (CKD-EPI) equation refit without adjustment for race. BUN/Creatinine Ratio 30.9 LAB CHEMISTRY METHOD 09/22/2024 11:40 AM [facility] Calcium 9.0 8.5 - 10.5 mg/dL LAB CHEMISTRY METHOD 09/22/2024 11:40 AM [facility] AST (SGOT) 13 10 - 42 unit/L LAB CHEMISTRY METHOD 09/22/2024 11:40 AM [facility] ALT (SGPT) 42 10 - 60 unit/L LAB CHEMISTRY METHOD 09/22/2024 11:40 AM [facility] LAB Alkaline Phosphatase 58 42 - 121 unit/L LAB CHEMISTRY METHOD 09/22/2024 11:40 AM [facility] Total Protein 5.5(L) 6.0 - 8.0 g/dL LAB CHEMISTRY METHOD 09/22/2024 11:40 AM [facility] Albumin 2.8(L) 3.2 - 5.0 g/dL LAB CHEMISTRY METHOD 09/22/2024 11:40 AM [facility] Total Bilirubin 0.7 0.0 - 1.4 mg/dL LAB CHEMISTRY METHOD 09/22/2024 11:40 AM [facility] LAB Blood Venous blood specimen / Unknown Venipuncture / Unknown 09/22/2024 5:13 AM EDT 09/22/2024 9:47 AM EDT us Samuel Doran MD LAB BLOOD ORDERABLES Final Res ult [facility] [address] [place] [address], documented in this encounter Visit Diagnoses Diagnosis Encounter for other general examination documented in this encounter Care Teams Copy Chaser Relationship Specialty Start Date End Date Christian Garza PA [address] [place] [id number] PCP - General 09/28/24 documented as of this encounter
--- OUTSIDE RECORDS SUMMARY | 2025-02-08 18:24 | XMS_ITS | Encounter Summary ---
Author Organization [facility] Address [address] [place] [address] Care Team Providers Care Airport Operations Specialist Name Role Phone Genejeyson Christian BARTH Primary Care Provider [phone] Encounter Details Date Type Department Care Team (Late st Contact Info) Description 09/18/[address] [facility] - Main Lab [address] [facility] [place] [address] Samuel Doran MD [address] [place] [id number] Encounter for other general examination Social History [...] CBC auto differential (09/18/2024 5:35 AM EDT) [facility] WBC 13.8(H) 4.8 - 10.8 K/mcL LAB HEMETOLOGY METHOD 09/18/2024 11:36 AM [facility] RBC 3.80 3.80 - 4.80 M/mcL LAB HEMETOLOGY METHOD 09/18/2024 11:36 AM [facility] Hemoglobin 10.9(L) 11.5 - 16.0 g/dL LAB HEMETOLOGY METHOD 09/18/2024 11:36 AM [facility] Hematocrit 33.1(L) 35.0 - 47.0 % LAB HEMETOLOGY METHOD 09/18/2024 11:36 AM [facility] MCV 87.6 79.0 - 98.0 FL LAB HEMETOLOGY METHOD 09/18/2024 11:36 AM [facility] MCH 28.8 27.0 - 32.0 pcg LAB HEMETOLOGY METHOD 09/18/2024 11:36 AM [facility] MCHC 32.9 32.0 - 37.0 g/dL LAB HEMETOLOGY METHOD 09/18/2024 11:36 AM [facility] RDW 13.6 11.0 - 15.0 % LAB HEMETOLOGY METHOD 09/18/2024 11:36 AM [facility] Platelets 230 130 - 400 K/mcL LAB HEMETOLOGY METHOD 09/18/2024 11:36 AM [facility] MPV 9.3 7.0 - 11.0 FL LAB HEMETOLOGY METHOD 09/18/2024 11:36 AM [facility] NRBC 0.0 <1.0 % LAB HEMETOLOGY METHOD 09/18/2024 11:36 AM [facility] NRBC Absolute 0.00 <0.10 K/mcL LAB HEMETOLOGY METHOD 09/18/2024 11:36 AM [facility] Neutrophils Relative 70.6 % LAB HEMETOLOGY METHOD 09/18/2024 11:36 AM [facility] Lymphocytes Relative 21.1 % LAB HEMETOLOGY METHOD 09/18/2024 11:36 AM [facility] Monocytes Relative 7.1 % LAB HEMETOLOGY METHOD 09/18/2024 11:36 AM [facility] Eosinophils Relative 0.7 % LAB HEMETOLOGY METHOD 09/18/2024 11:36 AM [facility] Basophils Relative 0.1 % LAB HEMETOLOGY METHOD 09/18/2024 11:36 AM [facility] Immature Granulocytes Relative 0.4 % LAB HEMETOLOGY METHOD 09/18/2024 11:36 AM [facility] Neutrophils Absolute 9.75(H) 1.50 - 7.00 K/mcL LAB HEMETOLOGY METHOD 09/18/2024 11:36 AM [facility] Lymphocytes Absolute 2.92 1.00 - 5.00 K/mcL LAB HEMETOLOGY METHOD 09/18/2024 11:36 AM [facility] Monocytes Absolute 0.98 0.20 - 1.00 K/mcL LAB HEMETOLOGY METHOD 09/18/2024 11:36 AM [facility] Eosinophils Absolute 0.09 0.00 - 0.50 K/mcL LAB HEMETOLOGY METHOD 09/18/2024 11:36 AM [facility] Basophils Absolute 0.02 0.00 - 0.20 K/mcL LAB HEMETOLOGY METHOD 09/18/2024 11:36 AM [facility] Immature Granulocytes Absolute 0.06(H) 0.00 - 0.03 K/mcL LAB HEMETOLOGY METHOD 09/18/2024 11:36 AM [facility] Blood Venous blood specimen / Unknown Venipuncture / Unknown 09/18/2024 5:35 AM EDT 09/18/2024 11:00 AM EDT Samuel Doran MD LAB BLOOD ORDERABLES Final Res ult Performing Organization Address [facility]/ZIP Co de Phone Number [facility] [address] [place] [address], [place] [phone] * Magnesium (09/18/2024 5:35 AM EDT) Magnesium 2.6 1.9 - 2.6 mg/dL LAB CHEMISTRY METHOD 09/18/2024 1:09 PM EDT [facility] Blood Venous blood specimen / Unknown Venipuncture / Unknown 09/18/2024 5:35 AM EDT 09/18/2024 11:00 AM EDT Samuel Doran MD LAB BLOOD ORDERABLES Final Res ult Performing Organization Address [facility]/ZIP Co de Phone Number [facility] [address] [place] [address], [place] [phone] * (ABNORMAL) Comprehensive metabolic panel (09/18/2024 5:35 AM EDT) Sodium 140 133 - 145 mmol/L LAB CHEMISTRY METHOD 09/18/2024 1:19 PM EDT [facility] Potassium 4.1 3.5 - 5.5 mmol/L LAB CHEMISTRY METHOD 09/18/2024 1:19 PM EDT [facility] Chloride 102 96 - 110 mmol/L LAB CHEMISTRY METHOD 09/18/2024 1:19 PM EDT [facility] CO2 32 21 - 32 mmol/L LAB CHEMISTRY METHOD 09/18/2024 1:19 PM EDT [facility] Anion Gap 6 3 - 11 LAB CHEMISTRY METHOD 09/18/2024 1:19 PM [facility] Glucose 175(H) 70 - 100 mg/dL LAB CHEMISTRY METHOD 09/18/2024 1:19 PM [facility] BUN 19 5 - 25 mg/dL LAB CHEMISTRY METHOD 09/18/2024 1:19 PM [facility] Creatinine 0.63 0.50 - 1.10 mg/dL LAB CHEMISTRY METHOD 09/18/2024 1:19 PM [facility] eGFR 103 >=60 mL/min/1. 73m2 LAB CHEMISTRY METHOD 09/18/2024 1:19 PM [facility] Comment:Calculation based on the Chronic Kidney Disease Epidemiology Collaboration (CKD-EPI) equation refit without adjustment for race. BUN/Creatinine Ratio 30.2 LAB CHEMISTRY METHOD 09/18/2024 1:19 PM [facility] Calcium 9.0 8.5 - 10.5 mg/dL LAB CHEMISTRY METHOD 09/18/2024 1:19 PM [facility] AST (SGOT) 26 10 - 42 unit/L LAB CHEMISTRY METHOD 09/18/2024 1:19 PM [facility] ALT (SGPT) 48 10 - 60 unit/L LAB CHEMISTRY METHOD 09/18/2024 1:19 PM [facility] Alkaline Phosphatase 61 42 - 121 unit/L LAB CHEMISTRY METHOD 09/18/2024 1:19 PM [facility] Total Protein 5.4(L) 6.0 - 8.0 g/dL LAB CHEMISTRY METHOD 09/18/2024 1:19 PM [facility] Albumin 2.7(L) 3.2 - 5.0 g/dL LAB CHEMISTRY METHOD 09/18/2024 1:19 PM [facility] Total Bilirubin 0.7 0.0 - 1.4 mg/dL LAB CHEMISTRY METHOD 09/18/2024 1:19 PM EDT [facility] Blood Venous blood specimen / Unknown Venipuncture / Unknown 09/18/2024 5:35 AM EDT 09/18/2024 11:00 AM EDT us Samuel Doran MD LAB BLOOD ORDERABLES Final Res ult [facility] ([facility]) [facility] [address] [place] [address], documented in this encounter Visit Diagnoses Diagnosis Encounter for other general examination documented in this encounter Care Teams Airport Operations Specialist Relationship Specialty Start Date End Date Christian Garza PA [address] [place] [id number] PCP - General 09/28/24 documented as of this encounter
--- OUTSIDE RECORDS SUMMARY | 2025-02-08 18:25 | XMS_ITS | Encounter Summary ---
Author Organization [facility] Address [address] [place] [address] Care Team Providers Care Barrel Rib Matting Machine Operator Name Role Phone Genejeyson Christian BARTH Primary Care Provider [phone] Encounter Details Date Type Department Care Team (Late st Contact Info) Description 10/05/2024 Lab Requisition [facility] - Main Lab [address] [facility] [place] [address] Samuel Doran MD [address] [place] [address] Encounter for other general examination Social History [...] AM EDT) WBC 13.9(H) 4.8 - 10.8 K/[facility] LAB HEMETOLOGY METHOD 10/05/2024 1:17 PM [facility] RBC 4.10 3.80 - 4.80 M/mcL LAB HEMETOLOGY METHOD 10/05/2024 1:17 PM [facility] Hemoglobin 12.1 11.5 - 16.0 g/dL LAB HEMETOLOGY METHOD 10/05/2024 1:17 PM [facility] Hematocrit 38.7 35.0 - 47.0 % LAB HEMETOLOGY METHOD 10/05/2024 1:17 PM [facility] MCV 93.7 79.0 - 98.0 FL LAB HEMETOLOGY METHOD 10/05/2024 1:17 PM [facility] MCH 29.3 27.0 - 32.0 pcg LAB HEMETOLOGY METHOD 10/05/2024 1:17 PM [facility] MCHC 31.3(L) 32.0 - 37.0 g/dL LAB HEMETOLOGY METHOD 10/05/2024 1:17 PM [facility] RDW 14.6 11.0 - 15.0 % LAB HEMETOLOGY METHOD 10/05/2024 1:17 PM [facility] Platelets 276 130 - 400 K/mcL LAB HEMETOLOGY METHOD 10/05/2024 1:17 PM [facility] MPV 8.9 7.0 - 11.0 FL LAB HEMETOLOGY METHOD 10/05/2024 1:17 PM [facility] NRBC 0.0 <1.0 % LAB HEMETOLOGY METHOD 10/05/2024 1:17 PM [facility] NRBC Absolute 0.00 <0.10 K/mcL LAB HEMETOLOGY METHOD 10/05/2024 1:17 PM [facility] Neutrophils Relative 67.1 % LAB HEMETOLOGY METHOD 10/05/2024 1:17 PM [facility] Lymphocytes Relative 22.6 % LAB HEMETOLOGY METHOD 10/05/2024 1:17 PM [facility] Monocytes Relative 8.6 % LAB HEMETOLOGY METHOD 10/05/2024 1:17 PM [facility] Eosinophils Relative 0.9 % LAB HEMETOLOGY METHOD 10/05/2024 1:17 PM [facility] Basophils Relative 0.2 % LAB HEMETOLOGY METHOD 10/05/2024 1:17 PM [facility] Immature Granulocytes Relative 0.6 % LAB HEMETOLOGY METHOD 10/05/2024 1:17 PM [facility] Neutrophils Absolute 9.30(H) 1.50 - 7.00 K/mcL LAB HEMETOLOGY METHOD 10/05/2024 1:17 PM [facility] Lymphocytes Absolute 3.14 1.00 - 5.00 K/mcL LAB HEMETOLOGY METHOD 10/05/2024 1:17 PM [facility] Monocytes Absolute 1.19(H) 0.20 - 1.00 K/mcL LAB HEMETOLOGY METHOD 10/05/2024 1:17 PM [facility] Eosinophils Absolute 0.12 0.00 - 0.50 K/mcL LAB HEMETOLOGY METHOD 10/05/2024 1:17 PM [facility] Basophils Absolute 0.03 0.00 - 0.20 K/mcL LAB HEMETOLOGY METHOD 10/05/2024 1:17 PM [facility] Immature Granulocytes Absolute 0.09(H) 0.00 - 0.03 K/mcL LAB HEMETOLOGY METHOD 10/05/2024 1:17 PM [facility] Blood Venous blood specimen / Unknown Venipuncture / Unknown 10/05/2024 4:53 AM EDT 10/05/2024 11:42 AM EDT us Samuel Doran MD LAB BLOOD ORDERABLES Final Res ult [facility] [address] [place] [address], [place] [phone] * (ABNORMAL) Basic metabolic panel (10/05/2024 4:53 AM EDT) Sodium 136 133 - 145 mmol/L LAB CHEMISTRY METHOD 10/05/2024 1:06 PM [facility] Potassium 4.3 3.5 - 5.5 mmol/L LAB CHEMISTRY METHOD 10/05/2024 1:06 PM [facility] Chloride 95(L) 96 - 110 mmol/L LAB CHEMISTRY METHOD 10/05/2024 1:06 PM [facility] CO2 34(H) 21 - 32 mmol/L LAB CHEMISTRY METHOD 10/05/2024 1:06 PM [facility] Anion Gap 7 3 - 11 LAB CHEMISTRY METHOD 10/05/2024 1:06 PM [facility] Glucose 74 70 - 100 mg/dL LAB CHEMISTRY METHOD 10/05/2024 1:06 PM [facility] BUN 20 5 - 25 mg/dL LAB CHEMISTRY METHOD 10/05/2024 1:06 PM [facility] Creatinine 0.68 0.50 - 1.10 mg/dL LAB CHEMISTRY METHOD 10/05/2024 1:06 PM [facility] eGFR 101 >=60 mL/min/1. 73m2 LAB CHEMISTRY METHOD 10/05/2024 1:06 PM [facility] Comment:Calculation based on the Chronic Kidney Disease Epidemiology Collaboration (CKD-EPI) equation refit without adjustment for race. BUN/Creatinine Ratio 29.4 LAB CHEMISTRY METHOD 10/05/2024 1:06 PM [facility] Calcium 10.1 8.5 - 10.5 mg/dL LAB CHEMISTRY METHOD 10/05/2024 1:06 PM EDT [facility] Blood Venous blood specimen / Unknown Venipuncture / Unknown 10/05/2024 4:53 AM EDT 10/05/2024 11:42 AM EDT us Samuel Doran MD LAB BLOOD ORDERABLES Final Res ult [facility] [address] [place] [address], documented in this encounter Visit Diagnoses Diagnosis Encounter for other general examination documented in this encounter Care Teams Barrel Rib Matting Machine Operator Relationship Specialty Start Date End Date Christian Garza PA [facility] [place] [address] PCP - General 09/28/24 documented as of this encounter
--- OUTSIDE RECORDS SUMMARY | 2025-02-08 18:25 | XMS_ITS | Encounter Summary ---
Author Organization [facility] Address [address] [place] [address] Care Team Providers Care Internet Network Specialist Name Role Phone Greg Christian BARTH Primary Care Provider [phone] Encounter Details Date Type Department Care Team (Late st Contact Info) Description 10/04/2024 Lab Requisition [facility] - Main Lab [address] [facility] [place] [address] Samuel Doran MD [address] [place] [phone] Dysuria Social History Tobacco Use Types Packs/Day [...] Escherichia coli(A) LOUISA 10/06/2024 10:26 AM EDT [facility] Urine Urine specimen obtained by clean catch procedure / Unknown Non-blood Collection / Unknown 10/03/2024 9:00 AM EDT 10/04/2024 11:35 AM EDT Narrative [facility] - 10/06/2024 10:26 AM EDT Additional [...] LOUISA <=16 ug/ml: Susceptible Escherichia coli Trimethoprim/Sulfamethoxazole OLUISA >=320 ug/ml: Resistant us Samuel Doran MD LAB MICROBIOLOGY - GENERAL ORD ERABLES Final Result [facility] [address] [place] [address], * Ndiaye urine culture tube (10/03/2024 9:00 AM EDT) Extra Tube Hold for add-ons. 10/04/2024 12:01 PM EDT [facility] Comment:Auto resulted. Urine Urine specimen obtained by clean catch procedure / Unknown Non-blood Collection / Unknown 10/03/2024 9:00 AM EDT 10/04/2024 10:46 AM EDT us Samuel Doran MD LAB URINE ORDERABLES Final Res ult [facility] [address] [place] [address], [place] [phone] * (ABNORMAL) Urinalysis with reflex microscopic and culture (10/03/2024 9:00 AM EDT) Specific Qulin Urine 1.012 1.003 - 1.030 LAB URINALYSIS - AUTOMATED METHOD 10/04/2024 11:35 AM [facility] pH, Urine 7.0 5.0 - 8.0 pH LAB URINALYSIS - AUTOMATED METHOD 10/04/2024 11:35 AM [facility] Leukocytes, Urine Large(A) Negative LAB URINALYSIS - AUTOMATED METHOD 10/04/2024 11:35 AM [facility] Nitrite, Urine Positive(A) Negative LAB URINALYSIS - AUTOMATED METHOD 10/04/2024 11:35 AM [facility] Protein, Urine 30(A) <=Trace mg/dL LAB URINALYSIS - AUTOMATED METHOD 10/04/2024 11:35 AM [facility] Glucose, Urine Negative Negative mg/dL LAB URINALYSIS - AUTOMATED METHOD 10/04/2024 11:35 AM [facility] Ketones, Urine Negative Negative mg/dL LAB URINALYSIS - AUTOMATED METHOD 10/04/2024 11:35 AM [facility] Urobilinogen , Urine 0.2 0.2 - 1.0 mg/dL LAB URINALYSIS - AUTOMATED METHOD 10/04/2024 11:35 AM [facility] Bilirubin, Urine Negative Negative LAB URINALYSIS - AUTOMATED METHOD 10/04/2024 11:35 AM [facility] Blood, Urine Large(A) Negative LAB URINALYSIS - AUTOMATED METHOD 10/04/2024 11:35 AM [facility] RBC, Urine 300.2(H) 0 - 4 /HPF LAB URINALYSIS - AUTOMATED METHOD 10/04/2024 11:35 AM [facility] WBC, Urine 1,862.7(H) 0 - 4 /HPF LAB URINALYSIS - AUTOMATED METHOD 10/04/2024 11:35 AM [facility] Squamous Epithelial, Urine 40 0 - 60 /LPF LAB URINALYSIS - AUTOMATED METHOD 10/04/2024 11:35 AM [facility] Bacteria, Urine Moderate(A) Negative /HPF LAB URINALYSIS - AUTOMATED METHOD 10/04/2024 11:35 AM [facility] Hyaline Casts, Urine 1.4 0 - 3 /LPF LAB URINALYSIS - AUTOMATED METHOD 10/04/2024 11:35 AM [facility] Urine Urine specimen obtained by clean catch procedure / Unknown Non-blood Collection / Unknown 10/03/2024 9:00 AM EDT 10/04/2024 10:46 AM EDT us Samuel Doran MD LAB URINE ORDERABLES Final Res ult [facility] [address] [place] [address], documented in this encounter Visit Diagnoses Diagnosis Dysuria documented in this encounter Care Teams Internet Network Specialist Relationship Specialty Start Date End Date Christian Garza PA [address] [place] [address] PCP - General 09/28/24 documented as of this encounter
--- OUTSIDE RECORDS SUMMARY | 2025-02-08 18:25 | XMS_ITS | Encounter Summary ---
Author Organization [facility] Address [address] [place] [address] Care Team Providers Care Storm Chaser Name Role Phone Genejeyson Christian BARTH Primary Care Provider [phone] Encounter Details Date Type Department Care Team (Late st Contact Info) Description 10/09/2024 Lab Requisition [facility] - Main Lab [address] [facility] [place] [address] Samuel Doran MD [address] [place] [address] Encounter for other general examination Social History [...] AM EDT) WBC 14.8(H) 4.8 - 10.8 K/[facility] LAB HEMETOLOGY METHOD 10/09/2024 10:57 AM [facility] RBC 4.10 3.80 - 4.80 M/mcL LAB HEMETOLOGY METHOD 10/09/2024 10:57 AM [facility] Hemoglobin 11.9 11.5 - 16.0 g/dL LAB HEMETOLOGY METHOD 10/09/2024 10:57 AM [facility] Hematocrit 37.2 35.0 - 47.0 % LAB HEMETOLOGY METHOD 10/09/2024 10:57 AM [facility] MCV 91.2 79.0 - 98.0 FL LAB HEMETOLOGY METHOD 10/09/2024 10:57 AM [facility] MCH 29.2 27.0 - 32.0 pcg LAB HEMETOLOGY METHOD 10/09/2024 10:57 AM [facility] MCHC 32.0 32.0 - 37.0 g/dL LAB HEMETOLOGY METHOD 10/09/2024 10:57 AM [facility] RDW 14.1 11.0 - 15.0 % LAB HEMETOLOGY METHOD 10/09/2024 10:57 AM [facility] Platelets 307 130 - 400 K/mcL LAB HEMETOLOGY METHOD 10/09/2024 10:57 AM [facility] MPV 8.6 7.0 - 11.0 FL LAB HEMETOLOGY METHOD 10/09/2024 10:57 AM [facility] NRBC 0.0 <1.0 % LAB HEMETOLOGY METHOD 10/09/2024 10:57 AM [facility] NRBC Absolute 0.00 <0.10 K/mcL LAB HEMETOLOGY METHOD 10/09/2024 10:57 AM [facility] Neutrophils Relative 67.2 % LAB HEMETOLOGY METHOD 10/09/2024 10:57 AM [facility] Lymphocytes Relative 22.6 % LAB HEMETOLOGY METHOD 10/09/2024 10:57 AM [facility] Monocytes Relative 8.1 % LAB HEMETOLOGY METHOD 10/09/2024 10:57 AM [facility] Eosinophils Relative 0.7 % LAB HEMETOLOGY METHOD 10/09/2024 10:57 AM [facility] Basophils Relative 0.3 % LAB HEMETOLOGY METHOD 10/09/2024 10:57 AM [facility] Immature Granulocytes Relative 1.1 % LAB HEMETOLOGY METHOD 10/09/2024 10:57 AM [facility] Neutrophils Absolute 9.91(H) 1.50 - 7.00 K/mcL LAB HEMETOLOGY METHOD 10/09/2024 10:57 AM [facility] Lymphocytes Absolute 3.34 1.00 - 5.00 K/mcL LAB HEMETOLOGY METHOD 10/09/2024 10:57 AM [facility] Monocytes Absolute 1.19(H) 0.20 - 1.00 K/mcL LAB HEMETOLOGY METHOD 10/09/2024 10:57 AM [facility] Eosinophils Absolute 0.10 0.00 - 0.50 K/mcL LAB HEMETOLOGY METHOD 10/09/2024 10:57 AM [facility] Basophils Absolute 0.05 0.00 - 0.20 K/mcL LAB HEMETOLOGY METHOD 10/09/2024 10:57 AM [facility] Immature Granulocytes Absolute 0.16(H) 0.00 - 0.03 K/mcL LAB HEMETOLOGY METHOD 10/09/2024 10:57 AM [facility] Blood Venous blood specimen / Unknown Venipuncture / Unknown 10/09/2024 4:53 AM EDT 10/09/2024 9:55 AM EDT us Samuel Doran MD LAB BLOOD ORDERABLES Final Res ult [facility] [address] [place] [address], [place] [phone] * (ABNORMAL) Basic metabolic panel (10/09/2024 4:53 AM EDT) Sodium 139 133 - 145 mmol/L LAB CHEMISTRY METHOD 10/09/2024 11:33 AM [facility] Potassium 4.5 3.5 - 5.5 mmol/L LAB CHEMISTRY METHOD 10/09/2024 11:33 AM [facility] Chloride 100 96 - 110 mmol/L LAB CHEMISTRY METHOD 10/09/2024 11:33 AM [facility] CO2 28 21 - 32 mmol/L LAB CHEMISTRY METHOD 10/09/2024 11:33 AM [facility] Anion Gap 11 3 - 11 LAB CHEMISTRY METHOD 10/09/2024 11:33 AM [facility] Glucose 52(L) 70 - 100 mg/dL LAB CHEMISTRY METHOD 10/09/2024 11:33 AM [facility] BUN 24 5 - 25 mg/dL LAB CHEMISTRY METHOD 10/09/2024 11:33 AM [facility] Creatinine 0.54 0.50 - 1.10 mg/dL LAB CHEMISTRY METHOD 10/09/2024 11:33 AM [facility] eGFR 107 >=60 mL/min/1. 73m2 LAB CHEMISTRY METHOD 10/09/2024 11:33 AM [facility] Comment:Calculation based on the Chronic Kidney Disease Epidemiology Collaboration (CKD-EPI) equation refit without adjustment for race. BUN/Creatinine Ratio 44.4 LAB CHEMISTRY METHOD 10/09/2024 11:33 AM EDT [facility] Calcium 9.6 8.5 - 10.5 mg/dL LAB CHEMISTRY METHOD 10/09/2024 11:33 AM EDT [facility] ([facility]) [facility] Blood Venous blood specimen / Unknown Venipuncture / Unknown 10/09/2024 4:53 AM EDT 10/09/2024 9:55 AM EDT us Samuel Doran MD LAB BLOOD ORDERABLES Final Res ult [facility] ([facility]) [facility] [address] [place] [address], documented in this encounter Visit Diagnoses Diagnosis Encounter for other general examination documented in this encounter Care Teams Storm Chaser Relationship Specialty Start Date End Date Christian Garza PA [address] [place] [address] PCP - General 09/28/24 documented as of this encounter
== END 2025-02-08 16:35 | disposition home or self-care (01) ==
LOC: HO.ENCR 15:20
PROVIDERS: PCP Physician Assistant Medical; Visit Provider Student in an Organized Health Care Education/Training Program
DX: E11.65 Type 2 diabetes mellitus with hyperglycemia (principal); Z79.4 Long term (current) use of insulin; R79.89 Other specified abnormal findings of blood chemistry; E04.2 Nontoxic multinodular goiter
CPT/HCPCS: 95251; 99205

== ENCOUNTER → 2025-02-08 15:19 | Outpatient (BNVA) | payer OTHER, SELFPAY | PROVIDERS: PCP Physician Assistant Medical; Visit Provider Student in an Organized Health Care Education/Training Program | DX: E11.65 Type 2 diabetes mellitus with hyperglycemia (principal) | CPT/HCPCS: 82947 ==

== ENCOUNTER 2025-03-24 12:50 | Outpatient (REF) | payer OTHER, SELFPAY ==
--- NOTE | ~2025-03-24 | US_ITS ---
EXAMINATION: US ABDOMEN COMPLETE CLINICAL INFORMATION: Nausea and vomiting. COMPARISON: December 19, 2023. Correlated to MRI dated May 21, 2024. TECHNIQUE: Real-time ultrasound of the abdomen using grayscale technique. FINDINGS: PANCREAS: No peripancreatic fluid collections. ABDOMINAL AORTA: The proximal, mid, and distal segments are normal in caliber. INFERIOR VENA CAVA: Visualized portions are normal. LIVER: Liver measures 15 cm. Normal echotexture. No nodular surface. No solid or cystic lesion no intrahepatic biliary ductal dilatation. GALLBLADDER: Small isoechoic round lesions attached to the gallbladder wall. No pericholecystic fluid collection or gallbladder wall thickening. No distention. COMMON BILE DUCT: 3 mm. RIGHT KIDNEY: 11 cm. Normal echotexture. Normal renal cortical thickness. No hydronephrosis. No solid or cystic lesion. LEFT KIDNEY: 11 cm. Normal echotexture. Normal renal cortical thickness. No hydronephrosis. 0.6 cm round anechoic lesion at the renal cortex midportion without flow on color Doppler interrogation.. SPLEEN: 10 cm. Small, 1.1 cm accessory spleen.. FREE FLUID: None. US/US abdomen complete IMPRESSION: Probable small polyps, gallbladder. Recommend follow-up. Probable hepatic steatosis. 0.6 cm cyst, left kidney. No hydronephrosis. No ascites. Electronically signed by: Bony Perez MD 03/24/2025 02:03 PM EDT
== END 2025-03-24 12:51 | disposition home or self-care (01) ==
LOC: HO.US 12:50
PROVIDERS: PCP Physician Assistant Medical; Visit Provider Nurse Practitioner Family
DX: R11.2 Nausea with vomiting, unspecified (principal)
CPT/HCPCS: 76700

== ENCOUNTER → 2025-03-24 12:52 | Outpatient (BNV) | payer OTHER, SELFPAY | PROVIDERS: PCP Physician Assistant Medical; Visit Provider Radiology Diagnostic Radiology | DX: R11.2 Nausea with vomiting, unspecified (principal) | CPT/HCPCS: 76700 ==

== ENCOUNTER 2025-03-29 15:37 | Outpatient (AMB) | payer OTHER, SELFPAY ==
--- NOTE | 2025-03-29 15:49 | MHC.PC.OV ---
Vital Signs 03/29/25 15:59 Height 5 ft 4 in Weight 125 lb 6 oz BMI 21.5 BP 110/70 Blood Pressure Location Rt brachial Position Sitting Pulse 93 Pulse Source Pulse Oximeter Temp 97.5 F Temp Source Skin Pulse Oximetry (%) 96 Oxygen Delivery Method Room Air Intake Visit Reasons: 30 minutes complex follow up Manager Drive Required: No Allergies No Known Allergies Allergy (Verified 03/29/25 15:50) Medication List - Last Reconciled 03/29/25 by Jayden Rose RN amlodipine 5 mg PO DAILY aspirin 81 mg PO DAILY baclofen 5 mg PO TID blood pressure monitor As directed blood-glucose sensor ([employer] G7 Sensor device) apply to skin and replace after 10 days to monitor blood glucose for type 2 diabetes blood-glucose,funeral arrangement director,cont ([employer] G7 Rag Sorter And Cutter) As directed clopidogrel (Plavix) 75 mg PO DAILY dextrose (TRUEplus Glucose) 15 grams (32 mL) PO Q15M PRN hydroxyzine HCl 25 mg PO BEDTIME insulin lispro subcutaneously use as directed; Lispro three times a day with meals 121-200: 2 units 201-250: 4 units 251-300: 6 units 301-350: 8 units 351- 400: 10 units 400+ 10 units max 30 units daily losartan 100 mg PO DAILY melatonin 6 mg (2 x 3 mg) PO BEDTIME PRN metformin ER 1,000 mg (2 x 500 mg) PO BID 90 days multivitamin (Daily Multi-Vitamin tablet) 1 tab PO DAILY pantoprazole (Protonix) 40 mg (2 x 20 mg) PO DAILY pen needle, diabetic To use with insulin injections four times daily rosuvastatin 40 mg PO DAILY semaglutide (Ozempic) 2 mg (0.75 mL) subcut QWEEK sertraline 50 mg PO DAILY Tobacco use date assessed: 01/25/25 Dental Screening Dental Screen Date: 01/25/25 HPI HPI Comments History of Present Illness Details This is a 59-year-old female with a past medical history of hypertension, hyperlipidemia, 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 Patient was seen at [facility] on 03/11/2025 for evaluation of nausea, vomiting, feeling off. She was concerned because symptoms were similar to prior stroke. Labs including CBC were without leukocytosis or anemia. CMP was within normal limits. Her urinalysis showed slight bacteria, 19 white blood cells, 2+ leukocytes and was sent for culture. CT CTA without large vessel occlusion or intracranial hemorrhage. There was stable encephalomalacia. Neuro was consulted, and outpatient follow up for possible MRI with their office was discussed. She was discharged on a 10 day course of cephalexin for UTI which she completed. The patient says she spoke with Dr. Boland after the ER visit, and says that MRI was not recommended based on her current presentation. They are wondering whether or not she should have an MRI because she is still not feeling well. She contacted me via the patient portal, and she had a repeat urinalysis which was abnormal with cloudy appearance of urine, 2+ protein, trace ketones, trace occult blood, greater than 30 white blood cells. Urine culture showed potential contamination with mixed urogenital fransisco [id number] colony-forming units/ml. I discussed this with the patient we opted to treat with a 5 day course of Bactrim because she was hospitalized for a severe UTI a couple of months ago. She is taking the medication without any side effects. She also reported still having vomiting so I recommended increasing her Protonix to 40 mg daily, and she had a abdominal ultrasound completed on 03/24/2025. It showed probable small gallbladder polyps, probable hepatic steatosis, a 0.6 cm left renal cyst but no hydronephrosis or ascites. Gallbladder polyps and renal cyst were also noted on prior abdominal MRI on 05/21/2024. She continues to endorse feeling off balance and dizzy and heaviness in her left leg since the ER visit. She also continues to have vomiting notably worse after eating. She tried meclizine twice daily without improvement. She denies changes to stools, abdominal pain, fevers or chills. She denies dysuria, urinary frequency or blood in her urine. She has experienced weight loss due to a decreased oral intake and vomiting. Type 2 diabetes controlled. She is completely off Lantus and she is not requiring lispro frequently. She is on Ozempic and metformin. Sometimes her sensor alerts her to low, but her fingerstick readings have been normal. ROS: Constitutional: No fevers, chills, night sweats, unexplained weight loss. Endorses fatigue. Eyes: No vision changes. Respiratory: No shortness of breath, cough or wheezing Cardiovascular: No chest pain Gastrointestinal: Denies abdominal pain, blood in stools, hematemesis, acid reflux, diarrhea or constipation. +vomiting Genitourinary: No dysuria, hematuria, urinary frequency. Denies flank pain. Neurologic: Per HPI Hematologic/Lymphatics: No bleeding Endocrine: No polyuria or polydipsia. Psychiatric: + anxiety and depression Physical exam: Constitutional: Alert, in no distress. Eyes: Pupils are equal, round and reactive to light. Extraocular muscles intact. Neck: Supple, Full range of motion. No lymphadenopathy. No palpable thyroid masses. Ears: Canals clear. TMs prescott and pearly. Mouth: Whitish covering on the tongue Respiratory: Clear to auscultation. Cardiovascular: S1 S2 regular. No murmurs. Abdomen: Soft, nontender, no palpable masses or rebound or guarding. Neurologic: No dysarthria today. There continues to be mild facial asymmetry noted with smiling. She has left-sided weakness. She is using a cane. Extremities: Warm and well perfused. No clubbing, cyanosis or edema. 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 Hospital discharge follow-up History of CVA with residual deficit Thyroid nodule LFT elevation Atrophy of muscle of left lower leg Weakness of left leg Floaters RUQ abdominal pain Lumbosacral radiculopathy Hiatal hernia Hepatic steatosis Microalbuminuria Renal cyst, left Renal lesion Gallbladder polyp Anxiety Pure hypercholesterolemia Left upper quadrant pain Fatigue Essential hypertension Type 2 diabetes mellitus Torn ligament High cholesterol High blood pressure Diabetes Family History Father Colon cancer Mother Diabetes Social History Household Members: Significant Other Housing: House Are you a primary care tech to a significant other at home: No Do you presently have visiting nurse or other home services: No Alcohol intake: never Patient Tobacco Use Status: Former Tobacco user e-Cigarette/Vaping Use: Currently Using Second Hand Smoke Exposure: No Special reanna needs: No service: No Current occupational status: employed Current occupation: service diapatcher Cognitive needs: No Hearing needs: No Vision needs: Yes (Patient wears glasses.) Questionnaire Thrive Questionnaire Date Thrive assessed: 08/10/24 I am a: Patient What is your living situation today?: I have a steady place to live Within the past 12 months, did the food you bought not last and you didn't have the money to get more?: Never true Within the past 12 months, did you worry whether your food would run out before you got money to buy more?: Never true Do you have trouble paying for medicines?: No Do you have trouble getting transportation to medical appointments?: No Do you have trouble paying your heating and electricity bill?: No Do you have trouble taking care of your child, family member or friend?: No Do you have trouble with day-to-day activities such as bathing, preparing meals, shopping, managing finances, etc.?: No Are you currently unemployed and looking for a job?: No Are you interested in more education?: No Please select the resources that you would like help with: None Currently or been in a relationship where the following occur: No concerns reported THRIVE Score: 0 LUIS ALBERTO-7 AMB Questionnaire LUIS ALBERTO-7 Date LUIS ALBERTO - 7 assessed: 08/10/24 Source: Developed by Drs. Michael Cloud, Lynette Dominguez, Gilberto Chan and colleagues, with an educational vipin from [employer]. Physical exam (Primary Care) Vital Signs: Last Vital Signs Temp 97.5 F 03/29/25 15:59 Pulse 93 03/29/25 15:59 BP 110/70 03/29/25 15:59 Pulse Ox 96 03/29/25 15:59 Oxygen Delivery Method Room Air 03/29/25 15:59 BMI result Body Mass Index 21.5 Tobacco/Smoking Status: Tobacco use Status Tobacco use date assessed 01/25/25 03/29/25 15:56 Patient Tobacco Use Status Former Tobacco user 03/29/25 15:56 e-Cigarette/Vaping Use Currently Using 03/29/25 15:56 Thrive Assessment: Date of Thrive Assessment Date Thrive assessed 08/10/24 03/29/25 15:56 Currently or been in a relationship where the following occur: No concerns reported Coding Level of Care Code Est Pt Level 5 (95884) Complex EM visit Add On G2211 Diagnoses Vomiting R11.10 Chronic fatigue R53.82 Fatigue type: chronic, unspecified Dizziness R42 Type 2 diabetes mellitus with hyperglycemia, without long-term current use of insulin E11.65 Diabetes mellitus longterm insulin use: without superintendent container terminal use Diabetes mellitus complication status: with hyperglycemia History of CVA with residual deficit I69.30 Cerebral vasculitis I67.7 Cerebral vein thrombosis G08 Primary angiitis of central nervous system I77.6 Oral thrush B37.0 Time Spent (min) 48 Comment Direct patient care, completing documentation, reviewing chart Assessment & Plan Assessment & Plan (1) Vomiting: Code(s): R11.10 - Vomiting, unspecified Category: Medical (2) Fatigue: Code(s): R53.83 - Other fatigue Category: Medical Qualifiers: Fatigue type: chronic, unspecified Qualified Code(s): R53.82 - Chronic fatigue, unspecified (3) Dizziness: Code(s): R42 - Dizziness and giddiness Category: Medical (4) Type 2 diabetes mellitus: Code(s): E11.9 - Type 2 diabetes mellitus without complications Category: Medical Qualifiers: Diabetes mellitus longterm insulin use: without superintendent container terminal use Diabetes mellitus complication status: with hyperglycemia Qualified Code(s): E11.65 - Type 2 diabetes mellitus with hyperglycemia (5) History of CVA with residual deficit: Code(s): I69.30 - Unspecified sequelae of cerebral infarction Category: Medical (6) Cerebral vasculitis: Code(s): I67.7 - Cerebral arteritis, not elsewhere classified Category: Medical (7) Cerebral vein thrombosis: Code(s): G08 - Intracranial and intraspinal phlebitis and thrombophlebitis Category: Medical (8) Primary angiitis of central nervous system: Code(s): I77.6 - Arteritis, unspecified Category: Medical (9) Oral thrush: Code(s): B37.0 - Candidal stomatitis Category: Medical Plan 59-year-old female with type 2 diabetes, hyperlipidemia and hypertension presenting ER follow up with ongoing symptoms of vomiting, fatigue, dizziness and being off balance. Multiple hospital admissions this year for urosepsis and vasculitis possibly secondary to COVID-19 infection and CVAs with residual left-sided weakness and fine motor impairment. She is currently being treated empirically for a UTI and will finish Bactrim. She denies genitourinary symptoms. Ultrasound did not demonstrate any cause for vomiting. She has not responded to increase dose of Protonix. CMP within normal at ED. Proceed with testing for H pylori. She has gallbladder polyps on imaging but no evidence of cholecystitis, and this is not a new finding. If vomiting persists I will consider referral to Gastroenterology. She is on medications that could result in GI upset like Ozempic and metformin, but she has been on them superintendent container terminal without side effects. The patient is going to contact her neurologist since she is still experiencing these symptoms and wondering if MRI is needed. Advised patient that if symptoms worsen she should go to the ED. Continue current regimen for type 2 diabetes. She is followed by endocrinology. Continue treatment for hypertension and hyperlipidemia with amlodipine, losartan, rosuvastatin. Patient remains on Plavix and aspirin. Continue physical therapy and occupational therapy. Treat oral thrush with nystatin. Follow up in 1 month. Orders: Orders H pylori Ag Stool 03/29/25 R11.10 - Vomiting, unspecified Medications: New nystatin swish in the mouth and retain for as long as possible (several minutes) before swallowing 500,000 units (5 mL) PO QID 200 mL 0RF 10 days
[2025-03-29 15:59] VITALS: BP 110/70; PULSE 93; TEMP 36.4; O2SAT 96; BMI 21.5
--- OUTSIDE RECORDS SUMMARY | 2025-03-29 18:42 | XMS_ITS | Encounter Summary ---
Author Organization [facility] Address [address] [place] [address] Care Team Providers Care Warp Scouring Vat Tender Name Role Phone Genejeyson Christian BARTH Primary Care Provider [phone] Encounter Details Date Type Department Care Team (Late st Contact Info) Description 09/25/2024 Lab Requisition [facility] - Main Lab [address] [facility] [place] [address] Samuel Doran MD [address] [place] [id number] Encounter for other general examination Social History [...] AM EDT) WBC 11.0(H) 4.8 - 10.8 K/[facility] LAB HEMETOLOGY METHOD 09/25/2024 10:38 AM [facility] LAB RBC 3.70(L) 3.80 - 4.80 M/mcL LAB HEMETOLOGY METHOD 09/25/2024 10:38 AM [facility] LAB Hemoglobin 10.9(L) 11.5 - 16.0 g/dL LAB HEMETOLOGY METHOD 09/25/2024 10:38 AM [facility] LAB Hematocrit 33.5(L) 35.0 - 47.0 % LAB HEMETOLOGY METHOD 09/25/2024 10:38 AM [facility] LAB MCV 91.0 79.0 - 98.0 FL LAB HEMETOLOGY METHOD 09/25/2024 10:38 AM [facility] LAB MCH 29.6 27.0 - 32.0 pcg LAB HEMETOLOGY METHOD 09/25/2024 10:38 AM [facility] LAB MCHC 32.5 32.0 - 37.0 g/dL LAB HEMETOLOGY METHOD 09/25/2024 10:38 AM [facility] LAB RDW 14.6 11.0 - 15.0 % LAB HEMETOLOGY METHOD 09/25/2024 10:38 AM [facility] LAB Platelets 224 130 - 400 K/mcL LAB HEMETOLOGY METHOD 09/25/2024 10:38 AM [facility] LAB MPV 9.4 7.0 - 11.0 FL LAB HEMETOLOGY METHOD 09/25/2024 10:38 AM [facility] LAB NRBC 0.0 <1.0 % LAB HEMETOLOGY METHOD 09/25/2024 10:38 AM [facility] LAB NRBC Absolute 0.00 <0.10 K/mcL LAB HEMETOLOGY METHOD 09/25/2024 10:38 AM [facility] LAB Neutrophils Relative 64.3 % LAB HEMETOLOGY METHOD 09/25/2024 10:38 AM [facility] LAB Lymphocytes Relative 27.2 % LAB HEMETOLOGY METHOD 09/25/2024 10:38 AM [facility] LAB Monocytes Relative 6.9 % LAB HEMETOLOGY METHOD 09/25/2024 10:38 AM [facility] LAB Eosinophils Relative 1.0 % LAB HEMETOLOGY METHOD 09/25/2024 10:38 AM [facility] LAB Basophils Relative 0.2 % LAB HEMETOLOGY METHOD 09/25/2024 10:38 AM [facility] LAB Immature Granulocytes Relative 0.4 % LAB HEMETOLOGY METHOD 09/25/2024 10:38 AM [facility] LAB Neutrophils Absolute 7.09(H) 1.50 - 7.00 K/mcL LAB HEMETOLOGY METHOD 09/25/2024 10:38 AM [facility] LAB Lymphocytes Absolute 3.00 1.00 - 5.00 K/mcL LAB HEMETOLOGY METHOD 09/25/2024 10:38 AM [facility] LAB Monocytes Absolute 0.76 0.20 - 1.00 K/mcL LAB HEMETOLOGY METHOD 09/25/2024 10:38 AM [facility] LAB Eosinophils Absolute 0.11 0.00 - 0.50 K/mcL LAB HEMETOLOGY METHOD 09/25/2024 10:38 AM [facility] LAB Basophils Absolute 0.02 0.00 - 0.20 K/mcL LAB HEMETOLOGY METHOD 09/25/2024 10:38 AM [facility] LAB Immature Granulocytes Absolute 0.04(H) 0.00 - 0.03 K/mcL LAB HEMETOLOGY METHOD 09/25/2024 10:38 AM [facility] LAB Blood Venous blood specimen / Unknown Venipuncture / Unknown 09/25/2024 5:25 AM EDT 09/25/2024 9:26 AM EDT us Samuel Doran MD LAB BLOOD ORDERABLES Final Res ult [facility] [address] [place] [address], [place] [phone] * (ABNORMAL) Comprehensive metabolic panel (09/25/2024 5:25 AM EDT) Sodium 141 133 - 145 mmol/L LAB CHEMISTRY METHOD 09/25/2024 11:08 AM [facility] LAB Potassium 4.0 3.5 - 5.5 mmol/L LAB CHEMISTRY METHOD 09/25/2024 11:08 AM [facility] LAB Chloride 104 96 - 110 mmol/L LAB CHEMISTRY METHOD 09/25/2024 11:08 AM [facility] LAB CO2 31 21 - 32 mmol/L LAB CHEMISTRY METHOD 09/25/2024 11:08 AM [facility] LAB Anion Gap 6 3 - 11 LAB CHEMISTRY METHOD 09/25/2024 11:08 AM [facility] LAB Glucose 49(L) 70 - 100 mg/dL LAB CHEMISTRY METHOD 09/25/2024 11:08 AM [facility] BUN 21 5 - 25 mg/dL LAB CHEMISTRY METHOD 09/25/2024 11:08 AM [facility] LAB Creatinine 0.50 0.50 - 1.10 mg/dL LAB CHEMISTRY METHOD 09/25/2024 11:08 AM [facility] LAB eGFR 109 >=60 mL/min/1. 73m2 LAB CHEMISTRY METHOD 09/25/2024 11:08 AM [facility] LAB Comment:Calculation based on the Chronic Kidney Disease Epidemiology Collaboration (CKD-EPI) equation refit without adjustment for race. BUN/Creatinine Ratio 42.0 LAB CHEMISTRY METHOD 09/25/2024 11:08 AM [facility] LAB Calcium 9.3 8.5 - 10.5 mg/dL LAB CHEMISTRY METHOD 09/25/2024 11:08 AM [facility] LAB AST (SGOT) 34 10 - 42 unit/L LAB CHEMISTRY METHOD 09/25/2024 11:08 AM [facility] LAB ALT (SGPT) 63(H) 10 - 60 unit/L LAB CHEMISTRY METHOD 09/25/2024 11:08 AM [facility] LAB Alkaline Phosphatase 61 42 - 121 unit/L LAB CHEMISTRY METHOD 09/25/2024 11:08 AM [facility] Total Protein 5.7(L) 6.0 - 8.0 g/dL LAB CHEMISTRY METHOD 09/25/2024 11:08 AM [facility] LAB Albumin 2.8(L) 3.2 - 5.0 g/dL LAB CHEMISTRY METHOD 09/25/2024 11:08 AM [facility] LAB Total Bilirubin 0.6 0.0 - 1.4 mg/dL LAB CHEMISTRY METHOD 09/25/2024 11:08 AM [facility] LAB Blood Venous blood specimen / Unknown Venipuncture / Unknown 09/25/2024 5:25 AM EDT 09/25/2024 9:26 AM EDT us Samuel Doran MD LAB BLOOD ORDERABLES Final Res ult [facility] [address] [place] [address], documented in this encounter Visit Diagnoses Diagnosis Encounter for other general examination documented in this encounter Care Teams Warp Scouring Vat Tender Relationship Specialty Start Date End Date Christian Garza PA [address] [place] [address] PCP - General 09/28/24 documented as of this encounter
--- OUTSIDE RECORDS SUMMARY | 2025-03-29 18:42 | XMS_ITS | Encounter Summary ---
Author Organization [facility] Address [address] [place] [address] Care Team Providers Care Death Claim Examiner Name Role Phone Genejeyson Christian BARTH Primary Care Provider [phone] Encounter Details Date Type Department Care Team (Late st Contact Info) Description 09/29/2024 Lab Requisition [facility] - Main Lab [address] [facility] [employer] [place] [address] Samuel Doran MD [address] [place] [phone] Encounter for other general examination Social History [...] AM EDT) WBC 12.3(H) 4.8 - 10.8 K/[facility] LAB HEMETOLOGY METHOD 09/29/2024 10:[address] [facility] LAB RBC 4.00 3.80 - 4.80 M/mcL LAB HEMETOLOGY METHOD 09/29/2024 10:[address] [facility] LAB Hemoglobin 11.7 11.5 - 16.0 g/dL LAB HEMETOLOGY METHOD 09/29/2024 10:[address] [facility] LAB Hematocrit 37.0 35.0 - 47.0 % LAB HEMETOLOGY METHOD 09/29/2024 10:[address] [facility] LAB MCV 93.0 79.0 - 98.0 FL LAB HEMETOLOGY METHOD 09/29/2024 10:[address] [facility] LAB MCH 29.4 27.0 - 32.0 pcg LAB HEMETOLOGY METHOD 09/29/2024 10:[address] [facility] LAB MCHC 31.6(L) 32.0 - 37.0 g/dL LAB HEMETOLOGY METHOD 09/29/2024 10:[address] [facility] LAB RDW 14.8 11.0 - 15.0 % LAB HEMETOLOGY METHOD 09/29/2024 10:[address] [facility] LAB Platelets 301 130 - 400 K/mcL LAB HEMETOLOGY METHOD 09/29/2024 10:[address] [facility] LAB MPV 8.8 7.0 - 11.0 FL LAB HEMETOLOGY METHOD 09/29/2024 10:[address] [facility] LAB NRBC 0.0 <1.0 % LAB HEMETOLOGY METHOD 09/29/2024 10:[address] [facility] LAB NRBC Absolute 0.00 <0.10 K/mcL LAB HEMETOLOGY METHOD 09/29/2024 10:[address] [facility] Neutrophils Relative 70.3 % LAB HEMETOLOGY METHOD 09/29/2024 10:[address] [facility] LAB Lymphocytes Relative 19.9 % LAB HEMETOLOGY METHOD 09/29/2024 10:[address] [facility] Monocytes Relative 8.2 % LAB HEMETOLOGY METHOD 09/29/2024 10:[address] [facility] Eosinophils Relative 0.9 % LAB HEMETOLOGY METHOD 09/29/2024 10:[address] [facility] Basophils Relative 0.2 % LAB HEMETOLOGY METHOD 09/29/2024 10:[address] [facility] Immature Granulocytes Relative 0.5 % LAB HEMETOLOGY METHOD 09/29/2024 10:[address] [facility] LAB Neutrophils Absolute 8.67(H) 1.50 - 7.00 K/mcL LAB HEMETOLOGY METHOD 09/29/2024 10:[address] [facility] Lymphocytes Absolute 2.45 1.00 - 5.00 K/mcL LAB HEMETOLOGY METHOD 09/29/2024 10:[address] [facility] Monocytes Absolute 1.01(H) 0.20 - 1.00 K/mcL LAB HEMETOLOGY METHOD 09/29/2024 10:[address] [facility] Eosinophils Absolute 0.11 0.00 - 0.50 K/mcL LAB HEMETOLOGY METHOD 09/29/2024 10:[address] [facility] Basophils Absolute 0.03 0.00 - 0.20 K/mcL LAB HEMETOLOGY METHOD 09/29/2024 10:[address] [facility] LAB Immature Granulocytes Absolute 0.06(H) 0.00 - 0.03 K/mcL LAB HEMETOLOGY METHOD 09/29/2024 10:[address] [facility] Blood Venous blood specimen / Unknown Venipuncture / Unknown 09/29/2024 5:36 AM EDT 09/29/2024 9:45 AM EDT us Samuel Doran MD LAB BLOOD ORDERABLES Final Res ult [facility] [address] [place] [address], [place] [phone] * (ABNORMAL) Comprehensive metabolic panel (09/29/2024 5:36 AM EDT) Pathologist [facility] Sodium 137 133 - 145 mmol/L LAB CHEMISTRY METHOD 09/29/2024 11:[address] [facility] Potassium 4.4 3.5 - 5.5 mmol/L LAB CHEMISTRY METHOD 09/29/2024 11:[address] [facility] Chloride 98 96 - 110 mmol/L LAB CHEMISTRY METHOD 09/29/2024 11:[address] [facility] CO2 31 21 - 32 mmol/L LAB CHEMISTRY METHOD 09/29/2024 11:[address] [facility] Anion Gap 8 3 - 11 LAB CHEMISTRY METHOD 09/29/2024 11:[address] [facility] Glucose 78 70 - 100 mg/dL LAB CHEMISTRY METHOD 09/29/2024 11:[address] [facility] BUN 22 5 - 25 mg/dL LAB CHEMISTRY METHOD 09/29/2024 11:[address] [facility] Creatinine 0.69 0.50 - 1.10 mg/dL LAB CHEMISTRY METHOD 09/29/2024 11:[address] [facility] LAB eGFR 101 >=60 mL/min/1. 73m2 LAB CHEMISTRY METHOD 09/29/2024 11:[address] [facility] LAB Comment:Calculation based on the Chronic Kidney Disease Epidemiology Collaboration (CKD-EPI) equation refit without adjustment for race. BUN/Creatinine Ratio 31.9 LAB CHEMISTRY METHOD 09/29/2024 11:[address] [facility] LAB Calcium 9.8 8.5 - 10.5 mg/dL LAB CHEMISTRY METHOD 09/29/2024 11:[address] [facility] AST (SGOT) 25 10 - 42 unit/L LAB CHEMISTRY METHOD 09/29/2024 11:[address] [facility] ALT (SGPT) 72(H) 10 - 60 unit/L LAB CHEMISTRY METHOD 09/29/2024 11:[address] [facility] Alkaline Phosphatase 76 42 - 121 unit/L LAB CHEMISTRY METHOD 09/29/2024 11:[address] [facility] Total Protein 5.8(L) 6.0 - 8.0 g/dL LAB CHEMISTRY METHOD 09/29/2024 11:[address] [facility] Albumin 3.0(L) 3.2 - 5.0 g/dL LAB CHEMISTRY METHOD 09/29/2024 11:[address] [facility] Total Bilirubin 0.5 0.0 - 1.4 mg/dL LAB CHEMISTRY METHOD 09/29/2024 11:[address] [facility] Blood Venous blood specimen / Unknown Venipuncture / Unknown 09/29/2024 5:36 AM EDT 09/29/2024 9:45 AM EDT us Samuel Doran MD LAB BLOOD ORDERABLES Final Res ult [facility] [address] [place] [address], documented in this encounter Visit Diagnoses Diagnosis Encounter for other general examination documented in this encounter Care Teams Death Claim Examiner Relationship Specialty Start Date End Date Christian Garza PA [facility] [place] [address] PCP - General 09/28/24 documented as of this encounter
--- OUTSIDE RECORDS SUMMARY | 2025-03-29 18:42 | XMS_ITS | Encounter Summary ---
Author Organization [facility] Address [address] [place] [address] Care Team Providers Care Buckle Attaching Machine Operator Name Role Phone Genejeyson Christian BARTH Primary Care Provider [phone] Encounter Details Date Type Department Care Team (Late st Contact Info) Description 09/22/2024 Lab Requisition [facility] - Main Lab [address] [place] [address] Samuel Doran MD [address] [place] [address] Encounter for other general examination Social History [...] AM EDT) WBC 11.3(H) 4.8 - 10.8 K/[facility] LAB HEMETOLOGY METHOD 09/22/2024 10:41 AM EDT [facility] LAB RBC 3.70(L) 3.80 - 4.80 M/mcL LAB HEMETOLOGY METHOD 09/22/2024 10:41 AM [facility] LAB Hemoglobin 11.0(L) 11.5 - 16.0 g/dL LAB HEMETOLOGY METHOD 09/22/2024 10:41 AM [facility] LAB Hematocrit 33.3(L) 35.0 - 47.0 % LAB HEMETOLOGY METHOD 09/22/2024 10:41 AM [facility] LAB MCV 89.3 79.0 - 98.0 FL LAB HEMETOLOGY METHOD 09/22/2024 10:41 AM [facility] LAB MCH 29.5 27.0 - 32.0 pcg LAB HEMETOLOGY METHOD 09/22/2024 10:41 AM [facility] LAB MCHC 33.0 32.0 - 37.0 g/dL LAB HEMETOLOGY METHOD 09/22/2024 10:41 AM [facility] LAB RDW 14.2 11.0 - 15.0 % LAB HEMETOLOGY METHOD 09/22/2024 10:41 AM [facility] LAB Platelets 189 130 - 400 K/mcL LAB HEMETOLOGY METHOD 09/22/2024 10:41 AM [facility] LAB MPV 9.2 7.0 - 11.0 FL LAB HEMETOLOGY METHOD 09/22/2024 10:41 AM [facility] LAB NRBC 0.0 <1.0 % LAB HEMETOLOGY METHOD 09/22/2024 10:41 AM [facility] LAB NRBC Absolute 0.00 <0.10 K/mcL LAB HEMETOLOGY METHOD 09/22/2024 10:41 AM [facility] LAB Blood Venous blood specimen / Unknown Venipuncture / Unknown 09/22/2024 5:13 AM EDT 09/22/2024 9:47 AM EDT us Samuel Doran MD LAB BLOOD ORDERABLES Final Res ult [facility] LAB [address] [place] [address], * (ABNORMAL) Comprehensive metabolic panel (09/22/2024 5:13 AM EDT) Sodium 142 133 - 145 mmol/L LAB CHEMISTRY METHOD 09/22/2024 11:40 AM [facility] LAB Potassium 3.6 3.5 - 5.5 mmol/L LAB CHEMISTRY METHOD 09/22/2024 11:40 AM [facility] LAB Chloride 103 96 - 110 mmol/L LAB CHEMISTRY METHOD 09/22/2024 11:40 AM [facility] LAB CO2 32 21 - 32 mmol/L LAB CHEMISTRY METHOD 09/22/2024 11:40 AM [facility] LAB Anion Gap 7 3 - 11 LAB CHEMISTRY METHOD 09/22/2024 11:40 AM [facility] LAB Glucose 55(L) 70 - 100 mg/dL LAB CHEMISTRY METHOD 09/22/2024 11:40 AM [facility] LAB BUN 17 5 - 25 mg/dL LAB CHEMISTRY METHOD 09/22/2024 11:40 AM [facility] LAB Creatinine 0.55 0.50 - 1.10 mg/dL LAB CHEMISTRY METHOD 09/22/2024 11:40 AM [facility] LAB eGFR 106 >=60 mL/min/1. 73m2 LAB CHEMISTRY METHOD 09/22/2024 11:40 AM [facility] LAB Comment:Calculation based on the Chronic Kidney Disease Epidemiology Collaboration (CKD-EPI) equation refit without adjustment for race. BUN/Creatinine Ratio 30.9 LAB CHEMISTRY METHOD 09/22/2024 11:40 AM [facility] LAB Calcium 9.0 8.5 - 10.5 mg/dL LAB CHEMISTRY METHOD 09/22/2024 11:40 AM [facility] LAB AST (SGOT) 13 10 - 42 unit/L LAB CHEMISTRY METHOD 09/22/2024 11:40 AM [facility] LAB ALT (SGPT) 42 10 - 60 unit/L LAB CHEMISTRY METHOD 09/22/2024 11:40 AM [facility] LAB Alkaline Phosphatase 58 42 - 121 unit/L LAB CHEMISTRY METHOD 09/22/2024 11:40 AM T [facility] LAB Total Protein 5.5(L) 6.0 - 8.0 g/dL LAB CHEMISTRY METHOD 09/22/2024 11:40 AM [facility] LAB Albumin 2.8(L) 3.2 - 5.0 g/dL LAB CHEMISTRY METHOD 09/22/2024 11:40 AM [facility] LAB Total Bilirubin 0.7 0.0 - 1.4 mg/dL LAB CHEMISTRY METHOD 09/22/2024 11:40 AM [facility] LAB Blood Venous blood specimen / Unknown Venipuncture / Unknown 09/22/2024 5:13 AM EDT 09/22/2024 9:47 AM EDT us Samuel Doran MD LAB BLOOD ORDERABLES Final Res ult [facility] LAB [address] [place] [address], documented in this encounter Visit Diagnoses Diagnosis Encounter for other general examination documented in this encounter Care Teams Buckle Attaching Machine Operator Relationship Specialty Start Date End Date Christian Garza PA [address] [place] [id number] PCP - General 09/28/24 documented as of this encounter
--- OUTSIDE RECORDS SUMMARY | 2025-03-29 18:42 | XMS_ITS | Patient Health Record ---
Author Organization [facility] Address [address] [facility] [place] [address] Care Team Providers Care Cloth Bolt Bander Name Role Phone Yolanda Alfaro MD Primary Care Provider Unavail able Nick Reynolds Unavailable [phone] Reason For Referral No Information Medications Medication [...] Treatment Pending Test Test Name Order Date [id number] NAIL, 6 OR MORE 08/17/2011 [id number] NAIL, 6 OR MORE 08/15/2012 [id number] Plate 08/15/2012 [id number] Plate 08/17/2011 [id number] SKIN LESIONS, OVER 4 08/17/19 12 [id number] SKIN LESIONS, OVER 4 08/16/19 13 Insurance Providers Payer Name Payer Address Payer Phone Subscriber Number Group Number Insured Name Patient Relationship to Insured Coverage Start Date Coverage End Date [facility] [address] [place] [address] [id number] Kranthi Barroso Spouse - patient is the spouse of the insured Medical (General) History Medical History History ICD Code chicken pox diabetes mellitus hypertension psoriasis Surgical History Surgery Date(Month/Year) foot surgery 03/2012 ankle surgery 03/2012 Hospitalization History Reason Date(Month/Year) [place] broken ankle and foot 03/2012
--- OUTSIDE RECORDS SUMMARY | 2025-03-29 18:42 | XMS_ITS | Clinical Summary ---
Author Organization [facility] Address [address] [place] [address] Care Team Providers Care Tray Casting Machine Operator Name Role Phone Nadia Hill MD Primary Care Provider [phone] Allergies Active Allergy Reactions Criticality Noted Date [...] age to complete this topic Care Teams Tray Casting Machine Operator Relationship Specialty Start Date End Date Nadia Hill MD PCP - General Internal Medicine 11/09/21
--- OUTSIDE RECORDS SUMMARY | 2025-03-29 18:42 | XMS_ITS | Encounter Summary ---
Author Organization [facility] Address [address] [place] [address] Care Team Providers Care Ad Writer Name Role Phone Genejeyson Christian BARTH Primary Care Provider [phone] Encounter Details Date Type Department Care Team (Late st Contact Info) Description 10/09/[address] [facility] - Main Lab [address] [facility] [address] Samuel Doran MD [address] [place] [address] Encounter for other general examination Social History [...] AM EDT) WBC 14.8(H) 4.8 - 10.8 K/[facility] LAB HEMETOLOGY METHOD 10/09/2024 10:57 AM [facility] LAB RBC 4.10 3.80 - 4.80 M/mcL LAB HEMETOLOGY METHOD 10/09/2024 10:57 AM [facility] LAB Hemoglobin 11.9 11.5 - 16.0 g/dL LAB HEMETOLOGY METHOD 10/09/2024 10:57 AM [facility] LAB Hematocrit 37.2 35.0 - 47.0 % LAB HEMETOLOGY METHOD 10/09/2024 10:57 AM [facility] LAB MCV 91.2 79.0 - 98.0 FL LAB HEMETOLOGY METHOD 10/09/2024 10:57 AM [facility] LAB MCH 29.2 27.0 - 32.0 pcg LAB HEMETOLOGY METHOD 10/09/2024 10:57 AM [facility] LAB MCHC 32.0 32.0 - 37.0 g/dL LAB HEMETOLOGY METHOD 10/09/2024 10:57 AM [facility] LAB RDW 14.1 11.0 - 15.0 % LAB HEMETOLOGY METHOD 10/09/2024 10:57 AM [facility] LAB Platelets 307 130 - 400 K/mcL LAB HEMETOLOGY METHOD 10/09/2024 10:57 AM [facility] LAB MPV 8.6 7.0 - 11.0 FL LAB HEMETOLOGY METHOD 10/09/2024 10:57 AM [facility] LAB NRBC 0.0 <1.0 % LAB HEMETOLOGY METHOD 10/09/2024 10:57 AM [facility] LAB NRBC Absolute 0.00 <0.10 K/mcL LAB HEMETOLOGY METHOD 10/09/2024 10:57 AM [facility] LAB Neutrophils Relative 67.2 % LAB HEMETOLOGY METHOD 10/09/2024 10:57 AM [facility] LAB Lymphocytes Relative 22.6 % LAB HEMETOLOGY METHOD 10/09/2024 10:57 AM [facility] LAB Monocytes Relative 8.1 % LAB HEMETOLOGY METHOD 10/09/2024 10:57 AM [facility] LAB Eosinophils Relative 0.7 % LAB HEMETOLOGY METHOD 10/09/2024 10:57 AM [facility] LAB Basophils Relative 0.3 % LAB HEMETOLOGY METHOD 10/09/2024 10:57 AM [facility] LAB Immature Granulocytes Relative 1.1 % LAB HEMETOLOGY METHOD 10/09/2024 10:57 AM [facility] LAB Neutrophils Absolute 9.91(H) 1.50 - 7.00 K/mcL LAB HEMETOLOGY METHOD 10/09/2024 10:57 AM [facility] LAB Lymphocytes Absolute 3.34 1.00 - 5.00 K/mcL LAB HEMETOLOGY METHOD 10/09/2024 10:57 AM [facility] LAB Monocytes Absolute 1.19(H) 0.20 - 1.00 K/mcL LAB HEMETOLOGY METHOD 10/09/2024 10:57 AM [facility] LAB Eosinophils Absolute 0.10 0.00 - 0.50 K/mcL LAB HEMETOLOGY METHOD 10/09/2024 10:57 AM [facility] LAB Basophils Absolute 0.05 0.00 - 0.20 K/mcL LAB HEMETOLOGY METHOD 10/09/2024 10:57 AM [facility] LAB Immature Granulocytes Absolute 0.16(H) 0.00 - 0.03 K/mcL LAB HEMETOLOGY METHOD 10/09/2024 10:57 AM [facility] LAB Blood Venous blood specimen / Unknown Venipuncture / Unknown 10/09/2024 4:53 AM EDT 10/09/2024 9:55 AM EDT us Samuel Doran MD LAB BLOOD ORDERABLES Final Res ult [facility] LAB [address] [place] [address], [place] [phone] * (ABNORMAL) Basic metabolic panel (10/09/2024 4:53 AM EDT) Sodium 139 133 - 145 mmol/L LAB CHEMISTRY METHOD 10/09/2024 11:33 AM [facility] LAB Potassium 4.5 3.5 - 5.5 mmol/L LAB CHEMISTRY METHOD 10/09/2024 11:33 AM [facility] LAB Chloride 100 96 - 110 mmol/L LAB CHEMISTRY METHOD 10/09/2024 11:33 AM [facility] LAB CO2 28 21 - 32 mmol/L LAB CHEMISTRY METHOD 10/09/2024 11:33 AM [facility] LAB Anion Gap 11 3 - 11 LAB CHEMISTRY METHOD 10/09/2024 11:33 AM [facility] LAB Glucose 52(L) 70 - 100 mg/dL LAB CHEMISTRY METHOD 10/09/2024 11:33 AM [facility] LAB BUN 24 5 - 25 mg/dL LAB CHEMISTRY METHOD 10/09/2024 11:33 AM [facility] LAB Creatinine 0.54 0.50 - 1.10 mg/dL LAB CHEMISTRY METHOD 10/09/2024 11:33 AM [facility] LAB eGFR 107 >=60 mL/min/1. 73m2 LAB CHEMISTRY METHOD 10/09/2024 11:33 AM [facility] LAB Comment:Calculation based on the Chronic Kidney Disease Epidemiology Collaboration (CKD-EPI) equation refit without adjustment for race. BUN/Creatinine Ratio 44.4 LAB CHEMISTRY METHOD 10/09/2024 11:33 AM EDT [facility] Calcium 9.6 8.5 - 10.5 mg/dL LAB CHEMISTRY METHOD 10/09/2024 11:33 AM EDT [facility] LAB Blood Venous blood specimen / Unknown Venipuncture / Unknown 10/09/2024 4:53 AM EDT 10/09/2024 9:55 AM EDT us Samuel Doran MD LAB BLOOD ORDERABLES Final Res ult [facility] ([facility] LAB [address] [place] [address], documented in this encounter Visit Diagnoses Diagnosis Encounter for other general examination documented in this encounter Care Teams Ad Writer Relationship Specialty Start Date End Date Christian Garza PA [address] [place] [address] PCP - General 09/28/24 documented as of this encounter
--- OUTSIDE RECORDS SUMMARY | 2025-03-29 18:42 | XMS_ITS | Encounter Summary ---
Author Organization [facility] Address [address] [place] [address] Care Team Providers Care Rn Prior Authorization Name Role Phone Genejeyson Christian BARTH Primary Care Provider [phone] Encounter Details Date Type Department Care Team (Late st Contact Info) Description 10/05/2024 Lab Requisition [facility] - Main Lab [address] [facility] [place] [address] Samuel Doran MD [address] [place] [address] Encounter for other general examination Social History [...] Center LAB HEMETOLOGY METHOD 10/05/2024 1:17 PM [facility] LAB RBC 4.10 3.80 - 4.80 M/mcL LAB HEMETOLOGY METHOD 10/05/2024 1:17 PM [facility] LAB Hemoglobin 12.1 11.5 - 16.0 g/dL LAB HEMETOLOGY METHOD 10/05/2024 1:17 PM [facility] LAB Hematocrit 38.7 35.0 - 47.0 % LAB HEMETOLOGY METHOD 10/05/2024 1:17 PM [facility] LAB MCV 93.7 79.0 - 98.0 FL LAB HEMETOLOGY METHOD 10/05/2024 1:17 PM [facility] LAB MCH 29.3 27.0 - 32.0 pcg LAB HEMETOLOGY METHOD 10/05/2024 1:17 PM [facility] LAB MCHC 31.3(L) 32.0 - 37.0 g/dL LAB HEMETOLOGY METHOD 10/05/2024 1:17 PM [facility] LAB RDW 14.6 11.0 - 15.0 % LAB HEMETOLOGY METHOD 10/05/2024 1:17 PM [facility] LAB Platelets 276 130 - 400 K/mcL LAB HEMETOLOGY METHOD 10/05/2024 1:17 PM [facility] LAB MPV 8.9 7.0 - 11.0 FL LAB HEMETOLOGY METHOD 10/05/2024 1:17 PM [facility] LAB NRBC 0.0 <1.0 % LAB HEMETOLOGY METHOD 10/05/2024 1:17 PM [facility] LAB NRBC Absolute 0.00 <0.10 K/mcL LAB HEMETOLOGY METHOD 10/05/2024 1:17 PM [facility] LAB Neutrophils Relative 67.1 % LAB HEMETOLOGY METHOD 10/05/2024 1:17 PM [facility] LAB Lymphocytes Relative 22.6 % LAB HEMETOLOGY METHOD 10/05/2024 1:17 PM [facility] LAB Monocytes Relative 8.6 % LAB HEMETOLOGY METHOD 10/05/2024 1:17 PM [facility] LAB Eosinophils Relative 0.9 % LAB HEMETOLOGY METHOD 10/05/2024 1:17 PM [facility] LAB Basophils Relative 0.2 % LAB HEMETOLOGY METHOD 10/05/2024 1:17 PM [facility] LAB Immature Granulocytes Relative 0.6 % LAB HEMETOLOGY METHOD 10/05/2024 1:17 PM [facility] LAB Neutrophils Absolute 9.30(H) 1.50 - 7.00 K/mcL LAB HEMETOLOGY METHOD 10/05/2024 1:17 PM [facility] LAB Lymphocytes Absolute 3.14 1.00 - 5.00 K/mcL LAB HEMETOLOGY METHOD 10/05/2024 1:17 PM [facility] LAB Monocytes Absolute 1.19(H) 0.20 - 1.00 K/mcL LAB HEMETOLOGY METHOD 10/05/2024 1:17 PM [facility] LAB Eosinophils Absolute 0.12 0.00 - 0.50 K/mcL LAB HEMETOLOGY METHOD 10/05/2024 1:17 PM [facility] LAB Basophils Absolute 0.03 0.00 - 0.20 K/mcL LAB HEMETOLOGY METHOD 10/05/2024 1:17 PM [facility] LAB Immature Granulocytes Absolute 0.09(H) 0.00 - 0.03 K/mcL LAB HEMETOLOGY METHOD 10/05/2024 1:17 PM [facility] LAB Blood Venous blood specimen / Unknown Venipuncture / Unknown 10/05/2024 4:53 AM EDT 10/05/2024 11:42 AM EDT us Samuel Doran MD LAB BLOOD ORDERABLES Final Res ult [facility] LAB [address] [place] [address], [place] [phone] * (ABNORMAL) Basic metabolic panel (10/05/2024 4:53 AM EDT) Sodium 136 133 - 145 mmol/L LAB CHEMISTRY METHOD 10/05/2024 1:06 PM [facility] LAB Potassium 4.3 3.5 - 5.5 mmol/L LAB CHEMISTRY METHOD 10/05/2024 1:06 PM [facility] LAB Chloride 95(L) 96 - 110 mmol/L LAB CHEMISTRY METHOD 10/05/2024 1:06 PM [facility] LAB CO2 34(H) 21 - 32 mmol/L LAB CHEMISTRY METHOD 10/05/2024 1:06 PM [facility] LAB Anion Gap 7 3 - 11 LAB CHEMISTRY METHOD 10/05/2024 1:06 PM [facility] LAB Glucose 74 70 - 100 mg/dL LAB CHEMISTRY METHOD 10/05/2024 1:06 PM [facility] LAB BUN 20 5 - 25 mg/dL LAB CHEMISTRY METHOD 10/05/2024 1:06 PM [facility] LAB Creatinine 0.68 0.50 - 1.10 mg/dL LAB CHEMISTRY METHOD 10/05/2024 1:06 PM [facility] LAB eGFR 101 >=60 mL/min/1. 73m2 LAB CHEMISTRY METHOD 10/05/2024 1:06 PM [facility] LAB Comment:Calculation based on the Chronic Kidney Disease Epidemiology Collaboration (CKD-EPI) equation refit without adjustment for race. BUN/Creatinine Ratio 29.4 LAB CHEMISTRY METHOD 10/05/2024 1:06 PM [facility] LAB Calcium 10.1 8.5 - 10.5 mg/dL LAB CHEMISTRY METHOD 10/05/2024 1:06 PM EDT [facility] LAB Blood Venous blood specimen / Unknown Venipuncture / Unknown 10/05/2024 4:53 AM EDT 10/05/2024 11:42 AM EDT us Samuel Doran MD LAB BLOOD ORDERABLES Final Res ult [facility] [address] [place] [address], documented in this encounter Visit Diagnoses Diagnosis Encounter for other general examination documented in this encounter Care Teams Rn Prior Authorization Relationship Specialty Start Date End Date Christian Garza PA [facility] [place] [address] PCP - General 09/28/24 documented as of this encounter
--- OUTSIDE RECORDS SUMMARY | 2025-03-29 18:42 | XMS_ITS | Encounter Summary ---
Author Organization [facility] Address [address] [place] [address] Care Team Providers Care Taxonomist Name Role Phone Genejeyson Christian BARTH Primary Care Provider Encounter Details Date Type Department Care Team (Late st Contact Info) Description 09/18/2024 Lab Requisition [facility] - Main Lab [address] [facility] [place] [address] Samuel Doran MD [address] [place] [address] Encounter for other general examination Social History [...] CBC auto differential (09/18/2024 5:35 AM EDT) [facility] WBC 13.8(H) 4.8 - 10.8 K/mcL LAB HEMETOLOGY METHOD 09/18/2024 11:36 AM [facility] LAB RBC 3.80 3.80 - 4.80 M/mcL LAB HEMETOLOGY METHOD 09/18/2024 11:36 AM [facility] LAB Hemoglobin 10.9(L) 11.5 - 16.0 g/dL LAB HEMETOLOGY METHOD 09/18/2024 11:36 AM [facility] LAB Hematocrit 33.1(L) 35.0 - 47.0 % LAB HEMETOLOGY METHOD 09/18/2024 11:36 AM [facility] LAB MCV 87.6 79.0 - 98.0 FL LAB HEMETOLOGY METHOD 09/18/2024 11:36 AM [facility] LAB MCH 28.8 27.0 - 32.0 pcg LAB HEMETOLOGY METHOD 09/18/2024 11:36 AM [facility] LAB MCHC 32.9 32.0 - 37.0 g/dL LAB HEMETOLOGY METHOD 09/18/2024 11:36 AM [facility] LAB RDW 13.6 11.0 - 15.0 % LAB HEMETOLOGY METHOD 09/18/2024 11:36 AM [facility] LAB Platelets 230 130 - 400 K/mcL LAB HEMETOLOGY METHOD 09/18/2024 11:36 AM [facility] LAB MPV 9.3 7.0 - 11.0 FL LAB HEMETOLOGY METHOD 09/18/2024 11:36 AM [facility] LAB NRBC 0.0 <1.0 % LAB HEMETOLOGY METHOD 09/18/2024 11:36 AM [facility] LAB NRBC Absolute 0.00 <0.10 K/mcL LAB HEMETOLOGY METHOD 09/18/2024 11:36 AM [facility] LAB Neutrophils Relative 70.6 % LAB HEMETOLOGY METHOD 09/18/2024 11:36 AM [facility] LAB Lymphocytes Relative 21.1 % LAB HEMETOLOGY METHOD 09/18/2024 11:36 AM [facility] LAB Monocytes Relative 7.1 % LAB HEMETOLOGY METHOD 09/18/2024 11:36 AM [facility] LAB Eosinophils Relative 0.7 % LAB HEMETOLOGY METHOD 09/18/2024 11:36 AM [facility] LAB Basophils Relative 0.1 % LAB HEMETOLOGY METHOD 09/18/2024 11:36 AM [facility] LAB Immature Granulocytes Relative 0.4 % LAB HEMETOLOGY METHOD 09/18/2024 11:36 AM [facility] LAB Neutrophils Absolute 9.75(H) 1.50 - 7.00 K/mcL LAB HEMETOLOGY METHOD 09/18/2024 11:36 AM [facility] LAB Lymphocytes Absolute 2.92 1.00 - 5.00 K/mcL LAB HEMETOLOGY METHOD 09/18/2024 11:36 AM [facility] LAB Monocytes Absolute 0.98 0.20 - 1.00 K/mcL LAB HEMETOLOGY METHOD 09/18/2024 11:36 AM [facility] LAB Eosinophils Absolute 0.09 0.00 - 0.50 K/mcL LAB HEMETOLOGY METHOD 09/18/2024 11:36 AM [facility] LAB Basophils Absolute 0.02 0.00 - 0.20 K/mcL LAB HEMETOLOGY METHOD 09/18/2024 11:36 AM [facility] LAB Immature Granulocytes Absolute 0.06(H) 0.00 - 0.03 K/mcL LAB HEMETOLOGY METHOD 09/18/2024 11:36 AM [facility] LAB Blood Venous blood specimen / Unknown Venipuncture / Unknown 09/18/2024 5:35 AM EDT 09/18/2024 11:00 AM EDT Samuel Doran MD LAB BLOOD ORDERABLES Final Res ult Performing Organization Address [facility]/ZIP Co de Phone Number [facility] [address] [place] [address], [place] [phone] * Magnesium (09/18/2024 5:35 AM EDT) Magnesium 2.6 1.9 - 2.6 mg/dL LAB CHEMISTRY METHOD 09/18/2024 1:09 PM EDT [facility] Blood Venous blood specimen / Unknown Venipuncture / Unknown 09/18/2024 5:35 AM EDT 09/18/2024 11:00 AM EDT Samuel Doran MD LAB BLOOD ORDERABLES Final Res ult Performing Organization Address [facility]/ZIP Co de Phone Number [facility] [address] [place] [address], [place] [phone] * (ABNORMAL) Comprehensive metabolic panel (09/18/2024 5:35 AM EDT) Sodium 140 133 - 145 mmol/L LAB CHEMISTRY METHOD 09/18/2024 1:19 PM EDT [facility] Potassium 4.1 3.5 - 5.5 mmol/L LAB CHEMISTRY METHOD 09/18/2024 1:19 PM EDT [facility] Chloride 102 96 - 110 mmol/L LAB CHEMISTRY METHOD 09/18/2024 1:19 PM EDT [facility] CO2 32 21 - 32 mmol/L LAB CHEMISTRY METHOD 09/18/2024 1:19 PM EDT [facility] Anion Gap 6 3 - 11 LAB CHEMISTRY METHOD 09/18/2024 1:19 PM [facility] Glucose 175(H) 70 - 100 mg/dL LAB CHEMISTRY METHOD 09/18/2024 1:19 PM [facility] BUN 19 5 - 25 mg/dL LAB CHEMISTRY METHOD 09/18/2024 1:19 PM [facility] LAB Creatinine 0.63 0.50 - 1.10 mg/dL LAB CHEMISTRY METHOD 09/18/2024 1:19 PM [facility] LAB eGFR 103 >=60 mL/min/1. 73m2 LAB CHEMISTRY METHOD 09/18/2024 1:19 PM [facility] LAB Comment:Calculation based on the Chronic Kidney Disease Epidemiology Collaboration (CKD-EPI) equation refit without adjustment for race. BUN/Creatinine Ratio 30.2 LAB CHEMISTRY METHOD 09/18/2024 1:19 PM [facility] LAB Calcium 9.0 8.5 - 10.5 mg/dL LAB CHEMISTRY METHOD 09/18/2024 1:19 PM [facility] LAB AST (SGOT) 26 10 - 42 unit/L LAB CHEMISTRY METHOD 09/18/2024 1:19 PM [facility] LAB ALT (SGPT) 48 10 - 60 unit/L LAB CHEMISTRY METHOD 09/18/2024 1:19 PM [facility] LAB Alkaline Phosphatase 61 42 - 121 unit/L LAB CHEMISTRY METHOD 09/18/2024 1:19 PM [facility] Total Protein 5.4(L) 6.0 - 8.0 g/dL LAB CHEMISTRY METHOD 09/18/2024 1:19 PM [facility] LAB Albumin 2.7(L) 3.2 - 5.0 g/dL LAB CHEMISTRY METHOD 09/18/2024 1:19 PM [facility] Total Bilirubin 0.7 0.0 - 1.4 mg/dL LAB CHEMISTRY METHOD 09/18/2024 1:19 PM EDT [facility] Blood Venous blood specimen / Unknown Venipuncture / Unknown 09/18/2024 5:35 AM EDT 09/18/2024 11:00 AM EDT us Samuel Doran MD LAB BLOOD ORDERABLES Final Res ult [facility] [address] [place] [address], documented in this encounter Visit Diagnoses Diagnosis Encounter for other general examination documented in this encounter Care Teams Taxonomist Relationship Specialty Start Date End Date Christian Garza PA [address] [place] [phone] PCP - General 09/28/24 documented as of this encounter
--- OUTSIDE RECORDS SUMMARY | 2025-03-29 18:42 | XMS_ITS | Clinical Summary ---
Author Organization [address] Address [address] [place] [phone] Phone Care Team Providers Care Sales Product Manager Name Role Phone Christian Garza Primary Care Provider [phone] Medical History Medical History Date Comments Diabetes mellitus type 2, uncontrolled 10/10/2018 DX:Diabetes mellitus type 2, uncontrolled Herpes simplex 11/04/2018 DX:Herpes simple x Hyperplastic colon polyp 11/04/2018 DX:Hype rplastic colon polyp Hypertension 11/04/2018 DX:Hypertension History of squamous cell car cinoma of skin 11/04/2018 DX:History of squamous cell carcinoma of skin Type 2 diabetes mellitus wit hout complication 10/10/2018 DX:Type 2 diabetes mellitus without complication (HCC) Social History Tobacco Use Types Packs/Day Years [...] Last Done Comments Breast Cancer Screening 1966 Colorectal Cancer Screening: Colonoscopy 1966 Diabetes: Annual Foot Exam 1976 Diabetes: Annual Retina Eye Exam 1976 Hepatitis B Vaccines (1 of 3 - 19+ 3-dose series) 1985 Cervical Cancer Screening: Pap Smear 1987 Pneumococcal Vaccine: 50+ Years (1 of 1 - PCV) 2016 Zoster Vaccines (1 of 2) 2016 DTaP,Tdap,and Td Vaccines (3 - Td or Tdap) 01/12/2020 01/11/2010, 07/04/2001 Cholesterol Screening (Lipid Panel) 05/05/2022 HIV Screening 05/05/2022 Hepatitis C Screening [...] 10/09/2025 10/09/2024, 10/05/2024, 09/29/2024, Additional history exists RSV Immunization Adult Patients (1 - 1-dose 75+ series) 2041 HIB Vaccines Aged Out No longer eligi [...] LAB CHEMISTRY METHOD 10/09/2024 11:33 AM EDT [facility] Blood Venous blood specimen / Unknown Venipuncture / Unknown 10/09/2024 4:53 AM EDT 10/09/2024 9:55 AM EDT us Samuel Doran MD LAB BLOOD ORDERABLES Final Res ult [facility] [address] [place] [address], from Last 3 Months or Most Recently Relevant to Health Maintenance Care Teams Sales Product Manager Relationship Specialty Start Date End Date Christian Garza PA [address] [place] [address] [phone] PCP - General 09/28/24
--- OUTSIDE RECORDS SUMMARY | 2025-03-29 18:42 | XMS_ITS | Encounter Summary ---
Author Organization [facility] Address [address] [place] [address] Care Team Providers Care Manual Arts Therapist Name Role Phone Greg Christian BARTH Primary Care Provider Encounter Details Date Type Department Care Team (Late st Contact Info) Description 10/04/2024 Lab Requisition [facility] - Main Lab 299 [facility] [place] [address] Samuel Doran MD [address] [place] [id number] Dysuria Social History Tobacco Use Types Packs/Day [...] Escherichia coli(A) LOUISA 10/06/2024 10:26 AM EDT [facility] Urine Urine specimen obtained by clean catch procedure / Unknown Non-blood Collection / Unknown 10/03/2024 9:00 AM EDT 10/04/2024 11:35 AM EDT Narrative [facility] - 10/06/2024 10:26 AM [...] MICROBIOLOGY - GENERAL ORD ERABLES Final Result [facility] [address] [place] [address], * Ndiaye urine culture tube (10/03/2024 9:00 AM EDT) Extra Tube Hold for add-ons. 10/04/2024 12:01 PM EDT [facility] Comment:Auto resulted. Urine Urine specimen obtained by clean catch procedure / Unknown Non-blood Collection / Unknown 10/03/2024 9:00 AM EDT 10/04/2024 10:46 AM EDT us Samuel Doran MD LAB URINE ORDERABLES Final Res ult [facility] [address] [place] [address], [place] [phone] * (ABNORMAL) Urinalysis with reflex microscopic and culture (10/03/2024 9:00 AM EDT) Specific [place] Urine 1.012 1.003 - 1.030 LAB URINALYSIS - AUTOMATED METHOD 10/04/2024 11:35 AM [facility] pH, Urine 7.0 5.0 - 8.0 pH LAB URINALYSIS - AUTOMATED METHOD 10/04/2024 11:35 AM [facility] Leukocytes, Urine Large(A) Negative LAB URINALYSIS - AUTOMATED METHOD 10/04/2024 11:35 AM [facility] Nitrite, Urine Positive(A) Negative LAB URINALYSIS - AUTOMATED METHOD 10/04/2024 11:35 AM [facility] Protein, Urine 30(A) <=Trace mg/dL LAB URINALYSIS - AUTOMATED METHOD 10/04/2024 11:35 AM [facility] Glucose, Urine Negative Negative mg/dL LAB URINALYSIS - AUTOMATED METHOD 10/04/2024 11:35 AM [facility] Ketones, Urine Negative Negative mg/dL LAB URINALYSIS - AUTOMATED METHOD 10/04/2024 11:35 AM [facility] Urobilinogen , Urine 0.2 0.2 - 1.0 mg/dL LAB URINALYSIS - AUTOMATED METHOD 10/04/2024 11:35 AM [facility] Bilirubin, Urine Negative Negative LAB URINALYSIS - AUTOMATED METHOD 10/04/2024 11:35 AM [facility] Blood, Urine Large(A) Negative LAB URINALYSIS - AUTOMATED METHOD 10/04/2024 11:35 AM [facility] RBC, Urine 300.2(H) 0 - 4 /HPF LAB URINALYSIS - AUTOMATED METHOD 10/04/2024 11:35 AM [facility] WBC, Urine 1,862.7(H) 0 - 4 /HPF LAB URINALYSIS - AUTOMATED METHOD 10/04/2024 11:35 AM [facility] Squamous Epithelial, Urine 40 0 - 60 /LPF LAB URINALYSIS - AUTOMATED METHOD 10/04/2024 11:35 AM [facility] Bacteria, Urine Moderate(A) Negative /HPF LAB URINALYSIS - AUTOMATED METHOD 10/04/2024 11:35 AM [facility] Hyaline Casts, Urine 1.4 0 - 3 /LPF LAB URINALYSIS - AUTOMATED METHOD 10/04/2024 11:35 AM [facility] Urine Urine specimen obtained by clean catch procedure / Unknown Non-blood Collection / Unknown 10/03/2024 9:00 AM EDT 10/04/2024 10:46 AM EDT us Samuel Doran MD LAB URINE ORDERABLES Final Res ult [facility] [address] [place] [address], documented in this encounter Visit Diagnoses Diagnosis Dysuria documented in this encounter Care Teams Manual Arts Therapist Relationship Specialty Start Date End Date Christian Garza PA [address] [place] [address] PCP - General 09/28/24 documented as of this encounter
--- OUTSIDE RECORDS SUMMARY | 2025-03-29 18:42 | XMS_ITS | Encounter Summary ---
Author Organization [facility] Address [address] [place] [address] Care Team Providers Care Dairy Store Manager Name Role Phone Greg Christian BARTH Primary Care Provider [phone] Encounter Details Date Type Department Care Team (Late st Contact Info) Description 09/28/2024 Lab Requisition [facility] - Main Lab [address] [facility] [place] [address] Samuel Doran MD [address] [place] [phone] Dysuria Social History Tobacco Use Types Packs/Day [...] and culture (09/28/2024 5:30 AM EDT) Specific [place] Urine 1.017 1.003 - 1.030 LAB URINALYSIS - AUTOMATED METHOD 09/28/2024 11:08 AM [facility] pH, Urine 8.0 5.0 - 8.0 pH LAB URINALYSIS - AUTOMATED METHOD 09/28/2024 11:08 AM [facility] Leukocytes, Urine Negative Negative LAB URINALYSIS - AUTOMATED METHOD 09/28/2024 11:08 AM [facility] Nitrite, Urine Negative Negative LAB URINALYSIS - AUTOMATED METHOD 09/28/2024 11:08 AM [facility] Protein, Urine Negative <=Trace mg/dL LAB URINALYSIS - AUTOMATED METHOD 09/28/2024 11:08 AM [facility] Glucose, Urine Negative Negative mg/dL LAB URINALYSIS - AUTOMATED METHOD 09/28/2024 11:08 AM [facility] Ketones, Urine Negative Negative mg/dL LAB URINALYSIS - AUTOMATED METHOD 09/28/2024 11:08 AM [facility] Urobilinogen, Urine 2.0(A) 0.2 - 1.0 mg/dL LAB URINALYSIS - AUTOMATED METHOD 09/28/2024 11:08 AM [facility] Bilirubin, Urine Negative Negative LAB URINALYSIS - AUTOMATED METHOD 09/28/2024 11:08 AM [facility] Blood, Urine Negative Negative LAB URINALYSIS - AUTOMATED METHOD 09/28/2024 11:08 AM [facility] Urine Urine specimen obtained by clean catch procedure / Unknown Non-blood Collection / Unknown 09/28/2024 5:30 AM EDT 09/28/2024 9:49 AM EDT us Samuel Doran MD LAB URINE ORDERABLES Final Res ult [facility] [address] [place] [address], * Ndiaye urine culture tube (09/28/2024 5:30 AM EDT) Extra Tube Hold for add-ons. 09/28/2024 11:01 AM EDT [facility] Comment:Auto resulted. Urine Urine specimen obtained by clean catch procedure / Unknown Non-blood Collection / Unknown 09/28/2024 5:30 AM EDT 09/28/2024 9:49 AM EDT us Samuel Doran MD LAB URINE ORDERABLES Final Res ult [facility] [address] [place] [address], documented in this encounter Visit Diagnoses Diagnosis Dysuria documented in this encounter Care Teams Dairy Store Manager Relationship Specialty Start Date End Date Christian Garza PA [address] [place] [id number] PCP - General 09/28/24 documented as of this encounter
== END 2025-03-29 17:00 | disposition home or self-care (01) ==
LOC: HO.HMCFM 15:38
PROVIDERS: PCP Physician Assistant Medical; Visit Provider Physician Assistant Medical
DX: E11.65 Type 2 diabetes mellitus with hyperglycemia (principal); R11.10 Vomiting, unspecified; R53.82 Chronic fatigue, unspecified; R42 Dizziness and giddiness; I69.30 Unspecified sequelae of cerebral infarction; I67.7 Cerebral arteritis, not elsewhere classified; G08 Intracranial and intraspinal phlebitis and thrombophlebitis; I77.6 Arteritis, unspecified; B37.0 Candidal stomatitis

== ENCOUNTER 2025-04-01 11:26 | Outpatient (AMB) | payer OTHER, SELFPAY ==
--- OUTSIDE RECORDS SUMMARY | 2025-03-26 23:59 | XMS_ITS | Continuity of Care Document ---
Author Organization [facility] Address [address], [address], [address] [place] [id number] Care Team Providers Care Trench Digger Name Role Phone Audra Santo Primary [facility] Phys[id number] Date(s): 11/26/24 - 03/26/25 [facility] [address] 3rd [address], [address] [place] [id number] Attending Physician: Beverley Boland MD Admitting Physician: Beverley Boland MD Encounter Type: Pre-OutPatient One Time Allergies, Adverse Reactions, Alerts Substance Criticality Severity Reaction Reaction Severity Status Dilaudid hives Active dulaglutide Active Immunizations Given and Recorded Vaccine Date Status Refusal Reason influenza virus vaccine, inactivated 03/15/23 Jose rded influenza virus vaccine, inactivated 04/20/22 Jose rded influenza virus vaccine, inactivated 03/07/21 Jose rded influenza virus vaccine, inactivated 02/24/20 Jose rded influenza virus vaccine, inactivated 03/21/19 Jose rded influenza virus vaccine, inactivated 03/14/18 Jose rded tetanus-diphtheria toxoids (Td) 12/21/22 Given tetanus-diphtheria toxoids (Td) 07/04/01 Recorded SARS-CoV-2 (COVID-19) mRNA-1273 vaccine 09/11/20 R ecorded SARS-CoV-2 (COVID-19) mRNA-1273 vaccine 08/13/20 R ecorded pneumococcal 23-valent vaccine 02/24/20 Recorded Zoster Vaccine Live 07/31/19 Recorded zoster vaccine, inactivated 05/16/19 Recorded tetanus/diphtheria/pertussis, acel(Tdap) 01/11/10 Recorded Medications amLODIPine 5 mg oral tablet 1 tablet = 5 mg, By Mouth, Daily, # 30 tablet, 0 Refills, Maintenance, 08/19/24 6:43:00 AM EDT, Tablet, Partial fill upon patient request if the prescription is for a schedule II opioid drug. Start Date: 08/19/24 Status: Ordered Medication Dispense Status: Completed Quantity: 30.0 Unit: tablet Total Allowed Fills: 1 Fills Dispensed: 0 aspirin 81 mg oral delayed release tablet 81 mg, 1, tablet, By Mouth, Daily, # 90 tablet, Refills 0, Tot. Refills 0, Maintenance, 08/25/24 2:05:00 PM EDT, Route to Pharmacy Electronically, [facility]/pharmacy #[id number], Partial fill upon patient requestif the prescription is for a schedule II opioid drug., 163, cm, 08/20/24 15:03:00 EDT, Height, 62.2, kg, 08/20/24 3:36:00 EDT, Dry Weight Start Date: 08/25/24 Stop Date: 11/23/24 Status: Ordered Medication Dispense Status: Completed Quantity: 90.0 Unit: tablet Total Allowed Fills: 1 Fills Dispensed: 0 baclofen 5 mg oral tablet 1 tablet = 5 mg, By Mouth, 3 times a day, # 270 tablet, 3 Refills, Maintenance, 12/16/24 10:29:00 AMEDT, Tablet, [facility]/pharmacy #[id number], Partial fill upon patient request if the prescription is for a schedule II opioid drug., 162, cm, 12/02/24 7:57:00 EDT, Height, 61.3, kg, 11/29/24 12:58:00 EDT, Dry Weight Start Date: 12/16/24 Status: Ordered Medication Dispense Status: Completed Quantity: 270.0 Unit: tablet Total Allowed Fills: 4 Fills Dispensed: 0 calcium carbonate-simethicone 400 mg-40 mg oral tablet, chewable 1 tablet, Daily, 0 Refills, Maintenance, 01/20/25 10:09:00 AM EDT, Partial fill upon patient requestif the prescription is for a schedule II opioid drug. Start Date: 01/20/25 Status: Ordered Medication Dispense Status: Completed Total Allowed Fills: 1 Fills Dispensed: 0 Colace Capsule 100 mg, 1, capsule, By Mouth, 2 times a day, Refills 0, Maintenance, 09/17/24 2:50:00 PM EDT, Partial fill upon patient request if the prescription is for a schedule II opioid drug. Start Date: 09/17/24 Status: Ordered Medication Dispense Status: Completed Total Allowed Fills: 1 Fills Dispensed: 0 glipiZIDE 5 mg oral tablet Refills 0, Maintenance, 12/21/22 8:27:00 AM EDT, Partial fill upon patient request if the prescription is for a schedule II opioid drug. Start Date: 12/21/22 Status: Ordered Medication Dispense Status: Completed Total Allowed Fills: 1 Fills Dispensed: 0 hydrOXYzine hydrochloride 25 mg oral tablet Daily at bedtime Start Date: 08/19/24 Status: Ordered Medication Dispense Status: Completed Total Allowed Fills: 1 Fills Dispensed: 0 Insulin Lispro KwikPen 100 units/mL injectable solution See Instructions Start Date: 11/29/24 Status: Ordered Medication Dispense Status: Completed Total Allowed Fills: 1 Fills Dispensed: 0 Lantus Inj 0.12 mL = 12 units, Subcutaneous Injection, Daily at bedtime, 0 Refills, Maintenance, 09/17/24 2:50:00 PM EDT, Injection, Partial fill upon patient request if the prescription is for a schedule II opioid drug. Start Date: 09/17/24 Status: Ordered Medication Dispense Status: Completed Total Allowed Fills: 1 Fills Dispensed: 0 lisinopril 5 mg oral tablet 5 mg, By Mouth, Daily, Refills 0, Maintenance, 09/17/24 2:50:00 PM EDT, Partial fill upon patient request if the prescription is for a schedule II opioid drug. Start Date: 09/17/24 Status: Ordered Medication Dispense Status: Completed Total Allowed Fills: 1 Fills Dispensed: 0 losartan 100 mg oral tablet 1 tablet = 100 mg, By Mouth, Daily, # 90 tablet, 3 Refills, Maintenance, 12/21/22 8:41:00 AM EDT, Tablet, [facility]/pharmacy #[id number], Partial fill upon patient request if the prescription is for a schedule IIopioid drug., 165, cm, 12/21/22 8:27:00 EDT, Height, 77.4, kg, 11/24/21 8:11:00 EDT, Dry Weight Start Date: 12/21/22 Status: Ordered Medication Dispense Status: Completed Quantity: 90.0 Unit: tablet Total Allowed Fills: 4 Fills Dispensed: 0 melatonin 3 mg oral tablet 1 tablet = 3 mg, By Mouth, Daily at bedtime, 0 Refills, Maintenance, 01/20/25 10:10:00 AM EDT, Partial fill upon patient request if the prescription is for a schedule II opioid drug. Start Date: 01/20/25 Status: Ordered Medication Dispense Status: Completed Total Allowed Fills: 1 Fills Dispensed: 0 MetFORMIN (Eqv-Glucophage XR) 500 mg oral tablet, extended release TAKE 2 TABLETS BY MOUTH TWICE A DAY Start Date: 08/19/24 Status: Ordered Medication Dispense Status: Completed Total Allowed Fills: 1 Fills Dispensed: 0 Multi Vitamin+ 0 Refills, Maintenance, 04/17/19 1:09:08 PM EST Start Date: 04/17/19 Status: Ordered Medication Dispense Status: Completed Total Allowed Fills: 1 Fills Dispensed: 0 Ozempic 8 mg/3 mL (2 mg dose) subcutaneous solution = 2 mg, Subcutaneous Injection, Every week, in the abdomen, thigh, or upper arm, # 3 mL, 0 Refills,Maintenance, 08/19/24 6:44:00 AM EDT, Solution, Partial fill upon patient request if the prescription is for a schedule II opioid drug. Start Date: 08/19/24 Status: Ordered Medication Dispense Status: Completed Quantity: 3.0 Unit: mL Total Allowed Fills: 1 Fills Dispensed: 0 pantoprazole 40 mg oral delayed release tablet = 40 mg, By Mouth, Daily, 0 Refills, Maintenance, 09/17/24 2:50:00 PM EDT, EC Tablet Start Date: 09/17/24 Status: Ordered Medication Dispense Status: Completed Total Allowed Fills: 1 Fills Dispensed: 0 Plavix 75 mg oral tablet 75 mg, 1, tablet, By Mouth, Daily, # 30 tablet, Refills 0, Tot. Refills 0, Maintenance, 02/05/25 2:14:00 PM EDT, Route to Pharmacy Electronically, [facility]/pharmacy #[id number], Partial fill upon patient request if the prescription is for a schedule II opioid drug., 162, cm, 01/20/25 10:10:00 EDT, Height, 61.3,kg, 11/29/24 12:58:00 EDT, Dry Weight Start Date: 02/05/25 Status: Ordered Medication Dispense Status: Completed Quantity: 30.0 Unit: tablet Total Allowed Fills: 1 Fills Dispensed: 0 predniSONE 10 mg oral tablet 1 tablet = 10 mg, By Mouth, Daily, # 28 tablet, 0 Refills, Maintenance, 12/07/24 11:51:00 PM EDT, [facility]/pharmacy #[id number], Partial fill upon patient request if the prescription is for a schedule II opioid drug., 162, cm, 12/02/24 7:57:00 EDT, Height, 61.3, kg, 11/29/24 12:58:00 EDT, Dry Weight Start Date: 12/07/24 Stop Date: 01/04/25 Status: Ordered Medication Dispense Status: Completed Quantity: 28.0 Unit: tablet Total Allowed Fills: 1 Fills Dispensed: 0 Indications: Cerebral arteritis, not elsewhere classified; predniSONE 20 mg oral tablet = 50 mg, By Mouth, Daily, 0 Refills, Maintenance, 09/17/24 2:50:00 PM EDT, Tablet, Partial fill uponpatient request if the prescription is for a schedule II opioid drug. Start Date: 09/17/24 Status: Ordered Medication Dispense Status: Completed Total Allowed Fills: 1 Fills Dispensed: 0 rosuvastatin 40 mg oral tablet 1 tablet = 40 mg, By Mouth, Daily, # 90 tablet, 0 Refills, Maintenance, 08/25/24 2:06:00 PM EDT, Tablet, [facility]/pharmacy #[id number], Partial fill upon patient request if the prescription is for a schedule II opioid drug., 163, cm, 08/20/24 15:03:00 EDT, Height, 62.2, kg, 08/20/24 3:36:00 EDT, Dry Weight Start Date: 08/25/24 Stop Date: 6/23/25 Status: Ordered Medication Dispense Status: Completed Quantity: 90.0 Unit: tablet Total Allowed Fills: 1 Fills Dispensed: 0 Sertraline By Mouth, Daily, 0 Refills, Maintenance, 11/29/24 7:27:00 PM EDT, Partial fill upon patient request if the prescription is for a schedule II opioid drug. Start Date: 11/29/24 Status: Ordered Medication Dispense Status: Completed Total Allowed Fills: 1 Fills Dispensed: 0 Problem List Condition Confirmation Course Effective Dates Status Health Status Informant Anxiety Confirmed Active Benign paroxysmal positional vertigo Confirmed Active COVID-19 1 Confirmed 08/20/24 Active Other disorders of iron metabolism Confirmed Active Family history of cancer of colon Confirmed 1999 Active Gastro-esophageal reflux disease Confirmed 1992 Active Herpes simplex Confirmed Active Hypercholesteremia Confirmed Active Hyperplastic polyp of large intestine Confirmed Active Hypersomnia Confirmed Active Hypertension Confirmed Active Microalbuminuria Confirmed Active OBESITY Confirmed 2004 Active Mild obstructive sleep apnea Confirmed Active Restless leg syndrome Confirmed Active Ruptured hamstring tendon Confirmed Active Squamous cell carcinoma of skin Confirmed Active 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 Smoking Status Former smoker entered on: 03/18/15 Sex Sex Representation Female (finding) Patient Care team information Care Team Personnel Name: Jon Wilkins RN Position: [facility] RN Member Role: Primary Care Nurse Name: Kim Pagan LPN Position: [facility] RN Member Role: Primary Care Nurse Name: Manuela Gonzalez RN Position: [facility] RN Member Role: Primary Care Nurse Name: Johnson Varela RN Position: [facility] RN Member Role: Primary Care Nurse Name: Alfredo Figueroa RN Position: [facility] RN Member Role: Primary Care Nurse Name: Jed Mann RN Position: [facility] RN Member Role: Primary Care Nurse Name: Yulisa Yoder RN Position: [facility] Onco RN Member Role: Primary Care Nurse Name: Lefty Vasquez RN Position: [facility] RN Member Role: Primary Care Nurse Name: Hermilo Yen RN Position: [facility] RN Member Role: Primary Care Nurse Name: Enedina Joy RN Position: [facility] RN Member Role: Primary Care Nurse Name: Suresh Aviles RN Position: [facility] RN Member Role: Primary Care Nurse Name: Barb Wagner RN Position: S RN Member Role: Primary Care Nurse Name: Toshia Richardson RN Position: S RN Member Role: Primary Care Nurse Name: Audra Santo Position: Reference Physician Member Role: PCP Address: [address] [place] [id number] Telecom: Name: Nyasia Wong RN Position: S RN Member Role: Primary Care Nurse Name: Caitie Chinchilla RN Position: S RN Member Role: Primary Care Nurse Name: Tyesha Valenzuela Position: S RN Member Role: Primary Care Nurse Name: Marija Fernandes RN Position: S RN Member Role: Primary Care Nurse Name: Roddy Macario RN Position: [facility] RN Member Role: Primary Care Nurse Name: Debbi Joe RN Position: S RN Member Role: Primary Care Nurse Name: Kevin Madrigal RN Position: [facility] RN Member Role: Primary Care Nurse Name: Don Monzon RN Position: [facility] RN Member Role: Primary Care Nurse Care Team Related Persons Name: ALEC ROGERS Name: JORGE A DIAZ Name: RAMONA DIAZ Insurance Providers Guarantor name: [facility] Information #: 1 Payer: [facility] [employer] Payer Identifier: AMBERLY Member Number: [id number] Group Number: [id number] Subscriber Identifier: [id number] Relationship to Subscriber: spouse Coverage Type: Commercial Indemnity Coverage Verification Date: Telecom: NA Address: NA
--- NOTE | 2025-04-01 11:41 | A.OFFVIS_ITS ---
VS Expanded 04/01/25 11:42 Height 5 ft 4 in Weight 124 lb 8.979 oz BMI 21.4 Intake Visit Reasons: Type 2 diabetes mellitus with hyperglycemia Allergies No Known Allergies Allergy (Verified 03/29/25 15:50) Medication List - Last Reconciled 04/01/[address], LDN amlodipine 5 mg PO DAILY aspirin 81 mg PO DAILY baclofen 5 mg PO TID blood pressure monitor As directed blood-glucose meter (FreeStyle [place] Lite kit) As directed blood-glucose sensor (DexFarmaciaClub G7 Sensor device) apply to skin and replace after 10 days to monitor blood glucose for type 2 diabetes blood-glucose,marketing project lead,cont (Dexcom G7 Hospitality Specialist) As directed clopidogrel (Plavix) 75 mg PO DAILY dextrose (TRUEplus Glucose) 15 grams (32 mL) PO Q15M PRN hydroxyzine HCl 25 mg PO BEDTIME insulin lispro subcutaneously use as directed; Lispro three times a day with meals 121-200: 2 units 201-250: 4 units 251-300: 6 units 301-350: 8 units 351- 400: 10 units 400+ 10 units max 30 units daily losartan 100 mg PO DAILY melatonin 6 mg (2 x 3 mg) PO BEDTIME PRN metformin ER 1,000 mg (2 x 500 mg) PO BID 90 days multivitamin (Daily Multi-Vitamin tablet) 1 tab PO DAILY nystatin 500,000 units (5 mL) PO QID 10 days pantoprazole (Protonix) 40 mg (2 x 20 mg) PO DAILY pen needle, diabetic To use with insulin injections four times daily rosuvastatin 40 mg PO DAILY semaglutide (Ozempic) 2 mg (0.75 mL) subcut QWEEK sertraline 50 mg PO DAILY Nutrition Presentation Details: Pt presents for MNT for T2DM Pt presents with her during this appt. He assists with meal planning Pt reports appetite is low, reports vomiting after or before meals. reports it is at random, this morning Pt vomited without having breakfast and last meal last night was at 5 pm. Pt is followed by PCP, Pt reports having low blood glucose at night , alarmed by glucose sensor. Pt reports that her will monitor by finger stick and bg is in the 100s. However, she still drinks juice to treat the low blood sugar or may have piece of cake last dinner meal : steak, pasta , juice treats low BG with juice and high fat snack Hx: stroke in August undergoing PT and OT , uses cane to walk BS Monitoring Most Recent Diabetes Results: Creatinine, (0.5-1.4) 0.76 mg/dL 01/01/25 BUN, (9-16) 19 mg/dL H 01/01/25 Sodium, (135-145) 139 mmol/L 01/01/25 Potassium, (3.3-5.1) 4.2 mmol/L 01/01/25 Chloride, (96-108) 102 mmol/L 01/01/25 Carbon Dioxide, (22-29) 28 mmol/L 01/01/25 Calcium, (8.4-10.2) 10.0 mg/dL 01/01/25 AST, (5-31) 31 U/L 01/01/25 ALT, (0-31) 46 U/L H 01/01/25 Total Protein, (6.5-8.0) 7.4 g/dL 01/01/25 Albumin, (3.5-5.0) 4.7 g/dL 01/01/25 PCN-Hkxmfxz-Zl.Jeor Equation Height: 5 ft 4 in Weight: 125 lb Resting Metabolic Rate: 1136.06 Calculated Activity Level: Mild Activity Calories Needed to Maintain Weight: 1562.08 Diagnosis Nutrition problem #1: food nutri know defi As related to (etiology) #1: diagnosis As evidenced by (sign/symptom) #1: knowledge deficit of diet [facility] Medical History (Updated 03/30/25 @ 12:31 by LARY Mejía) Oral thrush Dizziness Vomiting Nausea & vomiting Frequent UTI Long-term insulin use Multinodular thyroid Asterixis Acute UTI Low TSH level Complicated UTI (urinary tract infection) Bacteremia Tachycardia Depression with anxiety 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 Hospital discharge follow-up History of CVA with residual deficit Thyroid nodule LFT elevation Atrophy of muscle of left lower leg Weakness of left leg Floaters RUQ abdominal pain Lumbosacral radiculopathy Hiatal hernia Hepatic steatosis Microalbuminuria Renal cyst, left Renal lesion Gallbladder polyp Anxiety Pure hypercholesterolemia Left upper quadrant pain Fatigue Essential hypertension Type 2 diabetes mellitus Torn ligament High cholesterol High blood pressure Diabetes Family History Father Colon cancer Mother Diabetes Social History Household Members: Significant Other Housing: House Are you a primary memory care program director to a significant other at home: No Do you presently have visiting nurse or other home services: No Alcohol intake: never Patient Tobacco Use Status: Former Tobacco user e-Cigarette/Vaping Use: Currently Using Second Hand Smoke Exposure: No Special reanna needs: No service: No Current occupational status: employed Current occupation: service diapatcher Cognitive needs: No Hearing needs: No Vision needs: Yes (Patient wears glasses.) Assessment & Plan Assessment & Plan (1) Type 2 diabetes mellitus: Code(s): E11.9 - Type 2 diabetes mellitus without complications Category: Medical Qualifiers: Diabetes mellitus nursing home insulin use: without intermodal owner operator truck driver use Diabetes mellitus complication status: with hyperglycemia Qualified Code(s): E11.65 - Type 2 diabetes mellitus with hyperglycemia Plan: current wt:56 kg ( 03/27 ) est kcal needs as per MSJ: 1600 est protein needs as per 1 g/kg BW: 60 est fluid needs as per 30 ml/kg BW: 1700 Recommended fiber > 12 g /day and gradually increase up to 25-28 g /day or as tolerated Nutrition topics discussed : Reviewed (R), Pt verbalized understanding (V) , not applicable (N/A) R, : Healthy Plate Method Concept: R: Hypoglycemia treatment and prevention: (follow rule of 15 if having low blood sugar : 3-4 glucose tabes or 1/2 cup of juice , wait 15 minutes and recheck blood sugar, repeat treatment if blood sugar is below 70 mg/dl) R, V, N/A: Carbohydrates: food sources of carbohydrates, relationship of carbohydrates to blood glucose, fatty liver GI health. Recommended total amount of carbohydrates per meals and snack. Differences between simple carbohydrates and complex carbohydrates R, V, N/A: Lean protein foods including vegan , vegetarian sources of protein. Benefits of protein (including but not limited to healing, nutritional value , benefits in weight loss, glucose control R, V, N/A: Fats : Source of fats, benefits of fats. Difference between saturated and unsaturated fats. Saturated fats and its contribution to inflammation R, V, N/A: Fiber: food sources and role of fiber in the diet (including but not limited to its role as a prebiotic, benefits in constipation, role in IBS , role in glucose control and cholesterol level) R, V, N/A: Hydration: role of hydration and prevention of dehydration or over hydration. Foods and water content. R, V, N/A: Vitamins and Minerals in foods and supplements R, V, N/A: Interpreting food labels, including serving size, macronutrients, vitamins, minerals, allergens, ingredient list , % daily value Patient Instructions: Include protein in your meals (cottage cheese, yogurt, have a protein shake instead of skipping a meal) - see 1600 daniel meal plan Treat low blood glucose by having 3 gluc tabs or 1/2 cup of apple juice (choose simple carbs, low fat food options) re test blood sugar 15 minutes after , repeat treatment if blood sugar continues below 70 ) do not choose high fat food to treat low blood glucose, it may exacerbate your stomach in the morning - high fat may trigger nausea/vomiting Coding Level of Care Code Nutr Indiv Intake (63900) Diagnoses Type 2 diabetes mellitus with hyperglycemia, without long-term current use of insulin E11.65 Diabetes mellitus intermodal owner operator truck driver insulin use: without nursing home use Diabetes mellitus complication status: with hyperglycemia Time Spent (min) 30
[2025-04-01 11:42] VITALS: BMI 21.4
--- OUTSIDE RECORDS SUMMARY | 2025-04-01 14:21 | XMS_ITS | Encounter Summary ---
Author Organization [facility] Address [address] [place] [address] Care Team Providers Care Bus Driver Supervisor Name Role Phone Genejeyson Christian BARTH Primary Care Provider [phone] Encounter Details Date Type Department Care Team (Late st Contact Info) Description 09/18/2024 Lab Requisition [facility] - Main Lab 299 [facility] [place] [address] Samuel Doran MD [address] [place] [id number] Encounter for other general examination Social History [...] CBC auto differential (09/18/2024 5:35 AM EDT) [facility] WBC 13.8(H) 4.8 - 10.8 K/mcL LAB HEMETOLOGY METHOD 09/18/2024 11:36 AM [facility] RBC 3.80 3.80 - 4.80 M/mcL LAB HEMETOLOGY METHOD 09/18/2024 11:36 AM [facility] Hemoglobin 10.9(L) 11.5 - 16.0 g/dL LAB HEMETOLOGY METHOD 09/18/2024 11:36 AM [facility] Hematocrit 33.1(L) 35.0 - 47.0 % LAB HEMETOLOGY METHOD 09/18/2024 11:36 AM [facility] MCV 87.6 79.0 - 98.0 FL LAB HEMETOLOGY METHOD 09/18/2024 11:36 AM [facility] MCH 28.8 27.0 - 32.0 pcg LAB HEMETOLOGY METHOD 09/18/2024 11:36 AM [facility] MCHC 32.9 32.0 - 37.0 g/dL LAB HEMETOLOGY METHOD 09/18/2024 11:36 AM [facility] RDW 13.6 11.0 - 15.0 % LAB HEMETOLOGY METHOD 09/18/2024 11:36 AM [facility] Platelets 230 130 - 400 K/mcL LAB HEMETOLOGY METHOD 09/18/2024 11:36 AM [facility] MPV 9.3 7.0 - 11.0 FL LAB HEMETOLOGY METHOD 09/18/2024 11:36 AM [facility] NRBC 0.0 <1.0 % LAB HEMETOLOGY METHOD 09/18/2024 11:36 AM [facility] NRBC Absolute 0.00 <0.10 K/mcL LAB HEMETOLOGY METHOD 09/18/2024 11:36 AM [facility] Neutrophils Relative 70.6 % LAB HEMETOLOGY METHOD 09/18/2024 11:36 AM [facility] Lymphocytes Relative 21.1 % LAB HEMETOLOGY METHOD 09/18/2024 11:36 AM [facility] Monocytes Relative 7.1 % LAB HEMETOLOGY METHOD 09/18/2024 11:36 AM [facility] Eosinophils Relative 0.7 % LAB HEMETOLOGY METHOD 09/18/2024 11:36 AM [facility] Basophils Relative 0.1 % LAB HEMETOLOGY METHOD 09/18/2024 11:36 AM [facility] Immature Granulocytes Relative 0.4 % LAB HEMETOLOGY METHOD 09/18/2024 11:36 AM [facility] Neutrophils Absolute 9.75(H) 1.50 - 7.00 K/mcL LAB HEMETOLOGY METHOD 09/18/2024 11:36 AM [facility] Lymphocytes Absolute 2.92 1.00 - 5.00 K/mcL LAB HEMETOLOGY METHOD 09/18/2024 11:36 AM [facility] Monocytes Absolute 0.98 0.20 - 1.00 K/mcL LAB HEMETOLOGY METHOD 09/18/2024 11:36 AM [facility] Eosinophils Absolute 0.09 0.00 - 0.50 K/mcL LAB HEMETOLOGY METHOD 09/18/2024 11:36 AM [facility] Basophils Absolute 0.02 0.00 - 0.20 K/mcL LAB HEMETOLOGY METHOD 09/18/2024 11:36 AM [facility] Immature Granulocytes Absolute 0.06(H) 0.00 - 0.03 K/mcL LAB HEMETOLOGY METHOD 09/18/2024 11:36 AM [facility] Blood Venous blood specimen / Unknown Venipuncture / Unknown 09/18/2024 5:35 AM EDT 09/18/2024 11:00 AM EDT Samuel Doran MD LAB BLOOD ORDERABLES Final Res ult Performing Organization Address [facility]/ZIP Co de Phone Number [facility] [address] [place] [address], [place] [phone] * Magnesium (09/18/2024 5:35 AM EDT) Magnesium 2.6 1.9 - 2.6 mg/dL LAB CHEMISTRY METHOD 09/18/2024 1:09 PM EDT [facility] Blood Venous blood specimen / Unknown Venipuncture / Unknown 09/18/2024 5:35 AM EDT 09/18/2024 11:00 AM EDT Samuel Doran MD LAB BLOOD ORDERABLES Final Res ult Performing Organization Address [facility]/ZIP Co de Phone Number [facility] [address] [place] [address], [place] [phone] * (ABNORMAL) Comprehensive metabolic panel (09/18/2024 5:35 AM EDT) Sodium 140 133 - 145 mmol/L LAB CHEMISTRY METHOD 09/18/2024 1:19 PM EDT [facility] Potassium 4.1 3.5 - 5.5 mmol/L LAB CHEMISTRY METHOD 09/18/2024 1:19 PM EDT [facility] Chloride 102 96 - 110 mmol/L LAB CHEMISTRY METHOD 09/18/2024 1:19 PM EDT [facility] CO2 32 21 - 32 mmol/L LAB CHEMISTRY METHOD 09/18/2024 1:19 PM EDT [facility] Anion Gap 6 3 - 11 LAB CHEMISTRY METHOD 09/18/2024 1:19 PM [facility] Glucose 175(H) 70 - 100 mg/dL LAB CHEMISTRY METHOD 09/18/2024 1:19 PM [facility] BUN 19 5 - 25 mg/dL LAB CHEMISTRY METHOD 09/18/2024 1:19 PM [facility] Creatinine 0.63 0.50 - 1.10 mg/dL LAB CHEMISTRY METHOD 09/18/2024 1:19 PM [facility] eGFR 103 >=60 mL/min/1. 73m2 LAB CHEMISTRY METHOD 09/18/2024 1:19 PM [facility] Comment:Calculation based on the Chronic Kidney Disease Epidemiology Collaboration (CKD-EPI) equation refit without adjustment for race. BUN/Creatinine Ratio 30.2 LAB CHEMISTRY METHOD 09/18/2024 1:19 PM [facility] Calcium 9.0 8.5 - 10.5 mg/dL LAB CHEMISTRY METHOD 09/18/2024 1:19 PM [facility] AST (SGOT) 26 10 - 42 unit/L LAB CHEMISTRY METHOD 09/18/2024 1:19 PM [facility] ALT (SGPT) 48 10 - 60 unit/L LAB CHEMISTRY METHOD 09/18/2024 1:19 PM [facility] Alkaline Phosphatase 61 42 - 121 unit/L LAB CHEMISTRY METHOD 09/18/2024 1:19 PM [facility] Total Protein 5.4(L) 6.0 - 8.0 g/dL LAB CHEMISTRY METHOD 09/18/2024 1:19 PM [facility] Albumin 2.7(L) 3.2 - 5.0 g/dL LAB CHEMISTRY METHOD 09/18/2024 1:19 PM [facility] Total Bilirubin 0.7 0.0 - 1.4 mg/dL LAB CHEMISTRY METHOD 09/18/2024 1:19 PM EDT [facility] Blood Venous blood specimen / Unknown Venipuncture / Unknown 09/18/2024 5:35 AM EDT 09/18/2024 11:00 AM EDT us Samuel Doran MD LAB BLOOD ORDERABLES Final Res ult [facility] [address] [place] [address], documented in this encounter Visit Diagnoses Diagnosis Encounter for other general examination documented in this encounter Care Teams Bus Driver Supervisor Relationship Specialty Start Date End Date Christian Garza PA [address] [place] [phone] PCP - General 09/28/24 documented as of this encounter
--- OUTSIDE RECORDS SUMMARY | 2025-04-01 14:21 | XMS_ITS | Encounter Summary ---
Author Organization [facility] Address [address] [place] [address] Care Team Providers Care Workers' Compensation Claims Examiner Name Role Phone Geenjeyson Christian BARTH Primary Care Provider [phone] Encounter Details Date Type Department Care Team (Late st Contact Info) Description 09/29/2024 Lab Requisition [facility] - Main Lab 299 [facility] [employer] [place] [address] Samuel Doran MD [address] [place] [address] Encounter for other general examination Social History [...] AM EDT) WBC 12.3(H) 4.8 - 10.8 K/[facility] LAB HEMETOLOGY METHOD 09/29/2024 10:51 AM [facility] LAB RBC 4.00 3.80 - 4.80 M/mcL LAB HEMETOLOGY METHOD 09/29/2024 10:51 AM [facility] LAB Hemoglobin 11.7 11.5 - 16.0 g/dL LAB HEMETOLOGY METHOD 09/29/2024 10:51 AM [facility] LAB Hematocrit 37.0 35.0 - 47.0 % LAB HEMETOLOGY METHOD 09/29/2024 10:51 AM [facility] LAB MCV 93.0 79.0 - 98.0 FL LAB HEMETOLOGY METHOD 09/29/2024 10:51 AM [facility] LAB MCH 29.4 27.0 - 32.0 pcg LAB HEMETOLOGY METHOD 09/29/2024 10:51 AM [facility] LAB MCHC 31.6(L) 32.0 - 37.0 g/dL LAB HEMETOLOGY METHOD 09/29/2024 10:51 AM [facility] LAB RDW 14.8 11.0 - 15.0 % LAB HEMETOLOGY METHOD 09/29/2024 10:51 AM [facility] LAB Platelets 301 130 - 400 K/mcL LAB HEMETOLOGY METHOD 09/29/2024 10:51 AM [facility] LAB MPV 8.8 7.0 - 11.0 FL LAB HEMETOLOGY METHOD 09/29/2024 10:51 AM [facility] LAB NRBC 0.0 <1.0 % LAB HEMETOLOGY METHOD 09/29/2024 10:51 AM [facility] LAB NRBC Absolute 0.00 <0.10 K/mcL LAB HEMETOLOGY METHOD 09/29/2024 10:51 AM [facility] LAB Neutrophils Relative 70.3 % LAB HEMETOLOGY METHOD 09/29/2024 10:51 AM [facility] LAB Lymphocytes Relative 19.9 % LAB HEMETOLOGY METHOD 09/29/2024 10:51 AM [facility] LAB Monocytes Relative 8.2 % LAB HEMETOLOGY METHOD 09/29/2024 10:51 AM [facility] LAB Eosinophils Relative 0.9 % LAB HEMETOLOGY METHOD 09/29/2024 10:51 AM [facility] LAB Basophils Relative 0.2 % LAB HEMETOLOGY METHOD 09/29/2024 10:51 AM [facility] LAB Immature Granulocytes Relative 0.5 % LAB HEMETOLOGY METHOD 09/29/2024 10:51 AM [facility] LAB Neutrophils Absolute 8.67(H) 1.50 - 7.00 K/mcL LAB HEMETOLOGY METHOD 09/29/2024 10:51 AM [facility] LAB Lymphocytes Absolute 2.45 1.00 - 5.00 K/mcL LAB HEMETOLOGY METHOD 09/29/2024 10:51 AM [facility] LAB Monocytes Absolute 1.01(H) 0.20 - 1.00 K/mcL LAB HEMETOLOGY METHOD 09/29/2024 10:51 AM [facility] LAB Eosinophils Absolute 0.11 0.00 - 0.50 K/mcL LAB HEMETOLOGY METHOD 09/29/2024 10:51 AM [facility] LAB Basophils Absolute 0.03 0.00 - 0.20 K/mcL LAB HEMETOLOGY METHOD 09/29/2024 10:51 AM [facility] LAB Immature Granulocytes Absolute 0.06(H) 0.00 - 0.03 K/mcL LAB HEMETOLOGY METHOD 09/29/2024 10:51 AM [facility] LAB Blood Venous blood specimen / Unknown Venipuncture / Unknown 09/29/2024 5:36 AM EDT 09/29/2024 9:45 AM EDT us Samuel Doran MD LAB BLOOD ORDERABLES Final Res ult [facility] [address] [place] [address], [place] [phone] * (ABNORMAL) Comprehensive metabolic panel (09/29/2024 5:36 AM EDT) Pathologist [facility] Sodium 137 133 - 145 mmol/L LAB CHEMISTRY METHOD 09/29/2024 11:34 AM [facility] LAB Potassium 4.4 3.5 - 5.5 mmol/L LAB CHEMISTRY METHOD 09/29/2024 11:34 AM [facility] LAB Chloride 98 96 - 110 mmol/L LAB CHEMISTRY METHOD 09/29/2024 11:34 AM [facility] LAB CO2 31 21 - 32 mmol/L LAB CHEMISTRY METHOD 09/29/2024 11:34 AM [facility] LAB Anion Gap 8 3 - 11 LAB CHEMISTRY METHOD 09/29/2024 11:34 AM [facility] LAB Glucose 78 70 - 100 mg/dL LAB CHEMISTRY METHOD 09/29/2024 11:34 AM [facility] BUN 22 5 - 25 mg/dL LAB CHEMISTRY METHOD 09/29/2024 11:34 AM [facility] LAB Creatinine 0.69 0.50 - 1.10 mg/dL LAB CHEMISTRY METHOD 09/29/2024 11:34 AM [facility] LAB eGFR 101 >=60 mL/min/1. 73m2 LAB CHEMISTRY METHOD 09/29/2024 11:34 AM [facility] LAB Comment:Calculation based on the Chronic Kidney Disease Epidemiology Collaboration (CKD-EPI) equation refit without adjustment for race. BUN/Creatinine Ratio 31.9 LAB CHEMISTRY METHOD 09/29/2024 11:34 AM [facility] Calcium 9.8 8.5 - 10.5 mg/dL LAB CHEMISTRY METHOD 09/29/2024 11:34 AM [facility] LAB AST (SGOT) 25 10 - 42 unit/L LAB CHEMISTRY METHOD 09/29/2024 11:34 AM [facility] LAB ALT (SGPT) 72(H) 10 - 60 unit/L LAB CHEMISTRY METHOD 09/29/2024 11:34 AM [facility] LAB Alkaline Phosphatase 76 42 - 121 unit/L LAB CHEMISTRY METHOD 09/29/2024 11:34 AM [facility] Total Protein 5.8(L) 6.0 - 8.0 g/dL LAB CHEMISTRY METHOD 09/29/2024 11:34 AM [facility] LAB Albumin 3.0(L) 3.2 - 5.0 g/dL LAB CHEMISTRY METHOD 09/29/2024 11:34 AM [facility] Total Bilirubin 0.5 0.0 - 1.4 mg/dL LAB CHEMISTRY METHOD 09/29/2024 11:34 AM [facility] Blood Venous blood specimen / Unknown Venipuncture / Unknown 09/29/2024 5:36 AM EDT 09/29/2024 9:45 AM EDT us Samuel Doran MD LAB BLOOD ORDERABLES Final Res ult [facility] [address] [place] [address], documented in this encounter Visit Diagnoses Diagnosis Encounter for other general examination documented in this encounter Care Teams Workers' Compensation Claims Examiner Relationship Specialty Start Date End Date Christian Garza PA [facility] [place] [address] PCP - General 09/28/24 documented as of this encounter
--- OUTSIDE RECORDS SUMMARY | 2025-04-01 14:21 | XMS_ITS | Encounter Summary ---
Author Organization [facility] Address [address] [place] [address] Care Team Providers Care Printing Film Stripper Name Role Phone Greg Christian BARTH Primary Care Provider [phone] Encounter Details Date Type Department Care Team (Late st Contact Info) Description 09/28/2024 Lab Requisition [facility] - Main Lab 299 [facility] [place] [address] Samuel Doran MD [address] [place] [id number] Dysuria Social History Tobacco Use Types Packs/Day [...] and culture (09/28/2024 5:30 AM EDT) Specific [place] Urine 1.017 1.003 - 1.030 LAB URINALYSIS - AUTOMATED METHOD 09/28/2024 11:08 AM [facility] LAB pH, Urine 8.0 5.0 - 8.0 pH LAB URINALYSIS - AUTOMATED METHOD 09/28/2024 11:08 AM [facility] LAB Leukocytes, Urine Negative Negative LAB URINALYSIS - AUTOMATED METHOD 09/28/2024 11:08 AM [facility] Nitrite, Urine Negative Negative LAB URINALYSIS - AUTOMATED METHOD 09/28/2024 11:08 AM [facility] Protein, Urine Negative <=Trace mg/dL LAB URINALYSIS - AUTOMATED METHOD 09/28/2024 11:08 AM [facility] Glucose, Urine Negative Negative mg/dL LAB URINALYSIS - AUTOMATED METHOD 09/28/2024 11:08 AM [facility] Ketones, Urine Negative Negative mg/dL LAB URINALYSIS - AUTOMATED METHOD 09/28/2024 11:08 AM [facility] Urobilinogen, Urine 2.0(A) 0.2 - 1.0 mg/dL LAB URINALYSIS - AUTOMATED METHOD 09/28/2024 11:08 AM [facility] Bilirubin, Urine Negative Negative LAB URINALYSIS - AUTOMATED METHOD 09/28/2024 11:08 AM [facility] Blood, Urine Negative Negative LAB URINALYSIS - AUTOMATED METHOD 09/28/2024 11:08 AM [facility] Urine Urine specimen obtained by clean catch procedure / Unknown Non-blood Collection / Unknown 09/28/2024 5:30 AM EDT 09/28/2024 9:49 AM EDT us Samuel Doran MD LAB URINE ORDERABLES Final Res ult [facility] [address] [place] [address], * Ndiaye urine culture tube (09/28/2024 5:30 AM EDT) Extra Tube Hold for add-ons. 09/28/2024 11:01 AM EDT [facility] Comment:Auto resulted. Urine Urine specimen obtained by clean catch procedure / Unknown Non-blood Collection / Unknown 09/28/2024 5:30 AM EDT 09/28/2024 9:49 AM EDT us Samuel Doran MD LAB URINE ORDERABLES Final Res ult [facility] [address] [place] [address], documented in this encounter Visit Diagnoses Diagnosis Dysuria documented in this encounter Care Teams Printing Film Stripper Relationship Specialty Start Date End Date Christian Garza PA [address] [place] [id number] PCP - General 09/28/24 documented as of this encounter
--- OUTSIDE RECORDS SUMMARY | 2025-04-01 14:21 | XMS_ITS | Patient Health Record ---
Author Organization [facility] Address [address] [place] [address] Care Team Providers Care Dry Cleaning Manager Name Role Phone Yolanda Alfaro MD Primary Care Provider Unavail able Nick Reynolds Unavailable [phone] Reason For Referral No Information Medications Medication [...] Treatment Pending Test Test Name Order Date [id number] NAIL, 6 OR MORE 08/17/2011 [id number] NAIL, 6 OR MORE 08/15/2012 [id number] Plate 08/15/2012 [id number] Plate 08/17/2011 [id number] SKIN LESIONS, OVER 4 08/17/19 12 [id number] SKIN LESIONS, OVER 4 08/16/19 13 Insurance Providers Payer Name Payer Address Payer Phone Subscriber Number Group Number Insured Name Patient Relationship to Insured Coverage Start Date Coverage End Date [facility] [address] [place] [address] [id number] Kranthi Barroso Spouse - patient is the spouse of the insured Medical (General) History Medical History History ICD Code chicken pox diabetes mellitus hypertension psoriasis Surgical History Surgery Date(Month/Year) foot surgery 03/2012 ankle surgery 03/2012 Hospitalization History Reason Date(Month/Year) [place] broken ankle and foot 03/2012
--- OUTSIDE RECORDS SUMMARY | 2025-04-01 14:21 | XMS_ITS | Encounter Summary ---
Author Organization [facility] Address [address] [place] [address] Care Team Providers Care Shipyard Painter Apprentice Name Role Phone Genejeyson Christian BARTH Primary Care Provider [phone] Encounter Details Date Type Department Care Team (Late st Contact Info) Description 09/25/2024 Lab Requisition [facility] - Main Lab 299 [facility] [place] [address] Samuel Doran MD [address] [place] [address] Encounter for other general examination Social History [...] EDT) WBC 11.0(H) 4.8 - 10.8 K/[facility] LAB HEMETOLOGY METHOD 09/25/2024 10:38 AM [facility] RBC 3.70(L) 3.80 - 4.80 M/mcL LAB HEMETOLOGY METHOD 09/25/2024 10:38 AM [facility] Hemoglobin 10.9(L) 11.5 - 16.0 g/dL LAB HEMETOLOGY METHOD 09/25/2024 10:38 AM [facility] LAB Hematocrit 33.5(L) 35.0 - 47.0 % LAB HEMETOLOGY METHOD 09/25/2024 10:38 AM [facility] LAB MCV 91.0 79.0 - 98.0 FL LAB HEMETOLOGY METHOD 09/25/2024 10:38 AM [facility] LAB MCH 29.6 27.0 - 32.0 pcg LAB HEMETOLOGY METHOD 09/25/2024 10:38 AM [facility] LAB MCHC 32.5 32.0 - 37.0 g/dL LAB HEMETOLOGY METHOD 09/25/2024 10:38 AM [facility] LAB RDW 14.6 11.0 - 15.0 % LAB HEMETOLOGY METHOD 09/25/2024 10:38 AM [facility] LAB Platelets 224 130 - 400 K/mcL LAB HEMETOLOGY METHOD 09/25/2024 10:38 AM [facility] LAB MPV 9.4 7.0 - 11.0 FL LAB HEMETOLOGY METHOD 09/25/2024 10:38 AM [facility] NRBC 0.0 <1.0 % LAB HEMETOLOGY METHOD 09/25/2024 10:38 AM [facility] NRBC Absolute 0.00 <0.10 K/mcL LAB HEMETOLOGY METHOD 09/25/2024 10:38 AM [facility] Neutrophils Relative 64.3 % LAB HEMETOLOGY METHOD 09/25/2024 10:38 AM [facility] Lymphocytes Relative 27.2 % LAB HEMETOLOGY METHOD 09/25/2024 10:38 AM [facility] Monocytes Relative 6.9 % LAB HEMETOLOGY METHOD 09/25/2024 10:38 AM [facility] Eosinophils Relative 1.0 % LAB HEMETOLOGY METHOD 09/25/2024 10:38 AM [facility] Basophils Relative 0.2 % LAB HEMETOLOGY METHOD 09/25/2024 10:38 AM [facility] Immature Granulocytes Relative 0.4 % LAB HEMETOLOGY METHOD 09/25/2024 10:38 AM [facility] LAB Neutrophils Absolute 7.09(H) 1.50 - 7.00 K/mcL LAB HEMETOLOGY METHOD 09/25/2024 10:38 AM [facility] LAB Lymphocytes Absolute 3.00 1.00 - 5.00 K/mcL LAB HEMETOLOGY METHOD 09/25/2024 10:38 AM [facility] Monocytes Absolute 0.76 0.20 - 1.00 K/mcL LAB HEMETOLOGY METHOD 09/25/2024 10:38 AM [facility] Eosinophils Absolute 0.11 0.00 - 0.50 K/mcL LAB HEMETOLOGY METHOD 09/25/2024 10:38 AM [facility] Basophils Absolute 0.02 0.00 - 0.20 K/mcL LAB HEMETOLOGY METHOD 09/25/2024 10:38 AM [facility] LAB Immature Granulocytes Absolute 0.04(H) 0.00 - 0.03 K/mcL LAB HEMETOLOGY METHOD 09/25/2024 10:38 AM [facility] Blood Venous blood specimen / Unknown Venipuncture / Unknown 09/25/2024 5:25 AM EDT 09/25/2024 9:26 AM EDT us Samuel Doran MD LAB BLOOD ORDERABLES Final Res ult [facility] [address] [place] [address], [place] [phone] * (ABNORMAL) Comprehensive metabolic panel (09/25/2024 5:25 AM EDT) Sodium 141 133 - 145 mmol/L LAB CHEMISTRY METHOD 09/25/2024 11:08 AM [facility] Potassium 4.0 3.5 - 5.5 mmol/L LAB CHEMISTRY METHOD 09/25/2024 11:08 AM [facility] Chloride 104 96 - 110 mmol/L LAB CHEMISTRY METHOD 09/25/2024 11:08 AM [facility] CO2 31 21 - 32 mmol/L LAB CHEMISTRY METHOD 09/25/2024 11:08 AM [facility] Anion Gap 6 3 - 11 LAB CHEMISTRY METHOD 09/25/2024 11:08 AM [facility] Glucose 49(L) 70 - 100 mg/dL LAB CHEMISTRY METHOD 09/25/2024 11:08 AM [facility] BUN 21 5 - 25 mg/dL LAB CHEMISTRY METHOD 09/25/2024 11:08 AM [facility] Creatinine 0.50 0.50 - 1.10 mg/dL LAB CHEMISTRY METHOD 09/25/2024 11:08 AM [facility] eGFR 109 >=60 mL/min/1. 73m2 LAB CHEMISTRY METHOD 09/25/2024 11:08 AM [facility] Comment:Calculation based on the Chronic Kidney Disease Epidemiology Collaboration (CKD-EPI) equation refit without adjustment for race. BUN/Creatinine Ratio 42.0 LAB CHEMISTRY METHOD 09/25/2024 11:08 AM [facility] Calcium 9.3 8.5 - 10.5 mg/dL LAB CHEMISTRY METHOD 09/25/2024 11:08 AM [facility] AST (SGOT) 34 10 - 42 unit/L LAB CHEMISTRY METHOD 09/25/2024 11:08 AM [facility] ALT (SGPT) 63(H) 10 - 60 unit/L LAB CHEMISTRY METHOD 09/25/2024 11:08 AM [facility] Alkaline Phosphatase 61 42 - 121 unit/L LAB CHEMISTRY METHOD 09/25/2024 11:08 AM [facility] Total Protein 5.7(L) 6.0 - 8.0 g/dL LAB CHEMISTRY METHOD 09/25/2024 11:08 AM [facility] Albumin 2.8(L) 3.2 - 5.0 g/dL LAB CHEMISTRY METHOD 09/25/2024 11:08 AM [facility] Total Bilirubin 0.6 0.0 - 1.4 mg/dL LAB CHEMISTRY METHOD 09/25/2024 11:08 AM [facility] Blood Venous blood specimen / Unknown Venipuncture / Unknown 09/25/2024 5:25 AM EDT 09/25/2024 9:26 AM EDT us Samuel Doran MD LAB BLOOD ORDERABLES Final Res ult [facility] [address] [place] [address], documented in this encounter Visit Diagnoses Diagnosis Encounter for other general examination documented in this encounter Care Teams Shipyard Painter Apprentice Relationship Specialty Start Date End Date Christian Garza PA [address] [place] [address] PCP - General 09/28/24 documented as of this encounter
--- OUTSIDE RECORDS SUMMARY | 2025-04-01 14:21 | XMS_ITS | Encounter Summary ---
Author Organization [facility] Address [address] [place] [address] Care Team Providers Care News Technical Director Name Role Phone Genejeyson Christian BARTH Primary Care Provider [phone] Encounter Details Date Type Department Care Team (Late st Contact Info) Description 09/22/[address] [facility] - Main Lab [address] [place] [address] Samuel Doran MD [address] [place] [address] Encounter for other general examination Social History [...] AM EDT) WBC 11.3(H) 4.8 - 10.8 K/[facility] LAB HEMETOLOGY METHOD 09/22/2024 10:41 AM EDT [facility] RBC 3.70(L) 3.80 - 4.80 M/mcL LAB HEMETOLOGY METHOD 09/22/2024 10:41 AM [facility] Hemoglobin 11.0(L) 11.5 - 16.0 g/dL LAB HEMETOLOGY METHOD 09/22/2024 10:41 AM [facility] Hematocrit 33.3(L) 35.0 - 47.0 % LAB HEMETOLOGY METHOD 09/22/2024 10:41 AM [facility] MCV 89.3 79.0 - 98.0 FL LAB HEMETOLOGY METHOD 09/22/2024 10:41 AM [facility] MCH 29.5 27.0 - 32.0 pcg LAB HEMETOLOGY METHOD 09/22/2024 10:41 AM [facility] MCHC 33.0 32.0 - 37.0 g/dL LAB HEMETOLOGY METHOD 09/22/2024 10:41 AM [facility] RDW 14.2 11.0 - 15.0 % LAB HEMETOLOGY METHOD 09/22/2024 10:41 AM [facility] Platelets 189 130 - 400 K/mcL LAB HEMETOLOGY METHOD 09/22/2024 10:41 AM [facility] MPV 9.2 7.0 - 11.0 FL LAB HEMETOLOGY METHOD 09/22/2024 10:41 AM [facility] NRBC 0.0 <1.0 % LAB HEMETOLOGY METHOD 09/22/2024 10:41 AM [facility] NRBC Absolute 0.00 <0.10 K/mcL LAB HEMETOLOGY METHOD 09/22/2024 10:41 AM [facility] Blood Venous blood specimen / Unknown Venipuncture / Unknown 09/22/2024 5:13 AM EDT 09/22/2024 9:47 AM EDT us Samuel Doran MD LAB BLOOD ORDERABLES Final Res ult [facility] [address] [place] [address], * (ABNORMAL) Comprehensive metabolic panel (09/22/2024 5:13 AM EDT) Sodium 142 133 - 145 mmol/L LAB CHEMISTRY METHOD 09/22/2024 11:40 AM [facility] Potassium 3.6 3.5 - 5.5 mmol/L LAB CHEMISTRY METHOD 09/22/2024 11:40 AM [facility] Chloride 103 96 - 110 mmol/L LAB CHEMISTRY METHOD 09/22/2024 11:40 AM [facility] CO2 32 21 - 32 mmol/L LAB CHEMISTRY METHOD 09/22/2024 11:40 AM [facility] Anion Gap 7 3 - 11 LAB CHEMISTRY METHOD 09/22/2024 11:40 AM [facility] Glucose 55(L) 70 - 100 mg/dL LAB CHEMISTRY METHOD 09/22/2024 11:40 AM [facility] BUN 17 5 - 25 mg/dL LAB CHEMISTRY METHOD 09/22/2024 11:40 AM [facility] Creatinine 0.55 0.50 - 1.10 mg/dL LAB CHEMISTRY METHOD 09/22/2024 11:40 AM [facility] eGFR 106 >=60 mL/min/1. 73m2 LAB CHEMISTRY METHOD 09/22/2024 11:40 AM [facility] Comment:Calculation based on the Chronic Kidney Disease Epidemiology Collaboration (CKD-EPI) equation refit without adjustment for race. BUN/Creatinine Ratio 30.9 LAB CHEMISTRY METHOD 09/22/2024 11:40 AM [facility] Calcium 9.0 8.5 - 10.5 mg/dL LAB CHEMISTRY METHOD 09/22/2024 11:40 AM [facility] AST (SGOT) 13 10 - 42 unit/L LAB CHEMISTRY METHOD 09/22/2024 11:40 AM [facility] ALT (SGPT) 42 10 - 60 unit/L LAB CHEMISTRY METHOD 09/22/2024 11:40 AM [facility] Alkaline Phosphatase 58 42 - 121 unit/L LAB CHEMISTRY METHOD 09/22/2024 11:40 AM T [facility] Total Protein 5.5(L) 6.0 - 8.0 g/dL LAB CHEMISTRY METHOD 09/22/2024 11:40 AM [facility] Albumin 2.8(L) 3.2 - 5.0 g/dL LAB CHEMISTRY METHOD 09/22/2024 11:40 AM [facility] Total Bilirubin 0.7 0.0 - 1.4 mg/dL LAB CHEMISTRY METHOD 09/22/2024 11:40 AM [facility] Blood Venous blood specimen / Unknown Venipuncture / Unknown 09/22/2024 5:13 AM EDT 09/22/2024 9:47 AM EDT us Samuel Doran MD LAB BLOOD ORDERABLES Final Res ult [facility] [address] [place] [address], documented in this encounter Visit Diagnoses Diagnosis Encounter for other general examination documented in this encounter Care Teams News Technical Director Relationship Specialty Start Date End Date Christian Garza PA [address] [place] [phone] PCP - General 09/28/24 documented as of this encounter
--- OUTSIDE RECORDS SUMMARY | 2025-04-01 14:22 | XMS_ITS | Encounter Summary ---
Author Organization [facility] Address [address] [place] [address] Care Team Providers Care Coremaker Name Role Phone Genejeyson Christian BARTH Primary Care Provider [phone] Encounter Details Date Type Department Care Team (Late st Contact Info) Description 10/09/2024 Lab Requisition [facility] - Main Lab 299 [facility] [place] [address] Samuel Doran MD [address] [place] [address] Encounter for other general examination Social History [...] AM EDT) WBC 14.8(H) 4.8 - 10.8 K/[facility] LAB HEMETOLOGY METHOD 10/09/2024 10:57 AM [facility] LAB RBC 4.10 3.80 - 4.80 M/mcL LAB HEMETOLOGY METHOD 10/09/2024 10:57 AM [facility] LAB Hemoglobin 11.9 11.5 - 16.0 g/dL LAB HEMETOLOGY METHOD 10/09/2024 10:57 AM [facility] LAB Hematocrit 37.2 35.0 - 47.0 % LAB HEMETOLOGY METHOD 10/09/2024 10:57 AM [facility] LAB MCV 91.2 79.0 - 98.0 FL LAB HEMETOLOGY METHOD 10/09/2024 10:57 AM [facility] LAB MCH 29.2 27.0 - 32.0 pcg LAB HEMETOLOGY METHOD 10/09/2024 10:57 AM [facility] LAB MCHC 32.0 32.0 - 37.0 g/dL LAB HEMETOLOGY METHOD 10/09/2024 10:57 AM [facility] LAB RDW 14.1 11.0 - 15.0 % LAB HEMETOLOGY METHOD 10/09/2024 10:57 AM [facility] LAB Platelets 307 130 - 400 K/mcL LAB HEMETOLOGY METHOD 10/09/2024 10:57 AM [facility] LAB MPV 8.6 7.0 - 11.0 FL LAB HEMETOLOGY METHOD 10/09/2024 10:57 AM [facility] LAB NRBC 0.0 <1.0 % LAB HEMETOLOGY METHOD 10/09/2024 10:57 AM [facility] LAB NRBC Absolute 0.00 <0.10 K/mcL LAB HEMETOLOGY METHOD 10/09/2024 10:57 AM [facility] LAB Neutrophils Relative 67.2 % LAB HEMETOLOGY METHOD 10/09/2024 10:57 AM [facility] LAB Lymphocytes Relative 22.6 % LAB HEMETOLOGY METHOD 10/09/2024 10:57 AM [facility] LAB Monocytes Relative 8.1 % LAB HEMETOLOGY METHOD 10/09/2024 10:57 AM [facility] LAB Eosinophils Relative 0.7 % LAB HEMETOLOGY METHOD 10/09/2024 10:57 AM [facility] LAB Basophils Relative 0.3 % LAB HEMETOLOGY METHOD 10/09/2024 10:57 AM [facility] LAB Immature Granulocytes Relative 1.1 % LAB HEMETOLOGY METHOD 10/09/2024 10:57 AM [facility] LAB Neutrophils Absolute 9.91(H) 1.50 - 7.00 K/mcL LAB HEMETOLOGY METHOD 10/09/2024 10:57 AM [facility] LAB Lymphocytes Absolute 3.34 1.00 - 5.00 K/mcL LAB HEMETOLOGY METHOD 10/09/2024 10:57 AM [facility] LAB Monocytes Absolute 1.19(H) 0.20 - 1.00 K/mcL LAB HEMETOLOGY METHOD 10/09/2024 10:57 AM [facility] LAB Eosinophils Absolute 0.10 0.00 - 0.50 K/mcL LAB HEMETOLOGY METHOD 10/09/2024 10:57 AM [facility] LAB Basophils Absolute 0.05 0.00 - 0.20 K/mcL LAB HEMETOLOGY METHOD 10/09/2024 10:57 AM [facility] LAB Immature Granulocytes Absolute 0.16(H) 0.00 - 0.03 K/mcL LAB HEMETOLOGY METHOD 10/09/2024 10:57 AM [facility] LAB Blood Venous blood specimen / Unknown Venipuncture / Unknown 10/09/2024 4:53 AM EDT 10/09/2024 9:55 AM EDT us Samuel Doran MD LAB BLOOD ORDERABLES Final Res ult [facility] LAB [address] [place] [address], [place] [phone] * (ABNORMAL) Basic metabolic panel (10/09/2024 4:53 AM EDT) Sodium 139 133 - 145 mmol/L LAB CHEMISTRY METHOD 10/09/2024 11:33 AM [facility] LAB Potassium 4.5 3.5 - 5.5 mmol/L LAB CHEMISTRY METHOD 10/09/2024 11:33 AM [facility] LAB Chloride 100 96 - 110 mmol/L LAB CHEMISTRY METHOD 10/09/2024 11:33 AM [facility] LAB CO2 28 21 - 32 mmol/L LAB CHEMISTRY METHOD 10/09/2024 11:33 AM [facility] LAB Anion Gap 11 3 - 11 LAB CHEMISTRY METHOD 10/09/2024 11:33 AM [facility] LAB Glucose 52(L) 70 - 100 mg/dL LAB CHEMISTRY METHOD 10/09/2024 11:33 AM [facility] LAB BUN 24 5 - 25 mg/dL LAB CHEMISTRY METHOD 10/09/2024 11:33 AM [facility] LAB Creatinine 0.54 0.50 - 1.10 mg/dL LAB CHEMISTRY METHOD 10/09/2024 11:33 AM [facility] LAB eGFR 107 >=60 mL/min/1. 73m2 LAB CHEMISTRY METHOD 10/09/2024 11:33 AM [facility] LAB Comment:Calculation based on the Chronic Kidney Disease Epidemiology Collaboration (CKD-EPI) equation refit without adjustment for race. BUN/Creatinine Ratio 44.4 LAB CHEMISTRY METHOD 10/09/2024 11:33 AM EDT [facility] LAB Calcium 9.6 8.5 - 10.5 mg/dL LAB CHEMISTRY METHOD 10/09/2024 11:[address] [facility] LAB Blood Venous blood specimen / Unknown Venipuncture / Unknown 10/09/2024 4:53 AM EDT 10/09/2024 9:55 AM EDT us Samuel Doran MD LAB BLOOD ORDERABLES Final Res ult [facility] LAB [address] [place] [address], documented in this encounter Visit Diagnoses Diagnosis Encounter for other general examination documented in this encounter Care Teams Coremaker Relationship Specialty Start Date End Date Christian Garza PA [address] [place] [address] PCP - General 09/28/24 documented as of this encounter
--- OUTSIDE RECORDS SUMMARY | 2025-04-01 14:22 | XMS_ITS | Clinical Summary ---
Author Organization [address] Address [address] [place] [address] Phone Care Team Providers Care Technical Services Librarian Name Role Phone Christian Garza Primary Care Provider [phone] Medical History Medical History Date Comments Diabetes [...] 44.4 LAB CHEMISTRY METHOD 10/09/2024 11:33 AM [facility] LAB Calcium 9.6 8.5 - 10.5 mg/dL LAB CHEMISTRY METHOD 10/09/2024 11:33 AM EDT [facility] LAB Blood Venous blood specimen / Unknown Venipuncture / Unknown 10/09/2024 4:53 AM EDT 10/09/2024 9:55 AM EDT us Samuel Doran MD LAB BLOOD ORDERABLES Final Res ult [facility] LAB [address] [place] [address], from Last 3 Months or Most Recently Relevant to Health Maintenance Care Teams Technical Services Librarian Relationship Specialty Start Date End Date Christian Garza PA [address] [place] [address] [id number] PCP - General 09/28/24
--- OUTSIDE RECORDS SUMMARY | 2025-04-01 14:22 | XMS_ITS | Clinical Summary ---
Author Organization [facility] Address [address] [place] [address] Care Team Providers Care Stull Installer Name Role Phone Nadia Hill MD Primary Care Provider [phone] Allergies Active Allergy Reactions Criticality Noted Date [...] age to complete this topic Care Teams Stull Installer Relationship Specialty Start Date End Date Nadia Hill MD PCP - General Internal Medicine 11/09/21
--- OUTSIDE RECORDS SUMMARY | 2025-04-01 14:22 | XMS_ITS | Encounter Summary ---
Author Organization Address [address] [place] [address] Care Team Providers Care Environmental Studies Professor Name Role Phone Greg Christian BARTH Primary Care Provider [phone] Encounter Details Date Type Department Care Team (Late st Contact Info) Description 10/04/2024 Lab Requisition [facility] - Main Lab 299 [facility] [email or web address] [address] Samuel Doran MD [address] [place] [address] Dysuria Social History Tobacco Use Types Packs/Day [...] Escherichia coli(A) LOUISA 10/06/2024 10:26 AM EDT [facility] LAB Urine Urine specimen obtained by clean catch procedure / Unknown Non-blood Collection / Unknown 10/03/2024 9:00 AM EDT 10/04/2024 11:35 AM EDT Narrative [facility] - 10/06/2024 10:26 AM EDT [...] MICROBIOLOGY - GENERAL ORD ERABLES Final Result [facility] [address] [place] [address], * Ndiaye urine culture tube (10/03/2024 9:00 AM EDT) Extra Tube Hold for add-ons. 10/04/2024 12:01 PM EDT [facility] LAB Comment:Auto resulted. Urine Urine specimen obtained by clean catch procedure / Unknown Non-blood Collection / Unknown 10/03/2024 9:00 AM EDT 10/04/2024 10:46 AM EDT us Samuel Doran MD LAB URINE ORDERABLES Final Res ult [facility] [address] [place] [address], [place] [phone] * (ABNORMAL) Urinalysis with reflex microscopic and culture (10/03/2024 9:00 AM EDT) Specific [place] Urine 1.012 1.003 - 1.030 LAB URINALYSIS - AUTOMATED METHOD 10/04/2024 11:35 AM [facility] LAB pH, Urine 7.0 5.0 - 8.0 pH LAB URINALYSIS - AUTOMATED METHOD 10/04/2024 11:35 AM [facility] LAB Leukocytes, Urine Large(A) Negative LAB URINALYSIS - AUTOMATED METHOD 10/04/2024 11:35 AM [facility] LAB Nitrite, Urine Positive(A) Negative LAB URINALYSIS - AUTOMATED METHOD 10/04/2024 11:35 AM [facility] LAB Protein, Urine 30(A) <=Trace mg/dL LAB URINALYSIS - AUTOMATED METHOD 10/04/2024 11:35 AM [facility] LAB Glucose, Urine Negative Negative mg/dL LAB URINALYSIS - AUTOMATED METHOD 10/04/2024 11:35 AM [facility] LAB Ketones, Urine Negative Negative mg/dL LAB URINALYSIS - AUTOMATED METHOD 10/04/2024 11:35 AM [facility] LAB Urobilinogen , Urine 0.2 0.2 - 1.0 mg/dL LAB URINALYSIS - AUTOMATED METHOD 10/04/2024 11:35 AM [facility] LAB Bilirubin, Urine Negative Negative LAB URINALYSIS - AUTOMATED METHOD 10/04/2024 11:35 AM [facility] LAB Blood, Urine Large(A) Negative LAB URINALYSIS - AUTOMATED METHOD 10/04/2024 11:35 AM [facility] LAB RBC, Urine 300.2(H) 0 - 4 /HPF LAB URINALYSIS - AUTOMATED METHOD 10/04/2024 11:35 AM [facility] LAB WBC, Urine 1,862.7(H) 0 - 4 /HPF LAB URINALYSIS - AUTOMATED METHOD 10/04/2024 11:35 AM [facility] LAB Squamous Epithelial, Urine 40 0 - 60 /LPF LAB URINALYSIS - AUTOMATED METHOD 10/04/2024 11:35 AM [facility] LAB Bacteria, Urine Moderate(A) Negative /HPF LAB URINALYSIS - AUTOMATED METHOD 10/04/2024 11:35 AM [facility] LAB Hyaline Casts, Urine 1.4 0 - 3 /LPF LAB URINALYSIS - AUTOMATED METHOD 10/04/2024 11:35 AM [facility] LAB Urine Urine specimen obtained by clean catch procedure / Unknown Non-blood Collection / Unknown 10/03/2024 9:00 AM EDT 10/04/2024 10:46 AM EDT us Samuel Doran MD LAB URINE ORDERABLES Final Res ult [facility] [address] [place] [address], documented in this encounter Visit Diagnoses Diagnosis Dysuria documented in this encounter Care Teams Environmental Studies Professor Relationship Specialty Start Date End Date Christian Garza PA [address] [place] [address] PCP - General 09/28/24 documented as of this encounter
--- OUTSIDE RECORDS SUMMARY | 2025-04-01 14:22 | XMS_ITS | Encounter Summary ---
Author Organization [facility] Address [address] [place] [address] Care Team Providers Care Purification Supervisor Name Role Phone Genejeyson Christian BARTH Primary Care Provider [phone] Encounter Details Date Type Department Care Team (Late st Contact Info) Description 10/05/2024 Lab Requisition [facility] - Main Lab 299 [facility] [place] [address] Samuel Doran MD [address] [place] [address] Encounter for other general examination Social History [...] AM EDT) WBC 13.9(H) 4.8 - 10.8 K/[facility] LAB HEMETOLOGY METHOD 10/05/2024 1:17 PM [facility] LAB RBC 4.10 3.80 - 4.80 M/mcL LAB HEMETOLOGY METHOD 10/05/2024 1:17 PM [facility] LAB Hemoglobin 12.1 11.5 - 16.0 g/dL LAB HEMETOLOGY METHOD 10/05/2024 1:17 PM [facility] LAB Hematocrit 38.7 35.0 - 47.0 % LAB HEMETOLOGY METHOD 10/05/2024 1:17 PM [facility] LAB MCV 93.7 79.0 - 98.0 FL LAB HEMETOLOGY METHOD 10/05/2024 1:17 PM [facility] LAB MCH 29.3 27.0 - 32.0 pcg LAB HEMETOLOGY METHOD 10/05/2024 1:17 PM [facility] LAB MCHC 31.3(L) 32.0 - 37.0 g/dL LAB HEMETOLOGY METHOD 10/05/2024 1:17 PM [facility] LAB RDW 14.6 11.0 - 15.0 % LAB HEMETOLOGY METHOD 10/05/2024 1:17 PM [facility] LAB Platelets 276 130 - 400 K/mcL LAB HEMETOLOGY METHOD 10/05/2024 1:17 PM [facility] LAB MPV 8.9 7.0 - 11.0 FL LAB HEMETOLOGY METHOD 10/05/2024 1:17 PM [facility] LAB NRBC 0.0 <1.0 % LAB HEMETOLOGY METHOD 10/05/2024 1:17 PM [facility] LAB NRBC Absolute 0.00 <0.10 K/mcL LAB HEMETOLOGY METHOD 10/05/2024 1:17 PM [facility] LAB Neutrophils Relative 67.1 % LAB HEMETOLOGY METHOD 10/05/2024 1:17 PM [facility] LAB Lymphocytes Relative 22.6 % LAB HEMETOLOGY METHOD 10/05/2024 1:17 PM [facility] LAB Monocytes Relative 8.6 % LAB HEMETOLOGY METHOD 10/05/2024 1:17 PM [facility] LAB Eosinophils Relative 0.9 % LAB HEMETOLOGY METHOD 10/05/2024 1:17 PM [facility] LAB Basophils Relative 0.2 % LAB HEMETOLOGY METHOD 10/05/2024 1:17 PM [facility] LAB Immature Granulocytes Relative 0.6 % LAB HEMETOLOGY METHOD 10/05/2024 1:17 PM [facility] LAB Neutrophils Absolute 9.30(H) 1.50 - 7.00 K/mcL LAB HEMETOLOGY METHOD 10/05/2024 1:17 PM [facility] LAB Lymphocytes Absolute 3.14 1.00 - 5.00 K/mcL LAB HEMETOLOGY METHOD 10/05/2024 1:17 PM [facility] LAB Monocytes Absolute 1.19(H) 0.20 - 1.00 K/mcL LAB HEMETOLOGY METHOD 10/05/2024 1:17 PM [facility] LAB Eosinophils Absolute 0.12 0.00 - 0.50 K/mcL LAB HEMETOLOGY METHOD 10/05/2024 1:17 PM [facility] LAB Basophils Absolute 0.03 0.00 - 0.20 K/mcL LAB HEMETOLOGY METHOD 10/05/2024 1:17 PM [facility] LAB Immature Granulocytes Absolute 0.09(H) 0.00 - 0.03 K/mcL LAB HEMETOLOGY METHOD 10/05/2024 1:17 PM [facility] LAB Blood Venous blood specimen / Unknown Venipuncture / Unknown 10/05/2024 4:53 AM EDT 10/05/2024 11:42 AM EDT us Samuel Doran MD LAB BLOOD ORDERABLES Final Res ult [facility] LAB [address] [place] [address], [place] [phone] * (ABNORMAL) Basic metabolic panel (10/05/2024 4:53 AM EDT) Sodium 136 133 - 145 mmol/L LAB CHEMISTRY METHOD 10/05/2024 1:06 PM [facility] LAB Potassium 4.3 3.5 - 5.5 mmol/L LAB CHEMISTRY METHOD 10/05/2024 1:06 PM [facility] LAB Chloride 95(L) 96 - 110 mmol/L LAB CHEMISTRY METHOD 10/05/2024 1:06 PM [facility] LAB CO2 34(H) 21 - 32 mmol/L LAB CHEMISTRY METHOD 10/05/2024 1:06 PM [facility] LAB Anion Gap 7 3 - 11 LAB CHEMISTRY METHOD 10/05/2024 1:06 PM [facility] LAB Glucose 74 70 - 100 mg/dL LAB CHEMISTRY METHOD 10/05/2024 1:06 PM [facility] LAB BUN 20 5 - 25 mg/dL LAB CHEMISTRY METHOD 10/05/2024 1:06 PM [facility] LAB Creatinine 0.68 0.50 - 1.10 mg/dL LAB CHEMISTRY METHOD 10/05/2024 1:06 PM [facility] LAB eGFR 101 >=60 mL/min/1. 73m2 LAB CHEMISTRY METHOD 10/05/2024 1:06 PM [facility] LAB Comment:Calculation based on the Chronic Kidney Disease Epidemiology Collaboration (CKD-EPI) equation refit without adjustment for race. BUN/Creatinine Ratio 29.4 LAB CHEMISTRY METHOD 10/05/2024 1:06 PM [facility] LAB Calcium 10.1 8.5 - 10.5 mg/dL LAB CHEMISTRY METHOD 10/05/2024 1:06 PM EDT [facility] LAB Blood Venous blood specimen / Unknown Venipuncture / Unknown 10/05/2024 4:53 AM EDT 10/05/2024 11:42 AM EDT us Samuel Doran MD LAB BLOOD ORDERABLES Final Res ult [facility] LAB [address] [place] [address], documented in this encounter Visit Diagnoses Diagnosis Encounter for other general examination documented in this encounter Care Teams Purification Supervisor Relationship Specialty Start Date End Date Christian Garza PA [facility] [place] [address] PCP - General 09/28/24 documented as of this encounter
[2025-04-12 12:23] VITALS: BMI 21.5
== END 2025-04-01 13:05 | disposition home or self-care (01) ==
LOC: HO.ENCR 11:26
PROVIDERS: PCP Physician Assistant Medical; Visit Provider Dietitian, Registered
DX: E11.65 Type 2 diabetes mellitus with hyperglycemia (principal)

== ENCOUNTER → 2025-04-01 11:26 | Outpatient (BNVA) | payer OTHER, SELFPAY | PROVIDERS: PCP Physician Assistant Medical; Visit Provider Dietitian, Registered | DX: E11.65 Type 2 diabetes mellitus with hyperglycemia (principal); Z79.4 Long term (current) use of insulin; Z71.3 Dietary counseling and surveillance | CPT/HCPCS: 97802 ==

== ENCOUNTER 2025-04-06 12:16 | Outpatient (REF) | payer OTHER, SELFPAY ==
--- OUTSIDE RECORDS SUMMARY | 2025-04-07 14:56 | XMS_ITS | Patient Health Record ---
Author Organization [facility] Address [address] [facility] [place] [address] Care Team Providers Care Chicken And Fish Butcher Name Role Phone Yolanda Alfaro MD Primary Care Provider Unavail able Nick Reynolds Unavailable [phone] Reason For Referral No Information Medications Medication [...] Treatment Pending Test Test Name Order Date [id number] NAIL, 6 OR MORE 08/17/2011 [id number] NAIL, 6 OR MORE 08/15/2012 [id number] Plate 08/15/2012 [id number] Plate 08/17/2011 [id number] SKIN LESIONS, OVER 4 08/17/19 12 [id number] SKIN LESIONS, OVER 4 08/16/19 13 Insurance Providers Payer Name Payer Address Payer Phone Subscriber Number Group Number Insured Name Patient Relationship to Insured Coverage Start Date Coverage End Date [facility] [address] [place] [address] [id number] Kranthi Barroso Spouse - patient is the spouse of the insured Medical (General) History Medical History History ICD Code chicken pox diabetes mellitus hypertension psoriasis Surgical History Surgery Date(Month/Year) foot surgery 03/2012 ankle surgery 03/2012 Hospitalization History Reason Date(Month/Year) [place] broken ankle and foot 03/2012
--- OUTSIDE RECORDS SUMMARY | 2025-04-07 14:56 | XMS_ITS | Encounter Summary ---
Author Organization [facility] Address [address] [place] [address] Care Team Providers Care Nursing Home Physician Name Role Phone Genejeyson Christian BARTH Primary Care Provider [phone] Encounter Details Date Type Department Care Team (Late st Contact Info) Description 09/29/2024 Lab Requisition [facility] - Main Lab 299 [facility] [place] [address] Samuel Doran MD [address] [place] [address] Encounter for other general examination Social History [...] AM EDT) WBC 12.3(H) 4.8 - 10.8 K/[facility] LAB HEMETOLOGY METHOD 09/29/2024 10:51 AM [facility] LAB RBC 4.00 3.80 - 4.80 M/mcL LAB HEMETOLOGY METHOD 09/29/2024 10:51 AM [facility] LAB Hemoglobin 11.7 11.5 - 16.0 g/dL LAB HEMETOLOGY METHOD 09/29/2024 10:51 AM [facility] LAB Hematocrit 37.0 35.0 - 47.0 % LAB HEMETOLOGY METHOD 09/29/2024 10:51 AM [facility] LAB MCV 93.0 79.0 - 98.0 FL LAB HEMETOLOGY METHOD 09/29/2024 10:51 AM [facility] LAB MCH 29.4 27.0 - 32.0 pcg LAB HEMETOLOGY METHOD 09/29/2024 10:51 AM [facility] LAB MCHC 31.6(L) 32.0 - 37.0 g/dL LAB HEMETOLOGY METHOD 09/29/2024 10:51 AM [facility] LAB RDW 14.8 11.0 - 15.0 % LAB HEMETOLOGY METHOD 09/29/2024 10:51 AM [facility] LAB Platelets 301 130 - 400 K/mcL LAB HEMETOLOGY METHOD 09/29/2024 10:51 AM [facility] LAB MPV 8.8 7.0 - 11.0 FL LAB HEMETOLOGY METHOD 09/29/2024 10:51 AM [facility] LAB NRBC 0.0 <1.0 % LAB HEMETOLOGY METHOD 09/29/2024 10:51 AM [facility] LAB NRBC Absolute 0.00 <0.10 K/mcL LAB HEMETOLOGY METHOD 09/29/2024 10:51 AM [facility] LAB Neutrophils Relative 70.3 % LAB HEMETOLOGY METHOD 09/29/2024 10:51 AM [facility] LAB Lymphocytes Relative 19.9 % LAB HEMETOLOGY METHOD 09/29/2024 10:51 AM [facility] LAB Monocytes Relative 8.2 % LAB HEMETOLOGY METHOD 09/29/2024 10:51 AM [facility] LAB Eosinophils Relative 0.9 % LAB HEMETOLOGY METHOD 09/29/2024 10:51 AM [facility] LAB Basophils Relative 0.2 % LAB HEMETOLOGY METHOD 09/29/2024 10:51 AM [facility] LAB Immature Granulocytes Relative 0.5 % LAB HEMETOLOGY METHOD 09/29/2024 10:51 AM [facility] LAB Neutrophils Absolute 8.67(H) 1.50 - 7.00 K/mcL LAB HEMETOLOGY METHOD 09/29/2024 10:51 AM [facility] LAB Lymphocytes Absolute 2.45 1.00 - 5.00 K/mcL LAB HEMETOLOGY METHOD 09/29/2024 10:51 AM [facility] LAB Monocytes Absolute 1.01(H) 0.20 - 1.00 K/mcL LAB HEMETOLOGY METHOD 09/29/2024 10:51 AM [facility] LAB Eosinophils Absolute 0.11 0.00 - 0.50 K/mcL LAB HEMETOLOGY METHOD 09/29/2024 10:51 AM [facility] LAB Basophils Absolute 0.03 0.00 - 0.20 K/mcL LAB HEMETOLOGY METHOD 09/29/2024 10:51 AM [facility] LAB Immature Granulocytes Absolute 0.06(H) 0.00 - 0.03 K/mcL LAB HEMETOLOGY METHOD 09/29/2024 10:51 AM [facility] LAB Blood Venous blood specimen / Unknown Venipuncture / Unknown 09/29/2024 5:36 AM EDT 09/29/2024 9:45 AM EDT us Samuel Doran MD LAB BLOOD ORDERABLES Final Res ult [facility] [address] [place] [address], [place] [phone] * (ABNORMAL) Comprehensive metabolic panel (09/29/2024 5:36 AM EDT) Pathologist [facility] Sodium 137 133 - 145 mmol/L LAB CHEMISTRY METHOD 09/29/2024 11:34 AM [facility] LAB Potassium 4.4 3.5 - 5.5 mmol/L LAB CHEMISTRY METHOD 09/29/2024 11:34 AM [facility] LAB Chloride 98 96 - 110 mmol/L LAB CHEMISTRY METHOD 09/29/2024 11:34 AM [facility] LAB CO2 31 21 - 32 mmol/L LAB CHEMISTRY METHOD 09/29/2024 11:34 AM [facility] LAB Anion Gap 8 3 - 11 LAB CHEMISTRY METHOD 09/29/2024 11:34 AM [facility] LAB Glucose 78 70 - 100 mg/dL LAB CHEMISTRY METHOD 09/29/2024 11:34 AM [facility] LAB BUN 22 5 - 25 mg/dL LAB CHEMISTRY METHOD 09/29/2024 11:34 AM [facility] LAB Creatinine 0.69 0.50 - 1.10 mg/dL LAB CHEMISTRY METHOD 09/29/2024 11:34 AM [facility] LAB eGFR 101 >=60 mL/min/1. 73m2 LAB CHEMISTRY METHOD 09/29/2024 11:34 AM [facility] LAB Comment:Calculation based on the Chronic Kidney Disease Epidemiology Collaboration (CKD-EPI) equation refit without adjustment for race. BUN/Creatinine Ratio 31.9 LAB CHEMISTRY METHOD 09/29/2024 11:34 AM [facility] LAB Calcium 9.8 8.5 - 10.5 mg/dL LAB CHEMISTRY METHOD 09/29/2024 11:34 AM [facility] LAB AST (SGOT) 25 10 - 42 unit/L LAB CHEMISTRY METHOD 09/29/2024 11:34 AM [facility] LAB ALT (SGPT) 72(H) 10 - 60 unit/L LAB CHEMISTRY METHOD 09/29/2024 11:34 AM [facility] LAB Alkaline Phosphatase 76 42 - 121 unit/L LAB CHEMISTRY METHOD 09/29/2024 11:34 AM [facility] LAB Total Protein 5.8(L) 6.0 - 8.0 g/dL LAB CHEMISTRY METHOD 09/29/2024 11:34 AM [facility] LAB Albumin 3.0(L) 3.2 - 5.0 g/dL LAB CHEMISTRY METHOD 09/29/2024 11:34 AM [facility] LAB Total Bilirubin 0.5 0.0 - 1.4 mg/dL LAB CHEMISTRY METHOD 09/29/2024 11:34 AM [facility] LAB Blood Venous blood specimen / Unknown Venipuncture / Unknown 09/29/2024 5:36 AM EDT 09/29/2024 9:45 AM EDT us Samuel Doran MD LAB BLOOD ORDERABLES Final Res ult [facility] [address] [place] [address], documented in this encounter Visit Diagnoses Diagnosis Encounter for other general examination documented in this encounter Care Teams Nursing Home Physician Relationship Specialty Start Date End Date Christian Garza PA [facility] [place] [address] PCP - General 09/28/24 documented as of this encounter
--- OUTSIDE RECORDS SUMMARY | 2025-04-07 14:57 | XMS_ITS | Encounter Summary ---
Author Organization [facility] Address [address] [place] [address] Care Team Providers Care Clinical Biostatistician Name Role Phone Genejeyson Christian BARTH Primary Care Provider [phone] Encounter Details Date Type Department Care Team (Late st Contact Info) Description 10/05/2024 Lab Requisition [facility] - Main Lab 299 [facility] [place] [address] Samuel Doran MD [address] [place] [address] Encounter for other general examination Social History [...] AM EDT) WBC 13.9(H) 4.8 - 10.8 K/[facility] LAB HEMETOLOGY METHOD 10/05/2024 1:17 PM [facility] LAB RBC 4.10 3.80 - 4.80 M/mcL LAB HEMETOLOGY METHOD 10/05/2024 1:17 PM [facility] LAB Hemoglobin 12.1 11.5 - 16.0 g/dL LAB HEMETOLOGY METHOD 10/05/2024 1:17 PM [facility] LAB Hematocrit 38.7 35.0 - 47.0 % LAB HEMETOLOGY METHOD 10/05/2024 1:17 PM [facility] LAB MCV 93.7 79.0 - 98.0 FL LAB HEMETOLOGY METHOD 10/05/2024 1:17 PM [facility] LAB MCH 29.3 27.0 - 32.0 pcg LAB HEMETOLOGY METHOD 10/05/2024 1:17 PM [facility] LAB MCHC 31.3(L) 32.0 - 37.0 g/dL LAB HEMETOLOGY METHOD 10/05/2024 1:17 PM [facility] LAB RDW 14.6 11.0 - 15.0 % LAB HEMETOLOGY METHOD 10/05/2024 1:17 PM [facility] LAB Platelets 276 130 - 400 K/mcL LAB HEMETOLOGY METHOD 10/05/2024 1:17 PM [facility] LAB MPV 8.9 7.0 - 11.0 FL LAB HEMETOLOGY METHOD 10/05/2024 1:17 PM [facility] LAB NRBC 0.0 <1.0 % LAB HEMETOLOGY METHOD 10/05/2024 1:17 PM [facility] LAB NRBC Absolute 0.00 <0.10 K/mcL LAB HEMETOLOGY METHOD 10/05/2024 1:17 PM [facility] LAB Neutrophils Relative 67.1 % LAB HEMETOLOGY METHOD 10/05/2024 1:17 PM [facility] LAB Lymphocytes Relative 22.6 % LAB HEMETOLOGY METHOD 10/05/2024 1:17 PM [facility] LAB Monocytes Relative 8.6 % LAB HEMETOLOGY METHOD 10/05/2024 1:17 PM [facility] LAB Eosinophils Relative 0.9 % LAB HEMETOLOGY METHOD 10/05/2024 1:17 PM [facility] LAB Basophils Relative 0.2 % LAB HEMETOLOGY METHOD 10/05/2024 1:17 PM [facility] LAB Immature Granulocytes Relative 0.6 % LAB HEMETOLOGY METHOD 10/05/2024 1:17 PM [facility] LAB Neutrophils Absolute 9.30(H) 1.50 - 7.00 K/mcL LAB HEMETOLOGY METHOD 10/05/2024 1:17 PM [facility] LAB Lymphocytes Absolute 3.14 1.00 - 5.00 K/mcL LAB HEMETOLOGY METHOD 10/05/2024 1:17 PM [facility] LAB Monocytes Absolute 1.19(H) 0.20 - 1.00 K/mcL LAB HEMETOLOGY METHOD 10/05/2024 1:17 PM [facility] LAB Eosinophils Absolute 0.12 0.00 - 0.50 K/mcL LAB HEMETOLOGY METHOD 10/05/2024 1:17 PM [facility] LAB Basophils Absolute 0.03 0.00 - 0.20 K/mcL LAB HEMETOLOGY METHOD 10/05/2024 1:17 PM [facility] LAB Immature Granulocytes Absolute 0.09(H) 0.00 - 0.03 K/mcL LAB HEMETOLOGY METHOD 10/05/2024 1:17 PM [facility] LAB Blood Venous blood specimen / Unknown Venipuncture / Unknown 10/05/2024 4:53 AM EDT 10/05/2024 11:42 AM EDT us Samuel Doran MD LAB BLOOD ORDERABLES Final Res ult [facility] [address] [place] [address], [place] [phone] * (ABNORMAL) Basic metabolic panel (10/05/2024 4:53 AM EDT) Sodium 136 133 - 145 mmol/L LAB CHEMISTRY METHOD 10/05/2024 1:06 PM [facility] LAB Potassium 4.3 3.5 - 5.5 mmol/L LAB CHEMISTRY METHOD 10/05/2024 1:06 PM [facility] LAB Chloride 95(L) 96 - 110 mmol/L LAB CHEMISTRY METHOD 10/05/2024 1:06 PM [facility] LAB CO2 34(H) 21 - 32 mmol/L LAB CHEMISTRY METHOD 10/05/2024 1:06 PM [facility] LAB Anion Gap 7 3 - 11 LAB CHEMISTRY METHOD 10/05/2024 1:06 PM [facility] LAB Glucose 74 70 - 100 mg/dL LAB CHEMISTRY METHOD 10/05/2024 1:06 PM [facility] LAB BUN 20 5 - 25 mg/dL LAB CHEMISTRY METHOD 10/05/2024 1:06 PM [facility] LAB Creatinine 0.68 0.50 - 1.10 mg/dL LAB CHEMISTRY METHOD 10/05/2024 1:06 PM [facility] LAB eGFR 101 >=60 mL/min/1. 73m2 LAB CHEMISTRY METHOD 10/05/2024 1:06 PM [facility] LAB Comment:Calculation based on the Chronic Kidney Disease Epidemiology Collaboration (CKD-EPI) equation refit without adjustment for race. BUN/Creatinine Ratio 29.4 LAB CHEMISTRY METHOD 10/05/2024 1:06 PM [facility] LAB Calcium 10.1 8.5 - 10.5 mg/dL LAB CHEMISTRY METHOD 10/05/2024 1:06 PM EDT [facility] LAB Blood Venous blood specimen / Unknown Venipuncture / Unknown 10/05/2024 4:53 AM EDT 10/05/2024 11:42 AM EDT us Samuel Doran MD LAB BLOOD ORDERABLES Final Res ult [facility] [address] [place] [address], documented in this encounter Visit Diagnoses Diagnosis Encounter for other general examination documented in this encounter Care Teams Clinical Biostatistician Relationship Specialty Start Date End Date Christian Garza PA [facility] [place] [address] PCP - General 09/28/24 documented as of this encounter
--- OUTSIDE RECORDS SUMMARY | 2025-04-07 14:57 | XMS_ITS | Encounter Summary ---
Author Organization [facility] Address [address] [place] [address] Care Team Providers Care Buggyman Name Role Phone Greg Christian BARTH Primary Care Provider [phone] Encounter Details Date Type Department Care Team (Late st Contact Info) Description 10/04/2024 Lab Requisition [facility] - Main Lab [address] [facility] [place] [address] Samuel Doran MD [address] [place] [address] Dysuria Social History Tobacco Use Types Packs/Day [...] Escherichia coli(A) LOUISA 10/06/2024 10:26 AM EDT [facility] LAB Urine Urine specimen obtained by clean catch procedure / Unknown Non-blood Collection / Unknown 10/03/2024 9:00 AM EDT 10/04/2024 11:35 AM EDT Narrative [facility] - 10/06/2024 10:26 AM [...] LOUISA <=0.25 ug/ml: Susceptible Escherichia coli Amikacin LOIUSA 4 ug/ml: Susceptible Escherichia coli Gentamicin LOUISA <=1 ug/ml: Susceptible Escherichia coli Ciprofloxacin LOUISA 0.5 ug/ml: Intermediate Escherichia coli Levofloxacin LOUISA 1 ug/ml: Intermediate Escherichia coli Nitrofurantoin LOUISA <=16 ug/ml: Susceptible Escherichia coli Trimethoprim/Sulfamethoxazole LOUISA >=320 ug/ml: Resistant us Samuel Doran MD LAB MICROBIOLOGY - GENERAL ORD ERABLES Final Result [facility] [address] [place] [address], * Ndiaye urine culture tube (10/03/2024 9:00 AM EDT) Extra Tube Hold for add-ons. 10/04/2024 12:01 PM EDT [facility] LAB Comment:Auto resulted. Urine Urine specimen obtained by clean catch procedure / Unknown Non-blood Collection / Unknown 10/03/2024 9:00 AM EDT 10/04/2024 10:46 AM EDT us Samuel Doran MD LAB URINE ORDERABLES Final Res ult [facility] [address] [place] [address], [place] [phone] * (ABNORMAL) Urinalysis with reflex microscopic and culture (10/03/2024 9:00 AM EDT) Specific [place] Urine 1.012 1.003 - 1.030 LAB URINALYSIS - AUTOMATED METHOD 10/04/2024 11:35 AM [facility] LAB pH, Urine 7.0 5.0 - 8.0 pH LAB URINALYSIS - AUTOMATED METHOD 10/04/2024 11:35 AM [facility] LAB Leukocytes, Urine Large(A) Negative LAB URINALYSIS - AUTOMATED METHOD 10/04/2024 11:35 AM [facility] Nitrite, Urine Positive(A) Negative LAB URINALYSIS - AUTOMATED METHOD 10/04/2024 11:35 AM [facility] Protein, Urine 30(A) <=Trace mg/dL LAB URINALYSIS - AUTOMATED METHOD 10/04/2024 11:35 AM [facility] Glucose, Urine Negative Negative mg/dL LAB URINALYSIS - AUTOMATED METHOD 10/04/2024 11:35 AM [facility] Ketones, Urine Negative Negative mg/dL LAB URINALYSIS - AUTOMATED METHOD 10/04/2024 11:35 AM [facility] LAB Urobilinogen , Urine 0.2 0.2 - 1.0 mg/dL LAB URINALYSIS - AUTOMATED METHOD 10/04/2024 11:35 AM [facility] Bilirubin, Urine Negative Negative LAB URINALYSIS - AUTOMATED METHOD 10/04/2024 11:35 AM [facility] Blood, Urine Large(A) Negative LAB URINALYSIS - AUTOMATED METHOD 10/04/2024 11:35 AM [facility] LAB RBC, Urine 300.2(H) 0 - 4 /HPF LAB URINALYSIS - AUTOMATED METHOD 10/04/2024 11:35 AM [facility] LAB WBC, Urine 1,862.7(H) 0 - 4 /HPF LAB URINALYSIS - AUTOMATED METHOD 10/04/2024 11:35 AM [facility] Squamous Epithelial, Urine 40 0 - 60 /LPF LAB URINALYSIS - AUTOMATED METHOD 10/04/2024 11:35 AM [facility] Bacteria, Urine Moderate(A) Negative /HPF LAB URINALYSIS - AUTOMATED METHOD 10/04/2024 11:35 AM [facility] Hyaline Casts, Urine 1.4 0 - 3 /LPF LAB URINALYSIS - AUTOMATED METHOD 10/04/2024 11:35 AM [facility] Urine Urine specimen obtained by clean catch procedure / Unknown Non-blood Collection / Unknown 10/03/2024 9:00 AM EDT 10/04/2024 10:46 AM EDT us Samuel Doran MD LAB URINE ORDERABLES Final Res ult [facility] [address] [place] [address], documented in this encounter Visit Diagnoses Diagnosis Dysuria documented in this encounter Care Teams Buggyman Relationship Specialty Start Date End Date Christian Garza PA [address] [place] [address] PCP - General 09/28/24 documented as of this encounter
--- OUTSIDE RECORDS SUMMARY | 2025-04-07 14:57 | XMS_ITS | Encounter Summary ---
Author Organization [facility] Address [address] [place] [address] Care Team Providers Care Home Health Clinical Supervisor Name Role Phone Genejeyson Christian BARTH Primary Care Provider [phone] Encounter Details Date Type Department Care Team (Late st Contact Info) Description 09/18/2024 Lab Requisition [facility] - Main Lab 299 [facility] [place] [address] Samuel Doran MD [address] [place] [address] Encounter for other general examination Social History [...] CBC auto differential (09/18/2024 5:35 AM EDT) [facility] WBC 13.8(H) 4.8 - 10.8 K/mcL LAB HEMETOLOGY METHOD 09/18/2024 11:36 AM [facility] RBC 3.80 3.80 - 4.80 M/mcL LAB HEMETOLOGY METHOD 09/18/2024 11:36 AM [facility] Hemoglobin 10.9(L) 11.5 - 16.0 g/dL LAB HEMETOLOGY METHOD 09/18/2024 11:36 AM [facility] LAB Hematocrit 33.1(L) 35.0 - 47.0 % LAB HEMETOLOGY METHOD 09/18/2024 11:36 AM [facility] LAB MCV 87.6 79.0 - 98.0 FL LAB HEMETOLOGY METHOD 09/18/2024 11:36 AM [facility] LAB MCH 28.8 27.0 - 32.0 pcg LAB HEMETOLOGY METHOD 09/18/2024 11:36 AM [facility] LAB MCHC 32.9 32.0 - 37.0 g/dL LAB HEMETOLOGY METHOD 09/18/2024 11:36 AM [facility] RDW 13.6 11.0 - 15.0 % LAB HEMETOLOGY METHOD 09/18/2024 11:36 AM [facility] LAB Platelets 230 130 - 400 K/mcL LAB HEMETOLOGY METHOD 09/18/2024 11:36 AM [facility] LAB MPV 9.3 7.0 - 11.0 FL LAB HEMETOLOGY METHOD 09/18/2024 11:36 AM [facility] NRBC 0.0 <1.0 % LAB HEMETOLOGY METHOD 09/18/2024 11:36 AM [facility] LAB NRBC Absolute 0.00 <0.10 K/mcL LAB HEMETOLOGY METHOD 09/18/2024 11:36 AM [facility] Neutrophils Relative 70.6 % LAB HEMETOLOGY METHOD 09/18/2024 11:36 AM [facility] Lymphocytes Relative 21.1 % LAB HEMETOLOGY METHOD 09/18/2024 11:36 AM [facility] Monocytes Relative 7.1 % LAB HEMETOLOGY METHOD 09/18/2024 11:36 AM [facility] Eosinophils Relative 0.7 % LAB HEMETOLOGY METHOD 09/18/2024 11:36 AM [facility] Basophils Relative 0.1 % LAB HEMETOLOGY METHOD 09/18/2024 11:36 AM [facility] Immature Granulocytes Relative 0.4 % LAB HEMETOLOGY METHOD 09/18/2024 11:36 AM [facility] LAB Neutrophils Absolute 9.75(H) 1.50 - 7.00 K/mcL LAB HEMETOLOGY METHOD 09/18/2024 11:36 AM [facility] Lymphocytes Absolute 2.92 1.00 - 5.00 K/mcL LAB HEMETOLOGY METHOD 09/18/2024 11:36 AM [facility] Monocytes Absolute 0.98 0.20 - 1.00 K/mcL LAB HEMETOLOGY METHOD 09/18/2024 11:36 AM [facility] Eosinophils Absolute 0.09 0.00 - 0.50 K/mcL LAB HEMETOLOGY METHOD 09/18/2024 11:36 AM [facility] Basophils Absolute 0.02 0.00 - 0.20 K/mcL LAB HEMETOLOGY METHOD 09/18/2024 11:36 AM [facility] Immature Granulocytes Absolute 0.06(H) 0.00 - 0.03 K/mcL LAB HEMETOLOGY METHOD 09/18/2024 11:36 AM [facility] Blood Venous blood specimen / Unknown Venipuncture / Unknown 09/18/2024 5:35 AM EDT 09/18/2024 11:00 AM EDT Samuel Doran MD LAB BLOOD ORDERABLES Final Res ult Performing Organization Address [facility]/ZIP Co de Phone Number [facility] [address] [place] [address], [place] [phone] * Magnesium (09/18/2024 5:35 AM EDT) Magnesium 2.6 1.9 - 2.6 mg/dL LAB CHEMISTRY METHOD 09/18/2024 1:09 PM EDT [facility] Blood Venous blood specimen / Unknown Venipuncture / Unknown 09/18/2024 5:35 AM EDT 09/18/2024 11:00 AM EDT Samuel Doran MD LAB BLOOD ORDERABLES Final Res ult Performing Organization Address [facility]/ZIP Co de Phone Number [facility] [address] [place] [address], [place] [phone] * (ABNORMAL) Comprehensive metabolic panel (09/18/2024 5:35 AM EDT) Sodium 140 133 - 145 mmol/L LAB CHEMISTRY METHOD 09/18/2024 1:19 PM EDT [facility] Potassium 4.1 3.5 - 5.5 mmol/L LAB CHEMISTRY METHOD 09/18/2024 1:19 PM EDT [facility] Chloride 102 96 - 110 mmol/L LAB CHEMISTRY METHOD 09/18/2024 1:19 PM EDT [facility] CO2 32 21 - 32 mmol/L LAB CHEMISTRY METHOD 09/18/2024 1:19 PM EDT [facility] Anion Gap 6 3 - 11 LAB CHEMISTRY METHOD 09/18/2024 1:19 PM [facility] Glucose 175(H) 70 - 100 mg/dL LAB CHEMISTRY METHOD 09/18/2024 1:19 PM [facility] BUN 19 5 - 25 mg/dL LAB CHEMISTRY METHOD 09/18/2024 1:19 PM [facility] Creatinine 0.63 0.50 - 1.10 mg/dL LAB CHEMISTRY METHOD 09/18/2024 1:19 PM [facility] eGFR 103 >=60 mL/min/1. 73m2 LAB CHEMISTRY METHOD 09/18/2024 1:19 PM [facility] Comment:Calculation based on the Chronic Kidney Disease Epidemiology Collaboration (CKD-EPI) equation refit without adjustment for race. BUN/Creatinine Ratio 30.2 LAB CHEMISTRY METHOD 09/18/2024 1:19 PM [facility] Calcium 9.0 8.5 - 10.5 mg/dL LAB CHEMISTRY METHOD 09/18/2024 1:19 PM [facility] AST (SGOT) 26 10 - 42 unit/L LAB CHEMISTRY METHOD 09/18/2024 1:19 PM [facility] ALT (SGPT) 48 10 - 60 unit/L LAB CHEMISTRY METHOD 09/18/2024 1:19 PM [facility] Alkaline Phosphatase 61 42 - 121 unit/L LAB CHEMISTRY METHOD 09/18/2024 1:19 PM [facility] Total Protein 5.4(L) 6.0 - 8.0 g/dL LAB CHEMISTRY METHOD 09/18/2024 1:19 PM [facility] Albumin 2.7(L) 3.2 - 5.0 g/dL LAB CHEMISTRY METHOD 09/18/2024 1:19 PM [facility] Total Bilirubin 0.7 0.0 - 1.4 mg/dL LAB CHEMISTRY METHOD 09/18/2024 1:19 PM EDT [facility] Blood Venous blood specimen / Unknown Venipuncture / Unknown 09/18/2024 5:35 AM EDT 09/18/2024 11:00 AM EDT us Samuel Doran MD LAB BLOOD ORDERABLES Final Res ult [facility] ([facility]) [facility] [address] [place] [address], documented in this encounter Visit Diagnoses Diagnosis Encounter for other general examination documented in this encounter Care Teams Home Health Clinical Supervisor Relationship Specialty Start Date End Date Christian Garza PA [address] [place] [phone] PCP - General 09/28/24 documented as of this encounter
--- OUTSIDE RECORDS SUMMARY | 2025-04-07 14:57 | XMS_ITS | Encounter Summary ---
Author Organization [facility] Address [address] [place] [address] Care Team Providers Care Clinic Manager Name Role Phone Genejeyson Christian BARTH Primary Care Provider [phone] Encounter Details Date Type Department Care Team (Late st Contact Info) Description 09/22/2024 Lab Requisition [facility] - Main Lab [address] [place] [address] Samuel Doran MD [address] [place] [address] Encounter for other general examination Social History [...] WBC 11.3(H) 4.8 - 10.8 K/[facility] LAB HEMETOLOGY METHOD 09/22/2024 10:41 AM EDT [facility] RBC 3.70(L) 3.80 - 4.80 [...] MD LAB BLOOD ORDERABLES Final Res ult [facility] [address] [place] [address], * (ABNORMAL) Comprehensive metabolic panel (09/22/2024 5:13 [...] LAB CHEMISTRY METHOD 09/22/2024 11:40 AM T [facility] Total Protein 5.5(L) 6.0 - [...] MD LAB BLOOD ORDERABLES Final Res ult [facility] [address] [place] [address], documented in this encounter Visit Diagnoses Diagnosis Encounter for other general examination documented in this encounter Care Teams Clinic Manager Relationship Specialty Start Date End Date Christian Garza PA [address] [place] [phone] PCP - General 09/28/24 documented as of this encounter
--- OUTSIDE RECORDS SUMMARY | 2025-04-07 14:57 | XMS_ITS | Clinical Summary ---
Author Organization [address] Address [address] [place] [phone] Phone Care Team Providers Care Certification Engineer Name Role Phone Christian Garza Primary Care Provider [phone] Medical History Medical History Date Comments Diabetes [...] mmol/L LAB CHEMISTRY METHOD 10/09/2024 11:33 AM [facility] Potassium 4.5 3.5 - 5.5 mmol/L LAB CHEMISTRY METHOD 10/09/2024 11:33 AM [facility] Chloride 100 96 - 110 mmol/L LAB CHEMISTRY METHOD 10/09/2024 11:33 AM [facility] CO2 28 21 - 32 mmol/L LAB CHEMISTRY METHOD 10/09/2024 11:33 AM [facility] Anion Gap 11 3 - 11 LAB CHEMISTRY METHOD 10/09/2024 11:33 AM [facility] Glucose 52(L) 70 - 100 mg/dL LAB CHEMISTRY METHOD 10/09/2024 11:33 AM [facility] BUN 24 5 - 25 mg/dL LAB CHEMISTRY METHOD 10/09/2024 11:33 AM [facility] Creatinine 0.54 0.50 - 1.10 mg/dL LAB CHEMISTRY METHOD 10/09/2024 11:33 AM [facility] LAB eGFR 107 >=60 mL/min/1. 73m2 LAB CHEMISTRY METHOD 10/09/2024 11:33 AM [facility] Comment:Calculation based on the Chronic Kidney Disease Epidemiology Collaboration (CKD-EPI) equation refit without adjustment for race. BUN/Creatinine Ratio 44.4 LAB CHEMISTRY METHOD 10/09/2024 11:33 AM [facility] Calcium 9.6 8.5 - 10.5 mg/dL LAB CHEMISTRY METHOD 10/09/2024 11:33 AM EDT [facility] Blood Venous blood specimen / Unknown Venipuncture / Unknown 10/09/2024 4:53 AM EDT 10/09/2024 9:55 AM EDT us Samuel Doran MD LAB BLOOD ORDERABLES Final Res ult [facility] [address] [place] [address], from Last 3 Months or Most Recently Relevant to Health Maintenance Care Teams Certification Engineer Relationship Specialty Start Date End Date Christian Garza PA [address] [place] [address] [phone] PCP - General 09/28/24
--- OUTSIDE RECORDS SUMMARY | 2025-04-07 14:57 | XMS_ITS | Encounter Summary ---
Author Organization [facility] Address [address] [place] [address] Care Team Providers Care Fire Official Name Role Phone Greg Christian BARTH Primary Care Provider [phone] Encounter Details Date Type Department Care Team (Late st Contact Info) Description 09/28/2024 Lab Requisition [facility] - Main Lab 299 [facility] [place] [address] Samuel Doran MD [address] [place] [address] Dysuria Social History Tobacco Use Types Packs/Day [...] and culture (09/28/2024 5:30 AM EDT) Specific [place] Urine 1.017 1.003 - 1.030 LAB URINALYSIS - AUTOMATED METHOD 09/28/2024 11:[address] [facility] pH, Urine 8.0 5.0 - 8.0 pH LAB URINALYSIS - AUTOMATED METHOD 09/28/2024 11:[address] [facility] Leukocytes, Urine Negative Negative LAB URINALYSIS - AUTOMATED METHOD 09/28/2024 11:[address] [facility] Nitrite, Urine Negative Negative LAB URINALYSIS - AUTOMATED METHOD 09/28/2024 11:[address] [facility] Protein, Urine Negative <=Trace mg/dL LAB URINALYSIS - AUTOMATED METHOD 09/28/2024 11:[address] [facility] Glucose, Urine Negative Negative mg/dL LAB URINALYSIS - AUTOMATED METHOD 09/28/2024 11:[address] [facility] Ketones, Urine Negative Negative mg/dL LAB URINALYSIS - AUTOMATED METHOD 09/28/2024 11:[address] [facility] Urobilinogen, Urine 2.0(A) 0.2 - 1.0 mg/dL LAB URINALYSIS - AUTOMATED METHOD 09/28/2024 11:[address] [facility] Bilirubin, Urine Negative Negative LAB URINALYSIS - AUTOMATED METHOD 09/28/2024 11:[address] [facility] Blood, Urine Negative Negative LAB URINALYSIS - AUTOMATED METHOD 09/28/2024 11:[address] [facility] Urine Urine specimen obtained by clean catch procedure / Unknown Non-blood Collection / Unknown 09/28/2024 5:30 AM EDT 09/28/2024 9:49 AM EDT us Samuel Doran MD LAB URINE ORDERABLES Final Res ult [facility] [address] [place] [address], * Ndiaye urine culture tube (09/28/2024 5:30 AM EDT) Extra Tube Hold for add-ons. 09/28/2024 11:01 AM EDT [facility] Comment:Auto resulted. Urine Urine specimen obtained by clean catch procedure / Unknown Non-blood Collection / Unknown 09/28/2024 5:30 AM EDT 09/28/2024 9:49 AM EDT us Samuel Doran MD LAB URINE ORDERABLES Final Res ult [facility] [address] [place] [address], documented in this encounter Visit Diagnoses Diagnosis Dysuria documented in this encounter Care Teams Fire Official Relationship Specialty Start Date End Date Christian Garza PA [address] [place] [phone] PCP - General 09/28/24 documented as of this encounter
--- OUTSIDE RECORDS SUMMARY | 2025-04-07 14:57 | XMS_ITS | Clinical Summary ---
Author Organization [facility] Address [address] [place] [address] Care Team Providers Care Process Control Specialist Name Role Phone Nadia Hill MD Primary Care Provider [phone] Allergies Active Allergy Reactions Criticality Noted Date [...] age to complete this topic Care Teams Process Control Specialist Relationship Specialty Start Date End Date Nadia Hill MD PCP - General Internal Medicine 11/09/21
--- OUTSIDE RECORDS SUMMARY | 2025-04-07 14:57 | XMS_ITS | Encounter Summary ---
Author Organization [facility] Address [address] [place] [address] Care Team Providers Care Cow Washer Name Role Phone Genejeyson Christian BARTH Primary Care Provider [phone] Encounter Details Date Type Department Care Team (Late st Contact Info) Description 09/25/2024 Lab Requisition [facility] - Main Lab [address] [facility] [place] [place] [address] Samuel Doran MD [address] [place] [id number] Encounter for other general examination Social History [...] AM EDT) WBC 11.0(H) 4.8 - 10.8 K/[facility] LAB HEMETOLOGY METHOD 09/25/2024 10:38 AM [facility] LAB RBC 3.70(L) 3.80 - 4.80 M/mcL LAB HEMETOLOGY METHOD 09/25/2024 10:38 AM [facility] LAB Hemoglobin 10.9(L) 11.5 - 16.0 g/dL LAB HEMETOLOGY METHOD 09/25/2024 10:38 AM [facility] LAB Hematocrit 33.5(L) 35.0 - 47.0 % LAB HEMETOLOGY METHOD 09/25/2024 10:38 AM [facility] LAB MCV 91.0 79.0 - 98.0 FL LAB HEMETOLOGY METHOD 09/25/2024 10:38 AM [facility] LAB MCH 29.6 27.0 - 32.0 pcg LAB HEMETOLOGY METHOD 09/25/2024 10:38 AM [facility] LAB MCHC 32.5 32.0 - 37.0 g/dL LAB HEMETOLOGY METHOD 09/25/2024 10:38 AM [facility] LAB RDW 14.6 11.0 - 15.0 % LAB HEMETOLOGY METHOD 09/25/2024 10:38 AM [facility] LAB Platelets 224 130 - 400 K/mcL LAB HEMETOLOGY METHOD 09/25/2024 10:38 AM [facility] LAB MPV 9.4 7.0 - 11.0 FL LAB HEMETOLOGY METHOD 09/25/2024 10:38 AM [facility] LAB NRBC 0.0 <1.0 % LAB HEMETOLOGY METHOD 09/25/2024 10:38 AM [facility] LAB NRBC Absolute 0.00 <0.10 K/mcL LAB HEMETOLOGY METHOD 09/25/2024 10:38 AM [facility] LAB Neutrophils Relative 64.3 % LAB HEMETOLOGY METHOD 09/25/2024 10:38 AM [facility] LAB Lymphocytes Relative 27.2 % LAB HEMETOLOGY METHOD 09/25/2024 10:38 AM [facility] LAB Monocytes Relative 6.9 % LAB HEMETOLOGY METHOD 09/25/2024 10:38 AM [facility] LAB Eosinophils Relative 1.0 % LAB HEMETOLOGY METHOD 09/25/2024 10:38 AM [facility] LAB Basophils Relative 0.2 % LAB HEMETOLOGY METHOD 09/25/2024 10:38 AM [facility] LAB Immature Granulocytes Relative 0.4 % LAB HEMETOLOGY METHOD 09/25/2024 10:38 AM [facility] LAB Neutrophils Absolute 7.09(H) 1.50 - 7.00 K/mcL LAB HEMETOLOGY METHOD 09/25/2024 10:38 AM [facility] LAB Lymphocytes Absolute 3.00 1.00 - 5.00 K/mcL LAB HEMETOLOGY METHOD 09/25/2024 10:38 AM [facility] LAB Monocytes Absolute 0.76 0.20 - 1.00 K/mcL LAB HEMETOLOGY METHOD 09/25/2024 10:38 AM [facility] LAB Eosinophils Absolute 0.11 0.00 - 0.50 K/mcL LAB HEMETOLOGY METHOD 09/25/2024 10:38 AM [facility] LAB Basophils Absolute 0.02 0.00 - 0.20 K/mcL LAB HEMETOLOGY METHOD 09/25/2024 10:38 AM [facility] LAB Immature Granulocytes Absolute 0.04(H) 0.00 - 0.03 K/mcL LAB HEMETOLOGY METHOD 09/25/2024 10:38 AM [facility] LAB Blood Venous blood specimen / Unknown Venipuncture / Unknown 09/25/2024 5:25 AM EDT 09/25/2024 9:26 AM EDT us Samuel Doran MD LAB BLOOD ORDERABLES Final Res ult [facility] LAB [address] [place] [address], [place] [phone] * (ABNORMAL) Comprehensive metabolic panel (09/25/2024 5:25 AM EDT) Sodium 141 133 - 145 mmol/L LAB CHEMISTRY METHOD 09/25/2024 11:08 AM [facility] LAB Potassium 4.0 3.5 - 5.5 mmol/L LAB CHEMISTRY METHOD 09/25/2024 11:08 AM [facility] LAB Chloride 104 96 - 110 mmol/L LAB CHEMISTRY METHOD 09/25/2024 11:08 AM [facility] LAB CO2 31 21 - 32 mmol/L LAB CHEMISTRY METHOD 09/25/2024 11:08 AM [facility] LAB Anion Gap 6 3 - 11 LAB CHEMISTRY METHOD 09/25/2024 11:08 AM [facility] LAB Glucose 49(L) 70 - 100 mg/dL LAB CHEMISTRY METHOD 09/25/2024 11:08 AM [facility] LAB BUN 21 5 - 25 mg/dL LAB CHEMISTRY METHOD 09/25/2024 11:08 AM [facility] LAB Creatinine 0.50 0.50 - 1.10 mg/dL LAB CHEMISTRY METHOD 09/25/2024 11:08 AM [facility] LAB eGFR 109 >=60 mL/min/1. 73m2 LAB CHEMISTRY METHOD 09/25/2024 11:08 AM [facility] LAB Comment:Calculation based on the Chronic Kidney Disease Epidemiology Collaboration (CKD-EPI) equation refit without adjustment for race. BUN/Creatinine Ratio 42.0 LAB CHEMISTRY METHOD 09/25/2024 11:08 AM [facility] LAB Calcium 9.3 8.5 - 10.5 mg/dL LAB CHEMISTRY METHOD 09/25/2024 11:08 AM [facility] LAB AST (SGOT) 34 10 - 42 unit/L LAB CHEMISTRY METHOD 09/25/2024 11:08 AM [facility] LAB ALT (SGPT) 63(H) 10 - 60 unit/L LAB CHEMISTRY METHOD 09/25/2024 11:08 AM [facility] LAB Alkaline Phosphatase 61 42 - 121 unit/L LAB CHEMISTRY METHOD 09/25/2024 11:08 AM [facility] LAB Total Protein 5.7(L) 6.0 - 8.0 g/dL LAB CHEMISTRY METHOD 09/25/2024 11:08 AM [facility] LAB Albumin 2.8(L) 3.2 - 5.0 g/dL LAB CHEMISTRY METHOD 09/25/2024 11:08 AM [facility] LAB Total Bilirubin 0.6 0.0 - 1.4 mg/dL LAB CHEMISTRY METHOD 09/25/2024 11:08 AM [facility] LAB Blood Venous blood specimen / Unknown Venipuncture / Unknown 09/25/2024 5:25 AM EDT 09/25/2024 9:26 AM EDT us Samuel Doran MD LAB BLOOD ORDERABLES Final Res ult [facility] LAB [address] [place] [address], documented in this encounter Visit Diagnoses Diagnosis Encounter for other general examination documented in this encounter Care Teams Cow Washer Relationship Specialty Start Date End Date Christian Garza PA [address] [place] [address] PCP - General 09/28/24 documented as of this encounter
--- OUTSIDE RECORDS SUMMARY | 2025-04-07 14:57 | XMS_ITS | Encounter Summary ---
Author Organization [facility] Address [address] [place] [address] Care Team Providers Care Able Bodied Watchman Name Role Phone Genejeyson Christian BARTH Primary Care Provider [phone] Encounter Details Date Type Department Care Team (Late st Contact Info) Description 10/09/2024 Lab Requisition [facility] - Main Lab [address] [facility] [employer] [place] [address] Samuel Doran MD [address] [place] [id number] Encounter for other general examination Social History [...] AM EDT) WBC 14.8(H) 4.8 - 10.8 K/[facility] LAB HEMETOLOGY METHOD 10/09/2024 10:57 AM HOLDEN [...] ult [facility] LAB [address] [place] [address], [place] [phone] * (ABNORMAL) Basic metabolic panel (10/09/2024 4:53 [...] LAB CHEMISTRY METHOD 10/09/2024 11:[address] [facility] LAB Blood Venous blood specimen / Unknown Venipuncture / Unknown 10/09/2024 4:53 AM EDT 10/09/2024 9:55 AM EDT us Samuel Doran MD LAB BLOOD ORDERABLES Final Res ult [facility]) [facility] LAB [address] [place] [address], documented in this encounter Visit Diagnoses Diagnosis Encounter for other general examination documented in this encounter Care Teams Able Bodied Watchman Relationship Specialty Start Date End Date Christian Garza PA [address] [place] [address] PCP - General 09/28/24 documented as of this encounter
== END 2025-04-06 12:17 | disposition home or self-care (01) ==
LOC: HO.LNP 12:16
PROVIDERS: Visit Provider Physician Assistant Medical
DX: R11.10 Vomiting, unspecified (principal)
CPT/HCPCS: 87338

== ENCOUNTER 2025-04-16 15:20 | Outpatient (AMB) | payer OTHER, SELFPAY ==
--- NOTE | 2025-04-16 15:26 | A.OFFVIS_ITS ---
Vital Signs 3 04/16/25 15:28 Height 5 ft 4 in Weight 130 lb 1.164 oz BMI 22.3 BP 118/64 Blood Pressure Location Rt brachial Position Sitting Pulse 74 Pulse Source Pulse Oximeter Pulse Oximetry (%) 98 Oxygen Delivery Method Room Air Intake Visit Reasons: T2DM, multinodular thyroid Intake Note: Patient presents here today for a follow-up on T2MD & Multinodular Thyroid: -Whole Blood Work Panel for DM & Thryroid Workup: [facility] Last Diabetic Eye Exam: Last exam was over 2 years ago, needs referral, in process Last Podiatry Visit: Needs referral, in process Most Recent HgA1C: 6.0%, 04/13/2025, [facility]. Random Glucose: 130 mg/dL L Bulldozer/Loader/Compactor/Scraper Required: No Accompanied by: Spouse Allergies No Known Allergies Allergy (Verified 03/29/25 15:50) Medication List - Last Reconciled 04/16/25 by Yeset Lina Todd MD amlodipine 5 mg PO DAILY aspirin 81 mg PO DAILY baclofen 5 mg PO TID blood pressure monitor As directed blood-glucose meter (FreeStyle Gerry Lite kit) As directed blood-glucose sensor (FreeStyle Elida 3 Plus Sensor device) As directed blood-glucose,hot room attendant,cont (FreeStyle Elida 3 [place]) As directed clopidogrel (Plavix) 75 mg PO DAILY dextrose (TRUEplus Glucose) 15 grams (32 mL) PO Q15M PRN hydroxyzine HCl 25 mg PO BEDTIME insulin lispro subcutaneously use as directed; Lispro three times a day with meals 121-200: 2 units 201-250: 4 units 251-300: 6 units 301-350: 8 units 351- 400: 10 units 400+ 10 units max 30 units daily losartan 100 mg PO DAILY melatonin 6 mg (2 x 3 mg) PO BEDTIME PRN metformin ER 1,000 mg (2 x 500 mg) PO BID 90 days multivitamin (Daily Multi-Vitamin tablet) 1 tab PO DAILY nystatin 500,000 units (5 mL) PO QID 10 days pantoprazole (Protonix) 40 mg (2 x 20 mg) PO DAILY pen needle, diabetic To use with insulin injections four times daily rosuvastatin 40 mg PO DAILY semaglutide (Ozempic) 2 mg (0.75 mL) subcut QWEEK sertraline 50 mg PO DAILY HPI Comments Details: 59-year-old female coming in today for initial evaluation of 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 Also has a history of multinodular goiter. Here with Cosme Previously seen by Dr. Suarez on 02/08/2025. This is the 1st time that I see this patient. Type 2 diabetes mellitus History of diabetes Diagnosed in 40s Started on insulin August 2024, was hospitalized for stroke with residual left sided weakness prednisone high doses started August 2024, tapered off to 5 mg every other day up until 2 weeks ago, now completely off it. Prior therapy: Trulicty caused severe GI intolerance Glipizide in the past has been getting recurrent UTIs recently Current regimen: Lantus 8 units at bedtime Lispro 4-14 units 121-200: 4 units 201-250: 6 units 251-300: 8 units 301-350: 10 units 351- 400: 12 units 400+ 14 units Ozempic 2 mg on Sundays ( started sometime 2019) (has been on 2 mg for a year at least ) Metformin 1000 mg b.i.d. Denies any symptoms of hyperglycemia including polyphagia, polyuria, polydipsia. Denies any hypoglycemic symptoms. has hypoglycemia unawareness, doesnt feel anythign even in 50s. HgA1C: 6.8% 12/10/24 Complications Eye exam: Last eye exam was 2022? no history of retinopathy. Neuropathy: no neuropathy Kidney disease: microalbuminuria ur m/cr ratio 43.03 November 2023, egfr > 60 01/25 Macrovascular complications: CVA August 2024 x2, residual left sided weakness , no UT Statin:rosuvastatin 40 mg , LDL 63 mg/dl 11/24 NOE/ARB: losartan 100 mg daily Exercise: doing physical therapy Diet control: BF 7 and 8 AM: 2 eggs with kazakh muffin and fruit, 6 ounces of cranberry juice Snack 10 am : apple or pear Lunch noon - 1 pm : salad with egg whites and chicken Dinner 5-6 pm : fish , steak , some protein icecream bar every night 8 pm She has never had any hospitalizations for hyperglycemia/hypoglycemia. CGM data: Interpretation: Overall excellent diabetes control, etc. for some intermittent episodes of hypoglycemia especially overnight and late at night. Multinodular goiter Normal TSH from January 2025 with 0.52. She only had a low TSH once back in December 2024 when TSH was 0.3 with a normal free T4 at 1.16. Prior to that she has always had normal thyroid function. No compressive symptoms. Ultrasound thyroid 12/29/2024 showed multiple bilateral nodules with a right midpole 0.7 cm solid hypoechoic TR 4 nodule, a right midpole 0.9 cm solid hypoechoic TR 4 nodule which would meet criteria for follow up. A left midpole 1.4 cm cm spongiform nodule. A left midpole 0.6 cm solid isoechoic TR 3 nodule. A left midpole 0.8 cm mixed cystic solid isoechoic TR 2 nodule. No family history of thyroid cancer. No personal history of head or neck radiation. Interval history: She reports that her sensor has failed multiple times She reports having 2 strokes in August 2024 Not using Long acting insulin Using 2-6 units per day Ozempic 2 mg. Well tolerated She reports having lows in the middle of the night, but less since Lantus was stopped Pending Podiatry and Ophthalmology appointments Physical exam Laboratory Tests 08/10/24 12/10/24 01/01/25 16:47 15:22 12:25 Hgb 13.7 Hct 41.1 Plt Count 253 D Creatinine 0.76 Estimated GFR > 60 Glucose (Clinic) Random Glucose 126 H Hemoglobin A1c % 6.0 6.8 H AST ALT Albumin 4.7 Triglycerides Cholesterol LDL Cholesterol, Calc HDL Cholesterol Vitamin B12 399 TSH 0.30 L 0.52 Free T4 1.16 Urine Creatinine Urine Microalbumin Microalb/Creat Ratio EXAMINATION: US THYROID 12/29/24 HISTORY: E04.1 - Nontoxic single thyroid nodule TECHNIQUE: Real-time grayscale ultrasound imaging was performed and images were reviewed. COMPARISON: There are no prior studies available for comparison. FINDINGS: SIZE: The right thyroid lobe measures 5.1 x 1.7 x 2.0 cm. The left thyroid lobe measures 4.9 x 1.9 x 2.1 cm. The isthmus measures 3 mm. FLOW: Flow to the gland is normal. ECHOGENICITY: The echotexture of the gland is homogeneous. NODULES: Multiple bilateral thyroid nodules are identified as described below: Nodule #: 1 Location: Midportion of the right thyroid lobe measuring 7 x 6 x 6 mm. Shape: Wider than tall (0 points) Margins: Smooth (0 points) Echotexture: Hypoechoic (2 points) Composition: Solid (2 points) Calcifications: None (0 points) Total points: 4 TIRADS: TR4: Moderately suspicious. Nodule #: 2 Location: Midportion of the right thyroid lobe measuring 9 x 6 x 7 mm. Shape: Wider than tall (0 points) Margins: Smooth (0 points) Echotexture: Hypoechoic (2 points) Composition: Solid (2 points) Calcifications: None (0 points) Total points: 4 TIRADS: TR4: Moderately suspicious. Nodule #: 3 Location: Midportion of the left thyroid lobe measuring 11 x 4 x 12 mm. Shape: Wider than tall (0 points) Margins: Smooth (0 points) Echotexture: n/a Composition: Spongiform (0 points) Calcifications: None (0 points) Total points: 0 TIRADS: TR1: Benign Nodule #: 4 Location: Midportion of the left thyroid lobe measuring 5 x 6 x 6 mm. Shape: Wider than tall (0 points) Margins: Smooth (0 points) Echotexture: Isoechoic (1 point) Composition: Solid (2 points) Calcifications: None (0 points) Total points: 3 TIRADS: TR3: Mildly suspicious. Nodule #: 5 Location: Midportion of the left thyroid lobe measuring 8 x 5 x 7 mm. Shape: Wider than tall (0 points) Margins: Smooth (0 points) Echotexture: Isoechoic (1 point) Composition: Mixed (1 point) Calcifications: None (0 points) Total points: 2 TIRADS: TR2: Not suspicious IMPRESSION: Multinodular thyroid gland as described above. None of the nodules meet the ACR TI-RADS guidelines for biopsy. 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 Hospital discharge follow-up History of CVA with residual deficit Thyroid nodule LFT elevation Atrophy of muscle of left lower leg Weakness of left leg Floaters RUQ abdominal pain Lumbosacral radiculopathy Hiatal hernia Hepatic steatosis Microalbuminuria Renal cyst, left Renal lesion Gallbladder polyp Anxiety Pure hypercholesterolemia Left upper quadrant pain Fatigue Essential hypertension Type 2 diabetes mellitus Torn ligament High cholesterol High blood pressure Diabetes Family History Father Colon cancer Mother Diabetes Social History Household Members: Significant Other Housing: House Are you a primary hospice spiritual care coordinator to a significant other at home: No Do you presently have visiting nurse or other home services: No Alcohol intake: never Patient Tobacco Use Status: Former Tobacco user e-Cigarette/Vaping Use: Currently Using Second Hand Smoke Exposure: No Special reanna needs: No service: No Current occupational status: employed Current occupation: service diapatcher Cognitive needs: No Hearing needs: No Vision needs: Yes (Patient wears glasses.) Physical Exam Vital Signs: BMI result Body Mass Index 22.3 Assessment & Plan Assessment & Plan (1) Type 2 diabetes mellitus: Code(s): E11.9 - Type 2 diabetes mellitus without complications Category: Medical Qualifiers: Diabetes mellitus [facility] insulin use: without adjunct faculty for medical terminology use Diabetes mellitus complication status: with hyperglycemia Qualified Code(s): E11.65 - Type 2 diabetes mellitus with hyperglycemia Plan: 59-year-old female with type 2 diabetes mellitus with long-term insulin use with complications of microalbuminuria, CVA August 2024 with residual left-sided weakness X 2, coming in today to establish care. A1c December 2024 at 6.8%, which is much improved than her prior poor control when her A1c was greater than 14% in 2023. Current BG control is excellent, specially after Lantus was stopped. Her labs showed that her Malb/cr was OK. Her lipid paner showed LDL 62, for secondary prevention for very high risk patients like her, the goal LDL is < 55. Will add Ezetimibe. Plan: OK with stopping Lantus Continue insulin lispro sliding scale Lispro three times a day with meals 121-200: 2 units 201-250: 4 units 251-300: 6 units 301-350: 8 units 351- 400: 10 units 400+ 10 units Start Ezetimibe 10 mg per day Repeat Lipid panel prior to next visit Ozempic 2 mg on Sundays Metformin 1000 mg twice daily Prescribed Elida 3 plus sensor and reader, as she has had issues with Dexcom hypoglycemia education done Baqsimi nasal spray education provided Referred to Podiatry She will make the appointment with Ophthalmology (2) Low TSH level: Code(s): R79.89 - Other specified abnormal findings of blood chemistry Category: Medical Plan: 59-year-old female who was noted to have a low TSH level on labs in December 2024 when TSH was 0.3 with normal free T4. Otherwise she has always had normal thyroid function. Labs repeated most recently in January 2025 shows normal TSH. We will repeat levels. TSH 0.87, FT4 1.05 (3) Multinodular thyroid: Code(s): E04.2 - Nontoxic multinodular goiter Category: Medical Plan: 59-year-old female with no family history of thyroid cancer, with no personal history of head or neck radiation with multinodular goiter. No compressive symptoms. Ultrasound thyroid 12/29/2024 showed multiple bilateral nodules with a right midpole 0.7 cm solid hypoechoic TR 4 nodule, a right midpole 0.9 cm solid hypoechoic TR 4 nodule which would meet criteria for follow up. A left midpole 1.4 cm cm spongiform nodule. A left midpole 0.6 cm solid isoechoic TR 3 nodule. A left midpole 0.8 cm mixed cystic solid isoechoic TR 2 nodule. Plan: -plan to repeat next ultrasound of the thyroid in December 2025 (4) Long-term insulin use: Code(s): Z79.4 - halfway (current) use of insulin Category: Medical Plan: See above Plan I spent 35 minutes in reviewing the record, seeing the patient and documenting in the medical record. Orders: Orders 2 AMB Glucose Monitoring Today E11.65 - Type 2 diabetes mellitus with hyperglycemia, Z79.4 - long term acute care registered nurse (current) use of insulin Lipid Panel 11 Weeks E11.65 - Type 2 diabetes mellitus with hyperglycemia Referrals 2 Podiatry Referral E11.65 - Type 2 diabetes mellitus with hyperglycemia Medications: New 2 blood-glucose sensor (FreeStyle Elida 3 Plus Sensor device) As directed 2 ea 3RF E11.65 - Type 2 diabetes mellitus with hyperglycemia, Z79.4 - long term acute care registered nurse (current) use of insulin blood-glucose,hot room attendant,cont (FreeStyle Elida 3 [place]) As directed 1 ea 0RF E11.65 - Type 2 diabetes mellitus with hyperglycemia, Z79.4 - long term acute care registered nurse (current) use of insulin ezetimibe 10 mg PO DAILY 30 tabs 0RF glucagon 3 mg/actuation (Baqsimi) Use as needed for severe hypoglycemia 3 mg intranasal ONCE 2 ea 3RF E11.65 - Type 2 diabetes mellitus with hyperglycemia, Z79.4 - halfway (current) use of insulin Refilled 2 metformin ER 1,000 mg (2 x 500 mg) PO BID 360 tabs 3RF 90 days Discontinued 2 blood-glucose,hot room attendant,cont (Dexcom G7 Credit Collector) Discontinued Reason: Doctor's Order As directed 1 ea 0RF blood-glucose sensor (Dexcom G7 Sensor device) Discontinued Reason: Doctor's Order apply to skin and replace after 10 days to monitor blood glucose for type 2 diabetes 9 ea 3RF Patient Instructions: Ezetimibe: Patient Instructions on Side Effects What is ezetimibe? Ezetimibe is a medication used to lower cholesterol by reducing the amount your body absorbs from food. It is sometimes taken alone or with a statin. Common Side Effects Some people may experience mild side effects, which often improve as your body adjusts to the medication. These include: Upper respiratory tract infection (such as runny nose, sore throat) Joint pain Muscle aches or pain Pain in arms or legs Back pain Diarrhea Feeling tired Flu-like symptoms Sinus inflammation If any of these side effects bother you or do not go away, let your healthcare provider know. Serious Side Effects: When to Contact Your Doctor Call your doctor right away if you notice any of the following: Unexplained muscle pain, tenderness, or weakness (especially if you also feel more tired than usual or have a fever) Muscle problems that do not go away after stopping the medication Symptoms of liver problems: Unusual tiredness Loss of appetite Pain in the upper right side of your abdomen Dark-colored urine Yellowing of your skin or eyes (jaundice) Note: The risk of muscle problems is higher if you are also taking a statin or a fibrate. Rare Side Effects Increased liver enzymes (your doctor may check this with blood tests) Serious muscle breakdown (rhabdomyolysis) (very rare, but important to report muscle symptoms promptly) What to Do Do not stop taking ezetimibe without talking to your healthcare provider. Report any side effects that are severe, persistent, or concerning. If you experience symptoms of a serious allergic reaction (such as swelling of the face, lips, tongue, or throat, or difficulty breathing), seek emergency medical attention. Coding Level of Care Code Est Pt Level 4 (19269) Diagnoses Type 2 diabetes mellitus with hyperglycemia, without long-term current use of insulin E11.65 Diabetes mellitus adjunct faculty for medical terminology insulin use: without adjunct faculty for medical terminology use Diabetes mellitus complication status: with hyperglycemia Low TSH level R79.89 Multinodular thyroid E04.2 Long-term insulin use Z79.4
[2025-04-16 15:28] VITALS: BP 118/64; PULSE 74; O2SAT 98; BMI 22.3
[2025-04-16 15:38] LABS: Glucose, Whole Blood 130 mg/dL (60-115)
--- OUTSIDE RECORDS SUMMARY | 2025-04-17 00:04 | XMS_ITS | Encounter Summary ---
Author Organization [facility] Address [address] [place] [address] Care Team Providers Care Square Shear Operator Name Role Phone Genejeyson Christian BARTH Primary Care Provider [phone] Encounter Details Date Type Department Care Team (Late st Contact Info) Description 09/29/2024 Lab Requisition [facility] - Main Lab [address] [facility] [place] [address] Samuel Doran MD [address] [place] [phone] Encounter for other general examination Social History [...] AM EDT) WBC 12.3(H) 4.8 - 10.8 K/[facility] LAB HEMETOLOGY METHOD 09/29/2024 10:51 AM [facility] LAB RBC 4.00 3.80 - 4.80 M/mcL LAB HEMETOLOGY METHOD 09/29/2024 10:51 AM [facility] LAB Hemoglobin 11.7 11.5 - 16.0 g/dL LAB HEMETOLOGY METHOD 09/29/2024 10:51 AM [facility] LAB Hematocrit 37.0 35.0 - 47.0 % LAB HEMETOLOGY METHOD 09/29/2024 10:51 AM [facility] LAB MCV 93.0 79.0 - 98.0 FL LAB HEMETOLOGY METHOD 09/29/2024 10:51 AM [facility] LAB MCH 29.4 27.0 - 32.0 pcg LAB HEMETOLOGY METHOD 09/29/2024 10:51 AM [facility] LAB MCHC 31.6(L) 32.0 - 37.0 g/dL LAB HEMETOLOGY METHOD 09/29/2024 10:51 AM [facility] LAB RDW 14.8 11.0 - 15.0 % LAB HEMETOLOGY METHOD 09/29/2024 10:51 AM [facility] LAB Platelets 301 130 - 400 K/mcL LAB HEMETOLOGY METHOD 09/29/2024 10:51 AM [facility] LAB MPV 8.8 7.0 - 11.0 FL LAB HEMETOLOGY METHOD 09/29/2024 10:51 AM [facility] LAB NRBC 0.0 <1.0 % LAB HEMETOLOGY METHOD 09/29/2024 10:51 AM [facility] LAB NRBC Absolute 0.00 <0.10 K/mcL LAB HEMETOLOGY METHOD 09/29/2024 10:51 AM [facility] LAB Neutrophils Relative 70.3 % LAB HEMETOLOGY METHOD 09/29/2024 10:51 AM [facility] LAB Lymphocytes Relative 19.9 % LAB HEMETOLOGY METHOD 09/29/2024 10:51 AM [facility] LAB Monocytes Relative 8.2 % LAB HEMETOLOGY METHOD 09/29/2024 10:51 AM [facility] LAB Eosinophils Relative 0.9 % LAB HEMETOLOGY METHOD 09/29/2024 10:51 AM [facility] LAB Basophils Relative 0.2 % LAB HEMETOLOGY METHOD 09/29/2024 10:51 AM [facility] LAB Immature Granulocytes Relative 0.5 % LAB HEMETOLOGY METHOD 09/29/2024 10:51 AM [facility] LAB Neutrophils Absolute 8.67(H) 1.50 - 7.00 K/mcL LAB HEMETOLOGY METHOD 09/29/2024 10:51 AM [facility] LAB Lymphocytes Absolute 2.45 1.00 - 5.00 K/mcL LAB HEMETOLOGY METHOD 09/29/2024 10:51 AM [facility] LAB Monocytes Absolute 1.01(H) 0.20 - 1.00 K/mcL LAB HEMETOLOGY METHOD 09/29/2024 10:51 AM [facility] LAB Eosinophils Absolute 0.11 0.00 - 0.50 K/mcL LAB HEMETOLOGY METHOD 09/29/2024 10:51 AM [facility] LAB Basophils Absolute 0.03 0.00 - 0.20 K/mcL LAB HEMETOLOGY METHOD 09/29/2024 10:51 AM [facility] LAB Immature Granulocytes Absolute 0.06(H) 0.00 - 0.03 K/mcL LAB HEMETOLOGY METHOD 09/29/2024 10:51 AM [facility] LAB Blood Venous blood specimen / Unknown Venipuncture / Unknown 09/29/2024 5:36 AM EDT 09/29/2024 9:45 AM EDT us Samuel Doran MD LAB BLOOD ORDERABLES Final Res ult [facility] [address] [place] [address], [place] [phone] * (ABNORMAL) Comprehensive metabolic panel (09/29/2024 5:36 AM EDT) Pathologist [facility] Sodium 137 133 - 145 mmol/L LAB CHEMISTRY METHOD 09/29/2024 11:34 AM [facility] LAB Potassium 4.4 3.5 - 5.5 mmol/L LAB CHEMISTRY METHOD 09/29/2024 11:34 AM [facility] LAB Chloride 98 96 - 110 mmol/L LAB CHEMISTRY METHOD 09/29/2024 11:34 AM [facility] LAB CO2 31 21 - 32 mmol/L LAB CHEMISTRY METHOD 09/29/2024 11:34 AM [facility] LAB Anion Gap 8 3 - 11 LAB CHEMISTRY METHOD 09/29/2024 11:34 AM [facility] LAB Glucose 78 70 - 100 mg/dL LAB CHEMISTRY METHOD 09/29/2024 11:34 AM [facility] LAB BUN 22 5 - 25 mg/dL LAB CHEMISTRY METHOD 09/29/2024 11:34 AM [facility] LAB Creatinine 0.69 0.50 - 1.10 mg/dL LAB CHEMISTRY METHOD 09/29/2024 11:34 AM [facility] LAB eGFR 101 >=60 mL/min/1. 73m2 LAB CHEMISTRY METHOD 09/29/2024 11:34 AM [facility] LAB Comment:Calculation based on the Chronic Kidney Disease Epidemiology Collaboration (CKD-EPI) equation refit without adjustment for race. BUN/Creatinine Ratio 31.9 LAB CHEMISTRY METHOD 09/29/2024 11:34 AM [facility] LAB Calcium 9.8 8.5 - 10.5 mg/dL LAB CHEMISTRY METHOD 09/29/2024 11:34 AM [facility] LAB AST (SGOT) 25 10 - 42 unit/L LAB CHEMISTRY METHOD 09/29/2024 11:34 AM [facility] LAB ALT (SGPT) 72(H) 10 - 60 unit/L LAB CHEMISTRY METHOD 09/29/2024 11:34 AM [facility] LAB Alkaline Phosphatase 76 42 - 121 unit/L LAB CHEMISTRY METHOD 09/29/2024 11:34 AM [facility] Total Protein 5.8(L) 6.0 - 8.0 g/dL LAB CHEMISTRY METHOD 09/29/2024 11:34 AM [facility] LAB Albumin 3.0(L) 3.2 - 5.0 g/dL LAB CHEMISTRY METHOD 09/29/2024 11:34 AM [facility] LAB Total Bilirubin 0.5 0.0 - 1.4 mg/dL LAB CHEMISTRY METHOD 09/29/2024 11:34 AM [facility] LAB Blood Venous blood specimen / Unknown Venipuncture / Unknown 09/29/2024 5:36 AM EDT 09/29/2024 9:45 AM EDT us Samuel Doran MD LAB BLOOD ORDERABLES Final Res ult [facility] [address] [place] [address], documented in this encounter Visit Diagnoses Diagnosis Encounter for other general examination documented in this encounter Care Teams Square Shear Operator Relationship Specialty Start Date End Date Christian Garza PA [facility] [place] [address] PCP - General 09/28/24 documented as of this encounter
--- OUTSIDE RECORDS SUMMARY | 2025-04-17 00:06 | XMS_ITS | Encounter Summary ---
Author Organization [facility] Address [address] [place] [address] Care Team Providers Care Director Of Religious Life Name Role Phone Genejeyson Christian BARTH Primary Care Provider [phone] Encounter Details Date Type Department Care Team (Late st Contact Info) Description 09/22/2024 Lab Requisition [facility] - Main Lab [address] [place] [address] Samuel Doran MD [address] [place] [phone] Encounter for other general examination Social History [...] AM EDT) WBC 11.3(H) 4.8 - 10.8 K/[facility] LAB HEMETOLOGY METHOD 09/22/2024 10:41 AM EDT [facility] RBC 3.70(L) 3.80 - 4.80 M/mcL LAB HEMETOLOGY METHOD 09/22/2024 10:41 AM [facility] LAB Hemoglobin 11.0(L) 11.5 - 16.0 g/dL LAB HEMETOLOGY METHOD 09/22/2024 10:41 AM [facility] LAB Hematocrit 33.3(L) 35.0 - 47.0 % LAB HEMETOLOGY METHOD 09/22/2024 10:41 AM [facility] LAB MCV 89.3 79.0 - 98.0 FL LAB HEMETOLOGY METHOD 09/22/2024 10:41 AM [facility] LAB MCH 29.5 27.0 - 32.0 pcg LAB HEMETOLOGY METHOD 09/22/2024 10:41 AM [facility] LAB MCHC 33.0 32.0 - 37.0 g/dL LAB HEMETOLOGY METHOD 09/22/2024 10:41 AM [facility] LAB RDW 14.2 11.0 - 15.0 % LAB HEMETOLOGY METHOD 09/22/2024 10:41 AM [facility] LAB Platelets 189 130 - 400 K/mcL LAB HEMETOLOGY METHOD 09/22/2024 10:41 AM [facility] LAB MPV 9.2 7.0 - 11.0 FL LAB HEMETOLOGY METHOD 09/22/2024 10:41 AM [facility] LAB NRBC 0.0 <1.0 % LAB HEMETOLOGY METHOD 09/22/2024 10:41 AM [facility] LAB NRBC Absolute 0.00 <0.10 K/mcL LAB HEMETOLOGY METHOD 09/22/2024 10:41 AM [facility] LAB Blood Venous blood specimen / Unknown Venipuncture / Unknown 09/22/2024 5:13 AM EDT 09/22/2024 9:47 AM EDT us Samuel Doran MD LAB BLOOD ORDERABLES Final Res ult [facility] [address] [place] [address], * (ABNORMAL) Comprehensive metabolic panel (09/22/2024 5:13 AM EDT) Sodium 142 133 - 145 mmol/L LAB CHEMISTRY METHOD 09/22/2024 11:40 AM [facility] LAB Potassium 3.6 3.5 - 5.5 mmol/L LAB CHEMISTRY METHOD 09/22/2024 11:40 AM [facility] LAB Chloride 103 96 - 110 mmol/L LAB CHEMISTRY METHOD 09/22/2024 11:40 AM [facility] LAB CO2 32 21 - 32 mmol/L LAB CHEMISTRY METHOD 09/22/2024 11:40 AM [facility] LAB Anion Gap 7 3 - 11 LAB CHEMISTRY METHOD 09/22/2024 11:40 AM [facility] LAB Glucose 55(L) 70 - 100 mg/dL LAB CHEMISTRY METHOD 09/22/2024 11:40 AM [facility] LAB BUN 17 5 - 25 mg/dL LAB CHEMISTRY METHOD 09/22/2024 11:40 AM [facility] LAB Creatinine 0.55 0.50 - 1.10 mg/dL LAB CHEMISTRY METHOD 09/22/2024 11:40 AM [facility] LAB eGFR 106 >=60 mL/min/1. 73m2 LAB CHEMISTRY METHOD 09/22/2024 11:40 AM [facility] LAB Comment:Calculation based on the Chronic Kidney Disease Epidemiology Collaboration (CKD-EPI) equation refit without adjustment for race. BUN/Creatinine Ratio 30.9 LAB CHEMISTRY METHOD 09/22/2024 11:40 AM [facility] LAB Calcium 9.0 8.5 - 10.5 mg/dL LAB CHEMISTRY METHOD 09/22/2024 11:40 AM [facility] LAB AST (SGOT) 13 10 - 42 unit/L LAB CHEMISTRY METHOD 09/22/2024 11:40 AM [facility] LAB ALT (SGPT) 42 10 - 60 unit/L LAB CHEMISTRY METHOD 09/22/2024 11:40 AM [facility] LAB Alkaline Phosphatase 58 42 - 121 unit/L LAB CHEMISTRY METHOD 09/22/2024 11:40 AM T [facility] LAB Total Protein 5.5(L) 6.0 - 8.0 g/dL LAB CHEMISTRY METHOD 09/22/2024 11:40 AM [facility] LAB Albumin 2.8(L) 3.2 - 5.0 g/dL LAB CHEMISTRY METHOD 09/22/2024 11:40 AM [facility] Total Bilirubin 0.7 0.0 - 1.4 mg/dL LAB CHEMISTRY METHOD 09/22/2024 11:40 AM [facility] LAB Blood Venous blood specimen / Unknown Venipuncture / Unknown 09/22/2024 5:13 AM EDT 09/22/2024 9:47 AM EDT us Samuel Doran MD LAB BLOOD ORDERABLES Final Res ult [facility] [address] [place] [address], documented in this encounter Visit Diagnoses Diagnosis Encounter for other general examination documented in this encounter Care Teams Director Of Religious Life Relationship Specialty Start Date End Date Christian Garza PA [address] [place] [phone] PCP - General 09/28/24 documented as of this encounter
--- OUTSIDE RECORDS SUMMARY | 2025-04-17 00:06 | XMS_ITS | Encounter Summary ---
Author Organization [facility] Address [address] [place] [address] Care Team Providers Care Applied Psychology Chair Name Role Phone Genejeyson Christian BARTH Primary Care Provider Encounter Details Date Type Department Care Team (Late st Contact Info) Description 09/25/2024 Lab Requisition [facility] - Main Lab [address] [facility] [place] [address] Samuel Doran MD [address] [place] [phone] Encounter for other general examination Social History [...] EDT) WBC 11.0(H) 4.8 - 10.8 K/[facility] LAB HEMETOLOGY METHOD 09/25/2024 10:38 AM [facility] LAB RBC 3.70(L) 3.80 - 4.80 M/mcL LAB HEMETOLOGY METHOD 09/25/2024 10:38 AM [facility] LAB Hemoglobin 10.9(L) 11.5 - 16.0 g/dL LAB HEMETOLOGY METHOD 09/25/2024 10:38 AM [facility] LAB Hematocrit 33.5(L) 35.0 - 47.0 % LAB HEMETOLOGY METHOD 09/25/2024 10:38 AM [facility] LAB MCV 91.0 79.0 - 98.0 FL LAB HEMETOLOGY METHOD 09/25/2024 10:38 AM [facility] LAB MCH 29.6 27.0 - 32.0 pcg LAB HEMETOLOGY METHOD 09/25/2024 10:38 AM [facility] LAB MCHC 32.5 32.0 - 37.0 g/dL LAB HEMETOLOGY METHOD 09/25/2024 10:38 AM [facility] LAB RDW 14.6 11.0 - 15.0 % LAB HEMETOLOGY METHOD 09/25/2024 10:38 AM [facility] LAB Platelets 224 130 - 400 K/mcL LAB HEMETOLOGY METHOD 09/25/2024 10:38 AM [facility] LAB MPV 9.4 7.0 - 11.0 FL LAB HEMETOLOGY METHOD 09/25/2024 10:38 AM [facility] LAB NRBC 0.0 <1.0 % LAB HEMETOLOGY METHOD 09/25/2024 10:38 AM [facility] LAB NRBC Absolute 0.00 <0.10 K/mcL LAB HEMETOLOGY METHOD 09/25/2024 10:38 AM [facility] LAB Neutrophils Relative 64.3 % LAB HEMETOLOGY METHOD 09/25/2024 10:38 AM [facility] LAB Lymphocytes Relative 27.2 % LAB HEMETOLOGY METHOD 09/25/2024 10:38 AM [facility] LAB Monocytes Relative 6.9 % LAB HEMETOLOGY METHOD 09/25/2024 10:38 AM [facility] LAB Eosinophils Relative 1.0 % LAB HEMETOLOGY METHOD 09/25/2024 10:38 AM [facility] LAB Basophils Relative 0.2 % LAB HEMETOLOGY METHOD 09/25/2024 10:38 AM [facility] LAB Immature Granulocytes Relative 0.4 % LAB HEMETOLOGY METHOD 09/25/2024 10:38 AM [facility] LAB Neutrophils Absolute 7.09(H) 1.50 - 7.00 K/mcL LAB HEMETOLOGY METHOD 09/25/2024 10:38 AM [facility] LAB Lymphocytes Absolute 3.00 1.00 - 5.00 K/mcL LAB HEMETOLOGY METHOD 09/25/2024 10:38 AM [facility] LAB Monocytes Absolute 0.76 0.20 - 1.00 K/mcL LAB HEMETOLOGY METHOD 09/25/2024 10:38 AM [facility] LAB Eosinophils Absolute 0.11 0.00 - 0.50 K/mcL LAB HEMETOLOGY METHOD 09/25/2024 10:38 AM [facility] LAB Basophils Absolute 0.02 0.00 - 0.20 K/mcL LAB HEMETOLOGY METHOD 09/25/2024 10:38 AM [facility] LAB Immature Granulocytes Absolute 0.04(H) 0.00 - 0.03 K/mcL LAB HEMETOLOGY METHOD 09/25/2024 10:38 AM [facility] LAB Blood Venous blood specimen / Unknown Venipuncture / Unknown 09/25/2024 5:25 AM EDT 09/25/2024 9:26 AM EDT us Samuel Doran MD LAB BLOOD ORDERABLES Final Res ult [facility] [address] [place] [address], [place] [phone] * (ABNORMAL) Comprehensive metabolic panel (09/25/2024 5:25 AM EDT) Sodium 141 133 - 145 mmol/L LAB CHEMISTRY METHOD 09/25/2024 11:08 AM [facility] LAB Potassium 4.0 3.5 - 5.5 mmol/L LAB CHEMISTRY METHOD 09/25/2024 11:08 AM [facility] LAB Chloride 104 96 - 110 mmol/L LAB CHEMISTRY METHOD 09/25/2024 11:08 AM [facility] LAB CO2 31 21 - 32 mmol/L LAB CHEMISTRY METHOD 09/25/2024 11:08 AM [facility] LAB Anion Gap 6 3 - 11 LAB CHEMISTRY METHOD 09/25/2024 11:08 AM [facility] LAB Glucose 49(L) 70 - 100 mg/dL LAB CHEMISTRY METHOD 09/25/2024 11:08 AM [facility] LAB BUN 21 5 - 25 mg/dL LAB CHEMISTRY METHOD 09/25/2024 11:08 AM [facility] LAB Creatinine 0.50 0.50 - 1.10 mg/dL LAB CHEMISTRY METHOD 09/25/2024 11:08 AM [facility] LAB eGFR 109 >=60 mL/min/1. 73m2 LAB CHEMISTRY METHOD 09/25/2024 11:08 AM [facility] LAB Comment:Calculation based on the Chronic Kidney Disease Epidemiology Collaboration (CKD-EPI) equation refit without adjustment for race. BUN/Creatinine Ratio 42.0 LAB CHEMISTRY METHOD 09/25/2024 11:08 AM [facility] LAB Calcium 9.3 8.5 - 10.5 mg/dL LAB CHEMISTRY METHOD 09/25/2024 11:08 AM [facility] LAB AST (SGOT) 34 10 - 42 unit/L LAB CHEMISTRY METHOD 09/25/2024 11:08 AM [facility] LAB ALT (SGPT) 63(H) 10 - 60 unit/L LAB CHEMISTRY METHOD 09/25/2024 11:08 AM [facility] LAB Alkaline Phosphatase 61 42 - 121 unit/L LAB CHEMISTRY METHOD 09/25/2024 11:08 AM [facility] LAB Total Protein 5.7(L) 6.0 - 8.0 g/dL LAB CHEMISTRY METHOD 09/25/2024 11:08 AM [facility] Albumin 2.8(L) 3.2 - 5.0 g/dL LAB CHEMISTRY METHOD 09/25/2024 11:08 AM [facility] Total Bilirubin 0.6 0.0 - 1.4 mg/dL LAB CHEMISTRY METHOD 09/25/2024 11:08 AM [facility] LAB Blood Venous blood specimen / Unknown Venipuncture / Unknown 09/25/2024 5:25 AM EDT 09/25/2024 9:26 AM EDT us Samuel Doran MD LAB BLOOD ORDERABLES Final Res ult [facility] [address] [place] [address], documented in this encounter Visit Diagnoses Diagnosis Encounter for other general examination documented in this encounter Care Teams Applied Psychology Chair Relationship Specialty Start Date End Date Christian Garza PA [address] [place] [address] PCP - General 09/28/24 documented as of this encounter
--- OUTSIDE RECORDS SUMMARY | 2025-04-17 00:06 | XMS_ITS | Encounter Summary ---
Author Organization [facility] Address [address] [place] [address] Care Team Providers Care Sales Representative Health Insurance Name Role Phone Greg Christian BARTH Primary Care Provider [phone] Encounter Details Date Type Department Care Team (Late st Contact Info) Description 09/28/2024 Lab Requisition [facility] - Main Lab [address] [facility] [place] [address] Samuel Doran MD [address] [place] [phone] Dysuria Social History Tobacco Use Types Packs/Day [...] and culture (09/28/2024 5:30 AM EDT) Specific [place] Urine 1.017 1.003 - 1.030 LAB URINALYSIS - AUTOMATED METHOD 09/28/2024 11:08 AM [facility] pH, Urine 8.0 5.0 - 8.0 pH LAB URINALYSIS - AUTOMATED METHOD 09/28/2024 11:08 AM [facility] LAB Leukocytes, Urine Negative Negative LAB URINALYSIS - AUTOMATED METHOD 09/28/2024 11:08 AM [facility] LAB Nitrite, Urine Negative Negative LAB URINALYSIS - AUTOMATED METHOD 09/28/2024 11:08 AM [facility] Protein, Urine Negative <=Trace mg/dL LAB URINALYSIS - AUTOMATED METHOD 09/28/2024 11:08 AM [facility] LAB Glucose, Urine Negative Negative mg/dL LAB URINALYSIS - AUTOMATED METHOD 09/28/2024 11:08 AM [facility] Ketones, Urine Negative Negative mg/dL LAB URINALYSIS - AUTOMATED METHOD 09/28/2024 11:08 AM [facility] LAB Urobilinogen, Urine 2.0(A) 0.2 - 1.0 mg/dL LAB URINALYSIS - AUTOMATED METHOD 09/28/2024 11:08 AM [facility] Bilirubin, Urine Negative Negative LAB URINALYSIS - AUTOMATED METHOD 09/28/2024 11:08 AM [facility] Blood, Urine Negative Negative LAB URINALYSIS - AUTOMATED METHOD 09/28/2024 11:08 AM [facility] Urine Urine specimen obtained by clean catch procedure / Unknown Non-blood Collection / Unknown 09/28/2024 5:30 AM EDT 09/28/2024 9:49 AM EDT us Samuel Doran MD LAB URINE ORDERABLES Final Res ult [facility] [address] [place] [address], * Ndiaye urine culture tube (09/28/2024 5:30 AM EDT) Extra Tube Hold for add-ons. 09/28/2024 11:01 AM EDT [facility] Comment:Auto resulted. Urine Urine specimen obtained by clean catch procedure / Unknown Non-blood Collection / Unknown 09/28/2024 5:30 AM EDT 09/28/2024 9:49 AM EDT us Samuel Doran MD LAB URINE ORDERABLES Final Res ult [facility] [address] [place] [address], documented in this encounter Visit Diagnoses Diagnosis Dysuria documented in this encounter Care Teams Sales Representative Health Insurance Relationship Specialty Start Date End Date Christian Garza PA [address] [place] [id number] PCP - General 09/28/24 documented as of this encounter
--- OUTSIDE RECORDS SUMMARY | 2025-04-17 00:07 | XMS_ITS | Encounter Summary ---
Author Organization [facility] Address [address] [place] [address] Care Team Providers Care Engineering Supplies Sales Name Role Phone Genejeyson Christian BARTH Primary Care Provider [phone] Encounter Details Date Type Department Care Team (Late st Contact Info) Description 09/18/[address] [facility] - Main Lab 299 [facility] [place] [address] Samuel Doran MD [address] [place] [address] Encounter for other general examination Social History [...] CBC auto differential (09/18/2024 5:35 AM EDT) [facility] WBC 13.8(H) 4.8 - 10.8 K/mcL LAB HEMETOLOGY METHOD 09/18/2024 11:36 AM [facility] RBC 3.80 3.80 - 4.80 M/mcL LAB HEMETOLOGY METHOD 09/18/2024 11:36 AM [facility] Hemoglobin 10.9(L) 11.5 - 16.0 g/dL LAB HEMETOLOGY METHOD 09/18/2024 11:36 AM [facility] Hematocrit 33.1(L) 35.0 - 47.0 % LAB HEMETOLOGY METHOD 09/18/2024 11:36 AM [facility] MCV 87.6 79.0 - 98.0 FL LAB HEMETOLOGY METHOD 09/18/2024 11:36 AM [facility] MCH 28.8 27.0 - 32.0 pcg LAB HEMETOLOGY METHOD 09/18/2024 11:36 AM [facility] MCHC 32.9 32.0 - 37.0 g/dL LAB HEMETOLOGY METHOD 09/18/2024 11:36 AM [facility] RDW 13.6 11.0 - 15.0 % LAB HEMETOLOGY METHOD 09/18/2024 11:36 AM [facility] Platelets 230 130 - 400 K/mcL LAB HEMETOLOGY METHOD 09/18/2024 11:36 AM [facility] MPV 9.3 7.0 - 11.0 FL LAB HEMETOLOGY METHOD 09/18/2024 11:36 AM [facility] NRBC 0.0 <1.0 % LAB HEMETOLOGY METHOD 09/18/2024 11:36 AM [facility] NRBC Absolute 0.00 <0.10 K/mcL LAB HEMETOLOGY METHOD 09/18/2024 11:36 AM [facility] Neutrophils Relative 70.6 % LAB HEMETOLOGY METHOD 09/18/2024 11:36 AM [facility] Lymphocytes Relative 21.1 % LAB HEMETOLOGY METHOD 09/18/2024 11:36 AM [facility] Monocytes Relative 7.1 % LAB HEMETOLOGY METHOD 09/18/2024 11:36 AM [facility] Eosinophils Relative 0.7 % LAB HEMETOLOGY METHOD 09/18/2024 11:36 AM [facility] Basophils Relative 0.1 % LAB HEMETOLOGY METHOD 09/18/2024 11:36 AM [facility] Immature Granulocytes Relative 0.4 % LAB HEMETOLOGY METHOD 09/18/2024 11:36 AM [facility] Neutrophils Absolute 9.75(H) 1.50 - 7.00 K/mcL LAB HEMETOLOGY METHOD 09/18/2024 11:36 AM [facility] Lymphocytes Absolute 2.92 1.00 - 5.00 K/mcL LAB HEMETOLOGY METHOD 09/18/2024 11:36 AM [facility] Monocytes Absolute 0.98 0.20 - 1.00 K/mcL LAB HEMETOLOGY METHOD 09/18/2024 11:36 AM [facility] Eosinophils Absolute 0.09 0.00 - 0.50 K/mcL LAB HEMETOLOGY METHOD 09/18/2024 11:36 AM [facility] Basophils Absolute 0.02 0.00 - 0.20 K/mcL LAB HEMETOLOGY METHOD 09/18/2024 11:36 AM [facility] Immature Granulocytes Absolute 0.06(H) 0.00 - 0.03 K/mcL LAB HEMETOLOGY METHOD 09/18/2024 11:36 AM [facility] Blood Venous blood specimen / Unknown Venipuncture / Unknown 09/18/2024 5:35 AM EDT 09/18/2024 11:00 AM EDT Samuel Doran MD LAB BLOOD ORDERABLES Final Res ult Performing Organization Address [facility]/ZIP Co de Phone Number [facility] [address] [place] [address], [place] [phone] * Magnesium (09/18/2024 5:35 AM EDT) Magnesium 2.6 1.9 - 2.6 mg/dL LAB CHEMISTRY METHOD 09/18/2024 1:09 PM EDT [facility] Blood Venous blood specimen / Unknown Venipuncture / Unknown 09/18/2024 5:35 AM EDT 09/18/2024 11:00 AM EDT Samuel Doran MD LAB BLOOD ORDERABLES Final Res ult Performing Organization Address [facility]/ZIP Co de Phone Number [facility] [address] [place] [address], [place] [phone] * (ABNORMAL) Comprehensive metabolic panel (09/18/2024 5:35 AM EDT) Sodium 140 133 - 145 mmol/L LAB CHEMISTRY METHOD 09/18/2024 1:19 PM EDT [facility] Potassium 4.1 3.5 - 5.5 mmol/L LAB CHEMISTRY METHOD 09/18/2024 1:19 PM EDT [facility] Chloride 102 96 - 110 mmol/L LAB CHEMISTRY METHOD 09/18/2024 1:19 PM EDT [facility] CO2 32 21 - 32 mmol/L LAB CHEMISTRY METHOD 09/18/2024 1:19 PM EDT [facility] Anion Gap 6 3 - 11 LAB CHEMISTRY METHOD 09/18/2024 1:19 PM [facility] Glucose 175(H) 70 - 100 mg/dL LAB CHEMISTRY METHOD 09/18/2024 1:19 PM [facility] BUN 19 5 - 25 mg/dL LAB CHEMISTRY METHOD 09/18/2024 1:19 PM [facility] Creatinine 0.63 0.50 - 1.10 mg/dL LAB CHEMISTRY METHOD 09/18/2024 1:19 PM [facility] eGFR 103 >=60 mL/min/1. 73m2 LAB CHEMISTRY METHOD 09/18/2024 1:19 PM [facility] Comment:Calculation based on the Chronic Kidney Disease Epidemiology Collaboration (CKD-EPI) equation refit without adjustment for race. BUN/Creatinine Ratio 30.2 LAB CHEMISTRY METHOD 09/18/2024 1:19 PM [facility] Calcium 9.0 8.5 - 10.5 mg/dL LAB CHEMISTRY METHOD 09/18/2024 1:19 PM [facility] AST (SGOT) 26 10 - 42 unit/L LAB CHEMISTRY METHOD 09/18/2024 1:19 PM [facility] ALT (SGPT) 48 10 - 60 unit/L LAB CHEMISTRY METHOD 09/18/2024 1:19 PM [facility] Alkaline Phosphatase 61 42 - 121 unit/L LAB CHEMISTRY METHOD 09/18/2024 1:19 PM [facility] Total Protein 5.4(L) 6.0 - 8.0 g/dL LAB CHEMISTRY METHOD 09/18/2024 1:19 PM [facility] Albumin 2.7(L) 3.2 - 5.0 g/dL LAB CHEMISTRY METHOD 09/18/2024 1:19 PM [facility] Total Bilirubin 0.7 0.0 - 1.4 mg/dL LAB CHEMISTRY METHOD 09/18/2024 1:19 PM EDT [facility] Blood Venous blood specimen / Unknown Venipuncture / Unknown 09/18/2024 5:35 AM EDT 09/18/2024 11:00 AM EDT us Samuel Doran MD LAB BLOOD ORDERABLES Final Res ult [facility] [address] [place] [address], documented in this encounter Visit Diagnoses Diagnosis Encounter for other general examination documented in this encounter Care Teams Engineering Supplies Sales Relationship Specialty Start Date End Date Christian Garza PA [address] [place] [address] PCP - General 09/28/24 documented as of this encounter
--- OUTSIDE RECORDS SUMMARY | 2025-04-17 00:08 | XMS_ITS | Clinical Summary ---
Author Organization [address] Address [address] [place] [phone] Phone Care Team Providers Care Shipping Agent Name Role Phone Christian Garza Primary Care Provider [phone] Medical History Medical History Date Comments Diabetes [...] 44.4 LAB CHEMISTRY METHOD 10/09/2024 11:33 AM [facility] Calcium 9.6 8.5 - 10.5 mg/dL LAB CHEMISTRY METHOD 10/09/2024 11:[address] [facility] Blood Venous blood specimen / Unknown Venipuncture / Unknown 10/09/2024 4:53 AM EDT 10/09/2024 9:55 AM EDT us Samuel Doran MD LAB BLOOD ORDERABLES Final Res ult [facility] [address] [place] [address], from Last 3 Months or Most Recently Relevant to Health Maintenance Care Teams Shipping Agent Relationship Specialty Start Date End Date Christian Garza PA [address] [place] [address] [phone] PCP - General 09/28/24
--- OUTSIDE RECORDS SUMMARY | 2025-04-17 00:08 | XMS_ITS | Clinical Summary ---
Author Organization [facility] Address [address] [place] [address] Care Team Providers Care Book Coverer Name Role Phone Nadia Hill MD Primary Care Provider [phone] Allergies Active Allergy Reactions Criticality Noted Date [...] age to complete this topic Care Teams Book Coverer Relationship Specialty Start Date End Date Nadia Hill MD PCP - General Internal Medicine 11/09/21
--- OUTSIDE RECORDS SUMMARY | 2025-04-17 00:08 | XMS_ITS | Encounter Summary ---
Author Organization [facility] Address [address] [place] [address] Care Team Providers Care Firestopper Technician Name Role Phone Genejeyson Christian BARTH Primary Care Provider [phone] Encounter Details Date Type Department Care Team (Late st Contact Info) Description 10/09/2024 Lab Requisition [facility] - Main Lab 299 [facility] [employer] [place] [address] Samuel Doran MD [address] [place] [address] Encounter for other general examination Social History [...] AM EDT) WBC 14.8(H) 4.8 - 10.8 K/[facility] LAB HEMETOLOGY METHOD 10/09/2024 10:57 AM [facility] RBC 4.10 3.80 - 4.80 M/mcL LAB HEMETOLOGY METHOD 10/09/2024 10:57 AM [facility] Hemoglobin 11.9 11.5 - 16.0 g/dL LAB HEMETOLOGY METHOD 10/09/2024 10:57 AM [facility] Hematocrit 37.2 35.0 - 47.0 % LAB HEMETOLOGY METHOD 10/09/2024 10:57 AM [facility] MCV 91.2 79.0 - 98.0 FL LAB HEMETOLOGY METHOD 10/09/2024 10:57 AM [facility] MCH 29.2 27.0 - 32.0 pcg LAB HEMETOLOGY METHOD 10/09/2024 10:57 AM [facility] MCHC 32.0 32.0 - 37.0 g/dL LAB HEMETOLOGY METHOD 10/09/2024 10:57 AM [facility] RDW 14.1 11.0 - 15.0 % LAB HEMETOLOGY METHOD 10/09/2024 10:57 AM [facility] Platelets 307 130 - 400 K/mcL LAB HEMETOLOGY METHOD 10/09/2024 10:57 AM [facility] MPV 8.6 7.0 - 11.0 FL LAB HEMETOLOGY METHOD 10/09/2024 10:57 AM [facility] NRBC 0.0 <1.0 % LAB HEMETOLOGY METHOD 10/09/2024 10:57 AM [facility] NRBC Absolute 0.00 <0.10 K/mcL LAB HEMETOLOGY METHOD 10/09/2024 10:57 AM [facility] Neutrophils Relative 67.2 % LAB HEMETOLOGY METHOD 10/09/2024 10:57 AM [facility] Lymphocytes Relative 22.6 % LAB HEMETOLOGY METHOD 10/09/2024 10:57 AM [facility] Monocytes Relative 8.1 % LAB HEMETOLOGY METHOD 10/09/2024 10:57 AM [facility] Eosinophils Relative 0.7 % LAB HEMETOLOGY METHOD 10/09/2024 10:57 AM [facility] Basophils Relative 0.3 % LAB HEMETOLOGY METHOD 10/09/2024 10:57 AM [facility] Immature Granulocytes Relative 1.1 % LAB HEMETOLOGY METHOD 10/09/2024 10:57 AM [facility] Neutrophils Absolute 9.91(H) 1.50 - 7.00 K/mcL LAB HEMETOLOGY METHOD 10/09/2024 10:57 AM [facility] Lymphocytes Absolute 3.34 1.00 - 5.00 K/mcL LAB HEMETOLOGY METHOD 10/09/2024 10:57 AM [facility] Monocytes Absolute 1.19(H) 0.20 - 1.00 K/mcL LAB HEMETOLOGY METHOD 10/09/2024 10:57 AM [facility] Eosinophils Absolute 0.10 0.00 - 0.50 K/mcL LAB HEMETOLOGY METHOD 10/09/2024 10:57 AM [facility] Basophils Absolute 0.05 0.00 - 0.20 K/mcL LAB HEMETOLOGY METHOD 10/09/2024 10:57 AM [facility] Immature Granulocytes Absolute 0.16(H) 0.00 - 0.03 K/mcL LAB HEMETOLOGY METHOD 10/09/2024 10:57 AM [facility] Blood Venous blood specimen / Unknown Venipuncture / Unknown 10/09/2024 4:53 AM EDT 10/09/2024 9:55 AM EDT us Samuel Doran MD LAB BLOOD ORDERABLES Final Res ult [facility] [address] [place] [address], [place] [phone] * (ABNORMAL) Basic metabolic panel (10/09/2024 4:53 AM EDT) Sodium 139 133 - 145 mmol/L LAB CHEMISTRY METHOD 10/09/2024 11:33 AM [facility] Potassium 4.5 3.5 - 5.5 mmol/L LAB CHEMISTRY METHOD 10/09/2024 11:33 AM [facility] Chloride 100 96 - 110 mmol/L LAB CHEMISTRY METHOD 10/09/2024 11:33 AM [facility] CO2 28 21 - 32 mmol/L LAB CHEMISTRY METHOD 10/09/2024 11:33 AM [facility] Anion Gap 11 3 - 11 LAB CHEMISTRY METHOD 10/09/2024 11:33 AM [facility] Glucose 52(L) 70 - 100 mg/dL LAB CHEMISTRY METHOD 10/09/2024 11:33 AM [facility] BUN 24 5 - 25 mg/dL LAB CHEMISTRY METHOD 10/09/2024 11:33 AM [facility] Creatinine 0.54 0.50 - 1.10 mg/dL LAB CHEMISTRY METHOD 10/09/2024 11:33 AM [facility] eGFR 107 >=60 mL/min/1. 73m2 LAB CHEMISTRY METHOD 10/09/2024 11:33 AM [facility] Comment:Calculation based on the Chronic Kidney Disease Epidemiology Collaboration (CKD-EPI) equation refit without adjustment for race. BUN/Creatinine Ratio 44.4 LAB CHEMISTRY METHOD 10/09/2024 11:33 AM EDT [facility] Calcium 9.6 8.5 - 10.5 mg/dL LAB CHEMISTRY METHOD 10/09/2024 11:33 AM EDT [facility] ([facility]) [facility] Blood Venous blood specimen / Unknown Venipuncture / Unknown 10/09/2024 4:53 AM EDT 10/09/2024 9:55 AM EDT us Samuel Doran MD LAB BLOOD ORDERABLES Final Res ult [facility] ([facility]) [facility] [address] [place] [address], documented in this encounter Visit Diagnoses Diagnosis Encounter for other general examination documented in this encounter Care Teams Firestopper Technician Relationship Specialty Start Date End Date Christian Garza PA [address] [place] [address] PCP - General 09/28/24 documented as of this encounter
--- OUTSIDE RECORDS SUMMARY | 2025-04-17 00:09 | XMS_ITS | Encounter Summary ---
Author Organization [facility] Address [address] [place] [address] Care Team Providers Care Veneer Patcher Name Role Phone Genejeyson Christian BARTH Primary Care Provider [phone] Encounter Details Date Type Department Care Team (Late st Contact Info) Description 10/05/2024 Lab Requisition [facility] - Main Lab [address] [facility] [place] [address] Samuel Doran MD [address] [place] [address] Encounter for other general examination Social History [...] AM EDT) WBC 13.9(H) 4.8 - 10.8 K/[facility] LAB HEMETOLOGY METHOD 10/05/2024 1:17 PM [facility] RBC 4.10 3.80 - 4.80 M/mcL LAB HEMETOLOGY METHOD 10/05/2024 1:17 PM [facility] Hemoglobin 12.1 11.5 - 16.0 g/dL LAB HEMETOLOGY METHOD 10/05/2024 1:17 PM [facility] Hematocrit 38.7 35.0 - 47.0 % LAB HEMETOLOGY METHOD 10/05/2024 1:17 PM [facility] MCV 93.7 79.0 - 98.0 FL LAB HEMETOLOGY METHOD 10/05/2024 1:17 PM [facility] MCH 29.3 27.0 - 32.0 pcg LAB HEMETOLOGY METHOD 10/05/2024 1:17 PM [facility] MCHC 31.3(L) 32.0 - 37.0 g/dL LAB HEMETOLOGY METHOD 10/05/2024 1:17 PM [facility] RDW 14.6 11.0 - 15.0 % LAB HEMETOLOGY METHOD 10/05/2024 1:17 PM [facility] Platelets 276 130 - 400 K/mcL LAB HEMETOLOGY METHOD 10/05/2024 1:17 PM [facility] MPV 8.9 7.0 - 11.0 FL LAB HEMETOLOGY METHOD 10/05/2024 1:17 PM [facility] NRBC 0.0 <1.0 % LAB HEMETOLOGY METHOD 10/05/2024 1:17 PM [facility] NRBC Absolute 0.00 <0.10 K/mcL LAB HEMETOLOGY METHOD 10/05/2024 1:17 PM [facility] Neutrophils Relative 67.1 % LAB HEMETOLOGY METHOD 10/05/2024 1:17 PM [facility] Lymphocytes Relative 22.6 % LAB HEMETOLOGY METHOD 10/05/2024 1:17 PM [facility] Monocytes Relative 8.6 % LAB HEMETOLOGY METHOD 10/05/2024 1:17 PM [facility] Eosinophils Relative 0.9 % LAB HEMETOLOGY METHOD 10/05/2024 1:17 PM [facility] Basophils Relative 0.2 % LAB HEMETOLOGY METHOD 10/05/2024 1:17 PM [facility] Immature Granulocytes Relative 0.6 % LAB HEMETOLOGY METHOD 10/05/2024 1:17 PM [facility] Neutrophils Absolute 9.30(H) 1.50 - 7.00 K/mcL LAB HEMETOLOGY METHOD 10/05/2024 1:17 PM [facility] Lymphocytes Absolute 3.14 1.00 - 5.00 K/mcL LAB HEMETOLOGY METHOD 10/05/2024 1:17 PM [facility] Monocytes Absolute 1.19(H) 0.20 - 1.00 K/mcL LAB HEMETOLOGY METHOD 10/05/2024 1:17 PM [facility] Eosinophils Absolute 0.12 0.00 - 0.50 K/mcL LAB HEMETOLOGY METHOD 10/05/2024 1:17 PM [facility] Basophils Absolute 0.03 0.00 - 0.20 K/mcL LAB HEMETOLOGY METHOD 10/05/2024 1:17 PM [facility] Immature Granulocytes Absolute 0.09(H) 0.00 - 0.03 K/mcL LAB HEMETOLOGY METHOD 10/05/2024 1:17 PM [facility] Blood Venous blood specimen / Unknown Venipuncture / Unknown 10/05/2024 4:53 AM EDT 10/05/2024 11:42 AM EDT us Samuel Doran MD LAB BLOOD ORDERABLES Final Res ult [facility] [address] [place] [address], [place] [phone] * (ABNORMAL) Basic metabolic panel (10/05/2024 4:53 AM EDT) Sodium 136 133 - 145 mmol/L LAB CHEMISTRY METHOD 10/05/2024 1:06 PM [facility] Potassium 4.3 3.5 - 5.5 mmol/L LAB CHEMISTRY METHOD 10/05/2024 1:06 PM [facility] Chloride 95(L) 96 - 110 mmol/L LAB CHEMISTRY METHOD 10/05/2024 1:06 PM [facility] CO2 34(H) 21 - 32 mmol/L LAB CHEMISTRY METHOD 10/05/2024 1:06 PM [facility] Anion Gap 7 3 - 11 LAB CHEMISTRY METHOD 10/05/2024 1:06 PM [facility] Glucose 74 70 - 100 mg/dL LAB CHEMISTRY METHOD 10/05/2024 1:06 PM [facility] BUN 20 5 - 25 mg/dL LAB CHEMISTRY METHOD 10/05/2024 1:06 PM [facility] Creatinine 0.68 0.50 - 1.10 mg/dL LAB CHEMISTRY METHOD 10/05/2024 1:06 PM [facility] eGFR 101 >=60 mL/min/1. 73m2 LAB CHEMISTRY METHOD 10/05/2024 1:06 PM [facility] Comment:Calculation based on the Chronic Kidney Disease Epidemiology Collaboration (CKD-EPI) equation refit without adjustment for race. BUN/Creatinine Ratio 29.4 LAB CHEMISTRY METHOD 10/05/2024 1:06 PM [facility] Calcium 10.1 8.5 - 10.5 mg/dL LAB CHEMISTRY METHOD 10/05/2024 1:06 PM EDT [facility] Blood Venous blood specimen / Unknown Venipuncture / Unknown 10/05/2024 4:53 AM EDT 10/05/2024 11:42 AM EDT us Samuel Doran MD LAB BLOOD ORDERABLES Final Res ult [facility] [address] [place] [address], documented in this encounter Visit Diagnoses Diagnosis Encounter for other general examination documented in this encounter Care Teams Veneer Patcher Relationship Specialty Start Date End Date Christian Garza PA [facility] [place] [address] PCP - General 09/28/24 documented as of this encounter
--- OUTSIDE RECORDS SUMMARY | 2025-04-17 00:10 | XMS_ITS | Encounter Summary ---
Author Organization [facility] Address [address] [place] [address] Care Team Providers Care Saddle Maker Name Role Phone Greg Christian BARTH Primary Care Provider [phone] Encounter Details Date Type Department Care Team (Late st Contact Info) Description 10/04/2024 Lab Requisition [facility] - Main Lab 299 [facility] [place] [address] Samuel Doran MD [address] [place] [address] Dysuria Social History Tobacco Use Types Packs/Day [...] Final Result [facility] [address] [place] [address], * Ndiaye urine culture tube (10/03/2024 9:00 AM EDT) Extra Tube Hold for add-ons. 10/04/2024 12:01 PM EDT [facility] Comment:Auto resulted. Urine Urine specimen obtained by clean catch procedure / Unknown Non-blood Collection / Unknown 10/03/2024 9:00 AM EDT 10/04/2024 10:46 AM EDT us Samuel Doran MD LAB URINE ORDERABLES Final Res ult [facility] [address] [place] [address], [place] [phone] * (ABNORMAL) Urinalysis with reflex microscopic and culture (10/03/2024 9:00 AM EDT) Specific [place] Urine 1.012 1.003 - 1.030 LAB URINALYSIS - AUTOMATED METHOD 10/04/2024 11:35 AM [facility] pH, Urine 7.0 5.0 - 8.0 pH LAB URINALYSIS - AUTOMATED METHOD 10/04/2024 11:35 AM [facility] Leukocytes, Urine Large(A) Negative LAB URINALYSIS - AUTOMATED METHOD 10/04/2024 11:35 AM [facility] Nitrite, Urine Positive(A) Negative LAB URINALYSIS - AUTOMATED METHOD 10/04/2024 11:35 AM [facility] Protein, Urine 30(A) <=Trace mg/dL LAB URINALYSIS - AUTOMATED METHOD 10/04/2024 11:35 AM [facility] Glucose, Urine Negative Negative mg/dL LAB URINALYSIS - AUTOMATED METHOD 10/04/2024 11:35 AM [facility] Ketones, Urine Negative Negative mg/dL LAB URINALYSIS - AUTOMATED METHOD 10/04/2024 11:35 AM [facility] Urobilinogen , Urine 0.2 0.2 - 1.0 mg/dL LAB URINALYSIS - AUTOMATED METHOD 10/04/2024 11:35 AM [facility] Bilirubin, Urine Negative Negative LAB URINALYSIS - AUTOMATED METHOD 10/04/2024 11:35 AM [facility] Blood, Urine Large(A) Negative LAB URINALYSIS - AUTOMATED METHOD 10/04/2024 11:35 AM [facility] RBC, Urine 300.2(H) 0 - 4 /HPF LAB URINALYSIS - AUTOMATED METHOD 10/04/2024 11:35 AM [facility] WBC, Urine 1,862.7(H) 0 - 4 /HPF LAB URINALYSIS - AUTOMATED METHOD 10/04/2024 11:35 AM [facility] Squamous Epithelial, Urine 40 0 - 60 /LPF LAB URINALYSIS - AUTOMATED METHOD 10/04/2024 11:35 AM [facility] Bacteria, Urine Moderate(A) Negative /HPF LAB URINALYSIS - AUTOMATED METHOD 10/04/2024 11:35 AM [facility] Hyaline Casts, Urine 1.4 0 - 3 /LPF LAB URINALYSIS - AUTOMATED METHOD 10/04/2024 11:35 AM [facility] Urine Urine specimen obtained by clean catch procedure / Unknown Non-blood Collection / Unknown 10/03/2024 9:00 AM EDT 10/04/2024 10:46 AM EDT us Samuel Doran MD LAB URINE ORDERABLES Final Res ult [facility] [address] [place] [address], documented in this encounter Visit Diagnoses Diagnosis Dysuria documented in this encounter Care Teams Saddle Maker Relationship Specialty Start Date End Date Christian Garza PA [address] [place] [address] PCP - General 09/28/24 documented as of this encounter
== END 2025-04-16 16:26 | disposition home or self-care (01) ==
LOC: HO.ENCR 15:20
PROVIDERS: PCP Physician Assistant Medical; Visit Provider Student in an Organized Health Care Education/Training Program
DX: E11.65 Type 2 diabetes mellitus with hyperglycemia (principal); R79.89 Other specified abnormal findings of blood chemistry; E04.2 Nontoxic multinodular goiter; Z79.4 Long term (current) use of insulin
CPT/HCPCS: 99214

== ENCOUNTER → 2025-04-16 15:20 | Outpatient (BNVA) | payer OTHER, SELFPAY | PROVIDERS: PCP Physician Assistant Medical; Visit Provider Student in an Organized Health Care Education/Training Program | DX: E11.65 Type 2 diabetes mellitus with hyperglycemia (principal); R79.89 Other specified abnormal findings of blood chemistry; E04.2 Nontoxic multinodular goiter; Z79.4 Long term (current) use of insulin; Z79.84 Long term (current) use of oral hypoglycemic drugs; Z79.85 Long-term (current) use of injectable non-insulin antidiabetic drugs | CPT/HCPCS: 82947; 95250 ==

== ENCOUNTER 2025-05-31 15:41 | Outpatient (AMB) | payer OTHER, SELFPAY ==
--- NOTE | 2025-05-31 15:45 | MHC.PC.OV ---
Vital Signs 05/31/25 16:01 Height 5 ft 4 in Weight 124 lb BMI 21.3 BP 122/70 Blood Pressure Location Rt brachial Position Sitting Respiration 15 Pulse 100 Pulse Source Pulse Oximeter Temp 98.1 F Temp Source Temporal Artery Scan Pulse Oximetry (%) 97 Oxygen Delivery Method Room Air Intake Visit Reasons: D/C from rehab on 05/19 - See Comments Intake Note: Shelly presents in the office today for a discharge follow up. Deputy Register Of Deeds Required: No Is last menstrual period known: No Post menopausal: Yes Patient : No Allergies No Known Allergies Allergy (Verified 05/31/25 15:46) Medication List - Last Reconciled 05/31/25 by LARY Mejía acetaminophen 650 mg PO Q6H PRN amlodipine 5 mg PO DAILY aspirin 81 mg PO DAILY baclofen orally 3 times a day; take 10 mg in the morning, 20 mg in the afternoon and 10 mg before bedtime. blood pressure monitor As directed blood-glucose meter (FreeStyle Alton Lite kit) As directed blood-glucose sensor (FreeStyle Elida 3 Plus Sensor device) As directed blood-glucose,cutter operator tile,cont (FreeStyle Elida 3 [place]) As directed dextrose (TRUEplus Glucose) 15 grams (32 mL) PO Q15M PRN ezetimibe 10 mg PO DAILY glucagon 3 mg/actuation (Baqsimi) 3 mg intranasal ONCE hydroxyzine HCl 100 mg PO BEDTIME insulin glargine (Lantus U-100 Insulin) 12 units subcut QAM lidocaine 5% 1 patch topical DAILY melatonin 6 mg (2 x 3 mg) PO BEDTIME PRN metformin ER 500 mg PO BID multivitamin (Daily Multi-Vitamin tablet) 1 tab PO DAILY ondansetron 4 mg PO Q8H PRN pantoprazole (Protonix) 40 mg (2 x 20 mg) PO DAILY pen needle, diabetic To use with insulin injections four times daily rosuvastatin 40 mg PO DAILY sertraline 50 mg PO DAILY sertraline 25 mg PO DAILY tramadol 50 mg PO Q6H PRN 28 days Tobacco use date assessed: 05/31/25 Dental Screening Dental Screen Date: 05/31/25 Did you have a dental visit in the last 12 months?: Yes Did you have a dental problem in the last 6 months where you did not have access to dental care?: No Was dental information given to patient?: Patient has dentist HPI HPI Comments History of Present Illness Details This is a 60-year-old female with a past medical history of hypertension, hyperlipidemia, 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 She is here with her and mother. She was hospitalized after sustaining a mechanical fall the day before Thanks with a left hip fracture that required surgical repair. She needed blood transfusion x 2 due to blood loss. She also had another UTI for which she was treated with amoxicillin at rehab. Hydroxyzine was increased during her rehab stay due to anxiety. Sutures were removed uneventfully 05/17/2025. Plavix disconinuted per neurology while admitted. She stopped Lovenox injections yesterday per discharge instructions. She is using tramadol 50 mg every 6 hours as needed for pain control. She is taking it about 3 times a day currently. Baclofen dosing was changed to 20 mg twice a day. She is getting breakthrough spasms later in the day and evening. She also has lidocaine patches and Tylenol. Losartan was discontinued during hospitalization, and her blood pressure is normal. PT, OT, nursing in place. They are waiting on speech therapy She is using ondansetron for nausea. Patient saw Neurology for follow up 05/25/2025. No evidence for recurrent of cerebral vasculitis. Patient to continue ASA 81 mg daily indefinitely. Sleep study recommended. Endorses snoring and chronic fatigue. Patient's mother wants to know if there is a local stroke support group she could join. She is using a walker. Ozempic per discharge summary was to be discontinued due to weight loss, nausea and vomiting though it is uncertain if this is the cause of those symptoms. Patient thinks it is anxiety. They did administer the injection at home this past Saturday. She was also put on Lantus 12 units. She was experiencing hypoglycemia in the 60s overnight and ring spinner so her has been tried decreasing the dosage back to 6 units, but he ultimately stopped it yesterday because she was still experiencing hypoglycemia. Her blood glucose this morning was 96. She has rapid acting insulin at home still but this has been discontinued. Followed by Dr. Mills now. She is taking metformin ER 500 mg twice daily. She is taking 50 mg of sertraline daily and hydroxyzine 100 mg at bedtime. She is still struggling with a lot of anxiety stemming from all of her medical issues over the past year. She does feel depressed. ROS: Constitutional: No fevers, chills, night sweats, unexplained weight loss. Endorses fatigue. Eyes: No vision changes. Respiratory: No shortness of breath, cough or wheezing Cardiovascular: No chest pain Gastrointestinal: Denies abdominal pain, blood in stools, hematemesis, acid reflux, diarrhea or constipation. Genitourinary: No dysuria, hematuria, urinary frequency. Denies flank pain. Neurologic: Per HPI Hematologic/Lymphatics: No bleeding Endocrine: No polyuria or polydipsia. Psychiatric: + anxiety and depression Physical exam: Constitutional: Alert, in no distress. Ambulates with cane. Eyes: Pupils are equal, round and reactive to light. Extraocular muscles intact. Neck: Supple, Full range of motion. No lymphadenopathy. No palpable thyroid masses. Respiratory: Clear to auscultation. Cardiovascular: S1 S2 regular. No murmurs. Neurologic: No dysarthria today. She has left-sided weakness. Extremities: Warm and well perfused. No clubbing, cyanosis or edema. 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 Hospital discharge follow-up History of CVA with residual deficit Thyroid nodule LFT elevation Atrophy of muscle of left lower leg Weakness of left leg Floaters RUQ abdominal pain Lumbosacral radiculopathy Hiatal hernia Hepatic steatosis Microalbuminuria Renal cyst, left Renal lesion Gallbladder polyp Anxiety Pure hypercholesterolemia Left upper quadrant pain Fatigue Essential hypertension Type 2 diabetes mellitus Torn ligament High cholesterol High blood pressure Diabetes Family History Father Colon cancer Mother Diabetes Social History (Updated 05/31/25 @ 15:46 by Cathie Bahena CMA) Household Members: Significant Other Housing: House Are you a primary dog daycare provider to a significant other at home: No Do you presently have visiting nurse or other home services: No Alcohol intake: never Patient Tobacco Use Status: Former Tobacco user e-Cigarette/Vaping Use: Currently Using Second Hand Smoke Exposure: No Special reanna needs: No service: No Current occupational status: employed Current occupation: service diapatcher Cognitive needs: No Hearing needs: No Vision needs: Yes (Patient wears glasses.) Questionnaire Thrive Questionnaire Date Thrive assessed: 08/10/24 I am a: Patient What is your living situation today?: I have a steady place to live Within the past 12 months, did the food you bought not last and you didn't have the money to get more?: Never true Within the past 12 months, did you worry whether your food would run out before you got money to buy more?: Never true Do you have trouble paying for medicines?: No Do you have trouble getting transportation to medical appointments?: No Do you have trouble paying your heating and electricity bill?: No Do you have trouble taking care of your child, family member or friend?: No Do you have trouble with day-to-day activities such as bathing, preparing meals, shopping, managing finances, etc.?: No Are you currently unemployed and looking for a job?: No Are you interested in more education?: No Currently or been in a relationship where the following occur: No concerns reported THRIVE Score: 0 LUIS ALBERTO-7 AMB Questionnaire LUIS ALBERTO-7 Date LUIS ALBERTO - 7 assessed: 08/10/24 Source: Developed by Drs. Michael Cloud, Lynette Dominguez, Gilberto Chan and colleagues, with an educational vipin from [employer]. Physical exam (Primary Care) Vital Signs: Last Vital Signs Temp 98.1 F 05/31/25 16:01 Pulse 100 05/31/25 16:01 Resp 15 05/31/25 16:01 BP 122/70 05/31/25 16:01 Pulse Ox 97 05/31/25 16:01 Oxygen Delivery Method Room Air 05/31/25 16:01 BMI result Body Mass Index 21.3 Tobacco/Smoking Status: Tobacco use Status Tobacco use date assessed 05/31/25 05/31/25 15:48 Patient Tobacco Use Status Former Tobacco user 05/31/25 15:48 e-Cigarette/Vaping Use Currently Using 05/31/25 15:48 Thrive Assessment: Date of Thrive Assessment Date Thrive assessed 08/10/24 05/31/25 15:48 Currently or been in a relationship where the following occur: No concerns reported Office Procedures Flu Questionnaire Does the patient have a severe egg allergy?: No Does the patient have severe life threatening allergies?: No Does the patient have a fever or illness today?: No Has the patient ever had Guillain-[place] Syndrome?: No Has the patient ever had any past reaction to a flu shot?: No Immunizations Fluarix 6316-8967 (PF) 45 mcg (15 mcg x 3)/0.5 mL IM syringe Performing Provider: LARY Mejía Performing Location: [facility] [place] Family Medicine Administered by: Dannielle Escobar RN on 05/31/25 16:58 Dose Route Admin Location Dispensed Lot Number Expiration Date NDC Oil Burner Journeyman 0.5 mL IM Right Deltoid 0.5 mL [id number] 11/30/25 [id number] [employer] VIS Given Date VIS Provided VIS Publication Date 05/31/25 Single Vaccine 24 Eligibility Eligibility Date Funding Source Not [facility] Eligible 05/31/25 Private Coding Level of Care Code Est Pt Level 5 (41393) Add On Problem Visit Only Diagnoses Hospital discharge follow-up Z09 Snoring R06.83 Chronic fatigue R53.82 Hip fracture, left S72.002A Essential hypertension I10 Pure hypercholesterolemia E78.00 Depression with anxiety F41.8 Type 2 diabetes mellitus with hyperglycemia, without long-term current use of insulin E11.65 Diabetes mellitus local intermodal truck driver insulin use: without local intermodal truck driver use Diabetes mellitus complication status: with hyperglycemia Frequent UTI N39.0 History of CVA with residual deficit I69.30 Time Spent (min) 67 Comment Direct patient care, reviewing records, completing documentation Assessment & Plan Assessment & Plan (1) Hospital discharge follow-up: Code(s): Z09 - Encounter for follow-up examination after completed treatment for conditions other than malignant neoplasm Category: Medical (2) Snoring: Code(s): R06.83 - Snoring Category: Medical (3) Chronic fatigue: Code(s): R53.82 - Chronic fatigue, unspecified Category: Medical (4) Hip fracture, left: Code(s): S72.002A - Fracture of unspecified part of neck of left femur, initial encounter for closed fracture Category: Medical (5) Essential hypertension: Code(s): I10 - Essential (primary) hypertension Category: Medical (6) Pure hypercholesterolemia: Code(s): E78.00 - Pure hypercholesterolemia, unspecified Category: Medical (7) Depression with anxiety: Code(s): F41.8 - Other specified anxiety disorders Category: Medical (8) Type 2 diabetes mellitus: Code(s): E11.9 - Type 2 diabetes mellitus without complications Category: Medical Qualifiers: Diabetes mellitus residential insulin use: without local intermodal truck driver use Diabetes mellitus complication status: with hyperglycemia Qualified Code(s): E11.65 - Type 2 diabetes mellitus with hyperglycemia (9) Frequent UTI: Code(s): N39.0 - Urinary tract infection, site not specified Category: Medical (10) History of CVA with residual deficit: Code(s): I69.30 - Unspecified sequelae of cerebral infarction Category: Medical Plan In summary this is a 60-year-old female with a complex past medical history who was on a residential taper of prednisone and sustained a mechanical fall resulting in left hip fracture that required surgical repair. This was complicated by blood loss requiring transfusion x2 and FRANCESCA. Check labs. She is receiving PT, OT and nursing services. Her pain is controlled at this time. I refilled her tramadol. She is using a walker to ambulate. She feels this was a setback in her recovery from her strokes earlier this year. She has significant anxiety and situational depression. I will reach out to see if there is a stroke group locally that she could join. She can increase sertraline to 75 mg daily. Side effects and black box warning reviewed. We also reviewed the potential drug interaction between this and tramadol and serotonin syndrome. She will monitor closely for any adverse side effects. She has been tolerating the 2 medications together. She did not tolerate oxycodone due to cognitive changes while hospitalized. She also has Tylenol and lidocaine patches. I will order a sleep study due to snoring, chronic fatigue. I ordered a bone density exam giving left hip fracture following prolonged steroid course. She can remain off losartan. Her blood pressure is well-controlled at this time. Continue amlodipine. She will continue atorvastatin and Zetia. She is on baby aspirin indefinitely due to prior strokes. She was taken off Plavix. She will hold Lantus due to hypoglycemia and stop Ozempic though it is uncertain if this is the etiology of nausea, weight loss and decreased appetite. She took her last injection on Saturday. Continue metformin. I will reach out to her stock broker supervisor. I ask them to send a screen shot of her target ranges early next week and call the office if she is having hyperglycemia. I will reach out to Urology about rescheduling her consult for frequent UTIs. She was using an adult pull up at night though not having any incontinence at this time so I asked her to avoid this which may help to prevent UTIs. Requested flu vaccine. She reports discussing this with her neurologist. Administered today. She will follow up with me in 6 weeks. Orders: Orders Urine Culture 05/31/25 LARY Mejía I10 - Essential (primary) hypertension, N39.0 - Urinary tract infection, site not specified, R39.9 - Unspecified symptoms and signs involving the genitourinary system Influenza [id number] Immunization 05/31/25 LARY Mejía Z23 - Encounter for immunization RT home sleep study Today LARY Mejía R06.83 - Snoring, R53.82 - Chronic fatigue, unspecified UA w Microscopic 05/31/25 LARY Mejía I10 - Essential (primary) hypertension, N39.0 - Urinary tract infection, site not specified, R39.9 - Unspecified symptoms and signs involving the genitourinary system Complete Blood Count no Diff 05/31/25 LARY Mejía I10 - Essential (primary) hypertension, N39.0 - Urinary tract infection, site not specified Basic Metabolic Panel 05/31/25 LARY Mejía E11.65 - Type 2 diabetes mellitus with hyperglycemia Hemoglobin A1c 05/31/25 LARY Mejía E11.65 - Type 2 diabetes mellitus with hyperglycemia, R73.9 - Hyperglycemia, unspecified XR DEXA axial skeleton Today LARY Mejía Z87.311 - Personal history of (healed) other pathological fracture Medications: New sertraline 25 mg PO DAILY 90 tabs 0RF LARY Mejía tramadol 50 mg PO Q6H PRN 112 tabs 0RF pain 28 days LARY Mejía ondansetron 4 mg PO Q8H PRN 90 tabs 0RF nausea and vomiting LARY Mejía Changed From metformin ER 1,000 mg (2 x 500 mg) PO BID 90 days 360 tabs 3RF To metformin ER 500 mg PO BID Yeset Lina Todd MD Discontinued semaglutide (Ozempic) Discontinued Reason: Doctor's Order 2 mg (0.75 mL) subcut QWEEK 3 mL 5RF
[2025-05-31 16:01] VITALS: BP 122/70; PULSE 100; RESP 15; TEMP 36.7; O2SAT 97; BMI 21.3
--- OUTSIDE RECORDS SUMMARY | 2025-05-31 17:41 | XMS_ITS | Clinical Summary ---
Author Organization [address] Address [address] [place] [id number] Phone Care Team Providers Care Mushroom Sorter Grader Name Role Phone Christian Garza Primary Care Provider [phone] Medical History Medical History Date Comments Diabetes [...] on file Sexual Orientation Not on file Last Filed Vital Signs [...] LAB CHEMISTRY METHOD 10/09/2024 11:33 AM EDT [facility] Blood Venous blood specimen / Unknown Venipuncture / Unknown 10/09/2024 4:53 AM EDT 10/09/2024 9:55 AM EDT us Samuel Doran MD LAB BLOOD ORDERABLES Final Res ult [facility] [address] [place] [address], from Last 3 Months or Most Recently Relevant to Health Maintenance Care Teams Mushroom Sorter Grader Relationship Specialty Start Date End Date Christian Garza PA [address] [place] [address] [id number] PCP - General 09/28/24
--- OUTSIDE RECORDS SUMMARY | 2025-05-31 17:41 | XMS_ITS | Clinical Summary ---
Author Organization [facility] Prior to 10/31/24 Address [address] [place] [address] Care Team Providers Care Forging Dies Final Finisher Name Role Phone Nadia Hill MD Primary Care Provider [phone] Allergies Active Allergy Reactions Criticality Noted Date [...] age to complete this topic Care Teams Forging Dies Final Finisher Relationship Specialty Start Date End Date Nadia Hill MD PCP - General Internal Medicine 11/09/21
--- OUTSIDE RECORDS SUMMARY | 2025-05-31 17:41 | XMS_ITS | Encounter Summary ---
Author Organization [facility] Address [address] [place] [address] Care Team Providers Care Tear Down Worker Name Role Phone Genejeyson Christian BARTH Primary Care Provider [phone] Encounter Details Date Type Department Care Team (Late st Contact Info) Description 09/22/2024 Lab Requisition [facility] Lab [address] [place] [address] Samuel Doran MD [address] [place] [phone] Encounter for other general examination Social History [...] AM EDT) WBC 11.3(H) 4.8 - 10.8 K/[facility] LAB HEMETOLOGY METHOD 09/22/2024 10:41 AM EDT [facility] RBC 3.70(L) 3.80 - 4.80 M/mcL LAB HEMETOLOGY METHOD 09/22/2024 10:41 AM [facility] Hemoglobin 11.0(L) 11.5 - 16.0 g/dL LAB HEMETOLOGY METHOD 09/22/2024 10:41 AM [facility] Hematocrit 33.3(L) 35.0 - 47.0 % LAB HEMETOLOGY METHOD 09/22/2024 10:41 AM [facility] MCV 89.3 79.0 - 98.0 FL LAB HEMETOLOGY METHOD 09/22/2024 10:41 AM [facility] MCH 29.5 27.0 - 32.0 pcg LAB HEMETOLOGY METHOD 09/22/2024 10:41 AM [facility] MCHC 33.0 32.0 - 37.0 g/dL LAB HEMETOLOGY METHOD 09/22/2024 10:41 AM [facility] RDW 14.2 11.0 - 15.0 % LAB HEMETOLOGY METHOD 09/22/2024 10:41 AM [facility] Platelets 189 130 - 400 K/mcL LAB HEMETOLOGY METHOD 09/22/2024 10:41 AM [facility] MPV 9.2 7.0 - 11.0 FL LAB HEMETOLOGY METHOD 09/22/2024 10:41 AM [facility] NRBC 0.0 <1.0 % LAB HEMETOLOGY METHOD 09/22/2024 10:41 AM [facility] NRBC Absolute 0.00 <0.10 K/mcL LAB HEMETOLOGY METHOD 09/22/2024 10:41 AM [facility] Blood Venous blood specimen / Unknown Venipuncture / Unknown 09/22/2024 5:13 AM EDT 09/22/2024 9:47 AM EDT us Samuel Doran MD LAB BLOOD ORDERABLES Final Res ult [facility] [address] [place] [address], * (ABNORMAL) Comprehensive metabolic panel (09/22/2024 5:13 AM EDT) Sodium 142 133 - 145 mmol/L LAB CHEMISTRY METHOD 09/22/2024 11:40 AM [facility] Potassium 3.6 3.5 - 5.5 mmol/L LAB CHEMISTRY METHOD 09/22/2024 11:40 AM [facility] Chloride 103 96 - 110 mmol/L LAB CHEMISTRY METHOD 09/22/2024 11:40 AM [facility] CO2 32 21 - 32 mmol/L LAB CHEMISTRY METHOD 09/22/2024 11:40 AM [facility] Anion Gap 7 3 - 11 LAB CHEMISTRY METHOD 09/22/2024 11:40 AM [facility] Glucose 55(L) 70 - 100 mg/dL LAB CHEMISTRY METHOD 09/22/2024 11:40 AM [facility] BUN 17 5 - 25 mg/dL LAB CHEMISTRY METHOD 09/22/2024 11:40 AM [facility] Creatinine 0.55 0.50 - 1.10 mg/dL LAB CHEMISTRY METHOD 09/22/2024 11:40 AM [facility] eGFR 106 >=60 mL/min/1. 73m2 LAB CHEMISTRY METHOD 09/22/2024 11:40 AM [facility] Comment:Calculation based on the Chronic Kidney Disease Epidemiology Collaboration (CKD-EPI) equation refit without adjustment for race. BUN/Creatinine Ratio 30.9 LAB CHEMISTRY METHOD 09/22/2024 11:40 AM [facility] Calcium 9.0 8.5 - 10.5 mg/dL LAB CHEMISTRY METHOD 09/22/2024 11:40 AM [facility] AST (SGOT) 13 10 - 42 unit/L LAB CHEMISTRY METHOD 09/22/2024 11:40 AM [facility] ALT (SGPT) 42 10 - 60 unit/L LAB CHEMISTRY METHOD 09/22/2024 11:40 AM [facility] Alkaline Phosphatase 58 42 - 121 unit/L LAB CHEMISTRY METHOD 09/22/2024 11:[address] [facility] Total Protein 5.5(L) 6.0 - 8.0 g/dL LAB CHEMISTRY METHOD 09/22/2024 11:40 AM [facility] Albumin 2.8(L) 3.2 - 5.0 g/dL LAB CHEMISTRY METHOD 09/22/2024 11:40 AM [facility] Total Bilirubin 0.7 0.0 - 1.4 mg/dL LAB CHEMISTRY METHOD 09/22/2024 11:40 AM [facility] Blood Venous blood specimen / Unknown Venipuncture / Unknown 09/22/2024 5:13 AM EDT 09/22/2024 9:47 AM EDT us Samuel Doran MD LAB BLOOD ORDERABLES Final Res ult [facility] [address] [place] [address], documented in this encounter Visit Diagnoses Diagnosis Encounter for other general examination documented in this encounter Care Teams Tear Down Worker Relationship Specialty Start Date End Date Christian Garza PA [address] [place] [id number] PCP - General 09/28/24 documented as of this encounter
--- OUTSIDE RECORDS SUMMARY | 2025-05-31 17:41 | XMS_ITS | Encounter Summary ---
Author Organization [facility] Address [address] [place] [address] Care Team Providers Care Paper Cup Machine Tender Name Role Phone Genejeyson Christian BARTH Primary Care Provider [phone] Encounter Details Date Type Department Care Team (Late st Contact Info) Description 10/09/2024 Lab Requisition [facility] - Main Lab [address] [facility] [place] [address] Samuel Doran MD [address] [place] [id number] Encounter for other general examination Social History [...] AM EDT) WBC 14.8(H) 4.8 - 10.8 K/[facility] LAB HEMETOLOGY METHOD 10/09/2024 10:57 AM [...] Res ult [facility] [address] [place] [address], [place] [phone] * (ABNORMAL) Basic metabolic panel (10/09/2024 4:53 [...] LAB CHEMISTRY METHOD 10/09/2024 11:33 AM EDT [facility] Blood Venous blood specimen / Unknown Venipuncture / Unknown 10/09/2024 4:53 AM EDT 10/09/2024 9:55 AM EDT us Samuel Doran MD LAB BLOOD ORDERABLES Final Res ult [facility] [address] [place] [address], documented in this encounter Visit Diagnoses Diagnosis Encounter for other general examination documented in this encounter Care Teams Paper Cup Machine Tender Relationship Specialty Start Date End Date Christian Garza PA [address] [place] [address] PCP - General 09/28/24 documented as of this encounter
--- OUTSIDE RECORDS SUMMARY | 2025-05-31 17:41 | XMS_ITS | Patient Health Record ---
Author Organization [facility] Address [address] [facility] [place] [address] Care Team Providers Care Merchandise Flow Team Member Name Role Phone Yolanda Alfaro MD Primary Care Provider Unavail able Nick Reynolds Unavailable [phone] Reason For Referral No Information Medications Medication [...] Treatment Pending Test Test Name Order Date [id number] NAIL, 6 OR MORE 08/17/2011 [id number] NAIL, 6 OR MORE 08/15/2012 [id number] Plate 08/15/2012 [id number] Plate 08/17/2011 [id number] SKIN LESIONS, OVER 4 08/17/19 12 [id number] SKIN LESIONS, OVER 4 08/16/19 13 Insurance Providers Payer Name Payer Address Payer Phone Subscriber Number Group Number Insured Name Patient Relationship to Insured Coverage Start Date Coverage End Date [facility] [address] [place] [address] [id number] Kranthi Barroso Spouse - patient is the spouse of the insured Medical (General) History Medical History History ICD Code chicken pox diabetes mellitus hypertension psoriasis Surgical History Surgery Date(Month/Year) foot surgery 03/2012 ankle surgery 03/2012 Hospitalization History Reason Date(Month/Year) [place] broken ankle and foot 03/2012
--- OUTSIDE RECORDS SUMMARY | 2025-05-31 17:41 | XMS_ITS | Encounter Summary ---
Author Organization [facility] Address [address] [place] [address] Care Team Providers Care Automation Clerk Name Role Phone Genejeyson Christian BARTH Primary Care Provider [phone] Encounter Details Date Type Department Care Team (Late st Contact Info) Description 09/29/2024 Lab Requisition [facility] - Main Lab [address] [facility] [place] [address] Samuel Doran MD [address] [place] [address] Encounter for other general examination Social History [...] AM EDT) WBC 12.3(H) 4.8 - 10.8 K/[facility] LAB HEMETOLOGY METHOD 09/29/2024 10:[address] [facility] LAB RBC 4.00 3.80 - 4.80 M/mcL LAB HEMETOLOGY METHOD 09/29/2024 10:[address] [facility] LAB Hemoglobin 11.7 11.5 - 16.0 g/dL LAB HEMETOLOGY METHOD 09/29/2024 10:[address] [facility] LAB Hematocrit 37.0 35.0 - 47.0 % LAB HEMETOLOGY METHOD 09/29/2024 10:[address] [facility] LAB MCV 93.0 79.0 - 98.0 FL LAB HEMETOLOGY METHOD 09/29/2024 10:[address] [facility] LAB MCH 29.4 27.0 - 32.0 pcg LAB HEMETOLOGY METHOD 09/29/2024 10:[address] [facility] LAB MCHC 31.6(L) 32.0 - 37.0 g/dL LAB HEMETOLOGY METHOD 09/29/2024 10:[address] [facility] LAB RDW 14.8 11.0 - 15.0 % LAB HEMETOLOGY METHOD 09/29/2024 10:[address] [facility] LAB Platelets 301 130 - 400 K/mcL LAB HEMETOLOGY METHOD 09/29/2024 10:[address] [facility] LAB MPV 8.8 7.0 - 11.0 FL LAB HEMETOLOGY METHOD 09/29/2024 10:[address] [facility] LAB NRBC 0.0 <1.0 % LAB HEMETOLOGY METHOD 09/29/2024 10:[address] [facility] LAB NRBC Absolute 0.00 <0.10 K/mcL LAB HEMETOLOGY METHOD 09/29/2024 10:[address] [facility] LAB Neutrophils Relative 70.3 % LAB HEMETOLOGY METHOD 09/29/2024 10:[address] [facility] LAB Lymphocytes Relative 19.9 % LAB HEMETOLOGY METHOD 09/29/2024 10:[address] [facility] Monocytes Relative 8.2 % LAB HEMETOLOGY METHOD 09/29/2024 10:[address] [facility] LAB Eosinophils Relative 0.9 % LAB HEMETOLOGY METHOD 09/29/2024 10:[address] [facility] Basophils Relative 0.2 % LAB HEMETOLOGY METHOD 09/29/2024 10:[address] [facility] LAB Immature Granulocytes Relative 0.5 % LAB HEMETOLOGY METHOD 09/29/2024 10:[address] [facility] LAB Neutrophils Absolute 8.67(H) 1.50 - 7.00 K/mcL LAB HEMETOLOGY METHOD 09/29/2024 10:[address] [facility] LAB Lymphocytes Absolute 2.45 1.00 - 5.00 K/mcL LAB HEMETOLOGY METHOD 09/29/2024 10:[address] [facility] LAB Monocytes Absolute 1.01(H) 0.20 - 1.00 K/mcL LAB HEMETOLOGY METHOD 09/29/2024 10:[address] [facility] LAB Eosinophils Absolute 0.11 0.00 - 0.50 K/mcL LAB HEMETOLOGY METHOD 09/29/2024 10:[address] [facility] LAB Basophils Absolute 0.03 0.00 - 0.20 K/mcL LAB HEMETOLOGY METHOD 09/29/2024 10:[address] [facility] LAB Immature Granulocytes Absolute 0.06(H) 0.00 - 0.03 K/mcL LAB HEMETOLOGY METHOD 09/29/2024 10:[address] [facility] LAB Blood Venous blood specimen / Unknown Venipuncture / Unknown 09/29/2024 5:36 AM EDT 09/29/2024 9:45 AM EDT us Samuel Doran MD LAB BLOOD ORDERABLES Final Res ult [facility] [address] [place] [address], [place] [phone] * (ABNORMAL) Comprehensive metabolic panel (09/29/2024 5:36 AM EDT) Pathologist [facility] Sodium 137 133 - 145 mmol/L LAB CHEMISTRY METHOD 09/29/2024 11:[address] [facility] Potassium 4.4 3.5 - 5.5 mmol/L LAB CHEMISTRY METHOD 09/29/2024 11:[address] [facility] Chloride 98 96 - 110 mmol/L LAB CHEMISTRY METHOD 09/29/2024 11:[address] [facility] CO2 31 21 - 32 mmol/L LAB CHEMISTRY METHOD 09/29/2024 11:[address] [facility] Anion Gap 8 3 - 11 LAB CHEMISTRY METHOD 09/29/2024 11:[address] [facility] Glucose 78 70 - 100 mg/dL LAB CHEMISTRY METHOD 09/29/2024 11:[address] [facility] BUN 22 5 - 25 mg/dL LAB CHEMISTRY METHOD 09/29/2024 11:[address] [facility] Creatinine 0.69 0.50 - 1.10 mg/dL LAB CHEMISTRY METHOD 09/29/2024 11:[address] [facility] LAB eGFR 101 >=60 mL/min/1. 73m2 LAB CHEMISTRY METHOD 09/29/2024 11:[address] [facility] LAB Comment:Calculation based on the Chronic Kidney Disease Epidemiology Collaboration (CKD-EPI) equation refit without adjustment for race. BUN/Creatinine Ratio 31.9 LAB CHEMISTRY METHOD 09/29/2024 11:[address] [facility] Calcium 9.8 8.5 - 10.5 mg/dL LAB CHEMISTRY METHOD 09/29/2024 11:[address] [facility] AST (SGOT) 25 10 - 42 unit/L LAB CHEMISTRY METHOD 09/29/2024 11:[address] [facility] ALT (SGPT) 72(H) 10 - 60 unit/L LAB CHEMISTRY METHOD 09/29/2024 11:[address] [facility] Alkaline Phosphatase 76 42 - 121 unit/L LAB CHEMISTRY METHOD 09/29/2024 11:[address] [facility] Total Protein 5.8(L) 6.0 - 8.0 g/dL LAB CHEMISTRY METHOD 09/29/2024 11:[address] [facility] Albumin 3.0(L) 3.2 - 5.0 g/dL LAB CHEMISTRY METHOD 09/29/2024 11:[address] [facility] Total Bilirubin 0.5 0.0 - 1.4 mg/dL LAB CHEMISTRY METHOD 09/29/2024 11:[address] [facility] Blood Venous blood specimen / Unknown Venipuncture / Unknown 09/29/2024 5:36 AM EDT 09/29/2024 9:45 AM EDT us Samuel Doran MD LAB BLOOD ORDERABLES Final Res ult [facility] [address] [place] [address], documented in this encounter Visit Diagnoses Diagnosis Encounter for other general examination documented in this encounter Care Teams Automation Clerk Relationship Specialty Start Date End Date Christian Garza PA [facility] [place] [address] PCP - General 09/28/24 documented as of this encounter
--- OUTSIDE RECORDS SUMMARY | 2025-05-31 17:41 | XMS_ITS | Encounter Summary ---
Author Organization [facility] Address [address] [place] [address] Care Team Providers Care Powerhouse Mechanic Helper Name Role Phone Greg Christian BARTH Primary Care Provider [phone] Encounter Details Date Type Department Care Team (Late st Contact Info) Description 09/28/2024 Lab Requisition [facility] - Main Lab [address] [facility] [address] [place] [address] Samuel Doran MD [address] [place] [address] Dysuria Social History Tobacco Use Types Packs/Day [...] and culture (09/28/2024 5:30 AM EDT) Specific [place] Urine 1.017 1.003 - 1.030 LAB URINALYSIS - AUTOMATED METHOD 09/28/2024 11:08 AM [facility] LAB pH, Urine 8.0 5.0 - 8.0 pH LAB URINALYSIS - AUTOMATED METHOD 09/28/2024 11:08 AM [facility] LAB Leukocytes, Urine Negative Negative LAB URINALYSIS - AUTOMATED METHOD 09/28/2024 11:08 AM [facility] Nitrite, Urine Negative Negative LAB URINALYSIS - AUTOMATED METHOD 09/28/2024 11:08 AM [facility] Protein, Urine Negative <=Trace mg/dL LAB URINALYSIS - AUTOMATED METHOD 09/28/2024 11:08 AM [facility] Glucose, Urine Negative Negative mg/dL LAB URINALYSIS - AUTOMATED METHOD 09/28/2024 11:08 AM [facility] Ketones, Urine Negative Negative mg/dL LAB URINALYSIS - AUTOMATED METHOD 09/28/2024 11:08 AM [facility] LAB Urobilinogen, Urine 2.0(A) 0.2 - 1.0 mg/dL LAB URINALYSIS - AUTOMATED METHOD 09/28/2024 11:08 AM [facility] Bilirubin, Urine Negative Negative LAB URINALYSIS - AUTOMATED METHOD 09/28/2024 11:08 AM [facility] Blood, Urine Negative Negative LAB URINALYSIS - AUTOMATED METHOD 09/28/2024 11:08 AM [facility] LAB Urine Urine specimen obtained by clean catch procedure / Unknown Non-blood Collection / Unknown 09/28/2024 5:30 AM EDT 09/28/2024 9:49 AM EDT us Samuel Doran MD LAB URINE ORDERABLES Final Res ult [facility] [address] [place] [address], * Ndiaye urine culture tube (09/28/2024 5:30 AM EDT) Extra Tube Hold for add-ons. 09/28/2024 11:01 AM EDT [facility] Comment:Auto resulted. Urine Urine specimen obtained by clean catch procedure / Unknown Non-blood Collection / Unknown 09/28/2024 5:30 AM EDT 09/28/2024 9:49 AM EDT us Samuel Doran MD LAB URINE ORDERABLES Final Res ult [facility] [address] [place] [address], documented in this encounter Visit Diagnoses Diagnosis Dysuria documented in this encounter Care Teams Powerhouse Mechanic Helper Relationship Specialty Start Date End Date Christian Garza PA [address] [place] [address] PCP - General 09/28/24 documented as of this encounter
--- OUTSIDE RECORDS SUMMARY | 2025-05-31 17:41 | XMS_ITS | Encounter Summary ---
Author Organization [facility] Address [address] [place] [address] Care Team Providers Care Emr Specialist Name Role Phone Genejeyson Christian BARTH Primary Care Provider [phone] Encounter Details Date Type Department Care Team (Late st Contact Info) Description 09/25/2024 Lab Requisition [facility] - Main Lab 299 [facility] [place] [address] Samuel Doran MD [address] [place] [address] Encounter for other general examination Social History [...] AM EDT) WBC 11.0(H) 4.8 - 10.8 K/[facility] LAB HEMETOLOGY METHOD 09/25/2024 10:38 AM [facility] RBC 3.70(L) 3.80 - 4.80 M/mcL LAB HEMETOLOGY METHOD 09/25/2024 10:38 AM [facility] LAB Hemoglobin 10.9(L) 11.5 - 16.0 g/dL LAB HEMETOLOGY METHOD 09/25/2024 10:38 AM [facility] LAB Hematocrit 33.5(L) 35.0 - 47.0 % LAB HEMETOLOGY METHOD 09/25/2024 10:38 AM [facility] LAB MCV 91.0 79.0 - 98.0 FL LAB HEMETOLOGY METHOD 09/25/2024 10:38 AM [facility] LAB MCH 29.6 27.0 - 32.0 pcg LAB HEMETOLOGY METHOD 09/25/2024 10:38 AM [facility] LAB MCHC 32.5 32.0 - 37.0 g/dL LAB HEMETOLOGY METHOD 09/25/2024 10:38 AM [facility] LAB RDW 14.6 11.0 - 15.0 % LAB HEMETOLOGY METHOD 09/25/2024 10:38 AM [facility] LAB Platelets 224 130 - 400 K/mcL LAB HEMETOLOGY METHOD 09/25/2024 10:38 AM [facility] LAB MPV 9.4 7.0 - 11.0 FL LAB HEMETOLOGY METHOD 09/25/2024 10:38 AM [facility] LAB NRBC 0.0 <1.0 % LAB HEMETOLOGY METHOD 09/25/2024 10:38 AM [facility] LAB NRBC Absolute 0.00 <0.10 K/mcL LAB HEMETOLOGY METHOD 09/25/2024 10:38 AM [facility] LAB Neutrophils Relative 64.3 % LAB HEMETOLOGY METHOD 09/25/2024 10:38 AM [facility] LAB Lymphocytes Relative 27.2 % LAB HEMETOLOGY METHOD 09/25/2024 10:38 AM [facility] LAB Monocytes Relative 6.9 % LAB HEMETOLOGY METHOD 09/25/2024 10:38 AM [facility] LAB Eosinophils Relative 1.0 % LAB HEMETOLOGY METHOD 09/25/2024 10:38 AM [facility] LAB Basophils Relative 0.2 % LAB HEMETOLOGY METHOD 09/25/2024 10:38 AM [facility] LAB Immature Granulocytes Relative 0.4 % LAB HEMETOLOGY METHOD 09/25/2024 10:38 AM [facility] LAB Neutrophils Absolute 7.09(H) 1.50 - 7.00 K/mcL LAB HEMETOLOGY METHOD 09/25/2024 10:38 AM [facility] LAB Lymphocytes Absolute 3.00 1.00 - 5.00 K/mcL LAB HEMETOLOGY METHOD 09/25/2024 10:38 AM [facility] LAB Monocytes Absolute 0.76 0.20 - 1.00 K/mcL LAB HEMETOLOGY METHOD 09/25/2024 10:38 AM [facility] LAB Eosinophils Absolute 0.11 0.00 - 0.50 K/mcL LAB HEMETOLOGY METHOD 09/25/2024 10:38 AM [facility] LAB Basophils Absolute 0.02 0.00 - 0.20 K/mcL LAB HEMETOLOGY METHOD 09/25/2024 10:38 AM [facility] LAB Immature Granulocytes Absolute 0.04(H) 0.00 - 0.03 K/mcL LAB HEMETOLOGY METHOD 09/25/2024 10:38 AM [facility] LAB Blood Venous blood specimen / Unknown Venipuncture / Unknown 09/25/2024 5:25 AM EDT 09/25/2024 9:26 AM EDT us Samuel Doran MD LAB BLOOD ORDERABLES Final Res ult [facility] [address] [place] [address], [place] [phone] * (ABNORMAL) Comprehensive metabolic panel (09/25/2024 5:25 AM EDT) Sodium 141 133 - 145 mmol/L LAB CHEMISTRY METHOD 09/25/2024 11:08 AM [facility] Potassium 4.0 3.5 - 5.5 mmol/L LAB CHEMISTRY METHOD 09/25/2024 11:08 AM [facility] Chloride 104 96 - 110 mmol/L LAB CHEMISTRY METHOD 09/25/2024 11:08 AM [facility] LAB CO2 31 21 - 32 mmol/L LAB CHEMISTRY METHOD 09/25/2024 11:08 AM [facility] LAB Anion Gap 6 3 - 11 LAB CHEMISTRY METHOD 09/25/2024 11:08 AM [facility] Glucose 49(L) 70 - 100 mg/dL LAB CHEMISTRY METHOD 09/25/2024 11:08 AM [facility] BUN 21 5 - 25 mg/dL LAB CHEMISTRY METHOD 09/25/2024 11:08 AM [facility] LAB Creatinine 0.50 0.50 - 1.10 mg/dL LAB CHEMISTRY METHOD 09/25/2024 11:08 AM [facility] LAB eGFR 109 >=60 mL/min/1. 73m2 LAB CHEMISTRY METHOD 09/25/2024 11:08 AM [facility] LAB Comment:Calculation based on the Chronic Kidney Disease Epidemiology Collaboration (CKD-EPI) equation refit without adjustment for race. BUN/Creatinine Ratio 42.0 LAB CHEMISTRY METHOD 09/25/2024 11:08 AM [facility] Calcium 9.3 8.5 - 10.5 mg/dL LAB CHEMISTRY METHOD 09/25/2024 11:08 AM [facility] AST (SGOT) 34 10 - 42 unit/L LAB CHEMISTRY METHOD 09/25/2024 11:08 AM [facility] LAB ALT (SGPT) 63(H) 10 - 60 unit/L LAB CHEMISTRY METHOD 09/25/2024 11:08 AM [facility] LAB Alkaline Phosphatase 61 42 - 121 unit/L LAB CHEMISTRY METHOD 09/25/2024 11:08 AM [facility] Total Protein 5.7(L) 6.0 - 8.0 g/dL LAB CHEMISTRY METHOD 09/25/2024 11:08 AM [facility] Albumin 2.8(L) 3.2 - 5.0 g/dL LAB CHEMISTRY METHOD 09/25/2024 11:08 AM [facility] Total Bilirubin 0.6 0.0 - 1.4 mg/dL LAB CHEMISTRY METHOD 09/25/2024 11:08 AM [facility] LAB Blood Venous blood specimen / Unknown Venipuncture / Unknown 09/25/2024 5:25 AM EDT 09/25/2024 9:26 AM EDT us Samuel Doran MD LAB BLOOD ORDERABLES Final Res ult [facility] [address] [place] [address], documented in this encounter Visit Diagnoses Diagnosis Encounter for other general examination documented in this encounter Care Teams Emr Specialist Relationship Specialty Start Date End Date Christian Garza PA [address] [place] [address] PCP - General 09/28/24 documented as of this encounter
--- OUTSIDE RECORDS SUMMARY | 2025-05-31 17:41 | XMS_ITS | Encounter Summary ---
Author Organization [facility] Address [address] [place] [address] Care Team Providers Care Wet Finisher Name Role Phone Genejeyson Christian BARTH Primary Care Provider [phone] Encounter Details Date Type Department Care Team (Late st Contact Info) Description 09/18/2024 Lab Requisition [facility] - Main Lab 299 [facility] [place] [address] Samuel Doran MD [address] [place] [address] Encounter for other general examination Social History [...] CBC auto differential (09/18/2024 5:35 AM EDT) [facility] WBC 13.8(H) 4.8 - 10.8 K/mcL LAB HEMETOLOGY METHOD 09/18/2024 11:36 AM [facility] RBC 3.80 3.80 - 4.80 M/mcL LAB HEMETOLOGY METHOD 09/18/2024 11:36 AM [facility] LAB Hemoglobin 10.9(L) 11.5 - 16.0 g/dL LAB HEMETOLOGY METHOD 09/18/2024 11:36 AM [facility] LAB Hematocrit 33.1(L) 35.0 - 47.0 % LAB HEMETOLOGY METHOD 09/18/2024 11:36 AM [facility] LAB MCV 87.6 79.0 - 98.0 FL LAB HEMETOLOGY METHOD 09/18/2024 11:36 AM [facility] LAB MCH 28.8 27.0 - 32.0 pcg LAB HEMETOLOGY METHOD 09/18/2024 11:36 AM [facility] LAB MCHC 32.9 32.0 - 37.0 g/dL LAB HEMETOLOGY METHOD 09/18/2024 11:36 AM [facility] LAB RDW 13.6 11.0 - 15.0 % LAB HEMETOLOGY METHOD 09/18/2024 11:36 AM [facility] LAB Platelets 230 130 - 400 K/mcL LAB HEMETOLOGY METHOD 09/18/2024 11:36 AM [facility] LAB MPV 9.3 7.0 - 11.0 FL LAB HEMETOLOGY METHOD 09/18/2024 11:36 AM [facility] LAB NRBC 0.0 <1.0 % LAB HEMETOLOGY METHOD 09/18/2024 11:36 AM [facility] LAB NRBC Absolute 0.00 <0.10 K/mcL LAB HEMETOLOGY METHOD 09/18/2024 11:36 AM [facility] Neutrophils Relative 70.6 % LAB HEMETOLOGY METHOD 09/18/2024 11:36 AM [facility] Lymphocytes Relative 21.1 % LAB HEMETOLOGY METHOD 09/18/2024 11:36 AM [facility] Monocytes Relative 7.1 % LAB HEMETOLOGY METHOD 09/18/2024 11:36 AM [facility] Eosinophils Relative 0.7 % LAB HEMETOLOGY METHOD 09/18/2024 11:36 AM [facility] Basophils Relative 0.1 % LAB HEMETOLOGY METHOD 09/18/2024 11:36 AM [facility] Immature Granulocytes Relative 0.4 % LAB HEMETOLOGY METHOD 09/18/2024 11:36 AM [facility] LAB Neutrophils Absolute 9.75(H) 1.50 - 7.00 K/mcL LAB HEMETOLOGY METHOD 09/18/2024 11:36 AM [facility] Lymphocytes Absolute 2.92 1.00 - 5.00 K/mcL LAB HEMETOLOGY METHOD 09/18/2024 11:36 AM [facility] Monocytes Absolute 0.98 0.20 - 1.00 K/mcL LAB HEMETOLOGY METHOD 09/18/2024 11:36 AM [facility] Eosinophils Absolute 0.09 0.00 - 0.50 K/mcL LAB HEMETOLOGY METHOD 09/18/2024 11:36 AM [facility] Basophils Absolute 0.02 0.00 - 0.20 K/mcL LAB HEMETOLOGY METHOD 09/18/2024 11:36 AM [facility] Immature Granulocytes Absolute 0.06(H) 0.00 - 0.03 K/mcL LAB HEMETOLOGY METHOD 09/18/2024 11:36 AM [facility] Blood Venous blood specimen / Unknown Venipuncture / Unknown 09/18/2024 5:35 AM EDT 09/18/2024 11:00 AM EDT Samuel Doran MD LAB BLOOD ORDERABLES Final Res ult Performing Organization Address [facility]/ZIP Co de Phone Number [facility] [address] [place] [address], [place] [phone] * Magnesium (09/18/2024 5:35 AM EDT) Magnesium 2.6 1.9 - 2.6 mg/dL LAB CHEMISTRY METHOD 09/18/2024 1:[address] [facility] Blood Venous blood specimen / Unknown Venipuncture / Unknown 09/18/2024 5:35 AM EDT 09/18/2024 11:00 AM EDT Samuel Doran MD LAB BLOOD ORDERABLES Final Res ult Performing Organization Address [facility]/ZIP Co de Phone Number [facility] [address] [place] [address], [place] [phone] * (ABNORMAL) Comprehensive metabolic panel (09/18/2024 5:35 AM EDT) Sodium 140 133 - 145 mmol/L LAB CHEMISTRY METHOD 09/18/2024 1:[address] [facility] Potassium 4.1 3.5 - 5.5 mmol/L LAB CHEMISTRY METHOD 09/18/2024 1:[address] [facility] Chloride 102 96 - 110 mmol/L LAB CHEMISTRY METHOD 09/18/2024 1:[address] [facility] CO2 32 21 - 32 mmol/L LAB CHEMISTRY METHOD 09/18/2024 1:[address] [facility] Anion Gap 6 3 - 11 LAB CHEMISTRY METHOD 09/18/2024 1:19 PM [facility] Glucose 175(H) 70 - 100 mg/dL LAB CHEMISTRY METHOD 09/18/2024 1:19 PM [facility] BUN 19 5 - 25 mg/dL LAB CHEMISTRY METHOD 09/18/2024 1:19 PM [facility] Creatinine 0.63 0.50 - 1.10 mg/dL LAB CHEMISTRY METHOD 09/18/2024 1:19 PM [facility] eGFR 103 >=60 mL/min/1. 73m2 LAB CHEMISTRY METHOD 09/18/2024 1:19 PM [facility] Comment:Calculation based on the Chronic Kidney Disease Epidemiology Collaboration (CKD-EPI) equation refit without adjustment for race. BUN/Creatinine Ratio 30.2 LAB CHEMISTRY METHOD 09/18/2024 1:19 PM [facility] Calcium 9.0 8.5 - 10.5 mg/dL LAB CHEMISTRY METHOD 09/18/2024 1:19 PM [facility] AST (SGOT) 26 10 - 42 unit/L LAB CHEMISTRY METHOD 09/18/2024 1:19 PM [facility] ALT (SGPT) 48 10 - 60 unit/L LAB CHEMISTRY METHOD 09/18/2024 1:19 PM [facility] Alkaline Phosphatase 61 42 - 121 unit/L LAB CHEMISTRY METHOD 09/18/2024 1:19 PM [facility] Total Protein 5.4(L) 6.0 - 8.0 g/dL LAB CHEMISTRY METHOD 09/18/2024 1:19 PM [facility] Albumin 2.7(L) 3.2 - 5.0 g/dL LAB CHEMISTRY METHOD 09/18/2024 1:19 PM [facility] Total Bilirubin 0.7 0.0 - 1.4 mg/dL LAB CHEMISTRY METHOD 09/18/2024 1:19 PM EDT [facility] Blood Venous blood specimen / Unknown Venipuncture / Unknown 09/18/2024 5:35 AM EDT 09/18/2024 11:00 AM EDT us Samuel Doran MD LAB BLOOD ORDERABLES Final Res ult [facility] [address] [place] [address], documented in this encounter Visit Diagnoses Diagnosis Encounter for other general examination documented in this encounter Care Teams Wet Finisher Relationship Specialty Start Date End Date Christian Garza PA [address] [place] [phone] PCP - General 09/28/24 documented as of this encounter
--- OUTSIDE RECORDS SUMMARY | 2025-05-31 17:41 | XMS_ITS | Encounter Summary ---
Author Organization [facility] Address [address] [place] [address] Care Team Providers Care Bog Worker Name Role Phone Greg Christian BARTH Primary Care Provider [phone] Encounter Details Date Type Department Care Team (Late st Contact Info) Description 10/04/2024 Lab Requisition [facility] - Main Lab [address] [facility] [place] [address] Samuel Doran MD [address] [place] [id number] Dysuria Social History Tobacco Use Types Packs/Day [...] Escherichia coli(A) LOUISA 10/06/2024 10:26 AM EDT [facility] Urine Urine specimen obtained by clean catch procedure / Unknown Non-blood Collection / Unknown 10/03/2024 9:00 AM EDT 10/04/2024 11:35 AM EDT Narrative [facility] - 10/06/2024 10:26 AM EDT [...] MICROBIOLOGY - GENERAL ORD ERABLES Final Result [facility] [address] [place] [address], * Ndiaye urine culture tube (10/03/2024 9:00 AM EDT) Extra Tube Hold for add-ons. 10/04/2024 12:01 PM EDT [facility] Comment:Auto resulted. Urine Urine specimen obtained by clean catch procedure / Unknown Non-blood Collection / Unknown 10/03/2024 9:00 AM EDT 10/04/2024 10:46 AM EDT us Samuel Doran MD LAB URINE ORDERABLES Final Res ult [facility] [address] [place] [address], [place] [phone] * (ABNORMAL) Urinalysis with reflex microscopic and culture (10/03/2024 9:00 AM EDT) Specific [place] Urine 1.012 1.003 - 1.030 LAB URINALYSIS - AUTOMATED METHOD 10/04/2024 11:35 AM [facility] pH, Urine 7.0 5.0 - 8.0 pH LAB URINALYSIS - AUTOMATED METHOD 10/04/2024 11:35 AM [facility] Leukocytes, Urine Large(A) Negative LAB URINALYSIS - AUTOMATED METHOD 10/04/2024 11:35 AM [facility] Nitrite, Urine Positive(A) Negative LAB URINALYSIS - AUTOMATED METHOD 10/04/2024 11:35 AM [facility] Protein, Urine 30(A) <=Trace mg/dL LAB URINALYSIS - AUTOMATED METHOD 10/04/2024 11:35 AM [facility] Glucose, Urine Negative Negative mg/dL LAB URINALYSIS - AUTOMATED METHOD 10/04/2024 11:35 AM [facility] Ketones, Urine Negative Negative mg/dL LAB URINALYSIS - AUTOMATED METHOD 10/04/2024 11:35 AM [facility] Urobilinogen , Urine 0.2 0.2 - 1.0 mg/dL LAB URINALYSIS - AUTOMATED METHOD 10/04/2024 11:35 AM [facility] Bilirubin, Urine Negative Negative LAB URINALYSIS - AUTOMATED METHOD 10/04/2024 11:35 AM [facility] Blood, Urine Large(A) Negative LAB URINALYSIS - AUTOMATED METHOD 10/04/2024 11:35 AM [facility] RBC, Urine 300.2(H) 0 - 4 /HPF LAB URINALYSIS - AUTOMATED METHOD 10/04/2024 11:35 AM [facility] WBC, Urine 1,862.7(H) 0 - 4 /HPF LAB URINALYSIS - AUTOMATED METHOD 10/04/2024 11:35 AM [facility] Squamous Epithelial, Urine 40 0 - 60 /LPF LAB URINALYSIS - AUTOMATED METHOD 10/04/2024 11:35 AM [facility] Bacteria, Urine Moderate(A) Negative /HPF LAB URINALYSIS - AUTOMATED METHOD 10/04/2024 11:35 AM [facility] Hyaline Casts, Urine 1.4 0 - 3 /LPF LAB URINALYSIS - AUTOMATED METHOD 10/04/2024 11:35 AM [facility] Urine Urine specimen obtained by clean catch procedure / Unknown Non-blood Collection / Unknown 10/03/2024 9:00 AM EDT 10/04/2024 10:46 AM EDT us Samuel Doran MD LAB URINE ORDERABLES Final Res ult [facility] [address] [place] [address], documented in this encounter Visit Diagnoses Diagnosis Dysuria documented in this encounter Care Teams Bog Worker Relationship Specialty Start Date End Date Christian Garza PA [address] [place] [address] PCP - General 09/28/24 documented as of this encounter
--- OUTSIDE RECORDS SUMMARY | 2025-05-31 17:41 | XMS_ITS | Encounter Summary ---
Author Organization [facility] Address [address] [place] [address] Care Team Providers Care Car Deliverer Name Role Phone Genejeyson Christian BARTH Primary Care Provider [phone] Encounter Details Date Type Department Care Team (Late st Contact Info) Description 10/05/2024 Lab Requisition [facility] - Main Lab [address] [facility] [employer] [place] [address] Samuel Doran MD [address] [place] [id number] Encounter for other general examination Social History [...] AM EDT) WBC 13.9(H) 4.8 - 10.8 K/[facility] LAB HEMETOLOGY METHOD 10/05/2024 1:17 PM [facility] RBC 4.10 3.80 - 4.80 M/mcL LAB HEMETOLOGY METHOD 10/05/2024 1:17 PM [facility] Hemoglobin 12.1 11.5 - 16.0 g/dL LAB HEMETOLOGY METHOD 10/05/2024 1:17 PM [facility] Hematocrit 38.7 35.0 - 47.0 % LAB HEMETOLOGY METHOD 10/05/2024 1:17 PM [facility] MCV 93.7 79.0 - 98.0 FL LAB HEMETOLOGY METHOD 10/05/2024 1:17 PM [facility] MCH 29.3 27.0 - 32.0 pcg LAB HEMETOLOGY METHOD 10/05/2024 1:17 PM [facility] MCHC 31.3(L) 32.0 - 37.0 g/dL LAB HEMETOLOGY METHOD 10/05/2024 1:17 PM [facility] RDW 14.6 11.0 - 15.0 % LAB HEMETOLOGY METHOD 10/05/2024 1:17 PM [facility] Platelets 276 130 - 400 K/mcL LAB HEMETOLOGY METHOD 10/05/2024 1:17 PM [facility] MPV 8.9 7.0 - 11.0 FL LAB HEMETOLOGY METHOD 10/05/2024 1:17 PM [facility] NRBC 0.0 <1.0 % LAB HEMETOLOGY METHOD 10/05/2024 1:17 PM [facility] NRBC Absolute 0.00 <0.10 K/mcL LAB HEMETOLOGY METHOD 10/05/2024 1:17 PM [facility] Neutrophils Relative 67.1 % LAB HEMETOLOGY METHOD 10/05/2024 1:17 PM [facility] Lymphocytes Relative 22.6 % LAB HEMETOLOGY METHOD 10/05/2024 1:17 PM [facility] Monocytes Relative 8.6 % LAB HEMETOLOGY METHOD 10/05/2024 1:17 PM [facility] Eosinophils Relative 0.9 % LAB HEMETOLOGY METHOD 10/05/2024 1:17 PM [facility] Basophils Relative 0.2 % LAB HEMETOLOGY METHOD 10/05/2024 1:17 PM [facility] Immature Granulocytes Relative 0.6 % LAB HEMETOLOGY METHOD 10/05/2024 1:17 PM [facility] Neutrophils Absolute 9.30(H) 1.50 - 7.00 K/mcL LAB HEMETOLOGY METHOD 10/05/2024 1:17 PM [facility] Lymphocytes Absolute 3.14 1.00 - 5.00 K/mcL LAB HEMETOLOGY METHOD 10/05/2024 1:17 PM [facility] Monocytes Absolute 1.19(H) 0.20 - 1.00 K/mcL LAB HEMETOLOGY METHOD 10/05/2024 1:17 PM [facility] Eosinophils Absolute 0.12 0.00 - 0.50 K/mcL LAB HEMETOLOGY METHOD 10/05/2024 1:17 PM [facility] Basophils Absolute 0.03 0.00 - 0.20 K/mcL LAB HEMETOLOGY METHOD 10/05/2024 1:17 PM [facility] Immature Granulocytes Absolute 0.09(H) 0.00 - 0.03 K/mcL LAB HEMETOLOGY METHOD 10/05/2024 1:17 PM [facility] Blood Venous blood specimen / Unknown Venipuncture / Unknown 10/05/2024 4:53 AM EDT 10/05/2024 11:42 AM EDT us Samuel Doran MD LAB BLOOD ORDERABLES Final Res ult [facility] [address] [place] [address], [place] [phone] * (ABNORMAL) Basic metabolic panel (10/05/2024 4:53 AM EDT) Sodium 136 133 - 145 mmol/L LAB CHEMISTRY METHOD 10/05/2024 1:06 PM [facility] Potassium 4.3 3.5 - 5.5 mmol/L LAB CHEMISTRY METHOD 10/05/2024 1:06 PM [facility] Chloride 95(L) 96 - 110 mmol/L LAB CHEMISTRY METHOD 10/05/2024 1:06 PM [facility] CO2 34(H) 21 - 32 mmol/L LAB CHEMISTRY METHOD 10/05/2024 1:06 PM [facility] Anion Gap 7 3 - 11 LAB CHEMISTRY METHOD 10/05/2024 1:06 PM [facility] Glucose 74 70 - 100 mg/dL LAB CHEMISTRY METHOD 10/05/2024 1:06 PM [facility] BUN 20 5 - 25 mg/dL LAB CHEMISTRY METHOD 10/05/2024 1:06 PM [facility] Creatinine 0.68 0.50 - 1.10 mg/dL LAB CHEMISTRY METHOD 10/05/2024 1:06 PM [facility] eGFR 101 >=60 mL/min/1. 73m2 LAB CHEMISTRY METHOD 10/05/2024 1:06 PM [facility] Comment:Calculation based on the Chronic Kidney Disease Epidemiology Collaboration (CKD-EPI) equation refit without adjustment for race. BUN/Creatinine Ratio 29.4 LAB CHEMISTRY METHOD 10/05/2024 1:06 PM [facility] Calcium 10.1 8.5 - 10.5 mg/dL LAB CHEMISTRY METHOD 10/05/2024 1:06 PM EDT [facility] Blood Venous blood specimen / Unknown Venipuncture / Unknown 10/05/2024 4:53 AM EDT 10/05/2024 11:42 AM EDT us Samuel Doran MD LAB BLOOD ORDERABLES Final Res ult [facility] [address] [place] [address], documented in this encounter Visit Diagnoses Diagnosis Encounter for other general examination documented in this encounter Care Teams Car Deliverer Relationship Specialty Start Date End Date Christian Garza PA [facility] [place] [address] PCP - General 09/28/24 documented as of this encounter
== END 2025-05-31 17:00 | disposition home or self-care (01) ==
LOC: HO.HMCFM 15:42
PROVIDERS: PCP Physician Assistant Medical; Visit Provider Physician Assistant Medical
DX: Z23 Encounter for immunization (principal)

== ENCOUNTER → 2025-05-31 15:41 | Outpatient (BNVA) | payer OTHER, SELFPAY | PROVIDERS: PCP Physician Assistant Medical; Visit Provider Physician Assistant Medical | DX: Z23 Encounter for immunization (principal) | CPT/HCPCS: 90471; 90656 ==